=== PATIENT | female | born 1970 | race Caucasian/White ===

== ENCOUNTER 2023-03-09 20:49 | Emergency (ER) | payer BC, SELFPAY ==
[2023-03-09 20:52] VITALS: BP 118/76; PULSE 87; RESP 16; TEMP 36.3; O2SAT 99; BMI 32.9
[2023-03-09 21:38] LABS: Appearance Urine Slightly Cloudy (Clear); Bilirubin Urine Negative (Negative); Blood Urine 2+ (Negative); Color Urine Yellow (Yellow); Glucose Urine 2+ (Negative); Ketones Urine Negative (Negative); Leukocyte Esterase Urine 1+ (Negative); Nitrite Urine Positive (Negative); Protein Urine Negative (Negative); Urobilinogen Urine 0.2 (0.2-1.0)
--- NOTE | 2023-03-09 21:49 | ED.FEMALEGU ---
HPI - Female Genitourinary General Chief complaint: Urogenital Problems, Female Stated complaint: possible bladder infection Time Seen by Provider: 03/09/23 21:03 History of Present Illness HPI Narrative: Patient is a 52-year-old woman comes in today with urinary frequency and dysuria of 2 days duration. She did online visit and was started on xvui-bzy-dhaizkg azo. She has had minimal flank pain no nausea no vomiting no fevers no chills. She otherwise been feeling well with no signs of sepsis syndrome. She is not prone to urinary tract infections. She does not take anticoagulants and is not allergic to any medications. She does noted discoloration of her urine as well as the above-mentioned symptoms. Related Data Home Medications Medication Instructions Recorded Confirmed atorvastatin 10 mg tablet 10 mg PO DAILY 03/09/23 03/09/23 empagliflozin 10 mg tablet 10 mg PO DAILY 03/09/23 03/09/23 (Jardiance) gabapentin 300 mg capsule mg PO 03/09/23 metformin 1,000 mg tablet 1,000 mg PO BID 03/09/23 03/09/23 montelukast 10 mg tablet 10 mg PO DAILY 03/09/23 03/09/23 semaglutide 1 mg/dose (4 mg/3 mL) 1 mg subcut QWEEK 03/09/23 03/09/23 subcutaneous pen injector (Ozempic) Allergies Allergy/AdvReac Type Severity Reaction Status Date / Time No Known Drug Allergies Allergy Verified 03/09/23 20:58 Review of Systems Status of ROS: Reports: 10 or more systems reviewed and unremarkable except as noted in History and below Exam Narrative: Exam Narrative: EXAM GENERAL: Patient appears comfortable and well. EYES: No scleral icterus. LYMPH: No supraclavicular or cervical lymphadenopathy. SKIN: Visible skin seen during exam normal or with benign process only. EXT: No dependent lower extremity pedal edema. HEART: Regular rate and rhythm with no murmurs, rubs, or gallops. LUNGS: Clear to auscultation bilaterally with no crackles or wheezes. ABD: Soft, non tender, non distended. PSYCH: Good eye contact, speech is not pressured. Const: Vital Signs, click to edit/add: Vital Signs - 24 hr 03/09/23 20:52 Temperature 97.4 F L Pulse Rate [Pulse Oximeter] 87 Respiratory Rate 16 Blood Pressure [Ri ght Upper Arm] 118/76 Pulse Oximetry 99 Oxygen Delivery Me thod Room Air Course Course ED Course: Patient seen examined. I do note the abnormal UA including glucose and I do note that she is diabetic. Vital Signs Vital signs: Initial Vital Signs Temperature 97.4 F L 03/09/23 20:52 Temperature Source Temporal Artery Scan 03/09/23 20:52 Pulse Rate 87 03/09/23 20:52 Respiratory Rate 16 03/09/23 20:52 Blood Pressure 118/76 03/09/23 20:52 Blood Pressure Mean 90 03/09/23 20:52 Pulse Oximetry 99 03/09/23 20:52 Oxygen Delivery Method Room Air 03/09/23 20:52 Vital Signs Temperature 97.4 F L 03/09/23 20:52 Pulse Rate 87 03/09/23 20:52 Respiratory Rate 16 03/09/23 20:52 Blood Pressure 118/76 03/09/23 20:52 Pulse Oximetry 99 03/09/23 20:52 Oxygen Delivery Method Room Air 03/09/23 20:52 Temperature 97.4 F L 03/09/23 20:52 Pulse Rate 87 03/09/23 20:52 Respiratory Rate 16 03/09/23 20:52 Blood Pressure 118/76 03/09/23 20:52 Pulse Oximetry 99 03/09/23 20:52 Oxygen Delivery Method Room Air 03/09/23 20:52 MDM - Female Genitourinary MDM Narrative Medical decision making narrative: Patient is a 52-year-old woman who presents with dysuria and a normal physical exam and vital signs. She has obvious findings of UTI on her urine. I did treated with Bactrim Double Strength for the next 5 days and asked that she drink plenty fluids get plenty of rest and follow-up with her primary physician as needed. Differential Diagnosis Differential diagnosis: Likely urinary tract infection, bacterial vaginosis, trichomoniasis, vaginitis and cystitis Lab Data Labs: Lab Results 03/09/23 Range/Units Unknown Urine Color Yellow (Yellow) Urine Appearance Slightly Cloudy A (Clear) Urine pH 7.0 (5.0-8.5) Ur Specific [place] 1.010 (1.000-1.030) Urine Protein Negative (Negative) Urine Glucose (UA) 2+ A (Negative) Urine Ketones Negative (Negative) Urine Blood 2+ A (Negative) Urine Nitrite Positive A (Negative) Urine Bilirubin Negative (Negative) Urine Urobilinogen 0.2 (0.2-1.0) Ur Leukocyte Esterase 1+ A (Negative) Discharge Plan Discharge Clinical Impression: Urinary tract infection Patient Disposition: Home, Self-Care Condition: Stable Instructions: Urinary Tract Infection in Women (ED) Additional Instructions: Bactrim as directed Activity Level: No Restrictions Discharge Diet: Regular Prescriptions: No Action atorvastatin 10 mg tablet 10 mg PO DAILY metformin 1,000 mg tablet 1,000 mg PO BID gabapentin 300 mg capsule PO montelukast 10 mg tablet 10 mg PO DAILY Jardiance 10 mg tablet 10 mg PO DAILY Ozempic 1 mg/dose (4 mg/3 mL) pen injector 1 mg subcut QWEEK Stand Alone Forms: MyHealth Info Instructions
[2023-03-09 21:51] LABS: Bacteria Urine Few
--- OUTSIDE RECORDS SUMMARY | 2023-03-09 22:04 | XMS_ITS | Referral Summary ---
Author Name Unknown Organization [facility] Address [address] [place] [address] Care Team Providers Care Pre Press Manager Name Role Phone Unavailable Primary Care Provider Unavailabl e Source Comments Patient records contain information from all sites at [facility]. For routine questions regarding patient records, call [phone] during business hours, M-F 8:00 AM - 5:00 PM Central Time. Record requests for emergency care only can be directed to [phone] at any time.[facility] Allergies Active Allergy Reactions Criticality Noted Date Comments Adhesive Rash 09/04/2013 Tegaderm Adhesive Tape-Silicones Rash 04/29/2013 Animal Dander Other (see comments) 06/25/2017 Cats and dogs: sinus and respiratory symptoms Hydromorphone Itching 03/14/2018 Grass Pollen Other (see comments) 06/25/2017 Sinus and respiratory symptoms Lisinopril Other (see comments) 04/25/2018 Mold Other (see comments) 06/25/2017 Sinus and respiratory symptoms Mold Extracts Other (see comments) 09/04/2013 Sinus and Respiratory Tree And Shrub Pollen Other (see comments) 06/25/2017 [place] tree - sinus and respiratory symptoms Medications Medication Sig Dispensed Refills Start Date End Date Status ASPIRIN CHILDRENS ORAL Take 81 mg by mouth daily. 0 01/24/2016 Active BIOTIN ORAL Take 1 capsule by mouth daily. 0 01/17/2017 Active multivitamin capsule Take 1 tablet by mouth daily. 0 04/29/2013 Active Lactobac no.41/Bifidobact no.7 (PROBIOTIC-10 ORAL) Take 1 capsule by mouth daily. 0 04/29/2013 Active albuterol sulfate (VENTOLIN HFA INHL) Inhale 1 puff as needed. 0 06/06/2017 Active cholecalciferol (VITAMIN D3) 125 mcg (5,000 Unit) tablet Take 5,000 Units by mouth as directed. twice weekly on Sundays and Wednesdays 0 01/17/2017 Active blood sugar diagnostic strips Test 1 time daily 0 07/30/2016 Active mdknsrb-eyaygqgjl-jt nc tablet Take 500 mg by mouth daily. 2 tablets daily/1000 mg total 0 07/09/2017 Active lancets Use to test blood sugar 1 time per day. 0 01/10/2017 Active metFORMIN (GLUCOPHAGE) 1,000 mg tablet Take 1,000 mg by mouth 2 (two) times a day with meals. 0 07/25/2017 Active atorvastatin (LIPITOR) 10 mg tablet Take 10 mg by mouth daily. 0 10/17/2018 Active semaglutide 0.25 mg or 0.5 mg(2 mg/1.5 mL) pen injector Inject 0.5 mg under the skin every 7 (seven) days. 0 01/23/2019 Active cetirizine (ZyrTEC) 10 mg tablet Take 10 mg by mouth daily. 0 Active empagliflozin (JARDIANCE) 10 mg tablet Take 1 tablet by mouth daily. 0 08/12/2020 Active gabapentin (NEURONTIN) 300 mg capsule 300 mg 2 (two) times a day. 0 02/24/2021 Active miscellaneous medical supply [facility] [place] New CPAP machine for home use at pressure: 5-16 cmw , Heated humidifier x 1 q 5 yr, Humidifier chamber x 1 q 6 mo, Full face mask x1 q 3mos, with cushion x 1 q mo, Heated tubing x 1 q 3 mo, Headgear x 1 q 6 mo, Filters: Disposable x 2 q mo non-disposable filters x1 q 6mo, Length of Need: 99 months, Frequency of use: Daily 0 09/20/2020 Active estradioL (ESTRACE) 0.1 mg/g (0.01%) vaginal cream 0 06/01/2022 Active montelukast (SINGULAIR) 10 mg tablet Take 10 mg by mouth daily. 0 06/01/2022 Active Active Problems Problem Noted Date Diagnosed Date Diabetes Mellitus Type 2 03/20/2018 Asthma Mild Persistent 03/20/2018 Malignant Neoplasm Of Cervix 03/14/2018 Cancer Staging:Clinical: Unsigned Pathologic:FIGO Stage IB1(pT1b1, pN0, cM0) - Signed by Pancho Hendrickson M.D. 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 Cancer Staging:Clinical: Unsigned Embolus Pulmonary Personal History 08/24/2013 Sarcoma 04/29/2013 Immunizations Name Administration Dates Next Due HepB Adult 05/04/2010,09/13/2009,08/12/2009 Influenza (IM) Preservative Free 12/13/2011,11/11 Influenza Split 12/22/2015,11/11/2014,11/11/2013 Influenza, Seasonal, Injectable 11/03/2012 Influenza, Unspecified 10/25/2017,11/16/2016 MMR 06/04/2012 PPSV23 03/17/2014,07/12/2009 Td Preservative Free (TENIVAC, DECAVAC) 07/14/19 06 Tdap 06/18/2011 influenza high dose (65 year s or older) (PF) 12/22/2015,11/11/2014,11/11/2013 influenza vaccine quad (FLUZ ONE/FLUARIX) (6 months and older)(PF) 11/16/2016,11/15/2015 Social History Tobacco Use Types Packs/Day Years Used Date Smoking Tobacco: Former Cigarettes 5 1 - 12/26/1996 Smokeless Tobacco: Never Comments:smoked up to 1/2 pa ck per day maximum Alcohol Use Standard Drinks/Week Comments Yes 1 (1 standard drink = 0.6 oz pur e alcohol) Humiliation, Afraid, Rape, and Kick questionnair e Answer Date Recorded Within the last year, have y ou been afraid of your partner or ex-partner? No 06/09/2022 Within the last year, have y ou been humiliated or emotionally abused in other ways by your partner or ex-partner? No Within the last year, have y ou been kicked, hit, slapped, or otherwise physically hurt by your partner or ex-partner? No 06/09/2022 Within the last year, have y ou been raped or forced to have any kind of sexual activity by your partner or ex-partner? No 06/09/2022 Social Connection and Isolat ion Panel [NHANES] Answer Date Recorded In a typical week, how many times do you talk on the phone with family, friends, or neighbors? More than three times a week 06/09/2022 How often do you get togethe r with friends or relatives? Once a week 06/09/2022 How often do you attend chur or denominational services? 1 to 4 times per year 06/09/2022 Do you belong to any clubs o r organizations such as islam groups, unions, fraternal or athletic groups, or school groups? Yes 06/09/2022 How often do you attend meet ings of the clubs or organizations you belong to? More than 4 times per year 06/09/2022 Are you , , di vorced, , never , or living with a partner? 06/09/2022 AUDIT-C Answer Date Recorded Q1: How often do you have a drink containing alcohol? Monthly or less 06/09/2022 Q2: How many drinks containi ng alcohol do you have on a typical day when you are drinking? Patient does not drink Q3: How often do you have si x or more drinks on one occasion? Never 06/09/2022 Overall Financial Resource Strain (CARDIA) Answe r Date Recorded How hard is it for you to pa y for the very basics like food, housing, medical care, and heating? Not very hard 06/09/2022 [facility] Occupat ional Health - Occupational Stress Questionnaire Answer Date Recorded Do you feel stress - tense, restless, nervous, or anxious, or unable to sleep at night because your mind is troubled all the time - these days? Not at all 06/09/2022 Exercise Vital Sign Answer Date Recorde d On average, how many days pe r week do you engage in moderate to strenuous exercise (like a brisk walk)? 3 days 06/09/2022 On average, how many minutes do you engage in exercise at this level? 30 min 06/09/2022 Hunger Vital Sign Answer Date Recorded Within the past 12 months, y ou worried that your food would run out before you got the money to buy more. Never true 06/10/19 23 Within the past 12 months, t he food you bought just didn't last and you didn't have money to get more. Never true 06/09/2022 PRAPARE - Transportation Answer Date Re corded In the past 12 months, has l ack of transportation kept you from medical appointments or from getting medications? No 05/13 In the past 12 months, has l ack of transportation kept you from meetings, work, or from getting things needed for daily living? No 06/09/2022 Housing Stability Vital Sign Answer Shaun e Recorded In the last 12 months, was t here a time when you were not able to pay the mortgage or rent on time? No 06/09/2022 In the last 12 months, how many places have you lived? 1 06/09/2022 In the last 12 months, was t here a time when you did not have a steady place to sleep or slept in a fpc (including now)? No 06/09/2022 Nutrition Answer Date Recorded Nutrition: EVOO Fat Source Yes 06/09 On average, how many serving s of fruits and vegetables do you eat per day (serving size is equal to 1 cup or approximately the size of a tennis ball)? 4-5 06/09/2022 Dental Answer Date Recorded Dental: Regular Dentist Yes 06/10/19 Employment Answer Date Recorded Employment status Employed and actively working without restrictions 06/09/2022 Education Answer Date Recorded What is the highest level of school you have completed or the highest degree you have received? Associate degree: academic program 06/09/2022 Sex and Gender Information Value Date Recorded Sex Assigned at Female 02/16/2022 8:33 PM CONCRETE FINISHER Gender Identity Female 08/19/2017 10:59 PM CDT Sexual Orientation Straight 08/19/2017 10 :59 PM CDT Last Filed Vital Signs Vital Sign Reading Time Taken Comments Blood Pressure 99/66 03/28/2022 3:21 PM CONCRETE FINISHER Pulse 80 03/28/2022 3:21 PM CONCRETE FINISHER Temperature 36.6 ??C (97.9 ??F) 03/28/2022 3:21 PM CS T Respiratory Rate 16 03/28/2022 3:21 PM CONCRETE FINISHER Oxygen Saturation 98% 03/28/2022 3:21 PM CONCRETE FINISHER Inhaled Oxygen Concentration - - Weight 84.2 kg (185 lb 10 oz) 03/28/2022 3:21 PM CONCRETE FINISHER Height 157.8 cm (5' 2.13) 03/28/2022 3:21 PM CS T Body Mass Index 33.81 03/28/2022 3:21 PM CONCRETE FINISHER Plan of Treatment Upcoming Encounters Date Type Department Care Team (Latest Contact Info) Description 05/03/2023 9:45 AM CDT Clinical Communication Virtual Review in [address] [address] 05/07/2023 6:00 AM CDT Lab Department of Laboratory Medicine and Pathology, [address] [phone] Ana María Delcid P.A.-C., M.S. [address] [place] [phone] 05/07/2023 7:30 AM CDT Appointment Department of Radiology, [facility] in [address] [phone] Ana María Delcid P.A.-C., M.S. [address] [place] [phone] 05/07/2023 12:45 PM CDT Appointment Department of Radiology, [address] [phone] Ana María Delcid P.A.-C., M.S. [address] [place] [phone] 05/07/2023 3:40 PM CDT Office Visit Department of Oncology in [address] [phone] Ana María Delcid P.A.-C., M.S. [address] [place] [address] Medical Devices Implanted Type Area Catering Associate Device Identifier Shelf Expiration Date Model / Serial / Lot Clp Hrzn Ti 6 Clp Yeyo - [id number] Implanted:Qty: 1 on 03/24/2018 by Pancho Hendrickson M.D., M.S. at [facility] Hardware e.g. pins/screws/r ods [employer] [id number] / / Explanted Type Area Catering Associate Device Identifier Shelf Expiration Date Model / Serial / Lot Conversions - Default Historical Implant Device Implanted:02/09 (Quantity not on file) Implanted Port Single Lumen Chest Description:Device Status Te xt - IVAD/Port. Advance Directives For more information, please contact: [phone] Documents on File Type Date Recorded Patient Software Development Leader Expl anation Advance Directives 08/27/2013 12:00 AM Leg acy document. See document viewer. Latest Code Status on File Code Status Date Activated Date Inactivated Comments Full Code 03/24/2018 11:48 PM 03/26/2018 4:39 PM Question Answer Comments Full Code: Discussed Code Status History Code Status Date Activated Date Inactivated Comments Full Code 03/24/2018 10:13 AM 03/24/2018 11:48 PM Question Answer Comments Full Code: Discussed
--- OUTSIDE RECORDS SUMMARY | 2023-03-09 22:04 | XMS_ITS | Encounter Summary ---
Author Name Unknown Organization [facility] Address [address] [place] [address] Care Team Providers Care W[facility] Consultant Name Role Phone Unavailable Primary Care Provider Unavailabl e Encounter Details Date Type Department Care Team (Latest Contact Info) Description 05/15/2022 Clinical Communication Section of Preventive, Transportation and Occupational Medicine in [place], [place] [address] [place] [address] Latia Griffin, M.S. Social History Tobacco Use Types Packs/Day Years Used Date Smoking Tobacco: Former Cigarettes 5 1 - 12/26/1996 Smokeless Tobacco: Never Comments:smoked up to 1/2 pa ck per day maximum Alcohol Use Standard Drinks/Week Comments Yes 0 (1 standard drink = 0.6 oz pur e alcohol) Nutrition Answer Date Recorded Nutrition: EVOO Fat Source Unknown 04/15 Nutrition: Servings of Fruits/Vegetables per Day Not on file 04/15/2020 Dental Answer Date Recorded Dental: Regular Dentist Unknown 04/16/19 21 Sex and Gender Information Value Date Recorded Sex Assigned at Female 02/16/2022 8:33 PM INSURANCE PROFESSIONAL Gender Identity Female 08/19/2017 10:59 PM CDT Sexual Orientation Straight 08/19/2017 10 :59 PM CDT documented as of this encounter Miscellaneous Notes * Telephone Encounter - Latia Griffin, M.S. - 05/15/2022 2:59 PM CDT Lary has consented to participate in the RETAIN: Retaining Employment and [place] [employer] Research program. She has been assigned a Dejrea-oq-Qqyz Forms Designer to help facilitateher staying at/returning to work as soon as it is medically safe. This may include working with thepatient and their employer to accommodate modified work until she is fully released to return to her regular job.? As the assigned Evuosi-he-Kxko Forms Designer, I will continue to communicate with Lary, her employer [employer] and her clinical care team. If members of the care team have any questions, please feel free to reach out to me or the RETAIN team by sending a message via [employer]er[employer] to RST PVM SARAH NOEL. documented in this encounter Plan of Treatment Upcoming Encounters Date Type Department Care Team (Latest Contact Info) Description 05/03/2023 9:45 AM CDT Clinical Communication Virtual Review in [address] [address] 05/07/2023 6:00 AM CDT Lab Department of Laboratory Medicine and Pathology, [address] [phone] Ana María Delcid P.A.-C., M.S. [address] [place] [phone] 05/07/2023 7:30 AM CDT Appointment Department of Radiology, [address] [phone] Ana María Delcid P.A.-C., M.S. [address] [place] [phone] 05/07/2023 12:45 PM CDT Appointment Department of Radiology, [address] [phone] Ana María Delcid P.A.-C., M.S. [address] [place] [phone] 05/07/2023 3:40 PM CDT Office Visit Department of Oncology in [place], [place] [address] [place] [phone] Ana María Delcid P.A.-C., M.S. [address] [place] [phone] documented as of this encounter Visit Diagnoses Not on filedocumented in this encounter
--- OUTSIDE RECORDS SUMMARY | 2023-03-09 22:04 | XMS_ITS | Encounter Summary ---
Author Name Unknown Organization [facility] Address [address] [place] [address] Care Team Providers Care Microwave Technician Name Role Phone Unavailable Primary Care Provider Unavailabl e Encounter Details Date Type Department Care Team (Latest Contact Info) Description 06/12/2022 6:59 AM CDT - 06/12/2022 11:59 PM CDT Hospital Encounter Department of Laboratory Medicine and Pathology, [facility] in [place], [place] [address] [place] [phone] Ana María Delcid, P.Neymar.-C., M.S. [address] [place] [phone] Fibrosarcoma (HCC); Diabetes Mellitus Type 2 (HCC) Discharge Disposition: Home or Self Care Social History Tobacco Use Types Packs/Day Years [...] How often do you attend chur or nondenominational services? 1 to 4 times per year 06/09/2022 Do you belong to any clubs o r organizations such as advent groups, unions, fraternal or athletic groups, or [...] care, and heating? Not very hard 06/09/2022 [facility] [place] of Occupat ional Health - Occupational Stress [...] place to sleep or slept in a care home (including now)? No 06/09/2022 Nutrition Answer Date [...] Sex Assigned at Female 02/16/2022 8:33 PM RADIOTELEGRAPHER Gender Identity Female 08/19/2017 10:59 PM CDT Sexual Orientation Straight 08/19/2017 10 :59 PM CDT documented as of this encounter Medications at Time of Discharge Medication Sig Dispensed Refills Start Date End Date albuterol sulfate (VENTOLIN HFA INHL) Inhale 1 puff as needed. 0 06/06/2017 ASPIRIN CHILDRENS ORAL Take 81 mg by mouth daily. 0 01/24/2016 atorvastatin (LIPITOR) 10 mg tablet Take 10 mg by mouth daily. 0 10/17/2018 BIOTIN ORAL Take 1 capsule by mouth daily. 0 01/17/2017 blood sugar diagnostic strips Test 1 time daily 0 07/30/2016 whrgdki-gpftbiifd-xqwm tablet Take 500 mg by mouth daily. 2 tablets daily/1000 mg total 0 07/09/2017 cetirizine (ZyrTEC) 10 mg tablet Take 10 mg by mouth daily. 0 cholecalciferol (VITAMIN D3) 125 mcg (5,000 Unit) tablet Take 5,000 Units by mouth as directed. twice weekly on Sundays and Wednesdays 0 01/17/2017 empagliflozin (JARDIANCE) 10 mg tablet Take 1 tablet by mouth daily. 0 08/12/2020 estradioL (ESTRACE) 0.1 mg/g (0.01%) vaginal cream 0 06/01/2022 gabapentin (NEURONTIN) 300 mg capsule 300 mg 2 (two) times a day. 0 02/24/2021 Lactobac no.41/Bifidobact no.7 (PROBIOTIC-10 ORAL) Take 1 capsule by mouth daily. 0 04/29/2013 lancets Use to test blood sugar 1 time per day. 0 01/10/2017 metFORMIN (GLUCOPHAGE) 1,000 mg tablet Take 1,000 mg by mouth 2 (two) times a day with meals. 0 07/25/2017 miscellaneous medical supply [facility] New CPAP machine for home use at [...] months, Frequency of use: Daily 0 09/20/2020 montelukast (SINGULAIR) 10 mg tablet Take 10 mg by mouth daily. 0 06/01/2022 multivitamin capsule Take 1 tablet by mouth daily. 0 04/29/2013 semaglutide 0.25 mg or 0.5 mg(2 mg/1.5 mL) pen injector Inject 0.5 mg under the skin every 7 (seven) days. 0 01/23/2019 documented as of this encounter Plan of Treatment Upcoming Encounters Date Type Department Care Team (Latest Contact Info) Description 05/03/2023 9:45 AM CDT Clinical Communication Virtual Review in [address] [address] 05/07/2023 6:00 AM CDT Lab Department of Laboratory Medicine and Pathology, [address] [phone] Ana María Delcid P.A.-C., M.S. [address] [place] [phone] 05/07/2023 7:30 AM CDT Appointment Department of Radiology, [facility] in [address] [phone] Ana María Delcid P.A.-C., M.S. [address] [place] [phone] 05/07/2023 12:45 PM CDT Appointment Department of Radiology, [address] [phone] Ana María Delcid P.A.-C., M.S. [address] [place] [phone] 05/07/2023 3:40 PM CDT Office Visit Department of Oncology in [address] [phone] Ana María Delcid P.A.-C., M.S. [address] [place] [phone] documented as of this encounter Procedures Procedure Name Priority Date/Time Associated Diagnosis Comments HEMOGLOBIN A1C, B Routine 06/12/2022 7:2 8 AM CDT Fibrosarcoma (HCC) Diabetes Mellitus Type 2 (HCC) documented in this encounter Results * (ABNORMAL) Hemoglobin A1c (06/12/2022 7:28 AM CDT) Hemoglobin A1c, B 7.9(H) 4.0 - 5.6 % 06/12/2022 9:09 AM CDT DTL Comment: Hemoglobin A1c values greater than or equal to 6.5 percent are diagnostic for diabetes mellitus. ??Diagnosis should be confirmed by repeat testing. ??In diabetic patients, HbA1c goals should be discussed with healthcare provider. Blood (Blood, Venous) 06/12/2022 7:28 AM CDT 06/12/2022 7:53 AM CDT Ana María Delcid P.A.-C., M.S. LAB BLOOD ADD -ON [facility] [address] [place] [address], [facility] DTL [facility] [address] [place] [address] documented in this encounter Visit Diagnoses Diagnosis Fibrosarcoma (HCC) Diabetes Mellitus Type 2 (HCC) documented in this encounter
--- OUTSIDE RECORDS SUMMARY | 2023-03-09 22:04 | XMS_ITS | Encounter Summary ---
Author Name Unknown Organization [facility] Address [address] [place] [address] Care Team Providers Care Computer Network And Systems Engineer Name Role Phone Unavailable Primary Care Provider Unavailabl e Encounter Details Date Type Department Care Team (Late st Contact Info) Description 05/15/2022 Episode Changes Section of Preventive, Transportation and Occupational Medicine in [place], [place] [address] [place] [phone] Latia Griffin, M.S. Social History Tobacco Use [...] Sex Assigned at Female 02/16/2022 8:33 PM INTERVENTION ANALYST Gender Identity Female 08/19/2017 10:59 PM CDT Sexual Orientation Straight 08/19/2017 10 :59 PM CDT documented as of this encounter Plan of Treatment Upcoming Encounters Date Type Department Care Team (Latest Contact Info) Description 05/03/2023 9:45 AM CDT Clinical Communication Virtual Review in [place], [place] 200 [place] [address] 05/07/2023 6:00 AM CDT Lab Department of Laboratory Medicine and Pathology, [facility] in [address] [phone] Ana María Delcid P.A.-C., M.S. [address] [place] [phone] 05/07/2023 7:30 AM CDT Appointment Department of Radiology, [facility] in [place], [place] [address] [place] [phone] Ana María Delcid P.A.-C., M.S. [address] [place] [phone] 05/07/2023 12:45 PM CDT Appointment Department of Radiology, [facility] in [address] [phone] Ana María Delcid P.A.-C., M.S. [address] [place] [phone] 05/07/2023 3:40 PM CDT Office Visit Department of Oncology in [address] [phone] Ana María Delcid P.A.-C., M.S. [address] [place] [phone] documented as of this encounter Visit Diagnoses Not on filedocumented in this encounter
--- OUTSIDE RECORDS SUMMARY | 2023-03-09 22:04 | XMS_ITS | Encounter Summary ---
Author Name Unknown Organization [facility] Address [address] [place] [address] Care Team Providers Care Laborer Pipeline Name Role Phone Unavailable Primary Care Provider Unavailabl e Reason for Referral * MRI/CAT/PET Scan (Routine) - Closed Specialty Diagnoses / Procedures Referred By Contac t Referred To Contact Radiology Diagnoses Fibrosarcoma (HCC) Procedures CT Chest without IV Contrast Ana María Delcid P.A.-C., M.S. [address] [place] [phone] [facility] Referral ID Status Reason Start Date Expiration Date Visits Re quested Visits Authorized [id number] Closed 03/01/2022 03/01/2023 1 1 ND WATER CONTRACTOR Reason for Visit * MRI/CAT/PET Scan (Routine) - Closed Specialty Diagnoses / Procedures Referred By Contac t Referred To Contact Radiology Diagnoses Fibrosarcoma (HCC) Procedures CT Chest without IV Contrast Ana María Delcid P.A.-C., M.S. [address] [place] [phone] [facility] Referral ID Status Reason Start Date Expiration Date Visits Re quested Visits Authorized [id number] Closed 03/01/2022 03/01/2023 1 1 Encounter Details Date Type Department Care Team (Latest Contact Info) Description 03/28/2022 9:32 AM GROUND WATER CONTRACTOR - 03/28/2022 10:52 AM GROUND WATER CONTRACTOR Hospital Encounter Department of Radiology, [facility], in [place], [place] [address] [place] [address] Ana María Delcid P.A.-C., M.S. [address] [place] [address] Fibrosarcoma (HCC) Discharge Disposition: Home or Self Care [...] Sex Assigned at Female 02/16/2022 8:33 PM GROUND WATER CONTRACTOR Gender Identity Female 08/19/2017 10:59 PM CDT [...] strips Test 1 time daily 0 07/30/2016 savusom-zrsqhaaph-yahj tablet Take 500 mg by mouth daily. 2 tablets daily/1000 mg total 0 07/09/2017 cetirizine (ZyrTEC) 10 mg tablet Take 10 mg by mouth daily. 0 cholecalciferol (VITAMIN D3) 125 mcg (5,000 Unit) tablet Take 5,000 Units by mouth as directed. twice weekly on Sundays and Wednesdays 0 01/17/2017 empagliflozin (JARDIANCE) 10 mg tablet Take 1 tablet by mouth daily. 0 08/12/2020 gabapentin (NEURONTIN) 300 mg capsule 300 mg 2 (two) times a day. 0 02/24/2021 Lactobac no.41/Bifidobact no.7 (PROBIOTIC-10 ORAL) Take 1 capsule by mouth daily. 0 04/29/2013 lancets Use to test blood sugar 1 time per day. 0 01/10/2017 metFORMIN (GLUCOPHAGE) 1,000 mg tablet Take 1,000 mg by mouth 2 (two) times a day with meals. 0 07/25/2017 miscellaneous medical supply [facility] New CPAP machine for home use at [...] months, Frequency of use: Daily 0 09/20/2020 multivitamin capsule Take 1 tablet by mouth daily. 0 04/29/2013 semaglutide 0.25 mg or 0.5 mg(2 mg/1.5 mL) pen injector Inject 0.5 mg under the skin every 7 (seven) days. 0 01/23/2019 documented as of this encounter Plan of Treatment Upcoming Encounters Date Type Department Care Team (Latest Contact Info) Description 05/03/2023 9:45 AM CDT Clinical Communication Virtual Review in [address] [address] 05/07/2023 6:00 AM CDT Lab Department of Laboratory Medicine and Pathology, [address] [phone] Ana María Delcid P.A.-C., M.S. [address] [place] [phone] 05/07/2023 7:30 AM CDT Appointment Department of Radiology, [address] [phone] Ana María Delcid P.A.-C., M.S. [address] [place] [phone] 05/07/2023 12:45 PM CDT Appointment Department of Radiology, [facility], in [place], [place] [address] [place] [phone] Ana María Delcid P.A.-C., M.S. [address] [place] [phone] 05/07/2023 3:40 PM CDT Office Visit Department of Oncology in [place], [place] [address] [place] [phone] Ana María Delcid P.A.-C., M.S. [address] [place] [phone] documented as of this encounter Procedures Procedure Name Priority Date/Time Associated Diagnosis Comments CT CHEST WITHOUT IV CONTRAST RAD - Routine (most inpatients and all outpatients) 03/28/2022 11:12 AM GROUND WATER CONTRACTOR Fibrosarcoma (HCC) documented in this encounter Results * CT Chest without IV Contrast (03/28/2022 11:12 AM GROUND WATER CONTRACTOR) Anatomical Region Laterality Modality Chest, Thoracic RST LOS, Tho racic ARZ LOS, Thoracic FLA LOS N/A Computed Tomography, Compute d Tomography 03/28/2022 11:0 0 AM GROUND WATER CONTRACTOR Impressions 03/28/2022 11:07 AM GROUND WATER CONTRACTOR No evidence of thoracic metastatic disease. Narrative 03/28/2022 11:07 AM GROUND WATER CONTRACTOR EXAM: CT CHEST WITHOUT IV CONTRAST COMPARISON: 01/24/2021 FINDINGS: No new or increasing pulmonary nodules suspicious for new metastatic disease. Stable postoperative changes of a left thoracotomy and wedge resection of the left upper lobe. Associated mild scarring along the surgical site. Stable slight herniation of a portion of the lingula and to the left inferior/lateral chest wall. No lymphadenopathy. No change in diffuse hepatic steatosis splenules. 3D maximum intensity projection (MIP) images were created on a dependent workstation as ordered by the treating provider and reviewed by the radiologist to increase sensitivity for detection of pulmonary nodules. Procedure Note Teja Emmanuel M.D. - 03/28/2022 EXAM: CT CHEST WITHOUT IV CONTRAST COMPARISON: 01/24/2021 FINDINGS: No new or increasing pulmonary nodules suspicious for new metastaticdisease. Stable postoperative changes of a left thoracotomy and wedge resection of the left upper lobe.Associated mild scarring along the surgical site. Stable slight herniation of a portion of thelingula and to the left inferior/lateral chest wall. No lymphadenopathy. No change in diffuse hepatic steatosis splenules. 3D maximum intensity projection (MIP) images were created on a dependentworkstation as ordered by the treating provider and reviewed by the radiologist to increasesensitivity for detection of pulmonary nodules. IMPRESSION: No evidence of thoracic metastatic disease. Ana María Delcid P.A.-C., M.S. IMG CT PROCED URES documented in this encounter Visit Diagnoses Diagnosis Fibrosarcoma (HCC) documented in this encounter
--- OUTSIDE RECORDS SUMMARY | 2023-03-09 22:04 | XMS_ITS | Encounter Summary ---
Author Name Unknown Organization [facility] Address [address] [place] [address] Care Team Providers Care Robot Programmer Name Role Phone Unavailable Primary Care Provider Unavailabl e Reason for Referral * Physical Therapy (Routine) - Closed Specialty Diagnoses / Procedures Referred By Chuy t Referred To Contact Diagnoses Fibrosarcoma (HCC) Pain Hip Left Procedures PT or OT eval and treat (first available) Tank Mccord M.D. 200 [place] [address] [facility] Referral ID Status Reason Start Date Expiration Date Visits Re quested Visits Authorized [id number] Closed 06/12/2022 06/12/2023 1 1 * Outpatient (Routine) - Authorized Specialty Diagnoses / Procedures Referred By Chuy t Referred To Contact Plastic Surgery Diagnoses Fibrosarcoma (HCC) Pain Hip Left Tank Mccord M.D. 200 [place] [phone] [facility] Referral ID Status Reason Start Date Expiration Date V isits Requested Visits Authorized [id number] Authorized 06/12/2022 06/12/2023 1 1 Scheduling Instructions Sharaf first available Referred by Dr. Garcia Reason for Visit * Outpatient (Routine) - Closed Specialty Diagnoses / Procedures Referred By Contac t Referred To Contact Plastic Surgery Diagnoses Fibrosarcoma (HCC) Pain Hip Left Bhavin, Ana María E, P.A.-C., M.S. [address] [place] [address] [facility] Referral ID Status Reason Start Date Expiration Date Visits Re quested Visits Authorized [id number] Closed 04/08/2022 04/08/2023 1 1 Encounter Details Date Type Department Care Team (Latest Contact Info) Description 06/12/2022 8:00 AM CDT Comprehensive Visit Division of Plastic Surgery in [place], [place] [address] [place] [phone] Srinivasan Garcia M.D. [address] [place] [phone] Fibrosarcoma (HCC); Pain Hip Left Social History Tobacco Use Types Packs/Day Years [...] 06/09/2022 How often do you attend chur ch or advent services? 1 to 4 times per year 06/09/2022 Do you belong to any clubs o r organizations such as cheondoism groups, unions, fraternal or athletic groups, or [...] care, and heating? Not very hard 06/09/2022 [facility] of Occupat ional Health - Occupational Stress [...] place to sleep or slept in a half-way (including now)? No 06/09/2022 Nutrition Answer Date [...] Sex Assigned at Female 02/16/2022 8:33 PM FINISHING TECHNICIAN Gender Identity Female 08/19/2017 10:59 PM CDT Sexual Orientation Straight 08/19/2017 10 :59 PM CDT documented as of this encounter Consult Notes * Tank Mccord M.D. - 06/12/2022 8:00 AM CDT SUBJECTIVE REASON FOR CONSULT L buttock discomfort HISTORY OF PRESENT ILLNESS Gloria Kwan is a 51 y.o. 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 Terrazas. This was followed by adjuvant radiation therapy. She has a notable contour deformity in the area. She also feels tightness of the posterior muscles. Her chief complaint is that she has discomfort along the left ischial tuberosity due the lack ofsoft tissue coverage that causes discomfort with long periods of sitting. She has tried a standard seat cushion without much benefit. Medical history is notable for diabetes with an A1c of 7.6 on 02/20/2022. She currently takes Jardiance, semaglutide, and metformin. 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 No exposure to tobacco products. OBJECTIVE PHYSICAL EXAMINATION On exam there is a notable contour deformity and asymmetry of the left thigh. The posterior thigh is more concave in appearance. There is a paucity of soft tissue over the ischial tuberosity. There is some telangiectasia from the radiation therapy but the skin is fairly soft and supple. ASSESSMENT / PLAN We discussed management options for her discomfort. We discussed the possibility of fat transfer tothe area to address the asymmetry and to provide more soft tissue padding. We discussed the difficulty and unpredictability of fat grafting in the lower extremities and in the setting of adjuvant radiation therapy. However it may be a reasonable option. We will refer to [address] Garcia's partners, Dr. Davidson, for evaluation for fat grafting as he does this operation more frequently. In the interimwe will refer her to the seating clinic for seat mapping and consideration of custom orthosis fabrication to relieve the pressure. Questions were invited and answered. She was evaluated with Dr. Garcia. Tank Mccord M.D. documented in this encounter Plan of Treatment Upcoming Encounters Date Type Department Care Team (Latest Contact Info) Description 05/03/2023 9:45 AM CDT Clinical Communication Virtual Review in [address] [address] 05/07/2023 6:00 AM CDT Lab Department of Laboratory Medicine and Pathology, [address] [phone] Ana María Delcid P.A.-C., M.S. [address] [place] [phone] 05/07/2023 7:30 AM CDT Appointment Department of Radiology, [address] [phone] Ana María Delcid P.A.-C., M.S. [address] [place] [phone] 05/07/2023 12:45 PM CDT Appointment Department of Radiology, [facility], in [place], [place] [address] [place] [phone] Ana María Delcid P.A.-C., M.S. [address] [place] [phone] 05/07/2023 3:40 PM CDT Office Visit Department of Oncology in [place], [place] [address] [place] [phone] Ana María Delcid P.A.-C., M.S. [address] [place] [phone] Scheduled Referrals Name Type Priority Associated Diagnoses Orde r Schedule Plastic Surgery - General consult (clinic) Outpatient Referral Routine Fibrosarcoma (HCC) Pain Hip Left Expected: 06/12/2022 (Approximate), Expires: 09/13/2023 documented as of this encounter Visit Diagnoses Diagnosis Fibrosarcoma (HCC) Pain Hip Left documented in this encounter
--- OUTSIDE RECORDS SUMMARY | 2023-03-09 22:04 | XMS_ITS | Encounter Summary ---
Author Name Unknown Organization [facility] Address [address] [place] [address] Care Team Providers Care Theatre Director Name Role Phone Unavailable Primary Care Provider Unavailabl e Reason for Visit * Reason Onset Date Comments Pre-visit Intake 06/11/2022 Encounter Details Date Type Department Care Team (Latest Contact Info) Description 06/11/2022 10:00 AM CDT Clinical Communication Virtual Review in [place], [place] 200 [place] [address] Pre-visit Intake Social History Tobacco Use Types Packs/Day Years [...] often do you attend chur ch or congregational services? 1 to 4 times per year 06/09/2022 Do you belong to any clubs o r organizations such as adventist groups, unions, fraternal or athletic groups, or [...] care, and heating? Not very hard 06/09/2022 [facility] - [facility] Questionnaire Answer [...] place to sleep or slept in a [facility] (including now)? 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 [address] [place] [phone] 05/07/2023 7:30 AM CDT Appointment Department of Radiology, [facility] in [place], [place] [address] [place] [phone] Ana María Delcid P.A.-C., M.S. [address] [place] [phone] 05/07/2023 12:45 PM CDT Appointment Department of Radiology, [facility], in [place], [place] [address] [place] [phone] Ana María Delcid P.A.-C., M.S. [address] [place] [phone] 05/07/2023 3:40 PM CDT Office Visit Department of Oncology in [address] [phone] Ana María Delcid P.A.-C., M.S. [address] [place] [phone] documented as of this encounter Visit Diagnoses Not on filedocumented in this encounter
--- OUTSIDE RECORDS SUMMARY | 2023-03-09 22:04 | XMS_ITS | Encounter Summary ---
Author Name Unknown Organization [facility] Address [address] [place] [address] Care Team Providers Care Honeycomb Blanket Maker Name Role Phone Unavailable Primary Care Provider Unavailabl e Reason for Referral * MRI/CAT/PET Scan (Routine) - Closed Specialty Diagnoses / Procedures Referred By Contac t Referred To Contact Radiology Diagnoses Fibrosarcoma (HCC) Procedures MR Femur Left without and with IV Contrast Ana María Delcid P.A.-C., M.S. [address] [place] [phone] [facility] Referral ID Status Reason Start Date Expiration Date Visits Re quested Visits Authorized [id number] Closed 03/01/2022 03/01/2023 1 1 TIONS EXECUTIVE CLOUD SALES Reason for Visit * MRI/CAT/PET Scan (Routine) - Closed Specialty Diagnoses / Procedures Referred By Contac t Referred To Contact Radiology Diagnoses Fibrosarcoma (HCC) Procedures MR Femur Left without and with IV Contrast Ana María Delcid P.A.-C., M.S. [address] [place] [phone] [facility] Referral ID Status Reason Start Date Expiration Date Visits Re quested Visits Authorized [id number] Closed 03/01/2022 03/01/2023 1 1 Encounter Details Date Type Department Care Team (Latest Contact Info) Description 03/28/2022 10:53 AM SOLUTIONS EXECUTIVE CLOUD SALES - 03/28/2022 11:59 PM SOLUTIONS EXECUTIVE CLOUD SALES Hospital Encounter Department of Radiology, [facility], in [place], [place] [address] [place] [phone] Ana María Delcid P.A.-C., M.S. [address] [place] [phone] Fibrosarcoma (HCC) Discharge Disposition: Home or Self [...] Sex Assigned at Female 02/16/2022 8:33 PM SOLUTIONS EXECUTIVE CLOUD SALES Gender Identity Female 08/19/2017 10:59 PM CDT [...] strips Test 1 time daily 0 07/30/2016 qjqothl-pqdxbjwaz-sgio tablet Take 500 mg by mouth daily. [...] with meals. 0 07/25/2017 miscellaneous medical supply [facility] New CPAP machine for home use at [...] AM CDT Clinical Communication Virtual Review in [address] [address] 05/07/2023 6:00 AM CDT Lab Department of Laboratory Medicine and Pathology, [address] [phone] Ana María Delcid PMalvin.-C., M.S. [address] [place] [phone] 05/07/2023 7:30 AM CDT Appointment Department of Radiology, [address] [phone] Ana María Delcid P.A.-C., M.S. [address] [place] [phone] 05/07/2023 12:45 PM CDT Appointment Department of Radiology, [facility], in [place], [place] [address] [place] [address] Ana María Delcid P.A.-C., M.S. [address] [place] [phone] 05/07/2023 3:40 PM CDT Office Visit Department of Oncology in [place], [place] [address] [place] [phone] Ana María Delcid P.A.-C., M.S. [address] [place] [phone] documented as of this encounter Procedures Procedure Name Priority Date/Time Associated Diagnosis Comments MR FEMUR LEFT WITHOUT AND WITH IV CONTRAST RAD - Routine (most inpatients and all outpatients) 03/28/2022 12:20 PM SOLUTIONS EXECUTIVE CLOUD SALES Fibrosarcoma (HCC) documented in this encounter Results * MR Femur Left without and with IV Contrast (03/28/2022 12:20 PM SOLUTIONS EXECUTIVE CLOUD SALES) Anatomical Region Laterality Modality Lower Extremity, Femur, Musc uloskeletal RST LOS, Musculoskeletal ARZ LOS, Muskuloskeletal FLA LOS Left Magne tic Resonance 03/28/2022 12:2 8 PM SOLUTIONS EXECUTIVE CLOUD SALES Impressions 03/28/2022 12:59 PM SOLUTIONS EXECUTIVE CLOUD SALES No suggestion of recurrent tumor in the left thigh. Narrative 03/28/2022 12:59 PM SOLUTIONS EXECUTIVE CLOUD SALES EXAM: ??MR FEMUR LEFT WITHOUT AND WITH IV CONTRAST COMPARISON: ??MRI dated 01/24/2021, 01/22/2020, 05/19/2014, 11/11/2013, and 04/13/2013. FINDINGS: ??Change of wide margin resection of high-grade myxofibroma from the posterior and adductor compartments in 2014 status post chemotherapy therapy and radiation therapy. Architectural distortion in the postoperative bed again seen with unchanged, with small marginal edema. Some increased scarring along the margin of fat in the postoperative bed. No suggestion of increased mass lesion or abnormal enhancement. Osseous marrow signal normal. No adenopathy. Small increased T2 signal within the proximal sciatic nerve This has not increased. Small edema in the margin of the adjacent musculature has diminished since 01/24/2021. No abnormal enhancement or new mass lesion. Procedure Note Clovis Mcdowell M.D. - 03/28/2022 EXAM: MR FEMUR LEFT WITHOUT AND WITH IV CONTRAST COMPARISON: MRI dated 01/24/2021, 01/22/2020, 05/19/2014, 11/11/2013, and04/13/2013. FINDINGS: Change of wide margin resection of high-grade myxofibroma fromthe posterior and adductor compartments in 2014 status post chemotherapy therapy and radiationtherapy. Architectural distortion in the postoperative bed again seen withunchanged, with small marginal edema. Some increased scarring along the margin of fat in thepostoperative bed. No suggestion of increased mass lesion or abnormal enhancement. Osseous marrow signal normal. No adenopathy. Small increased T2 signalwithin the proximal sciatic nerve This has not increased. Small edema in the margin of the adjacentmusculature has diminished since 01/24/2021. No abnormal enhancement or new mass lesion. IMPRESSION: No suggestion of recurrent tumor in the left thigh. Ana María Delcid P.A.-C., M.S. IMG MANA WHITE documented in this encounter Visit Diagnoses Diagnosis Fibrosarcoma (HCC) documented in this encounter Administered Medications Inactive Administered Medications - up to 3 most recent administrations Medication Order MAR Action Action Date Dose Rate Site gadobutrol injection 0.01-30 mL (GADAVIST) 0.01-30 mL, intravenous, Once in imaging, contrast, Starting on Sat03/28/22 at 1209, For 1 dose, Imaging Protocol Orders, Dose per Radiant Medication Guidelines Intrathecal doses greater than 0.25 mL not recommended. Given 03/28/2022 12:09 PM SOLUTIONS EXECUTIVE CLOUD SALES 9 mL documented in this encounter
--- OUTSIDE RECORDS SUMMARY | 2023-03-09 22:04 | XMS_ITS | Clinical Summary ---
Author Name Unknown Organization [facility] Address [address] [place] [address] Care Team Providers Care Railroad Engineer Name Role Phone Unavailable Primary Care Provider Unavailabl e Source Comments Patient records contain information from all sites at [facility]. For routine questions regarding patient records, call [phone] during business hours, M-F 8:00 AM - 5:00 PM Central Time. Record requests for emergency care only can be directed to [phone] at any time.[facility] Allergies Active Allergy Reactions Criticality Noted Date [...] And Shrub Pollen Other (see comments) 06/25/2017 Davis tree - sinus and respiratory symptoms Medications [...] Test 1 time daily 0 07/30/2016 Active hpklzmn-nxoxdncwv-uo nc tablet Take 500 mg by mouth [...] day. 0 02/24/2021 Active miscellaneous medical supply [facility] [place] New CPAP machine for [...] Overview: Added automatically from request for surgery [id number] Pain Knee Left 08/20/2017 Pain Thigh Left [...] (FLUZ ONE/FLUARIX) (6 months and older)(PF) 11/16/2016,11/15/2015 Family History Medical History Relation Name Comments Alcohol abuse Brother Pérez Anthony Age 16-prese nt Drug abuse Brother Pérez ArevaloDara Age 16-presen t Psychiatric Brother Pérez Anthony Paranoid Schitzophrenic, bipolar Suicide Attempts Brother Pérez Anthony numerous attempts 1979' Alcohol abuse Father Jason ArevaloDara Age 20-55 Arthritis Father Jasoncayden Rameshor 65 Osteoarth ritis Coronary artery disease Father Jason Anthony J an 2018 quadruple bypass, CAD Diabetes Father Jason Gadielor 45 Hyperlipidemia Father Jason Gadielor 40 Hypertension Father Jason Gadielor 40 Melanoma Father Jason Gadielor 76 Obesity Father Jason Arevalo'Oscar Skin cancer Father Jason Arevalo'Oscar 74 Alcohol abuse Father's Brother Sunny Arevalo'Oscar Lifelon g Dementia Father's Brother Sunny Cruz 201 8 Diabetes Father's Brother Sunny Cruz Diabetes Father's Sister 1 Puja Nolasco Obesity Father's Sister 1 Puja Nolasco Arthritis Father's Sister 2 Wendi Gutierrez 60 - rare deteriorating arthritis Diabetes Father's Sister 2 Wendi Gutierrez Obesity Father's Sister 2 Wendi Gutierrez lifelong Alcohol abuse Maternal Grandfather Keaton Molina Life long Dementia Maternal Grandmother Yanira Molina 78 Alcohol abuse Mother Nicole Arevalo'Oscar Age 20-50 Obesity Mother Nicole O'Oscar Psychiatric Mother Nicole Arevalo'Oscar Bipolar Thyroid disease Mother iNcole Arevalo'Oscar 50 - Hypo Lung cancer Mother's Sister Nikia Lee 50 - life long smoker Other cancer Mother's Sister Nikia Lee Cervical Alcohol abuse Paternal Grandfather Jan Mickey'Oscar Life long Obesity Paternal Grandfather Jan Arevalo'Oscar lifel lilibeth Diabetes Paternal Grandmother Marzena Alcantar at 50 from complications of diabetes Gestational diabetes Paternal Grandmother Jg greenwood O'Darin 1937 Obesity Paternal Grandmother Marzena Arevalo'Darin lifelong Other cancer Sister King Shahid Cervical Age 18 Rheum arthritis Sister King Shahid 50 Suicide Attempts Sister King Shahid Attempte d 1982 Thyroid cancer Sister King Shahid 30 Relation Name Status Comments Brother Pérez Cruz Father Jason Arevalo'Oscar Father's Brother Sunny Arevalo'Oscar Father's Sister 1 Puja Nolasco Father's Sister 2 Wendi Gutierrez Maternal Grandfather Keaton Molina Maternal Grandmother Yanira Molina Mother Nicole Arevalo'Oscar Mother's Sister Nikia Lee Paternal Grandfather Jan Arevalo'Oscar Paternal Grandmother Marzena Arevalo'Darin Sister King Shahid Social History Tobacco Use Types Packs/Day Years [...] week 06/09/2022 How often do you attend [facility] or holiness services? 1 to 4 times per year [...] care, and heating? Not very hard 06/09/2022 [facility] of Occupat ional Health - Occupational Stress [...] money to buy more. Never true 06/10/19 Within the past 12 months, t he [...] place to sleep or slept in a [place] health care facility (including now)? No 06/09/2022 Nutrition Answer Date [...] Sex Assigned at Female 02/16/2022 8:33 PM LEAF FAT SCRAPER Gender Identity Female 08/19/2017 10:59 PM CDT Sexual Orientation Straight 08/19/2017 10 :59 PM CDT Last Filed Vital Signs Vital Sign Reading Time Taken Comments Blood Pressure 99/66 03/28/2022 3:21 PM LEAF FAT SCRAPER Pulse 80 03/28/2022 3:21 PM LEAF FAT SCRAPER Temperature 36.6 ??C (97.9 ??F) 03/28/2022 3:21 PM CS T Respiratory Rate 16 03/28/2022 3:21 PM LEAF FAT SCRAPER Oxygen Saturation 98% 03/28/2022 3:21 PM LEAF FAT SCRAPER Inhaled Oxygen Concentration - - Weight 84.2 kg (185 lb 10 oz) 03/28/2022 3:21 PM LEAF FAT SCRAPER Height 157.8 cm (5' 2.13) 03/28/2022 3:21 PM CS T Body Mass Index 33.81 03/28/2022 3:21 PM LEAF FAT SCRAPER Plan of Treatment Upcoming Encounters Date Type Department Care Team (Latest Contact Info) Description 05/03/2023 9:45 AM CDT Clinical Communication Virtual Review in [address] [address] 05/07/2023 6:00 AM CDT Lab Department of Laboratory Medicine and Pathology, [address] [phone] Ana María Delcid P.A.-C., M.S. [address] [place] [phone] 05/07/2023 7:30 AM CDT Appointment Department of Radiology, [address] [phone] Ana María Delcid P.A.-C., M.S. [address] [place] [phone] 05/07/2023 12:45 PM CDT Appointment Department of Radiology, [address] [phone] Ana María Delcid P.A.-C., M.S. [address] [place] [address] [place] [phone] 05/07/2023 3:40 PM CDT Office Visit Department of Oncology in [place], [place] [address] [place] [phone] Ana María Delcid P.A.-C., M.S. [address] [place] [phone] Health Maintenance Due Date Last Done Comments CT Colonography 1970 Cologuard 1970 Colonoscopy 1970 Colorectal Cancer Screening 1970 Diabetic Office Visit with Foot Exam 1970 FIT 1970 HIV Screening 1970 Hepatitis C Screening 1970 Urine Albumin 1970 Hepatitis A Vaccines (1 of 2 - Risk 2-dose series) 1989 COVID-19 Vaccine (2 - Donnie risk series) 05/21/2020 04/23/2020 Influenza Vaccine (#1) 2022 , 11/06/2019, 11/06/2019, Additional history exists Hemoglobin A1C 12/13/2022 06/12/2022, 03/2022, 08/28/2013 Zoster Vaccines (2 of 2) 02/07/2023 12/13/2022 Depression Screening (Annual PHQ-2) 02/11/2023 Creatinine Level (Kidney Function Test) 03/28/2023 03/28/2022, 10/19/2021, 07/03/2021, Additional history exists Office Visit for Blood Pressure Check / Re-check 03/28/2023 03/28/2022 Dilated Eye Exam 05/26/2023 05/25/2022, 11/2021, 12/03/2019 Mammogram 02/20/2024 02/19/2023, 10/2023, 11/28/2021, Additional history exists Lipid (Cholesterol) Screening 05/03/2026 05/03/2021, 08/12/2020, 11/06/2019, Additional history exists DTaP,Tdap,and Td Vaccines (3 - Td or Tdap) 09/23/2031 09/22/2021, 06/18/2011, 07/13/2005 Hepatitis B Vaccines Completed 05/04/2010, 09/13/2009, 08/12/2009 Pneumococcal vaccine (0-64 years) Completed 09/22/2021, 03/17/2014, 07/12/2009 HPV Vaccines Aged Out No longer eligi ble based on patient's age to complete this topic Medical Devices Implanted Type Area [employer] Device Identifier Shelf Expiration Date Model / Serial / Lot Clp Hrzn Ti 6 Clp Yeyo - [id number] Implanted:Qty: 1 on 03/24/2018 by Pancho Hendrickson M.D., M.S. at [facility] Hardware e.g. pins/screws/r ods [employer] [id number] / / Explanted Type [employer] Superintendent [employer] Device Identifier Shelf Expiration Date Model / Serial / Lot Conversions - Default Historical Implant Device Implanted:02/09 (Quantity not on file) Implanted Port Single Lumen Chest Description:Device Status Te xt - IVAD/Port. Advance Directives For more information, please contact: [phone] Documents on File Type Date Recorded Patient Business Specialist Expl anation Advance Directives 08/27/2013 12:00 AM [...]
--- OUTSIDE RECORDS SUMMARY | 2023-03-09 22:04 | XMS_ITS ---
Author Name Unknown Organization [facility] Address [address] [place] [address] Care Team Providers Care Cloth Washer Name Role Phone Unavailable Unavailable Unavailable Surgery Details Not on file Complications Check Surgery Details section. Procedure Estimated Blood Loss Check Surgery Details section. Procedure Findings Check Surgery Details section. Procedure Specimens Taken Check Surgery Details section.
--- OUTSIDE RECORDS SUMMARY | 2023-03-09 22:04 | XMS_ITS | Encounter Summary ---
Author Name Unknown Organization [facility] Address [address] [place] [address] Care Team Providers Care Director Of Revenue Name Role Phone Unavailable Primary Care Provider Unavailabl e Reason for Visit * Physical Therapy (Routine) - Closed Specialty Diagnoses / Procedures Referred By Chuy t Referred To Contact Diagnoses Fibrosarcoma (HCC) Pain Hip Left Procedures PT or OT eval and treat (first available) Tank Mccord M.D. [address] [place] [phone] [facility] Referral ID Status Reason Start Date Expiration Date Visits Re quested Visits Authorized [id number] Closed 06/12/2022 06/12/2023 1 1 Encounter Details Date Type Department Care Team (Latest Contact Info) Description 06/19/2022 8:00 AM CDT Comprehensive Visit Department of Physical Medicine and Rehabilitation in [place], [place] [address] [place] [phone] Tank Mccord M.D. 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 1 to 4 times per year 06/09/2022 Do you belong to any clubs o r organizations such as worship groups, unions, fraternal or athletic groups, or [...] care, and heating? Not very hard 06/09/2022 [facility] of Occupat ional Health - Occupational Stress [...] place to sleep or slept in a fci (including now)? No 06/09/2022 Nutrition Answer Date [...] Sex Assigned at Female 02/16/2022 8:33 PM MICROSOFT WINDOWS ENGINEER Gender Identity Female 08/19/2017 10:59 PM CDT Sexual Orientation Straight 08/19/2017 10 :59 PM CDT documented as of this encounter Consult Notes * Chandrika Villa P.T., D.P.T., [facility] - 06/19/2022 8:00 AM CDT Physical Therapy Wheelchair Progress Note By co-signing this note, the provider certifies the therapy being provided to this patient is reasonable and necessary for the diagnosis or treatment of this patient. SUBJECTIVE Patient's Name: Gloria Kwan Referring Provider: Tank Mccord M.D. 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 This has caused a pelvic obliquity contributing to pain. 1. Abnormal Posture 2. Fibrosarcoma (HCC) 3. Pain Hip Left 4. Pain Knee Left 5. Sarcoma (HCC) 6. 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 Assessment Gloria Kwan is a pleasant 51 y.o. female who presents to [facility] for a physical therapy evaluation. Vendor- no current vendor but educated on local options. Patient arrives ambulatory. She states she can walk 1-2 miles without problem. Her main concern is pain and asymmetry with sitting as she had 6 muscles removed from L hip due to sarcoma. She sits with left hip clearly lower than right. We trialed various cushions in an office chair to mimic work (Purple ultimate and royal, Jay2 gel low profile, Roho Quadtro, and stimulite). She liked the Roho as it allows her to level her pelvis via changes in chambers. She also liked the Purple options. Given this will be an out of pocket expense, educated on working with vendor or ordering online. She plansto go to [facility] after visit to inquire about out of pocket options and potentially trial other cushions that were not available today. Rehab Potential: Ms. Kwan has Good potential to achieve established physical therapy goals withinthe time frame outlined below, provided she actively participates in her physical therapy treatmentplan and home program. Functional Goals and Timeframes: PT Goal #1: patient will trial various cushions for office chair use and travel use for postural support and to level hips -Goal met Plan Patient agrees with the plan of care and goals. Treatment Plan: Start of Plan of Care: 06/19/2022 Number of Visits: up to 1 visits over 90 days One-time visit Plan: Discontinue PT Treatment interventions may include: Other PT Interventions: Seating Clinic Clinical Presentation: Evolving Number of Examination elements: 3 Clinical Decision Making: Moderate complexity clinical decision making Time Spent with Patient Evaluations PT Eval - Mod Complexity: 15 min Therapeutic Interventions Therapeutic Activity (min): 15 min Time Tracking Total Timed Units (min): 15 min Total Treatment Time (min): 30 min The author of this note has no financial relationship with the complex rehabilitation technology vendor/supplier. documented in this encounter Plan of Treatment Upcoming Encounters Date Type Department Care Team (Latest Contact Info) Description 05/03/2023 9:45 AM CDT Clinical Communication Virtual Review in [place], [place] [address] [place] [address] 05/07/2023 6:00 AM CDT Lab Department of Laboratory Medicine and Pathology, [facility], in [address] [phone] Ana María Delcid P.A.-C., M.S. [address] [place] [phone] 05/07/2023 7:30 AM CDT Appointment Department of Radiology, [facility] in [place], [place] [address] [place] [address] Ana María Delcid P.A.-C., M.S. [address] [place] [phone] 05/07/2023 12:45 PM CDT Appointment Department of Radiology, [facility] in [place], [place] [address] [place] [phone] Ana María Delcid P.A.-C., M.S. [address] [place] [phone] 05/07/2023 3:40 PM CDT Office Visit Department of Oncology in [place], [place] [address] [place] [phone] Ana María Delcid P.A.-C., M.S. 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
--- OUTSIDE RECORDS SUMMARY | 2023-03-09 22:04 | XMS_ITS | Encounter Summary ---
Author Name Unknown Organization [facility] Address [address] [place] [address] Care Team Providers Care Printing Pressman Name Role Phone Unavailable Primary Care Provider Unavailabl e Encounter Details Date Type Department Care Team (Latest Contact Info) Description 03/28/2022 9:00 AM THERMOSPRAY OPERATOR - 03/28/2022 9:31 AM THERMOSPRAY OPERATOR Hospital Encounter Department of Laboratory Medicine and Pathology, [facility] in [place], [place] [address] [place] [address] Ana María Delcid, P.A.-C., M.S. [address] [place] [phone] Fibrosarcoma (HCC) Discharge Disposition: Home or Self [...] Sex Assigned at Female 02/16/2022 8:33 PM THERMOSPRAY OPERATOR Gender Identity Female 08/19/2017 10:59 PM CDT [...] strips Test 1 time daily 0 07/30/2016 [id number] tablet Take 500 mg by mouth daily. [...] with meals. 0 07/25/2017 miscellaneous medical supply [facility] [place] New CPAP machine [...] AM CDT Clinical Communication Virtual Review in [place], [place] [address] [place] [address] 05/07/2023 6:00 AM CDT Lab Department of Laboratory Medicine and Pathology, [address] [address] Ana María Delcid P.A.-C., M.S. [address] [place] [phone] 05/07/2023 7:30 AM CDT Appointment Department of Radiology, [facility] in [address] [address] Ana María Delcid P.A.-C., M.S. [address] [place] [phone] 05/07/2023 12:45 PM CDT Appointment Department of Radiology, [address] [address] Ana María Delcid P.A.-C., M.S. [address] [place] [phone] 05/07/2023 3:40 PM CDT Office Visit Department of Oncology in [address] [address] Ana María Delcid P.A.-C., M.S. [address] [place] [phone] documented as of this encounter Procedures Procedure Name Priority Date/Time Associated Diagnosis Comments COMPREHENSIVE METABOLIC PANEL, S/P Routine 03/28/2022 9:19 AM THERMOSPRAY OPERATOR Fibrosarcoma (HCC) CBC WITH DIFFERENTIAL, B Routine 03/28/2022 9:18 AM THERMOSPRAY OPERATOR Fibrosarcoma (HCC) documented in this encounter Results * (ABNORMAL) Comprehensive Metabolic Panel (03/28/2022 9:19 AM THERMOSPRAY OPERATOR) Potassium, S 4.0 3.6 - 5.2 mmol/L 03/28/2022 10:21 AM THERMOSPRAY OPERATOR DTL Sodium, S 142 135 - 145 mmol/L 03/28/2022 10:21 AM THERMOSPRAY OPERATOR DTL Chloride, S 101 98 - 107 mmol/L 03/28/2022 10:21 AM THERMOSPRAY OPERATOR DTL Bicarbonate, S 26 22 - 29 mmol/L 03/28/2022 10:21 AM THERMOSPRAY OPERATOR DTL Anion Gap 15 7 - 15 03/28/2022 10:21 AM THERMOSPRAY OPERATOR DTL BUN (Blood Urea Nitrogen), S 14 6 - 21 mg/dL 03/28/2022 10:21 AM THERMOSPRAY OPERATOR DTL Creatinine 0.91 0.59 - 1.04 mg/dL 03/28/2022 10:21 AM THERMOSPRAY OPERATOR DTL Estimated GFR (eGFR) 76 >=60 mL/min/BS A 03/28/2022 10:21 AM THERMOSPRAY OPERATOR DTL Comment: Estimated GFR calculated using the 2020 CKD_EPI creatinine equation. Calcium, Total, S 9.9 8.6 - 10.0 mg/dL 03/28/2022 10:21 AM THERMOSPRAY OPERATOR DTL Glucose, S 188(H) 70 - 140 mg/dL 03/28/2022 10:21 AM THERMOSPRAY OPERATOR DTL Protein, Total, S 7.1 6.3 - 7.9 g/dL 03/28/2022 10:21 AM THERMOSPRAY OPERATOR DTL Albumin, S 4.6 3.5 - 5.0 g/dL 03/28/2022 10:21 AM THERMOSPRAY OPERATOR DTL Aspartate Aminotransferase (AST), S 31 8 - 43 U/L 03/28/2022 10:21 AM THERMOSPRAY OPERATOR DTL Alkaline Phosphatase, S 83 35 - 104 U/L 03/28/2022 10:21 AM THERMOSPRAY OPERATOR DTL Alanine Aminotransferase (ALT), S 68(H) 7 - 45 U/L 03/28/2022 10:21 AM THERMOSPRAY OPERATOR DTL Bilirubin, Total, S 0.6 <=1.2 mg/dL 03/28/2022 10:21 AM THERMOSPRAY OPERATOR DTL Blood (Blood, Venous) 03/28/2022 9:19 AM THERMOSPRAY OPERATOR 03/28/2022 9:59 AM THERMOSPRAY OPERATOR Ana María Delcid P.A.-C., M.S. LAB BLOOD ADD -ON [facility] [address] [place] [address], [facility] DTL [facility] [address] [place] [address] * CBC with Differential, Blood (03/28/2022 9:18 AM THERMOSPRAY OPERATOR) Hemoglobin 12.7 11.6 - 15.0 g/dL 03/28/2022 10:00 AM THERMOSPRAY OPERATOR DTL Hematocrit 40.8 35.5 - 44.9 % 03/28/2022 10:00 AM THERMOSPRAY OPERATOR DTL Erythrocytes 4.59 3.92 - 5.13 x10(12)/L 03/28/2022 10:00 AM THERMOSPRAY OPERATOR DTL MCV 88.9 78.2 - 97.9 fL 03/28/2022 10:00 AM THERMOSPRAY OPERATOR DTL RBC Distrib Width 14.2 12.2 - 16.1 % 03/28/2022 10:00 AM THERMOSPRAY OPERATOR DTL Platelet Count 234 157 - 371 x10(9)/L 03/28/2022 10:00 AM THERMOSPRAY OPERATOR DTL Leukocytes 8.4 3.4 - 9.6 x10(9)/L 03/28/2022 10:00 AM THERMOSPRAY OPERATOR DTL Neutrophils 4.85 1.56 - 6.45 x10(9)/L 03/28/2022 10:00 AM THERMOSPRAY OPERATOR DTL Lymphocytes 2.76 0.95 - 3.07 x10(9)/L 03/28/2022 10:00 AM THERMOSPRAY OPERATOR DTL Monocytes 0.50 0.26 - 0.81 x10(9)/L 03/28/2022 10:00 AM THERMOSPRAY OPERATOR DTL Eosinophils 0.28 0.03 - 0.48 x10(9)/L 03/28/2022 10:00 AM THERMOSPRAY OPERATOR DTL Basophils 0.05 0.01 - 0.08 x10(9)/L 03/28/2022 10:00 AM THERMOSPRAY OPERATOR DTL Blood (Blood, Venous) 03/28/2022 9:18 AM THERMOSPRAY OPERATOR 03/28/2022 9:44 AM THERMOSPRAY OPERATOR Ana María Delcid P.A.-C., M.S. LAB BLOOD ADD -ON [facility] [address] [facility] [address] [place] [address] documented in this encounter Visit Diagnoses Diagnosis Fibrosarcoma (HCC) documented in this encounter
--- OUTSIDE RECORDS SUMMARY | 2023-03-09 22:05 | XMS_ITS | Encounter Summary ---
Author Name Unknown Organization [facility] Address [address] [place] [address]. [place] [address] Care Team Providers Care Machine Tool Mechanic Name Role Phone Sharda Sykes [facility] Unavailable [phone] Eduard Vargas DO Unavailable [phone] Eduard Vargas DO Primary Care Provider Sharda Sykes [facility] Unavailable Reason for Visit * Reason Onset Date Comments Refill Request 03/08/2023 estradiol (ESTRA CE) 0.1 MG/GM vaginal cream Encounter Details Date Type Department Care Team (Late st Contact Info) Description 03/08/[address] [address] [place] [id number] [place] [address] Refill Request (estradiol (ESTRACE) 0.1 MG/GM vaginal cream) Social History Tobacco Use Types Packs/Day Years Used Date Smoking Tobacco: Former Smokeless Tobacco: Never Comments:quit in 1994 Alcohol Use Standard Drinks/Week Comments Yes 0 (1 standard drink = 0.6 oz pur e alcohol) socially Social Connection and Isolation Panel [NHANES] A nswer Date Recorded In a typical week, how many times do you talk on the phone with family, friends, or neighbors? Twice a week 03/11/2021 How often do you get together with friends or re latives? Once a week 03/11/2021 How often do you attend yazidi or pentecostal serv ices? Never 03/11/2021 Do you belong to any clubs o r organizations such as yazidi groups, unions, fraternal or athletic groups, or school groups? No 03/11/2021 Attends Club or Organization Meetings Not on bekah e 03/11/2021 Are you , , di vorced, , never , or living with a partner? 03/11/2021 AUDIT-C Answer Date Recorded Q1: How often do you have a drink containing alc ohol? Monthly or less 03/11/2021 Q2: How many drinks containi ng alcohol do you have on a typical day when you are drinking? 1 or 2 03/11/2021 Q3: How often do you have si x or more drinks on one occasion? Never 03/11/2021 Overall Financial Resource Strain (CARDIA) Answe r Date Recorded How hard is it for you to pa y for the very basics like food, housing, medical care, and heating? Not very hard 03/11/2021 PHQ-2 Answer Date Recorded PHQ-2 Score 0 02/20/2022 [facility] - Occupational Stress Questionnaire Answer Date Recorded Do you feel stress - tense, restless, nervous, or anxious, or unable to sleep at night because your mind is troubled all the time - these days? Not at all 03/11/2021 Exercise Vital Sign Answer Date Recorde d On average, how many days pe r week do you engage in moderate to strenuous exercise (like a brisk walk)? 3 days 03/11/2021 On average, how many minutes do you engage in exercise at this level? 40 min 03/11/2021 Hunger Vital Sign Answer Date Recorded Within the past 12 months, y ou worried that your food would run out before you got the money to buy more. Never true 03/11/19 22 Within the past 12 months, t he food you bought just didn't last and you didn't have money to get more. Never true 03/11/2021 PRAPARE - Transportation Answer Date Re corded In the past 12 months, has l ack of transportation kept you from medical appointments or from getting medications? No 02/12 In the past 12 months, has l ack of transportation kept you from meetings, work, or from getting things needed for daily living? No 03/11/2021 Housing Stability Vital Sign Answer Shaun e Recorded In the last 12 months, was t here a time when you were not able to pay the mortgage or rent on time? No 03/11/2021 In the last 12 months, how many places have you lived? 1 03/11/2021 In the last 12 months, was t here a time when you did not have a steady place to sleep or slept in a skilled nursing (including now)? No 03/11/2021 Adolescent Education Answer Date Record ed Getting School Help Needed Not on file 11/05 Sex and Gender Information Value Date Recorded Sex Assigned at Not on file Gender Identity Not on file Sexual Orientation Straight 06/28/2021 12 :12 PM CDT documented as of this encounter Miscellaneous Notes * Telephone Encounter - Britt Cortez - 03/08/2023 2:49 PM CST [employer] message sent to patient to schedule follow up Britt Cortez/ Hydro Technician OMER SOLUTIONS SUPERVISOR * Telephone Encounter - Viola Yates MD - 03/08/2023 2:44 PM CUSTOMER SOLUTIONS SUPERVISOR Needs to be seen, 90 days sent [employer] SUPERVISOR documented in this encounter Plan of Treatment Not on file documented as of this encounter Visit Diagnoses Diagnosis Vaginal dryness Other specified symptom associated with female genital organs documented in this encounter Care Teams Machine Tool Mechanic Relationship Specialty Start [place] [address] [place] [address] PCP - General Family Medicine 05/10/21 Sharda Sykes, [facility] [address] [place] [address] Pharmacist Pharmacist 04/03/21 [place] [address] [place] [address] Assigned PCP 02/23/21 Sharda Sykes [facility] [address] [place], [place] [address] Assigned MTM Pharmacist 11/08/21 documented as of this encounter
--- OUTSIDE RECORDS SUMMARY | 2023-03-09 22:05 | XMS_ITS | Clinical Summary ---
Author Name Unknown Organization [facility] Address [address] [place] [address] Care Team Providers Care Polish Compounder Name Role Phone Sharda Sykes [facility] Unavailable [phone] Eduard Vargas DO Unavailable [phone] Eduard Vargas DO Primary Care Provider Sharda Sykes [facility] Unavailable Allergies Active Allergy Reactions Criticality Noted Date Comments No Known Drug Allergy 01/06/2003 Medications Medication Sig Dispensed Refills Start Date End Date Status CETIRIZINE HCL 10 MG OR TABSIndications:R hinitis, allergic seasonal Take 10 mg by mouth daily 0 Active Aspirin 81 MG CAPS Take 81 mg by mouth daily 0 Active Cholecalciferol 1.25 MG (35131 UT) WAFR Take 5,000 Units by mouth Every Mon, Wed, Fri Morning 0 Active Respiratory Therapy Supplies (CARETOUCH 2 CPAP HOSE HADOOP ENGINEER) [facility] New CPAP machine for home use at [...] Frequency of use: Daily 0 09/20/2020 Active calcium citrate (CITRACAL) 950 (200 Ca) MG tablet Take 500 mg by mouth 2 times daily 0 Active gabapentin (NEURONTIN) 300 MG capsuleIndication s:Neuropathic pain of left lower extremity Take 1 capsule (300 mg) by mouth 2 times daily 180 capsule 4 02/20/2022 Active ferrous sulfate (FEROSUL) 325 (65 Fe) MG tabletIndications :Anemia, unspecified type Take 1 tablet (325 mg) by mouth Every Mon, Wed, Fri Morning 45 tablet 3 03/09/2022 Active blood glucose (NO BRAND SPECIFIED) test stripIndications: Controlled type 2 diabetes mellitus with microalbuminuria, without long-term current use of insulin (H) Use to test blood sugar 1 times daily or as directed. 100 strip 3 06/05/2022 Active blood glucose (NO BRAND SPECIFIED) lancets standardIndicatio ns:Controlled type 2 diabetes mellitus with microalbuminuria, without long-term current use of insulin (H) Use to test blood sugar 1 times daily or as directed. 100 lancet. 3 06/05/2022 Active Semaglutide, 1 MG/DOSE, (OZEMPIC) 4 MG/3ML penIndications:Co ntrolled type 2 diabetes mellitus with microalbuminuria, without long-term current use of insulin (H) Inject 1 mg Subcutaneous every 7 days 9 mL 1 06/05/2022 Active albuterol (PROAIR HFA/PROVENTIL HFA/VENTOLIN HFA) 108 (90 Base) MCG/ACT inhalerIndication s:Mild persistent asthma without complication Inhale 2 puffs into the lungs every 6 hours as needed for shortness of breath, wheezing or cough 18 g 1 06/05/2022 Active atorvastatin (LIPITOR) 10 MG tabletIndications :History of statin therapy +++NEED APPOINTMENT+++KELVIN E 1 TABLET BY MOUTH ONCE DAILY AT BEDTIME 90 tablet 0 08/06/2022 Active montelukast (SINGULAIR) 10 MG tabletIndications :Mild persistent asthma without complication Take 1 tablet (10 mg) by mouth At Bedtime 90 tablet 1 08/23/2022 Active empagliflozin (JARDIANCE) 10 MG TABS tabletIndications :Controlled type 2 diabetes mellitus with microalbuminuria, without long-term current use of insulin (H) Take 1 tablet (10 mg) by mouth daily 90 tablet 0 01/14/2023 Active metFORMIN (GLUCOPHAGE) 1000 MG tabletIndications :Controlled type 2 diabetes mellitus with microalbuminuria, without long-term current use of insulin (H) Take 1 tablet (1,000 mg) by mouth 2 times daily (with meals) 180 tablet 0 02/18/2023 Active estradiol (ESTRACE) 0.1 MG/GM vaginal creamIndications: Vaginal dryness Place 2 g vaginally twice a week for 90 days 48 g 0 03/11/2023 4 Active metFORMIN (GLUCOPHAGE) 1000 MG tabletIndications :Controlled type 2 diabetes mellitus with microalbuminuria, without long-term current use of insulin (H) Take 1 tablet (1,000 mg) by mouth 2 times daily (with meals) 180 tablet 0 11/21/2022 4 Discontinu ed(Reorder (No AVS)) estradiol (ESTRACE) 0.1 MG/GM vaginal creamIndications: Vaginal dryness Place 2 g vaginally twice a week 42.5 g 0 12/31/2022 4 Discontinu ed(Reorder (No AVS)) Active Problems Patient Care Coordination No te Formatting of this note migh t be different from the original. [email or web address] Problem Noted Date Diagnosed Date H/O abdominal hysterectomy 03/15/2021 History of tympanoplasty of right ear 03/11/2021 Abdominal wall hernia 02/17/2021 Myopia of both eyes with astigmatism and presbyo sosa 12/03/2019 Controlled type 2 diabetes m ellitus with microalbuminuria, without long-term current use of insulin 04/25/2019 Fatty liver 04/25/2018 Mild persistent asthma 03/20/2018 Malignant neoplasm of cervix 03/14/2018 Overview: Added automatically from request for surgery [id number] Microalbuminuria 01/26/2018 Overview: Will recheck in 6 months. 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 Provider to review Resolved Problems Problem Noted Date Diagnosed Date Resolved Date Left leg pain 03/23/2014 07/29/2014 Muscle weakness (generalized) 03/23/2014 07/29/2014 Encounters Date Type Department Care Team Description 03/08/2023 MyC Medical Advice [facility] [address] [place] [phone] Britt Cortez 03/08/2023 Refill [facility] [address] [place] [phone] Eduard Vargas DO Refill Request (estradiol (ESTRACE) 0.1 MG/GM vaginal cream) 02/18/2023 Refill [facility] [address] [place] [phone] Eduard Vargas DO Refill Request 02/13/2023 Refill [facility] [address] [place] [phone] Eduard Vargas DO Refill Request 01/14/2023 Refill [facility] [address] [place] [phone] Eduard Vargas DO Refill Request 12/28/2022 Refill [facility] [address] [place] [phone] Eduard Vargas DO Refill Request 12/20/2022 MyC Medical Advice [address] [phone] Sharda Sykes [facility] from Last 3 Months Immunizations Name Administration Dates Next Due Hepatitis B, Adult 05/04/2010,09/13/2009, 010 Influenza (High Dose) 3 margie nt vaccine 12/22/2015,11/11/2014,11/11/2013 Influenza (IIV3) PF 11/03/2012 Influenza Vaccine >6 months,quad, PF ,11/06/2019,10/16/2018,2017,10/25/2017,11/16/2016,11/15/2015 Influenza, seasonal, injectable, PF 12/13/2011,1 MMR 06/04/2012 Pneumococcal 20 valent Conju gate (Prevnar 20) 09/22/2021 Pneumococcal 23 valent 03/17/2014,07/12/2009 TD,PF 7+ (Tenivac) 07/13/2005 TDAP (Adacel,Boostrix) 09/22/2021,06/18/2011 Family History Medical History Relation Comments Diabetes Brother Lipids Father Diabetes Mother Diabetes Sister Relation Status Comments Brother Father Mother Sister Social History Tobacco Use Types Packs/Day Years Used Date Smoking Tobacco: Former Smokeless Tobacco: Never Tobacco Cessation:Counseling Given: Not Answered Comments:quit in 1994 Alcohol Use Standard Drinks/Week [...] Answer Date Recorded PHQ-2 Score 0 02/20/2022 [facility] - Occupational [...] place to sleep or slept in a mcc (including now)? No 03/11/2021 Adolescent Education Answer Date Record ed Getting School Help Needed Not on file 11/05 Sex and Gender Information Value Date Recorded Sex Assigned at Not on file Gender Identity Not on file Sexual Orientation Straight 06/28/2021 12 :12 PM CDT Last Filed Vital Signs Vital Sign Reading Time Taken Comments Blood Pressure 111/73 09/29/2022 1:16 PM CDT Pulse 74 09/29/2022 1:16 PM CDT Temperature 36.7 ??C (98.1 ??F) 09/29/2022 1:16 PM CD T Respiratory Rate 18 09/29/2022 1:16 PM CDT Oxygen Saturation 98% 09/29/2022 1:16 PM CDT Inhaled Oxygen Concentration - - Weight 83 kg (183 lb) 09/29/2022 1:16 PM CDT Height 160 cm (5' 3) 02/20/2022 10:05 AM CARNIVAL WORKER Body Mass Index 32.42 02/20/2022 10:05 AM CARNIVAL WORKER Plan of Treatment Health Maintenance Due Date Last Done Comments ADVANCE CARE PLANNING 1970 CT COLONOGRAPHY 1970 FIT 1970 FLEX SIG 1970 YEARLY PREVENTIVE VISIT 1970 COLONOSCOPY 1980 ZOSTER IMMUNIZATION (1 of 2) 1989 LIPID 05/03/2022 05/03/2021, 03/23/2004 MICROALBUMIN 07/03/2022 07/03/2021 A1C 09/12/2022 06/12/2022, 02/11, 10/19/2021, Additional history exists DIABETIC FOOT EXAM 09/22/2022 09/22/2021 COVID-19 Vaccine ( season) 2022 04/23/2020 INFLUENZA VACCINE (#1) 2022 , 11/06/2019, 10/16/2018, Additional history exists BMP 10/19/2022 10/19/2021, 06/12, 05/03/2021, Additional history exists MAMMO SCREENING 11/28/2022 11/28/2021, 11/11, 11/25/2020, Additional history exists PHQ-2 (once per calendar year) 2023 02/20/2022, 09/22/2021, 03/14/2021 ANNUAL REVIEW OF HM ORDERS 02/20/2023 02/20/2022 ASTHMA CONTROL TEST 02/23/2023 08/23/2022, ASTHMA ACTION PLAN 06/06/2023 06/05/2022, 0 09/22/2021, 09/22/2021 EYE EXAM 11/02/2023 11/01/2022, 05/12, 05/25/2022, Additional history exists COLORECTAL CANCER SCREENING 10/19/2024 sDNA (Cologuard) 10/19/2024 10/19/2021 HPV TEST 01/18/2025 01/19/2020, 01/19/2020 PAP 01/18/2025 01/19/2020, 01/19/2020 DTAP/TDAP/TD IMMUNIZATION (3 - Td or Tdap) 09/23/2031 09/22/2021, 06/18/2011, 07/13/2005 HEPATITIS B IMMUNIZATION Completed 011, 09/13/2009, 08/12/2009 Pneumococcal Vaccine: Pediatrics (0 to 5 Years) and At-Risk Patients (6 to 64 Years) Completed 09/22/2021, 03/17/2014, 07/12/2009 LUNG CANCER SCREENING Discontinued 03/28/2022 , 01/24/2021, 03/04/2020, Additional history exists HEPATITIS C SCREENING Discontinued HIV SCREENING Discontinued HPV IMMUNIZATION Aged Out No longer e ligible based on patient's age to complete this topic IPV IMMUNIZATION Aged Out No longer e ligible based on patient's age to complete this topic MENINGITIS IMMUNIZATION Aged Out No l onger eligible based on patient's age to complete this topic RSV MONOCLONAL ANTIBODY Aged Out No l onger eligible based on patient's age to complete this topic Care Teams Polish Compounder Relationship Specialty [place] [address] [place] [address] PCP - General Family Medicine 05/10/21 Sharda Sykes [facility] [address] [place], [place] [address] Pharmacist Pharmacist 04/03/21 [place] [address] [place] [address] Assigned PCP 02/23/21 Sharda Sykes, [facility] [address] [place] [address] Assigned MTM Pharmacist 11/08/21
--- OUTSIDE RECORDS SUMMARY | 2023-03-09 22:05 | XMS_ITS | Referral Summary ---
Author Name Unknown Organization [facility] Address [address] [place] [address] Care Team Providers Care Munitions Worker Name Role Phone Sharda Sykes [facility] Unavailable Eduard Vargas DO Unavailable [phone] Eduard Vargas DO Primary Care Provider [phone] Sharda Sykes [facility] Unavailable Encounters Date Type Department Care Team Description 03/08/[address] [facility] [address] [place] [phone] Britt Cortez 03/08/[address] [facility] [address] [place] [address] Eduard Vargas DO Refill Request (estradiol (ESTRACE) 0.1 MG/GM vaginal cream) 02/18/[address] [facility] [address] [place] [address] Eduard Vargas DO Refill Request 02/13/[address] [facility] [address] [place] [address] Eduard Vargas DO Refill Request 01/14/[address] [facility] [address] [place] [address] Eduard Vargas DO Refill Request 12/28/[address] [facility] [address] [place] [address] Eduard Vargas DO Refill Request 12/20/2022 MyC Medical Advice [facility] [address] [place] [address] Sharda Sykes, [facility] from Last 3 Months Allergies Active Allergy Reactions Criticality Noted Date Comments No Known Drug Allergy 01/06/2003 Medications Medication Sig Dispensed Refills Start Date End Date Status CETIRIZINE HCL 10 MG OR TABSIndications:R hinitis, allergic seasonal Take 10 mg by mouth daily 0 Active Aspirin 81 MG CAPS Take 81 mg by mouth daily 0 Active Cholecalciferol 1.25 MG (32100 UT) WAFR Take 5,000 Units by mouth Every Mon, Wed, Fri Morning 0 Active Respiratory Therapy Supplies (CARETOUCH 2 CPAP HOSE BRAILLE TYPIST) [facility] New CPAP machine for home use at [...] migh t be different from the original. [email or web address] Problem Noted Date Diagnosed Date H/O abdominal [...] Overview: Added automatically from request for surgery [id number] Microalbuminuria 01/26/2018 Overview: Will recheck in 6 [...] 03/23/2014 07/29/2014 Muscle weakness (generalized) 03/23/2014 07/29/2014 Immunizations Name Administration Dates Next Due Hepatitis B, Adult 05/04/2010,09/13/2009, 010 Influenza (High Dose) 3 margie nt vaccine 12/22/2015,11/11/2014,11/11/2013 Influenza (IIV3) PF 11/03/2012 Influenza Vaccine >6 months,quad, PF ,11/06/2019,10/16/2018,2017,10/25/2017,11/16/2016,11/15/2015 Influenza, seasonal, injectable, PF 12/13/2011,1 MMR 06/04/2012 Pneumococcal 20 valent Conju gate (Prevnar 20) 09/22/2021 Pneumococcal 23 valent 03/17/2014,07/12/2009 TD,PF 7+ (Tenivac) 07/13/2005 TDAP (Adacel,Boostrix) 09/22/2021,06/18/2011 Social History Tobacco Use Types Packs/Day Years [...] week 03/11/2021 How often do you attend latter day or voodoo serv ices? Never 03/11/2021 Do you belong to any clubs o r organizations such as latter day groups, unions, fraternal or athletic groups, or [...] Answer Date Recorded PHQ-2 Score 0 02/20/2022 [facility] [place] Occupat ional [facility] - Occupational Stress [...] place to sleep or slept in a detention (including now)? No 03/11/2021 Adolescent Education Answer [...] 160 cm (5' 3) 02/20/2022 10:05 AM LABELING SPECIALIST Body Mass Index 32.42 02/20/2022 10:05 AM LABELING SPECIALIST Plan of Treatment Not on file Care Teams Munitions Worker Relationship Specialty [place] [address] [place] [address] PCP - General Family Medicine 05/10/21 Sharda Sykes, [facility] [address] [place], [place] [address] Pharmacist Pharmacist 04/03/21 [place] [address] [place] [address] Assigned PCP 02/23/21 Sharda Sykes, [facility] [address] [place] [address] Assigned MTM Pharmacist 11/08/21
--- OUTSIDE RECORDS SUMMARY | 2023-03-09 22:05 | XMS_ITS | Encounter Summary ---
Author Name Unknown Organization [facility] Address [address] [place] [address] Care Team Providers Care Car Body Mechanic Name Role Phone Unavailable Primary Care Provider Unavailabl e Encounter Details Date Type Department Care Team (Latest Contact Info) Description 03/26/2022 12:45 PM DAIRY TECHNICIAN Clinical Communication Virtual Review in [address] [id number] Social History Tobacco Use Types Packs/Day Years Used Date Smoking Tobacco: Former Cigarettes 5 1 - 12/26/1996 Smokeless Tobacco: Never Tobacco Cessation:Counseling Given: Not Answered Comments:smoked up to 1/2 pack per day maximum Alcohol Use Standard Drinks/Week Comments Yes 0 (1 standard drink = 0.6 oz pur e alcohol) Nutrition Answer Date Recorded Nutrition: EVOO Fat Source Unknown 04/15 Nutrition: Servings of Fruits/Vegetables per Day Not on file 04/15/2020 Dental Answer Date Recorded Dental: Regular Dentist Unknown 04/16/19 21 Sex and Gender Information Value Date Recorded Sex Assigned at Female 02/16/2022 8:33 PM DAIRY TECHNICIAN Gender Identity Female 08/19/2017 10:59 PM CDT Sexual Orientation Straight 08/19/2017 10 :59 PM CDT documented as of this encounter Plan of Treatment Upcoming Encounters Date Type Department Care Team (Latest Contact Info) Description 05/03/2023 9:45 AM CDT Clinical Communication Virtual Review in [address] [address] 05/07/2023 6:00 AM CDT Lab Department of Laboratory Medicine and Pathology, [facility] in [place], [place] [address] [place] [phone] Ana María Delcid P.A.-C., M.S. [address] [place] [phone] 05/07/2023 7:30 AM CDT Appointment Department of Radiology, [facility] in [place], [place] [address] [place] [phone] Ana María Delcid P.A.-C., M.S. [address] [place] [address] 05/07/2023 12:45 PM CDT Appointment Department of Radiology, [facility] in [place], [place] [address] [place] [phone] Ana María Delcid P.A.-C., M.S. [address] [place] [phone] 05/07/2023 3:40 PM CDT Office Visit Department of Oncology in [address] [address] Ana María Delcid P.A.-C., M.S. [address] [place] [phone] documented as of this encounter Visit Diagnoses Not on filedocumented in this encounter
--- OUTSIDE RECORDS SUMMARY | 2023-03-09 22:05 | XMS_ITS | Encounter Summary ---
Author Name Unknown Organization [facility] Address [address] [place] [address] Care Team Providers Care Automatic Door Mechanic Name Role Phone Unavailable Primary Care Provider Unavailabl e Encounter Details Date Type Department Care Team (Late st Contact Info) Description 06/25/2017 [facility] [address] [place] [address] Johanna Brambila M.D. [address] [place] [phone] Pain Leg (Primary Dx); Fibrosarcoma (HCC) Social History Tobacco Use Types Packs/Day Years Used Date Smoking Tobacco: Former Sex and Gender Information Value Date Recorded Sex Assigned at Female 02/16/2022 8:33 PM ACUTE CARE SURGEON Gender Identity Female 08/19/2017 10:59 PM CDT Sexual Orientation Straight 08/19/2017 10 :59 PM CDT documented as of this encounter Plan of Treatment Upcoming Encounters Date Type Department Care Team (Latest Contact Info) Description 05/03/2023 9:45 AM CDT Clinical Communication Virtual Review in [place], [place] 200 [place] [address] 05/07/2023 6:00 AM CDT Lab Department of Laboratory Medicine and Pathology, [facility], in [place], [place] [address] [place] [phone] Ana María Delcid P.A.-C., M.S. [address] [place] [phone] 05/07/2023 7:30 AM CDT Appointment Department of Radiology, [facility] in [place], [place] [address] [place] [phone] Ana María Delcid P.A.-C., M.S. [address] [place] [phone] 05/07/2023 12:45 PM CDT Appointment Department of Radiology, [facility] in [place], [place] [address] [place] [phone] Ana María Delcid P.A.-C., M.S. [address] [place] [phone] 05/07/2023 3:40 PM CDT Office Visit Department of Oncology in [address] [address] Ana María Delcid P.A.-C., M.S. [address] [place] [address] documented as of this encounter Visit Diagnoses Diagnosis Pain Leg- Primary Fibrosarcoma (HCC) documented in this encounter
--- OUTSIDE RECORDS SUMMARY | 2023-03-09 22:05 | XMS_ITS | Encounter Summary ---
Author Name Unknown Organization [facility] Address [address] [place] [address]. [place] [address] Care Team Providers Care Protective Services Social Worker Name Role Phone Sharda Sykes [facility] Unavailable [phone] Eduard Vargas DO Unavailable [phone] Eduard Vargas DO Primary Care Provider [phone] Sharda Sykes [facility] Unavailable Encounter Details Date Type Department Care Team (Late st Contact Info) Description 12/20/2022 [facility] Medical Advice [address] [address] Sharda Sykes, [facility] [address] [place] [address] Social History Tobacco Use Types Packs/Day Years [...] week 03/11/2021 How often do you attend hoahaoism or church serv ices? Never 03/11/2021 Do you belong to any clubs o r organizations such as hoahaoism groups, unions, fraternal or athletic groups, or [...] PHQ-2 Score 0 02/20/2022 [facility] - Occupational Stress Questionnaire Answer Date Recorded [...] place to sleep or slept in a residential (including now)? No 03/11/2021 Adolescent Education Answer Date Record ed Getting School Help Needed Not on file 11/05 Sex and Gender Information Value Date Recorded Sex Assigned at Not on file Gender Identity Not on file Sexual Orientation Straight 06/28/2021 12 :12 PM CDT documented as of this encounter Plan of Treatment Not on file documented as of this encounter Visit Diagnoses Not on filedocumented in this encounter Care Teams Protective Services Social Worker Relationship Specialty Start [place] [address] [place] [address] PCP - General Family Medicine 05/10/21 Sharda Sykes [facility] [address] [place] [address] Pharmacist Pharmacist 04/03/21 [place] [address] [place] [address] Assigned PCP 02/23/21 Sharda Sykes [facility] [address] [place] [address] Assigned MTM Pharmacist 11/08/21 documented as of this encounter
--- OUTSIDE RECORDS SUMMARY | 2023-03-09 22:05 | XMS_ITS | Encounter Summary ---
Author Name Unknown Organization [place] Address [facility] [place] [address] Care Team Providers Care Silk Trimmer Name Role Phone Sharda Sykes [facility] Unavailable [phone] Eduard Vargas DO Unavailable [phone] Eduard Vargas DO Primary Care Provider Sharda Sykes [facility] Unavailable Reason for Visit * Reason Onset Date Comments Refill Request 02/13/2023 Encounter Details Date Type Department Care Team (Late st Contact Info) Description 02/13/2023 [facility] [address] [place] [address] [place] [address] [place], [place] [id number] Refill Request Social History Tobacco Use Types Packs/Day Years [...] week 03/11/2021 How often do you attend gnosticism or scientologist serv ices? Never 03/11/2021 Do you belong to any clubs o r organizations such as gnosticism groups, unions, fraternal or athletic groups, or [...] Answer Date Recorded PHQ-2 Score 0 02/20/2022 [facility] Occupat ional [facility] - Occupational Stress Questionnaire Answer Date [...] place to sleep or slept in a assisted (including now)? No 03/11/2021 Adolescent Education Answer Date Record ed Getting School Help Needed Not on file 11/05 Sex and Gender Information Value Date Recorded Sex Assigned at Not on file Gender Identity Not on file Sexual Orientation Straight 06/28/2021 12 :12 PM CDT documented as of this encounter Plan of Treatment Not on file documented as of this encounter Visit Diagnoses Diagnosis Mild persistent asthma without complication Unspecified asthma documented in this encounter Care Teams Silk Trimmer Relationship Specialty [place] [address] [place] [address] PCP - General Family Medicine 05/10/21 Sharda Sykes, [facility] [address] [place] [address] Pharmacist Pharmacist 04/03/21 [place] [address] [place] [address] Assigned PCP 02/23/21 Sharda Sykes, [facility] [address] [place] [address] Assigned MTM Pharmacist 11/08/21 documented as of this encounter
--- OUTSIDE RECORDS SUMMARY | 2023-03-09 22:05 | XMS_ITS | Encounter Summary ---
Author Name Unknown Organization [facility] Address [address] [place] [address] Care Team Providers Care Integrated Circuit Design Engineer Name Role Phone Unavailable Primary Care Provider Unavailabl e Reason for Referral * Outpatient (Routine) - Closed Specialty Diagnoses / Procedures Referred By Chuy salazar Referred To Contact Gynecology Diagnoses Carcinoma Unspecified Janeth Oliveira M.D. [address] [place] [address] [facility] Referral ID Status Reason Start Date Expiration Date Visits Re quested Visits Authorized [id number] Closed 03/05/2018 03/05/2019 1 1 CH CREDIT COUNSELOR Encounter Details Date Type Department Care Team (Late st Contact Info) Description 03/05/2018 [facility] [address] [place] [address] Janeth Oliveira M.D. [address] [place] [address] Carcinoma Unspecified (Primary Dx) Social History Tobacco Use Types Packs/Day Years Used Date Smoking Tobacco: Former Cigarettes 5 1 - 12/26/1996 Smokeless Tobacco: Never Comments:smoked up to 1/2 pa ck per day maximum Alcohol Use Standard Drinks/Week Comments Yes 0 (1 standard drink = 0.6 oz pur e alcohol) Sex and Gender Information Value Date Recorded Sex Assigned at Female 02/16/2022 8:33 PM BRANCH CREDIT COUNSELOR Gender Identity Female 08/19/2017 10:59 PM CDT Sexual Orientation Straight 08/19/2017 10 :59 PM CDT documented as of this encounter Plan of Treatment Upcoming Encounters Date Type Department Care Team (Latest Contact Info) Description 05/03/2023 9:45 AM CDT Clinical Communication Virtual Review in [address] [address] 05/07/2023 6:00 AM CDT Lab Department of Laboratory Medicine and Pathology, [place], [place] [address] [place] [phone] Ana María Delcid P.A.-C., M.S. [address] [place] [phone] 05/07/2023 7:30 AM CDT Appointment Department of Radiology, [facility] in [address] [address] Ana María Delcid P.A.-C., M.S. [address] [place] [phone] 05/07/2023 12:45 PM CDT Appointment Department of Radiology[address] [address] Ana María Delcid P.A.-C., M.S. [address] [place] [phone] 05/07/2023 3:40 PM CDT Office Visit Department of Oncology in [address] [address] Ana María Delcid P.A.-C., M.S. [address] [place] [phone] Scheduled Referrals Name Type Priority Associated Diagnoses Orde r Schedule Gynecologic Surgery Referral Outpatient Referral Routine Carcinoma Unspecified Expected: 03/05/2018 (Approximate), Expires: 03/05/2021 documented as of this encounter Visit Diagnoses Diagnosis Carcinoma Unspecified- Primary documented in this encounter
--- OUTSIDE RECORDS SUMMARY | 2023-03-09 22:05 | XMS_ITS | Encounter Summary ---
Author Name Unknown Organization [facility] Address [address] [place] [address]. [place] [address] Care Team Providers Care Loan Processor Name Role Phone Sharda Sykes [facility] Unavailable [phone] Eduard Vargas DO Unavailable [phone] Eduard Vargas DO Primary Care Provider [phone] Sharda Sykes [facility] Unavailable [phone] Encounter Details Date Type Department Care Team (Late st Contact Info) Description 10/31/2022 [facility] Medical Advice [address] [address] Britt Cortez Social History Tobacco Use Types Packs/Day Years [...] week 03/11/2021 How often do you attend alevism or protestant serv ices? Never 03/11/2021 Do you belong to any clubs o r organizations such as alevism groups, unions, fraternal or athletic groups, or [...] Answer Date Recorded PHQ-2 Score 0 02/20/2022 [facility]at ional Health - Occupational [...] place to sleep or slept in a fdc (including now)? No 03/11/2021 Sex and Gender Information Value Date Recorded Sex Assigned at Not on file Gender Identity Not on file Sexual Orientation Straight 06/28/2021 12 :12 PM CDT documented as of this encounter Plan of Treatment Not on file documented as of this encounter Visit Diagnoses Not on filedocumented in this encounter Care Teams Loan Processor Relationship Specialty [place] [address] [place] [address] PCP - General Family Medicine 05/10/21 Sharda Sykes [facility] [address] [place] [address] Pharmacist Pharmacist 04/03/21 [place] [address] [place] [address] Assigned PCP 02/23/21 Sharda Sykes [facility] [address] [place] [address] Assigned MTM Pharmacist 11/08/21 documented as of this encounter
--- OUTSIDE RECORDS SUMMARY | 2023-03-09 22:05 | XMS_ITS | Encounter Summary ---
Author Name Unknown Organization [place] Address [address] [place] [address]. [place] [address] Care Team Providers Care Bathhouse Attendant Name Role Phone Sharda Sykes [facility] Unavailable [phone] Eduard Vargas DO Unavailable [phone] Eduard Vargas DO Primary Care Provider [phone] Sharda Sykes [facility] Unavailable [phone] Encounter Details Date Type Department Care Team (Late st Contact Info) Description 03/08/2023 [facility] Medical Advice [address] [address] Britt Cortez Social History Tobacco [...] How often do you attend gnosticism or mormonism serv ices? Never 03/11/2021 Do you belong [...] Answer Date Recorded PHQ-2 Score 0 02/20/2022 [facility] Occupat ional Health - Occupational [...] place to sleep or slept in a custodial (including now)? No 03/11/2021 Adolescent Education Answer [...] on filedocumented in this encounter Care Teams Bathhouse Attendant Relationship Specialty [place] [address] [place] [address] PCP - General Family Medicine 05/10/21 Sharda Sykes [facility] [address] [place], [place] [address] Pharmacist Pharmacist 04/03/21 [place] [address] [place] [address] Assigned PCP 02/23/21 Sharda Sykes [facility] [address] [place] [address] Assigned MTM Pharmacist 11/08/21 documented as of this encounter
--- OUTSIDE RECORDS SUMMARY | 2023-03-09 22:05 | XMS_ITS | Encounter Summary ---
Author Name Unknown Organization [facility] Address [address] [place] [address] Care Team Providers Care Associate Program Manager Name Role Phone Unavailable Primary Care Provider Unavailabl e Reason for Referral * Outpatient (Routine) - Authorized Specialty Diagnoses / Procedures Referred By Chuy t Referred To Contact Oncology Ana María Delcid P.A.-C., M.S. [address] [place] [phone] [facility] Referral ID Status Reason Start Date Expiration Date V isits Requested Visits Authorized [id number] Authorized 04/08/2022 04/07/2025 1 1 ETING TRAFFIC COORDINATOR * MRI/CAT/PET Scan (Routine) - Authorized Specialty Diagnoses / Procedures Referred 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 [address] [place] [phone] [facility] Referral ID Status Reason Start Date Expiration Date V isits Requested Visits Authorized [id number] Authorized 04/08/2022 04/08/2023 1 1 ETING TRAFFIC COORDINATOR * MRI/CAT/PET Scan (Routine) - Authorized Specialty Diagnoses / Procedures Referred By Contac t Referred To Contact Radiology Diagnoses Fibrosarcoma (HCC) Procedures MR Femur Left without and with IV Contrast Ana María Delcid P.A.-C., M.S. [address] [place] [phone] [facility] Referral ID Status Reason Start Date Expiration Date V isits Requested Visits Authorized [id number] Authorized 04/08/2022 04/08/2023 1 1 ETING TRAFFIC COORDINATOR * Outpatient (Routine) - Closed Specialty Diagnoses / Procedures Referred By Contac t Referred To Contact Plastic Surgery Diagnoses Fibrosarcoma (HCC) Pain Hip Left Ana María Delcid P.A.-C., M.S. [address] [place] [phone] [facility] Referral ID Status Reason Start Date Expiration Date Visits Re quested Visits Authorized [id number] Closed 04/08/2022 04/08/2023 1 1 ETING TRAFFIC COORDINATOR Reason for Visit * Outpatient (Routine) - Closed Specialty Diagnoses / Procedures Referred By Contac t Referred To Contact Oncology Ana María Delcid P.A.-C., M.S. [address] [place] [phone] [facility] Referral ID Status Reason Start Date Expiration Date Visits Re quested Visits Authorized [id number] Closed 01/30/2021 01/30/2022 1 1 Encounter Details Date Type Department Care Team (Late st Contact Info) Description 03/28/2022 3:40 PM MARKETING TRAFFIC COORDINATOR Office Visit Department of Oncology in [place], [place] [address] [place] [phone] Ana María Delcid P.A.-C., M.S. 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); Pain Hip Left; Diabetes Mellitus Type 2 (HCC) Social History Tobacco Use Types Packs/Day [...] Date Recorded Dental: Regular Dentist Unknown 04/16/19 Sex and Gender Information Value Date Recorded Sex Assigned at Female 02/16/2022 8:33 PM MARKETING TRAFFIC COORDINATOR Gender Identity Female 08/19/2017 10:59 PM CDT Sexual Orientation Straight 08/19/2017 10 :59 PM CDT documented as of this encounter Last Filed Vital Signs Vital Sign Reading Time Taken Comments Blood Pressure 99/66 03/28/2022 3:21 PM MARKETING TRAFFIC COORDINATOR Pulse 80 03/28/2022 3:21 PM MARKETING TRAFFIC COORDINATOR Temperature 36.6 ??C (97.9 ??F) 03/28/2022 3:21 PM CS T Respiratory Rate 16 03/28/2022 3:21 PM MARKETING TRAFFIC COORDINATOR Oxygen Saturation 98% 03/28/2022 3:21 PM MARKETING TRAFFIC COORDINATOR Inhaled Oxygen Concentration - - Weight 84.2 kg (185 lb 10 oz) 03/28/2022 3:21 PM MARKETING TRAFFIC COORDINATOR Height 157.8 cm (5' 2.13) 03/28/2022 3:21 PM CS T Body Mass Index 33.81 03/28/2022 3:21 PM MARKETING TRAFFIC COORDINATOR documented in this encounter Progress Notes * Ana María Delcid P.A.-C. - 03/28/2022 3:40 PM CST SUBJECTIVE PRIMARY ONCOLOGIST: Srinivasan Tejeda I. M.B.B.S. COLLABORATING PROVIDER: Dr. Hernández CHIEF COMPLAINT/REASON FOR VISIT Presents for visit in the Sarcoma clinic regarding oncologic follow-up for treated left thigh sarcoma with lung metastasis in 2015. HISTORY OF PRESENT ILLNESS Ms. Kwan is a 51 y.o. 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 She was initially managed with orthotics and then ultimately visited with a chiropractor and was getting adjustments from February through March 2013. 03/2013 Other April 08, 2013, she sees her primary physician, Dr. Brambila in [facility]. At the time, she was complaining of a posterior thigh lump. April 09, 2013, she had an ultrasound, which demonstrates the aforementioned mass. April 13, 2013, an MRI shows a heterogenously enhancing 17-cm maximal span left thigh mass. She proceeds to CT of the chest, abdomen, and pelvis on April 14. This shows no evidence of disseminated disease. 04/15/2013 Biopsy/Pathology she is evaluated by Dr. Truong, who performs a core biopsy of her left thigh mass. 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 It was reviewed at [place]. 04/15/2013 Initial Diagnosis Fibrosarcoma (HCC) 05/07/2013 - 05/29/2013 Chemotherapy completed two cycles of induction chemotherapy with doxorubicin and ifosfamide. 06/23/2013 - 07/28/2013 Radiation Therapy received concurrent chemotherapy (mitomycin, doxorubicin and cisplatin x 2 cycles) and radiation (50 Gy in 25 fractions). This was complicated by 2 syncopal episodes. The first was thought vaso-vagalsecondary to dehydration. Work-up of the second on July 27 revealed submassive acute right pulmonary artery embolism. CT head was negative. Ultrasound of the extremities was negative for DVT. 08/21/2013 Other she was evaluated in the thrombophilia clinic. It was thought her PE was provoked by the cancer andchemotherapy. She was advised to have at least one month of uninterrupted anticoagulation from the time of the event, complete 3 months of anticoagulation and be re-evaluated in the thrombophilia clinic. 08/27/2013 Surgery and Procedures the patient underwent a wide excision of a high-grade myxofibrosarcoma of the left thigh. It was greater than 10 cm. Final pathology of that surgery was read as a myxofibrosarcoma, high grade, forming a 16- x 10- x 7.5-cm mass. All margins were negative; the nearest was 0.5 cm. There was greater than 50% necrosis on pathologic examination. 01/25/2016 Surgery and Procedures Done by Dr. Kaplan from Thoracic Surgery. 1. Left posterolateral thoracotomy. 2. Mediastinal lymphadenectomy. 3. Therapeutic wedge resection left upper lobe lung. 01/25/2016 Biopsy/Pathology SURGICAL PATHOLOGY 01/25/2016 Surgical Pathology ([id number]) DIAGNOSIS: A. Lymph node, station 7, biopsy: Fragments of lymph node, negative for sarcoma. B. Lymph node, station 5, biopsy: Fragments of lymph node, negative for sarcoma. C. 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 Margin is negative for sarcoma. Sarcoma (HCC) 04/29/2013 Initial Diagnosis Sarcoma (HCC) Malignant Neoplasm Of Cervix (HCC) 01/10/2018 Biopsy/Pathology Routine Pap smear showing high-grade squamous intraepithelial lesion positive HPV 02/14/2018 Biopsy/Pathology Colposcopy performed showing invasive squamous cell carcinoma of the cervix. 03/14/2018 Initial Diagnosis Malignant Neoplasm Of Cervix (HCC) 03/24/2018 Surgery and Procedures Total abdominal radical hysterectomy Bilateral Salpingectomy Bilateral oophoropexy Bilateral pelvic sentinel lymph node biopsy INTERVAL HISTORY: This patient was last seen in the Medical Oncology [facility]coma [facility] on January 24, 2021 by me. Sincethat time, she has been doing relatively well. 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 She also notes that sheis missing muscle and tissue from her left thigh/hip and it makes it difficult to sit for long periods of time. Reports her appetite and oral intake as stable. She denies any fevers, chills, night sweats, unintentional weight loss, or any new or enlarging masses anywhere. REVIEW OF SYSTEMS Pertinent items are noted in HPI; all other systems were reviewed and were negative. OBJECTIVE Vitals: 03/28/22 1521 BP: 99/66 BP Location: Right arm Patient Position: Sitting Cuff Size: Large Pulse: 80 Resp: 16 Temp: 36.6 ??C TempSrc: Tympanic SpO2: 98% Weight: 84.2 kg Height: 157.8 cm No data recorded PHYSICAL EXAMINATION General: 51 y.o. female, in no acute distress. Vital signs as noted above. Lungs: Clear to auscultation bilaterally Heart: Regular rate and rhythm, S1, S2. No peripheral edema Neuro: alert and orientated; good historian; no focal deficits ECOG score 0 LABS: Reviewed in patients chart. Latest Reference Range & Units 03/28/22 09:18 03/28/22 09:19 Hemoglobin 11.6 - 15.0 g/dL 12.7 Hematocrit 35.5 - 44.9 % 40.8 Erythrocytes 3.92 - 5.13 x10(12)/L 4.59 MCV 78.2 - 97.9 fL 88.9 RBC Distrib Width 12.2 - 16.1 % 14.2 Platelet Count 157 - 371 x10(9)/L 234 White Blood Cell Count 3.4 - 9.6 x10(9)/L 8.4 Neutrophils 1.56 - 6.45 x10(9)/L 4.85 Lymphocytes 0.95 - 3.07 x10(9)/L 2.76 Monocytes 0.26 - 0.81 x10(9)/L 0.50 Eosinophils 0.03 - 0.48 x10(9)/L 0.28 Basophils 0.01 - 0.08 x10(9)/L 0.05 Sodium, S 135 - 145 mmol/L 142 Potassium, S 3.6 - 5.2 mmol/L 4.0 Chloride, S 98 - 107 mmol/L 101 Bicarbonate, S 22 - 29 mmol/L 26 Anion Gap 7 - 15 15 BUN (Blood Urea Nitrogen), S 6 - 21 mg/dL 14 Creatinine 0.59 - 1.04 mg/dL 0.91 Estimated GFR (eGFR) >=60 mL/min/BSA 76 Calcium, Total, S 8.6 - 10.0 mg/dL 9.9 Glucose, S 70 - 140 mg/dL 188 (H) Bilirubin, Total, S <=1.2 mg/dL 0.6 Alanine Aminotransferase (ALT), S 7 - 45 U/L 68 (H) Aspartate Aminotransferase (AST), S 8 - 43 U/L 31 Alkaline Phosphatase, S 35 - 104 U/L 83 Protein, Total, S 6.3 - 7.9 g/dL 7.1 Albumin, S 3.5 - 5.0 g/dL 4.6 (H): Data is abnormally high IMAGING: CT Chest without IV Contrast Result Date: 03/28/2022 Impression: No evidence of thoracic metastatic disease. MR Femur Left without and with IV Contrast Result Date: 03/28/2022 Impression: No suggestion of recurrent tumor in the left thigh. 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 Kwan and her in clinic today. We were able to review her recent labs and restaging scans. There's no clinical or radiographic evidence of recurrent or metastatic disease. We can set her up for a possible consult with Plastic Surgery to see if there's anything they can do to provide her with some padding to that left hip to make it more comfortable for her to sit. PLAN: 1) Plastic Surgery consult 2) We will plan to see her back in approximately 1 year with repeat labs, imaging and office visit. Multiple questions were answered. Ms. Kwan has our contact information to get in touch with us with any issues, questions or concerns that may arise. Orders Placed This Encounter Procedures MR Femur Left without and with IV Contrast CT Chest without IV Contrast Hemoglobin A1c CBC with Differential, Blood Comprehensive Metabolic Panel Plastic Surgery - Lower extremity consult (clinic) Oncology office visit (clinic) Surveillance; Sarcoma PATIENT EDUCATION Ready to learn, no apparent learning barriers were identified; learning preferences include listening. Explained diagnosis and treatment plan; patient expressed understanding of the content. ADMINISTRATIVE BILLING I personally spent a total 30 minutes with regard to this patient in preparation, seeing the patient and providing counseling and discussion and/or coordination of care as described above. ETING TRAFFIC COORDINATOR documented in this encounter Plan of Treatment Upcoming Encounters Date Type Department Care Team (Latest Contact Info) Description 05/03/2023 9:45 AM CDT Clinical Communication Virtual Review in [place], [place] [address] [place] [address] 05/07/2023 6:00 AM CDT Lab Department of Laboratory Medicine and Pathology, [facility], in [address] [phone] Ana María Delcid P.A.-C., M.S. [address] [place] [phone] 05/07/2023 7:30 AM CDT Appointment Department of Radiology, [facility] in [place], [place] [address] [place] [address] Ana María Delcid P.A.-C., M.S. [address] [place] [phone] 05/07/2023 12:45 PM CDT Appointment Department of Radiology, [facility] in [place], [place] [address] [place] [phone] Ana María Delcid P.A.-C., M.S. [address] [place] [phone] 05/07/2023 3:40 PM CDT Office Visit Department of Oncology in [place], [place] [address] [place] [address] Ana María Delcid P.A.-C., M.S. 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) Expected: 05/07/2023 (Approximate), Expires: 05/24/2023 CBC with Differential, Blood Lab Routine Fibrosarcoma (HCC) Expected: 05/07/2023 (Approximate), Expires: 07/07/2023 Comprehensive Metabolic Panel Lab Routine Fibrosarcoma (HCC) Expected: 05/07/2023 (Approximate), Expires: 07/07/2023 Scheduled Referrals Name Type Priority Associated Diagnoses Orde r Schedule Plastic Surgery - Lower extremity consult (clinic) Outpatient Referral Routine Fibrosarcoma (HCC) Pain Hip Left Expected: 04/08/2022 (Approximate), Expires: 07/07/2023 Oncology office visit (clinic) Surveillance; Sarcoma Outpatient Referral Routine Expected: 04/08/2023 (Approximate), Expires: 07/07/2023 documented as of this encounter Results * (ABNORMAL) Hemoglobin A1c [...] [facility] [address] [place] [address], [facility] [address] [place] [address] documented in this encounter Visit Diagnoses Diagnosis Fibrosarcoma (HCC)- Primary Sarcoma (HCC) 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
--- OUTSIDE RECORDS SUMMARY | 2023-03-09 22:05 | XMS_ITS | Encounter Summary ---
Author Name Unknown Organization [facility] Address [address] [place] [address]. [place] [address] Care Team Providers Care Motor Builder Winder Name Role Phone Sharda Sykes [facility] Unavailable [phone] Eduard Vargas DO Unavailable [phone] Eduard Vargas DO Primary Care Provider [phone] Sharda Sykes [facility] Unavailable [phone] Reason for Visit * Reason Onset Date Comments Refill Request 11/19/2022 metformin Encounter Details Date Type Department Care Team (Late st Contact Info) Description [facility] [id number] [place] [phone] [place] [address] [place], [place] [phone] Refill Request (metformin) Social History Tobacco Use Types Packs/Day Years [...] How often do you attend gnosticism or bahai serv ices? Never 03/11/2021 Do you belong [...] Answer Date Recorded PHQ-2 Score 0 02/20/2022 [facility] Occupat ional [facility] - Occupational Stress Questionnaire Answer Date [...] place to sleep or slept in a snf (including now)? No 03/11/2021 Adolescent Education Answer Date Record ed Getting School Help Needed Not on file 11/05 Sex and Gender Information Value Date Recorded Sex Assigned at Not on file Gender Identity Not on file Sexual Orientation Straight 06/28/2021 12 :12 PM CDT documented as of this encounter Miscellaneous Notes * Telephone Encounter - Armin Gooden RN - 11/21/2022 10:31 AM CDT Yanira refill given, due for appointment. Note sent to pharmacy. Armin Crocker RN 11/21/2022 at 10:31 AM documented in this encounter Plan of Treatment Not on file documented as of this encounter Visit Diagnoses Diagnosis Controlled type 2 diabetes mellitus with microalbuminuria, without long-term current use of insulin (H) documented in this encounter Care Teams Motor Builder Winder Relationship Specialty [place] [address] [place] [address] PCP - General Family Medicine 05/10/21 Sharda Sykes [facility] [address] [place] [address] Pharmacist Pharmacist 04/03/21 [place] [address] [place] [address] Assigned PCP 02/23/21 Sharda Sykes [facility] [address] [facility] [place] [address] Assigned MTM Pharmacist 11/08/21 documented as of this encounter
--- OUTSIDE RECORDS SUMMARY | 2023-03-09 22:05 | XMS_ITS | Encounter Summary ---
Author Name Unknown Organization [place] Address [facility] [place] [address] Care Team Providers Care Chocolate Maker Name Role Phone Sharda Sykes [facility] Unavailable [phone] Eduard Vargas DO Unavailable [phone] Eduard Vargas DO Primary Care Provider [phone] Sharda Sykes [facility] Unavailable Reason for Visit * Reason Onset Date Comments Refill Request 02/18/2023 Encounter Details Date Type Department Care Team (Late st Contact Info) Description [facility] [id number] [place] [phone] [place] [address] [place], [place] [phone] Refill Request Social History Tobacco Use Types [...] week 03/11/2021 How often do you attend quaker or islam serv ices? Never 03/11/2021 Do you belong to any clubs o r organizations such as quaker groups, unions, fraternal or athletic groups, or [...] Answer Date Recorded PHQ-2 Score 0 02/20/2022 [facility] of Occupat ional [facility] - Occupational Stress Questionnaire Answer Date [...] place to sleep or slept in a chcf (including now)? No 03/11/2021 Adolescent Education Answer [...] (H) documented in this encounter Care Teams Chocolate Maker Relationship Specialty Start [place] [address] [place] [address] PCP - General Family Medicine 05/10/21 Sharda Sykes [facility] [address] [place] [address] Pharmacist Pharmacist 04/03/21 [place] [address] [place] [address] Assigned PCP 02/23/21 Sharda Sykes [facility] [address] [place] [address] Assigned MTM Pharmacist 11/08/21 documented as of this encounter
--- OUTSIDE RECORDS SUMMARY | 2023-03-09 22:05 | XMS_ITS | Encounter Summary ---
Author Name Unknown Organization [place] Address [facility] [place] [address] Care Team Providers Care Animal Husbandman Name Role Phone Sharda Sykes [facility] Unavailable [phone] Eduard Vargas DO Unavailable [phone] Eduard Vargas DO Primary Care Provider Sharda Sykes [facility] Unavailable Reason for Visit * Reason Onset Date Comments Refill Request 01/14/2023 Encounter Details Date Type Department Care Team (Late st Contact Info) Description 01/14/2023 Refill [facility] [id number] [place] [phone] [place] [address] [place], [place] [phone] Refill Request Social History Tobacco Use Types [...] week 03/11/2021 How often do you attend buddhism or taoism serv ices? Never 03/11/2021 Do you belong to any clubs o r organizations such as buddhism groups, unions, fraternal or athletic groups, or [...] Answer Date Recorded PHQ-2 Score 0 02/20/2022 [facility] of Occupat ional [facility] - Occupational Stress Questionnaire Answer Date Recorded [...] place to sleep or slept in a senior living (including now)? No 03/11/2021 Adolescent Education Answer [...] (H) documented in this encounter Care Teams Animal Husbandman Relationship Specialty [place] [address] [place] [address] PCP - General Family Medicine 05/10/21 Sharda Sykes [facility] [address] [place] [address] Pharmacist Pharmacist 04/03/21 [place] [address] [place] [address] Assigned PCP 02/23/21 Sharda Sykes [facility] [address] [place] [address] Assigned MTM Pharmacist 11/08/21 documented as of this encounter
--- OUTSIDE RECORDS SUMMARY | 2023-03-09 22:05 | XMS_ITS | Encounter Summary ---
Author Name Unknown Organization [facility] Address [address] [place] [address]. [place] [address] Care Team Providers Care Merchandiser Seasonal Name Role Phone Sharda Sykes [facility] Unavailable Eduard Vargas DO Unavailable [phone] Eduard Vargas DO Primary Care Provider [phone] Sharda Sykes [facility] Unavailable Encounter Details Date Type Department Care Team (Late st Contact Info) Description 11/06/2022 Telephone [facility] [address] [place] [phone] [place] [address] [place] [address] Social History Tobacco Use Types Packs/Day Years [...] week 03/11/2021 How often do you attend anabaptist or sikh serv ices? Never 03/11/2021 Do you belong to any clubs o r organizations such as anabaptist groups, unions, fraternal or athletic groups, or [...] Answer Date Recorded PHQ-2 Score 0 02/20/2022 [facility] - Occupational Stress Questionnaire Answer Date [...] place to sleep or slept in a retirement (including now)? No 03/11/2021 Adolescent Education Answer Date Record ed Getting School Help Needed Not on file 11/05 Sex and Gender Information Value Date Recorded Sex Assigned at Not on file Gender Identity Not on file Sexual Orientation Straight 06/28/2021 12 :12 PM CDT documented as of this encounter Miscellaneous Notes * Telephone Encounter - Tricia Bonds CMA - 11/06/2022 8:21 AM CDT Summary: Patient is due/failing the following: Eye exam Reviewed: [] CARE EVERYWHERE [] LAST OV NOTE [] FYI TAB [] MYCHART ACTIVE? [] LAST PANEL ENCOUNTER [] FUTURE APPTS [] IMMUNIZATIONS [] Media Tab Action needed: Received eye report from eye clinic and is negative for retinopathy, report sent to abstraction Type of outreach: Report sent to abstraction Tricia Bonds/SAR[facility] documented in this encounter Plan of Treatment Not on file documented as of this encounter Visit Diagnoses Not on filedocumented in this encounter Care Teams Merchandiser Seasonal Relationship Specialty Start [place] [address] [place] [address] PCP - General Family Medicine 05/10/21 Sharda Sykes [facility] [address] [place] [address] Pharmacist Pharmacist 04/03/21 [place] [address] [place] [address] Assigned PCP 02/23/21 Sharda Sykes, [facility] [address] [place] [address] Assigned MTM Pharmacist 11/08/21 documented as of this encounter
--- OUTSIDE RECORDS SUMMARY | 2023-03-09 22:05 | XMS_ITS | Encounter Summary ---
Author Name Unknown Organization [place] Address [facility] [place] [address] Care Team Providers Care Power Tool Repairer Name Role Phone Sharda Sykes [facility] Unavailable [phone] Eduard Vargas DO Unavailable [phone] Eduard Vargas DO Primary Care Provider Sharda Sykes [facility] Unavailable [phone] Reason for Visit * Reason Onset Date Comments Refill Request 12/28/2022 Encounter Details Date Type Department Care Team (Late st Contact Info) Description [facility] [id number] [place] [phone] [place] [address] [place], [place] [id number] Refill Request Social History Tobacco Use Types [...] week 03/11/2021 How often do you attend jain or tenriism serv ices? Never 03/11/2021 Do you belong to any clubs o r organizations such as jain groups, unions, fraternal or athletic groups, or [...] Answer Date Recorded PHQ-2 Score 0 02/20/2022 [facility] of Occupat ional [facility] - Occupational Stress Questionnaire Answer [...] place to sleep or slept in a nursing home (including now)? No 03/11/2021 Adolescent Education Answer [...] organs documented in this encounter Care Teams Power Tool Repairer Relationship Specialty Start [place] [address] [place] [address] PCP - General Family Medicine 05/10/21 Sharda Sykes [facility] [address] [place], [place] [address] Pharmacist Pharmacist 04/03/21 [place] [address] [place] [address] Assigned PCP 02/23/21 Sharda Sykes [facility] [address] [place] [address] Assigned MTM Pharmacist 11/08/21 documented as of this encounter
--- OUTSIDE RECORDS SUMMARY | 2023-03-09 22:06 | XMS_ITS | Encounter Summary ---
Author Name Unknown Organization [place] Address [address] [place] [address]. [place] [address] Care Team Providers Care Media Law Faculty Member Name Role Phone Sharda Sykes [facility] Unavailable [phone] Eduard Vargas DO Unavailable [phone] Eduard Vargas DO Primary Care Provider [phone] Sharda Sykes [facility] Unavailable [phone] Reason for Visit * Reason Onset Date Comments MyChart Communication 03/19/2022 Encounter Details Date Type Department Care Team (Latest Contact Info) Description 03/19/2022 [facility] [id number] [place] [phone] [place] [id number] [place] [address] MyChart Communication Social History Tobacco Use Types Packs/Day Years [...] week 03/11/2021 How often do you attend adventism or orthodox serv ices? Never 03/11/2021 Do you belong to any clubs o r organizations such as adventism groups, unions, fraternal or athletic groups, or [...] Answer Date Recorded PHQ-2 Score 0 02/20/2022 [facility] Occupat ional [facility] - Occupational Stress Questionnaire Answer Date Recorded [...] slept in a fpc (including now)? No 03/11/2021 Sex and Gender Information Value Date Recorded Sex Assigned at Not on file Gender Identity Not on file Sexual Orientation Straight 06/28/2021 12 :12 PM CDT COVID-19 Exposure Response Date Recorded In the last 10 days, have yo u been in contact with someone who was confirmed or suspected to have Coronavirus/COVID-19? No / Unsure 02/20/2022 9:56 AM [employer]ACH[employer] documented as of this encounter Miscellaneous Notes * Telephone Encounter - Aditi Conner RN - 03/19/2022 12:02 PM CST Routing refill request to provider for review/approval because: Lab Results Component Value Date A1C 7.6 02/20/2022 A1C 8.2 10/19/2021 A1C 8.1 07/03/2021 A1C 7.5 03/15/2021 Aditi Conner RN L [employer] documented in this encounter Plan of Treatment Not on file documented as of this encounter Visit Diagnoses Diagnosis Controlled type 2 diabetes mellitus with microalbuminuria, without long-term current use of insulin (H) documented in this encounter Care Teams Media Law Faculty Member Relationship Specialty [place] [address] [place] [address] PCP - General Family Medicine 05/10/21 Sharda Sykes [facility] [address] [facility] [place] [address] Pharmacist Pharmacist 04/03/21 [place] [address] [place] [address] Assigned PCP 02/23/21 Sharda Sykes, [facility] [address] [place] [address] Assigned MTM Pharmacist 11/08/21 documented as of this encounter
--- OUTSIDE RECORDS SUMMARY | 2023-03-09 22:06 | XMS_ITS | Encounter Summary ---
Author Name Unknown Organization [place] Address [address] [place] [address]. [place] [address] Care Team Providers Care County Agent Name Role Phone Sharda Sykes [facility] Unavailable Eduard Vargas DO Unavailable [phone] Eduard Vargas DO Primary Care Provider [phone] [facility] Unavailable Reason for Visit * Reason Onset Date Comments Refill Request 03/13/2022 jardiance Encounter Details Date Type Department Care Team (Late st Contact Info) Description 03/13/2022 [facility] [address] [place] [phone] [place] [id number] [place] [phone] Refill Request (jardiance) Social History Tobacco Use Types Packs/Day Years [...] How often do you attend gnosticism or baptist serv ices? Never 03/11/2021 Do you belong [...] Answer Date Recorded PHQ-2 Score 0 02/20/2022 [facility] - Occupational [...] in a mcc (including now)? No 03/11/2021 Sex and Gender Information Value Date Recorded Sex Assigned at Not on file Gender Identity Not on file Sexual Orientation Straight 06/28/2021 12 :12 PM CDT COVID-19 Exposure Response Date Recorded In the last 10 days, have yo u been in contact with someone who was confirmed or suspected to have Coronavirus/COVID-19? No / Unsure 02/20/2022 9:56 AM [employer] documented as of this encounter Miscellaneous Notes * Telephone Encounter - Perri Irvin RN - 03/13/2022 12:57 PM CST RF too soon. Perri Orozco RN [employer] documented in this encounter Plan of Treatment Not on file documented as of this encounter Visit Diagnoses Diagnosis Controlled type 2 diabetes mellitus with microalbuminuria, without long-term current use of insulin (H) documented in this encounter Care Teams County Agent Relationship Specialty [place] [address] [place] [address] PCP - General Family Medicine 05/10/[address] [facility] [address] [place] [address] Pharmacist Pharmacist 04/03/21 [place] [address] [place] [address] Assigned PCP 02/23/21 Sharda Sykes, [facility] [address] [place] [address] Assigned MTM Pharmacist 11/08/21 documented as of this encounter
--- OUTSIDE RECORDS SUMMARY | 2023-03-09 22:06 | XMS_ITS | Encounter Summary ---
Author Name Unknown Organization [place] Address [address] [place] [address]. [place] [address] Care Team Providers Care Kindergarten Assistant Name Role Phone Sharda Sykes [facility] Unavailable Eduard Vargas DO Unavailable [phone] Eduard Vargas DO Primary Care Provider Sharda Sykes [facility] Unavailable Encounter Details Date Type Department Care Team (Late st Contact Info) Description 03/19/2022 My[facility] Medical Advice [facility] [id number] [place] [phone] [place] [address] [place], [place] [phone] Social History Tobacco Use Types Packs/Day Years [...] week 03/11/2021 How often do you attend baptism or latter day serv ices? Never 03/11/2021 Do you belong to any clubs o r organizations such as baptism groups, unions, fraternal or athletic groups, or [...] Answer Date Recorded PHQ-2 Score 0 02/20/2022 [facility] - Occupational Stress Questionnaire Answer Date [...] in a custodial (including now)? No 03/11/2021 Sex and Gender Information Value Date Recorded Sex Assigned at Not on file Gender Identity Not on file Sexual Orientation Straight 06/28/2021 12 :12 PM CDT COVID-19 Exposure Response Date Recorded In the last 10 days, have yo u been in contact with someone who was confirmed or suspected to have Coronavirus/COVID-19? No / Unsure 02/20/2022 9:56 AM STRESS ENGINEER documented as of this encounter Plan of Treatment Not on file documented as of this encounter Visit Diagnoses Not on filedocumented in this encounter Care Teams Kindergarten Assistant Relationship Specialty [place] [address] [place] [address] PCP - General Family Medicine 05/10/21 Sharda Sykes [facility] [place], [place] [address] Pharmacist Pharmacist 04/03/21 [place] [address] [place] [address] Assigned PCP 02/23/21 Sharda Sykes [facility] [address] [place] [address] Assigned [place] Pharmacist 11/08/21 documented as of this encounter
--- OUTSIDE RECORDS SUMMARY | 2023-03-09 22:06 | XMS_ITS | Encounter Summary ---
Author Name Unknown Organization [place] Address [address] [place] [address]. [place] [address] Care Team Providers Care News Technical Director Name Role Phone Sharda Sykes [facility] Unavailable [phone] Eduard Vargas DO Unavailable [phone] Eduard Vargas DO Primary Care Provider [phone] Sharda Sykes [facility] Unavailable Encounter Details Date Type Department Care Team (Late st Contact Info) Description 11/30/2021 [facility] Medical Advice [address] [phone] Sharda Sykes, [facility] [address] [place] [address] Type 2 diabetes mellitus without complication, without long-term current use of insulin (H) (Primary Dx) Social History Tobacco Use Types [...] week 03/11/2021 How often do you attend confucianism or jehovah's witness serv ices? Never 03/11/2021 Do you belong to any clubs o r organizations such as confucianism groups, unions, fraternal or athletic groups, or [...] PHQ-2 Answer Date Recorded PHQ-2 Score 0 09/22/2021 [facility] Occupat ional [facility] - Occupational Stress Questionnaire Answer Date [...] in a residential (including now)? No 03/11/2021 Sex and Gender Information Value Date Recorded Sex Assigned at Not on file Gender Identity Not on file Sexual Orientation Straight 06/28/2021 12 :12 PM CDT documented as of this encounter Plan of Treatment Not on file documented as of this encounter Results * (ABNORMAL) Hemoglobin A1c (02/20/2022 10:07 AM LOAD DISPATCHER) Hemoglobin A1C 7.6(H) 0.0 - 5.6 % 02/20/2022 10:25 AM LOAD DISPATCHER [facility] Comment: Normal <5.7% Prediabetes 5.7-6.4% ?? Diabetes 6.5% or higher Note: Adopted from ADA consensus guidelines. Blood BLOOD SPECIMEN / Unknown Venipuncture / Unknown 02/20/2022 10:07 AM LOAD DISPATCHER 02/20/2022 10:18 AM LOAD DISPATCHER Eduard Vargas DO LAB - BLOOD ORDERABL ES [facility] [address] [facility] (no room number, 1st floor of clinic) [place] [address], [place] [phone] documented in this encounter Visit Diagnoses Diagnosis Type 2 diabetes mellitus without complication, without long-term current use of insulin (H)- Primary documented in this encounter Care Teams News Technical Director Relationship Specialty Start [place] [address] [place] [address] PCP - General Family Medicine 05/10/21 Sharda Sykes, [facility] [address] [place] [address] Pharmacist Pharmacist 04/03/21 [place] [address] [place] [address] Assigned PCP 02/23/21 Sharda Sykes, [facility] [address] [place] [address] Assigned MTM Pharmacist 11/08/21 documented as of this encounter
--- OUTSIDE RECORDS SUMMARY | 2023-03-09 22:06 | XMS_ITS | Encounter Summary ---
Author Name Unknown Organization [place] Address [address] [place] [address]. [place] [address] Care Team Providers Care Director Digital Strategy Name Role Phone Sharda Sykes [facility] Unavailable Eduard Vargas DO Unavailable [phone] Eduard Vargas DO Primary Care Provider Sharda Sykes [facility] Unavailable Reason for Visit * Reason Onset Date Comments Panel Management 08/10/2022 diabetes Encounter Details Date Type Department Care Team (Late st Contact Info) Description 08/10/2022 Telephone [facility] [address] [place] [address] [place] [address] [place] [address] Panel Management (diabetes) Social History Tobacco Use Types Packs/Day Years [...] How often do you attend adventism or episcopal serv ices? Never 03/11/2021 Do you belong [...] [facility] of Occupat ional [facility] - Occupational Stress Questionnaire Answer [...] place to sleep or slept in a longterm (including now)? No 03/11/2021 Sex and Gender Information Value Date Recorded Sex Assigned at Not on file Gender Identity Not on file Sexual Orientation Straight 06/28/2021 12 :12 PM CDT documented as of this encounter Miscellaneous Notes * Telephone Encounter - Tricia Bonds CMA - 08/10/2022 7:37 AM CDT Summary: Patient is due/failing the following: A1C Reviewed: [] CARE EVERYWHERE [] LAST OV NOTE [] FYI TAB [] MYCHART ACTIVE? [] LAST PANEL ENCOUNTER [] FUTURE APPTS [] IMMUNIZATIONS [] Media Tab Action needed: Patient needs office visit for diabetes. Type of outreach: had last hgbA1C through [facility], info sent to abstraction Tricia Bonds/[facility] [place] documented in this encounter Plan of Treatment Not on file documented as of this encounter Visit Diagnoses Not on filedocumented in this encounter Care Teams Director Digital Strategy Relationship Specialty [place] [address] [place] [address] PCP - General Family Medicine 05/10/21 Sharda Sykes [facility] [address] [place] [address] Pharmacist Pharmacist 04/03/21 [place] [address] [place] [address] Assigned PCP 02/23/21 Sharda Sykes, [facility] [address] [place] [address] Assigned MTM Pharmacist 11/08/21 documented as of this encounter
--- OUTSIDE RECORDS SUMMARY | 2023-03-09 22:06 | XMS_ITS | Encounter Summary ---
Author Name Unknown Organization [place] Address [address] [place] [address]. [place] [address] Care Team Providers Care Trauma Director Name Role Phone Sharda Sykes [facility] Unavailable [phone] Eduard Vargas DO Unavailable [phone] Eduard Vargas DO Primary Care Provider [phone] Sharda Sykes [facility] Unavailable Reason for Visit * Reason Onset Date Comments Panel Management 06/06/2022 Eye exam Encounter Details Date Type Department Care Team (Late st Contact Info) Description 06/06/2022 Telephone [facility] [address] [place] [phone] [place] [address] [place] [address] Panel Management (Eye exam) Social History Tobacco Use Types Packs/Day Years [...] week 03/11/2021 How often do you attend pentecostal or jehovah's witness serv ices? Never 03/11/2021 Do you belong to any clubs o r organizations such as pentecostal groups, unions, fraternal or athletic groups, or [...] Recorded PHQ-2 Score 0 02/20/2022 [facility] of Occupat ional [facility] [...] in a care home (including now)? No 03/11/2021 Sex and Gender Information Value Date Recorded Sex Assigned at Not on file Gender Identity Not on file Sexual Orientation Straight 06/28/2021 12 :12 PM CDT documented as of this encounter Miscellaneous Notes * Telephone Encounter - Tricia Bonds CMA - 06/08/2022 11:37 AM CDT [facility] * Telephone Encounter - Tricia Bonds CMA - 06/06/2022 3:14 PM CDT Summary: Patient is due/failing the following: Eye exam Reviewed: [] CARE EVERYWHERE [] LAST OV NOTE [] FYI TAB [] MYCHART ACTIVE? [] LAST PANEL ENCOUNTER [] FUTURE APPTS [] IMMUNIZATIONS [] Media Tab Action needed: Received copy of eye exam, positive for retinopathy Type of outreach: report sent to abstraction Tricia [facility] documented in this encounter Plan of Treatment Not on file documented as of this encounter Visit Diagnoses Not on filedocumented in this encounter Care Teams Trauma Director Relationship Specialty Start [place] [address] [place] [address] PCP - General Family Medicine 05/10/21 Sharda Sykes, [facility] [address] [place] [address] Pharmacist Pharmacist 04/03/21 [place] [address] [place] [address] Assigned PCP 02/23/21 Sharda Sykes, [facility] [address] [place] [address] Assigned MTM Pharmacist 11/08/21 documented as of this encounter
--- OUTSIDE RECORDS SUMMARY | 2023-03-09 22:06 | XMS_ITS | Encounter Summary ---
Author Name Unknown Organization [place] Address [facility] [address] Care Team Providers Care Mast Maker Name Role Phone Sharda Sykes [facility] Unavailable Eduard Vargas DO Unavailable [phone] Eduard Vargas DO Primary Care Provider Sharda Sykes [facility] Unavailable Reason for Visit * Reason Onset Date Comments Refill Request 10/30/2021 Encounter Details Date Type Department Care Team (Late st Contact Info) Description [facility] [address] [place] [phone] [place] [address] [place], [place] [phone] Refill Request Social History Tobacco Use Types [...] week 03/11/2021 How often do you attend taoist or nondenominational serv ices? Never 03/11/2021 Do you belong to any clubs o r organizations such as taoist groups, unions, fraternal or athletic groups, or [...] Answer Date Recorded PHQ-2 Score 0 09/22/2021 [facility] of Occupat ional [facility] [...] place to sleep or slept in a jail (including now)? No 03/11/2021 Sex and Gender Information Value Date Recorded Sex Assigned at Not on file Gender Identity Not on file Sexual Orientation Straight 06/28/2021 12 :12 PM CDT COVID-19 Exposure Response Date Recorded In the last 10 days, have yo u been in contact with someone who was confirmed or suspected to have Coronavirus/COVID-19? No / Unsure 10/19/2021 8:16 AM CDT documented as of this encounter Miscellaneous Notes * Telephone Encounter - Aditi Conner RN - 10/30/2021 3:44 PM CDT Routing refill request to provider for review/approval because: Drug not on the [facility] refill protocol Aditi Conner RN * Telephone Encounter - Aditi Conner RN - 10/30/2021 3:44 PM CDT Prescription approved per [facility] Refill Protocol. Aditi Conner RN documented in this encounter Plan of Treatment Not on file documented as of this encounter Visit Diagnoses Diagnosis Pain of thigh, unspecified laterality Controlled type 2 diabetes mellitus with microalbuminuria, without long-term current use of insulin (H) documented in this encounter Care Teams Mast Maker Relationship Specialty Start [place] [address] [place] [address] PCP - General Family Medicine 05/10/21 Sharda Sykes, [facility] [address] [place] [address] Pharmacist Pharmacist 04/03/21 [place] [address] [place] [address] Assigned PCP 02/23/21 Sharda Sykes, [facility] [address] [place] [address] Assigned MTM Pharmacist 11/08/21 documented as of this encounter
--- OUTSIDE RECORDS SUMMARY | 2023-03-09 22:06 | XMS_ITS | Encounter Summary ---
Author Name Unknown Organization [place] Address [facility] [place] [address] Care Team Providers Care Professor Of Art Name Role Phone Sharda Sykes [facility] Unavailable Eduard Vargas DO Unavailable [phone] Eduard Vargas DO Primary Care Provider Sharda Sykes [facility] Unavailable Reason for Visit * Reason Onset Date Comments Refill Request 08/23/2022 Encounter Details Date Type Department Care Team (Late st Contact Info) Description [facility] [address] [place] [phone] [place] [address] [place], [place] [phone] Refill Request Social History Tobacco Use Types [...] week 03/11/2021 How often do you attend orthodoxy or hoahaoism serv ices? Never 03/11/2021 Do you belong to any clubs o r organizations such as orthodoxy groups, unions, fraternal or athletic groups, or [...] Answer Date Recorded PHQ-2 Score 0 02/20/2022 [facility] of Occupat ional [facility] - Occupational Stress Questionnaire Answer Date [...] in a ch[facility] (including now)? No 03/11/2021 Sex and Gender Information Value Date Recorded Sex Assigned at Not on file Gender Identity Not on file Sexual Orientation Straight 06/28/2021 12 :12 PM CDT documented as of this encounter Miscellaneous Notes * Telephone Encounter - Perri Irvin RN - 08/23/2022 10:43 AM CDT Routing refill request to provider for review/approval because: Labs not current: 09/22/2021 10:46 AM ACT Total Scores ACT TOTAL SCORE (Goal Greater than or Equal to 20) 22 In the past 12 months, how many times did you visit the emergency room for your asthma without being admitted to the hospital? 0 In the past 12 months, how many times were you hospitalized overnight because of your asthma? 0 Sent [employer] to update ACT. Perri Orozco RN documented in this encounter Plan of Treatment Not on file documented as of this encounter Visit Diagnoses Diagnosis Mild persistent asthma without complication Unspecified asthma documented in this encounter Care Teams Professor Of Art Relationship Specialty Start [place] [address] [place] [address] PCP - General Family Medicine 05/10/21 Sharda Sykes [facility] [address] [place] [address] Pharmacist Pharmacist 04/03/21 [place] [address] [place] [address] Assigned PCP 02/23/21 Sharda Sykes, [facility] [address] [place] [address] Assigned MTM Pharmacist 11/08/21 documented as of this encounter
--- OUTSIDE RECORDS SUMMARY | 2023-03-09 22:06 | XMS_ITS | Encounter Summary ---
Author Name Unknown Organization [place] Address [address] [place] [address]. [place] [address] Care Team Providers Care Tire Molder Name Role Phone Sharda Sykes [facility] Unavailable Eduard Vargas DO Unavailable [phone] Eduard Vargas DO Primary Care Provider [phone] Sharda Sykes [facility] Unavailable [phone] Encounter Details Date Type Department Care Team (Latest Contact Info) Description 09/29/2022 Travel Social History Tobacco Use Types Packs/Day Years [...] week 03/11/2021 How often do you attend hindu or confucianist serv ices? Never 03/11/2021 Do you belong to any clubs o r organizations such as hindu groups, unions, fraternal or athletic groups, or [...] Answer Date Recorded PHQ-2 Score 0 02/20/2022 [facility] Occupat ional Health - Occupational [...] suspected to have Coronavirus/COVID-19? No / Unsure 09/29/2022 1:04 PM CDT documented as of this encounter Plan of Treatment Not on file documented as of this encounter Visit Diagnoses Not on filedocumented in this encounter Care Teams Tire Molder Relationship Specialty [place] [address] [place] [address] PCP - General Family Medicine 05/10/21 Sharda Sykes, [facility] [address] [place], [place] [address] Pharmacist Pharmacist 04/03/21 [place] [address] [place] [address] Assigned PCP 02/23/21 Sharda Sykes, [facility] [address] [place] [address] Assigned MTM Pharmacist 11/08/21 documented as of this encounter
--- OUTSIDE RECORDS SUMMARY | 2023-03-09 22:06 | XMS_ITS | Encounter Summary ---
Author Name Unknown Organization [place] Address [address] [place] [address]. [place] [address] Care Team Providers Care Lpn Instructor Name Role Phone Sharda Sykes [facility] Unavailable Eduard Vargas DO Unavailable [phone] Eduard Vargas DO Primary Care Provider [phone] Sharda Sykes [facility] Unavailable [phone] Sharda Sykes [facility] Unavailable Encounter Details Date Type Department Care Team (Late st Contact Info) Description 10/13/2021 [facility] Medical Advice [address] [address] Sharda Sykes, [facility] [address] [place] [address] Social History Tobacco Use Types [...] week 03/11/2021 How often do you attend mu-ism or moravian serv ices? Never 03/11/2021 Do you belong to any clubs o r organizations such as mu-ism groups, unions, fraternal or athletic groups, or [...] Answer Date Recorded PHQ-2 Score 0 09/22/2021 [facility] ional Health - Occupational [...] suspected to have Coronavirus/COVID-19? No / Unsure 09/22/2021 9:44 AM CDT documented as of this encounter Plan of Treatment Not on file documented as of this encounter Visit Diagnoses Not on filedocumented in this encounter Care Teams Lpn Instructor Relationship Specialty [place] [address] [place] [address] PCP - General Family Medicine 05/10/21 Sharda Sykes [facility] [place] [address] Pharmacist Pharmacist 04/03/21 [place] [address] [place] [address] Assigned PCP 02/23/21 Sharda Sykes [facility] [place] [address] Assigned MTM Pharmacist 08/05/21 Sharda Sykes [facility] [address] [place] [address] Assigned MTM Pharmacist 11/08/21 documented as of this encounter
--- OUTSIDE RECORDS SUMMARY | 2023-03-09 22:06 | XMS_ITS | Encounter Summary ---
Author Name Unknown Organization [place] Address [address] [place] [address]. [place] [address] Care Team Providers Care Contract Project Manager Name Role Phone Sharda Sykes [facility] Unavailable Eduard Vargas DO Unavailable [phone] Eduard Vargas DO Primary Care Provider [phone] Sharda Sykes [facility] Unavailable Encounter Details Date Type Department Care Team (Late st Contact Info) Description 11/21/2021 [facility] Medical Advice [address] [address] Sharda Sykes, [facility] [address] [place] [address] Social History Tobacco Use Types [...] How often do you attend adventism or alevism serv ices? Never 03/11/2021 Do you belong [...] Answer Date Recorded PHQ-2 Score 0 09/22/2021 [facility] - Occupational Stress Questionnaire Answer Date [...] in a detention (including now)? No 03/11/2021 Sex and Gender Information Value Date Recorded Sex Assigned at Not on file Gender Identity Not on file Sexual Orientation Straight 06/28/2021 12 :12 PM CDT documented as of this encounter Plan of Treatment Not on file documented as of this encounter Visit Diagnoses Not on filedocumented in this encounter Care Teams Contract Project Manager Relationship Specialty [place] [address] [place] [address] PCP - General Family Medicine 05/10/21 Sharda Sykes [facility] [address] [place] [address] Pharmacist Pharmacist 04/03/21 [place] [address] [place] [address] Assigned PCP 02/23/21 Sharda Sykes [facility] [address] [place] [address] Assigned MTM Pharmacist 11/08/21 documented as of this encounter
--- OUTSIDE RECORDS SUMMARY | 2023-03-09 22:06 | XMS_ITS | Encounter Summary ---
Author Name Unknown Organization [place] Address [address] [place] [address]. [place] [address] Care Team Providers Care Balling Machine Operator Name Role Phone Sharda Sykes [facility] Unavailable [phone] Eduard Vargas DO Unavailable [phone] Eduard Vargas DO Primary Care Provider [phone] Sharda Sykes [facility] Unavailable [phone] Encounter Details Date Type Department Care Team (Late st Contact Info) Description 08/23/[address] [facility] Medical Advice [facility] [address] [place] [phone] Perri Irvin RN Social History Tobacco Use Types Packs/Day Years [...] week 03/11/2021 How often do you attend anabaptism or protestant serv ices? Never 03/11/2021 Do you belong to any clubs o r organizations such as anabaptism groups, unions, fraternal or athletic groups, or [...] Answer Date Recorded PHQ-2 Score 0 02/20/2022 [facility] of Occupat ional Health - Occupational Stress [...] place to sleep or slept in a long-term (including now)? No 03/11/2021 Sex and Gender Information Value Date Recorded Sex Assigned at Not on file Gender Identity Not on file Sexual Orientation Straight 06/28/2021 12 :12 PM CDT documented as of this encounter Plan of Treatment Not on file documented as of this encounter Visit Diagnoses Not on filedocumented in this encounter Care Teams Balling Machine Operator Relationship Specialty [place] [address] [place] [address] PCP - General Family Medicine 05/10/21 Sharda Sykes [facility] [address] [place] [address] Pharmacist Pharmacist 04/03/21 [place] [address] [place] [address] Assigned PCP 02/23/21 Sharda Sykes [facility] [address] [place] [address] Assigned MTM Pharmacist 11/08/21 documented as of this encounter
--- OUTSIDE RECORDS SUMMARY | 2023-03-09 22:06 | XMS_ITS | Encounter Summary ---
Author Name Unknown Organization [place] Address [facility] [place] [address] Care Team Providers Care Student Financial Aid Manager Name Role Phone Sharda Sykes [facility] Unavailable Eduard Vargas DO Unavailable [phone] Eduard Vargas DO Primary Care Provider [phone] Sharda Sykes [facility] Unavailable [phone] Reason for Visit * Reason Onset Date Comments Refill Request 03/08/2022 ferrous sulfate (FEROSUL) 325 (65 Fe) MG tabletestradiol (ESTRACE) 0.1 MG/GM vaginal creammontelukast (SINGULAIR) 10 MG tablet Encounter Details Date Type Department Care Team (Late st Contact Info) Description 03/08/[address] [id number] Eduard Vargas DO [address] [place] [address] Refill Request (ferrous sulfate (FEROSUL) 325 (65 Fe) MG tablet/estradiol (ESTRACE) 0.1 MG/GM vaginal cream/montelukast (SINGULAIR) 10 MG tablet) Social History Tobacco Use Types Packs/Day Years [...] week 03/11/2021 How often do you attend pentecostalism or anabaptist serv ices? Never 03/11/2021 Do you belong to any clubs o r organizations such as pentecostalism groups, unions, fraternal or athletic groups, or [...] Answer Date Recorded PHQ-2 Score 0 02/20/2022 [facility] - Occupational Stress Questionnaire [...] Coronavirus/COVID-19? No / Unsure 02/20/2022 9:56 AM QUILL MACHINE TENDER documented as of this encounter Miscellaneous Notes * Telephone Encounter - Aditi Conner RN - 03/08/2022 8:09 AM CST Prescription approved per [facility] Refill Protocol. Aditi Conner RN L MACHINE TENDER documented in this encounter Plan of Treatment Not on file documented as of this encounter Visit Diagnoses Diagnosis Anemia, unspecified type Vaginal dryness Other specified symptom associated with female genital organs Mild persistent asthma without complication Unspecified asthma documented in this encounter Care Teams Student Financial Aid Manager Relationship Specialty [place] [address] [place] [address] PCP - General Family Medicine 05/10/21 Sharda Sykes, [facility] [address] [place] [address] Pharmacist Pharmacist 04/03/21 [place] [address] [place] [address] Assigned PCP 02/23/21 Sharda Sykes, [facility] [address] [place] [address] Assigned MTM Pharmacist 11/08/21 documented as of this encounter
--- OUTSIDE RECORDS SUMMARY | 2023-03-09 22:06 | XMS_ITS | Encounter Summary ---
Author Name Unknown Organization [place] Address [address] [place] [address]. [place] [address] Care Team Providers Care Boom Worker Name Role Phone Sharda Sykes [facility] Unavailable [phone] Eduard Vargas DO Unavailable [phone] Eduard Vargas DO Primary Care Provider Sharda Sykes [facility] Unavailable [phone] Encounter Details Date Type Department Care Team (Late st Contact Info) Description 05/28/2022 [facility] Medical Advice [address] [address] Sharda Sykes, [facility] [address] [place] [address] Social History Tobacco Use Types [...] week 03/11/2021 How often do you attend episcopalian or zoroastrianism serv ices? Never 03/11/2021 Do you belong to any clubs o r organizations such as episcopalian groups, unions, fraternal or athletic groups, or [...] Answer Date Recorded PHQ-2 Score 0 02/20/2022 [facility] - Occupational Stress Questionnaire Answer Date [...] on filedocumented in this encounter Care Teams Boom Worker Relationship Specialty [place] [address] [place] [address] PCP - General Family Medicine 05/10/21 Sharda Sykes [facility] [address] [place] [address] Pharmacist Pharmacist 04/03/21 [place] [address] [place] [address] Assigned PCP 02/23/21 Sharda Sykes [facility] [address] [place] [address] Assigned MTM Pharmacist 11/08/21 documented as of this encounter
--- OUTSIDE RECORDS SUMMARY | 2023-03-09 22:06 | XMS_ITS | Encounter Summary ---
Author Name Unknown Organization [place] Address [address] [place] [address]. [place] [address] Care Team Providers Care Gastroenterology Physician Name Role Phone Sharda Sykes [facility] Unavailable [phone] Eduard Vargas DO Unavailable [phone] Eduard Vargas DO Primary Care Provider Sharda Sykes [facility] Unavailable Encounter Details Date Type Department Care Team (Late st Contact Info) Description 08/23/2022 MyC Medical Advice [facility] [address] [place] [address] [place] [address] [place], [place] [id number] Social History Tobacco Use Types Packs/Day Years [...] week 03/11/2021 How often do you attend restoration or christian serv ices? Never 03/11/2021 Do you belong to any clubs o r organizations such as restoration groups, unions, fraternal or athletic groups, or [...] Answer Date Recorded PHQ-2 Score 0 02/20/2022 [facility] - Occupational Stress Questionnaire Answer Date [...] on filedocumented in this encounter Care Teams Gastroenterology Physician Relationship Specialty [place] [address] [place] [address] PCP - General Family Medicine 05/10/21 Sharda Sykse [facility] [address] [place] [address] Pharmacist Pharmacist 04/03/21 [place] [address] [place] [address] Assigned PCP 02/23/21 Sharda Sykes [facility] [address] [place] [address] Assigned [place] Pharmacist 11/08/21 documented as of this encounter
--- OUTSIDE RECORDS SUMMARY | 2023-03-09 22:06 | XMS_ITS | Encounter Summary ---
Author Name Unknown Organization [place] Address [address] [place] [address] Care Team Providers Care Mirror Silverer Name Role Phone Sharda Sykes [facility] Unavailable Eduard Vargas DO Unavailable [phone] Eduard Vargas DO Primary Care Provider [phone] Sharda Sykes [facility] Unavailable [phone] Reason for Visit * Reason Comments Medication Therapy Management Encounter Details Date Type Department Care Team (Late st Contact Info) Description 06/05/2022 8:30 AM CDT Virtual Visit [address] [address] Sharda Sykes, [facility] [address] [place] [address] Controlled type 2 diabetes mellitus with microalbuminuria, without long-term current use of insulin (H) (Primary Dx); CARDIOVASCULAR SCREENING; LDL GOAL LESS THAN 160; Takes dietary supplements; Mild persistent asthma without complication; Seasonal allergic rhinitis, unspecified trigger; Diabetic mononeuropathy associated with type 2 diabetes mellitus (H); Vaginal dryness Social History Tobacco Use Types Packs/Day Years [...] week 03/11/2021 How often do you attend anglican or confucianism serv ices? Never 03/11/2021 Do you belong to any clubs o r organizations such as anglican groups, unions, fraternal or athletic groups, or [...] Answer Date Recorded PHQ-2 Score 0 02/20/2022 [facility] of Occupat ional Health - Occupational Stress [...] place to sleep or slept in a halfway (including now)? No 03/11/2021 Sex and Gender Information Value Date Recorded Sex Assigned at Not on file Gender Identity Not on file Sexual Orientation Straight 06/28/2021 12 :12 PM CDT documented as of this encounter Patient Instructions * Patient Instructions* Sharda Sykes RPH - 06/05/2022 8:30 AM CDT Recommendations from today's MTM visit: 1. Increase Ozempic to 1 mg weekly. It was great speaking with you today. I value your experience and would be very thankful for your time in providing feedback in our clinic survey. In the next few days, you may receive an email or text message from [employer] with a link to a survey related to your ???clinical pharmacist. To schedule another MTM appointment, please call the clinic directly or you may call the MTM scheduling line at [phone] or toll-free at . My Clinical Pharmacist's contact information: Please feel free to contact me with any questions or concerns you have. Sharda Sykes, PharmD, BCACP Medication Therapy Management Provider, [facility] documented in this encounter Progress Notes * Sharda Sykes RPH - 06/05/2022 8:30 AM CDT Medication Therapy Management (MTM) Encounter ASSESSMENT: Medication Adherence/Access: No issues identified Type 2 Diabetes: Patient is not meeting A1c goal of < 7%. Self monitoring of blood glucose is not at goal of fasting 80-130 mg/dL. Recommend increase Ozempic dose. Hyperlipidemia: Due for lipid panel recheck. If muscle weakness continues, may consider 2 week trial off atorvastatin and switch to alternate statin such as pravastatin or very low dose rosuvastatin if side effects improve off atorvastatin. Supplements: stable Asthma/Allergies: stable Neuropathy: stable Vaginal dryness: stable PLAN: 1. Increase Ozempic to 1 mg weekly. Follow-up: Return in about 1 month (around 07/05/2022) for Lab Work. SUBJECTIVE/OBJECTIVE: Gloria Kwan is a 51 year old female called for a follow-up visit. Today's visit is a follow-up MTM visit from 06/28/21. Reason for visit: medication and blood glucose review. Tobacco: She reports that she has quit smoking. She has never used smokeless tobacco. Alcohol: Less than 1 beverage / month Medication Adherence/Access: no issues reported Type 2 Diabetes: Currently taking Jardiance 10 mg daily, metformin 1000 mg twice daily, and Ozempic0.5 mg weekly. Patient is not experiencing side effects. Used to feel more sick on Ozempic but no longer, eating more now. Blood sugar monitorin time(s) daily. Ranges (patient reported): Fasting- 130-140's Symptoms of low blood sugar? none Symptoms of high blood sugar? tingling and numbness Eye exam: due Foot exam: up to date Diet/Exercise: Eating more and has gained some weight. Aspirin: Taking 81mg daily for primary prevention but states this has helped prevent her chest painshe used to have, also hx DVT Statin: Yes: atorvastatin ACEi/ARB: No. Urine Albumin: Lab Results Component Value Date UMALCR 57.69 (H) 07/03/2021 Lab Results Component Value Date A1C 7.6 02/20/2022 A1C 8.2 10/19/2021 A1C 8.1 07/03/2021 A1C 7.5 03/15/2021 Wt Readings from Last 3 Encounters: 02/20/22 185 lb (83.9 kg) 09/22/21 192 lb 14.4 oz (87.5 kg) 03/15/21 194 lb (88 kg) Hyperlipidemia: Current therapy includes atorvastatin 10mg daily (decreased dose). Patient reports the following side effects: muscle weakness but not sure if from medication. Recent Labs Lab Test 05/03/21 0721 CHOL 108 HDL 56 LDL 32 TRIG 100 Liver Function Studies - Recent Labs Lab Test 10/19/21 0951 PROTTOTAL 7.7 ALBUMIN 3.8 BILITOTAL 0.8 ALKPHOS 89 AST 36 ALT 77* Supplements: Patient taking vitamin D 5000 units three times weekly, calcium/mag twice daily, and ferrous sulfate 325 mg three times weekly. No concerns. She prefers to remain on iron supplement as she feels better on it. Asthma/Allergies: Current medications: albuterol MDI as needed (has not needed in a long time, has old inhaler at home) Montelukast (Singulair) once daily (this has helped a lot for her) and cetirizine 10 mg daily. Triggers include: dust mites, pollens, animal dander, mold and trees. Patient reports the following symptoms: none. 09/22/2021 10:46 AM ACT Total Scores ACT TOTAL SCORE (Goal Greater than or Equal to 20) 22 In the past 12 months, how many times did you visit the emergency room for your asthma without being admitted to the hospital? 0 In the past 12 months, how many times were you hospitalized overnight because of your asthma? 0 Neuropathy: Patient taking gabapentin 300 mg twice daily for left foot pain. This higher dose has helped. No side effects. She has random foot pain from plantar fasciitis. Vaginal dryness: Patient using estradiol 2 g vaginally twice weekly. No concerns. Wonders about using 1 vs 2 g dosage. Today's Vitals: none I spent 29 minutes with this patient today. All changes were made via collaborative practice agreement with Eduard Vargas DO. A copy of the visit note was provided to the patient's provider(s). A summary of these recommendations was sent via [employer]. Sharda Sykes, PharmD, BCACP Medication Therapy Management Provider, [facility] Pager: [phone] Telemedicine Visit Details Type of service: Telephone visit Start Time: 8:40 AM End Time: 9:09 AM Medication Therapy Recommendations Controlled type 2 diabetes mellitus with microalbuminuria, without long-term current use of insulin(H) Current Medication: semaglutide (OZEMPIC, 0.25 OR 0.5 MG/DOSE,) 2 MG/1.5ML SOPN pen (Discontinued) Rationale: Dose too low - Dosage too low - Effectiveness Recommendation: Increase Dose - Ozempic (1 MG/DOSE) 4 MG/3ML Sopn Status: Accepted per CPA documented in this encounter Plan of Treatment Scheduled Orders Name Type Priority Associated Diagnoses Orde r Schedule Comprehensive metabolic panel Lab Routine Controlled type 2 diabetes mellitus with microalbuminuria, without long-term current use of insulin (H) Expected: 06/05/2022 (Approximate), Expires: 06/06/2023 Hemoglobin A1c Lab Routine Controlled type 2 diabetes mellitus with microalbuminuria, without long-term current use of insulin (H) Expected: 06/05/2022 (Approximate), Expires: 06/06/2023 Lipid panel reflex to direct LDL Fasting Lab Routine Controlled type 2 diabetes mellitus with microalbuminuria, without long-term current use of insulin (H) Expected: 06/05/2022 (Approximate), Expires: 06/06/2023 Albumin Random Urine Quantitative with Creat Ratio Lab Routine Controlled type 2 diabetes mellitus with microalbuminuria, without long-term current use of insulin (H) Expected: 06/05/2022 (Approximate), Expires: 06/06/2023 documented as of this encounter Visit Diagnoses Diagnosis Controlled type 2 diabetes mellitus with microalbuminuria, without long-term current use of insulin (H)- Primary CARDIOVASCULAR SCREENING; LDL GOAL LESS THAN 160 Takes dietary supplements Mild persistent asthma without complication Unspecified asthma Seasonal allergic rhinitis, unspecified trigger Diabetic mononeuropathy associated with type 2 diabetes mellitus (H) Vaginal dryness Other specified symptom associated with female genital organs documented in this encounter Care Teams Mirror Silverer Relationship Specialty [place] [address] [place] [address] PCP - General Family Medicine 05/10/21 Sharda Sykes [facility] [address] [place] [address] Pharmacist Pharmacist 04/03/21 [place] [address] [place] [address] Assigned PCP 02/23/21 Sharda Sykes, [facility] [address] [facility] [place] [address] Assigned MTM Pharmacist 11/08/21 documented as of this encounter
--- OUTSIDE RECORDS SUMMARY | 2023-03-09 22:06 | XMS_ITS | Encounter Summary ---
Author Name Unknown Organization [place] Address [address] [facility] [place] [address] Care Team Providers Care Front End Drupal Developer Name Role Phone Sharda Sykes [facility] Unavailable Eduard Vargas DO Unavailable [phone] Eduard Vargas DO Primary Care Provider [phone] Sharda Sykes [facility] Unavailable [phone] Reason for Visit * Reason Comments Laceration The patient is here today to have a laceration to the left palm looked at. She states that she was cutting some veggies and cut herself with the knife. Encounter Details Date Type Department Care Team (Late st Contact Info) Description 09/29/2022 1:05 PM CDT Office Visit [facility] [address] [place] [address] Rachel Castro PA-C [address] [place] [address] Laceration of left hand without foreign body, initial encounter (Primary Dx) Social History Tobacco Use Types [...] week 03/11/2021 How often do you attend caodaism or mandaen serv ices? Never 03/11/2021 Do you belong to any clubs o r organizations such as caodaism groups, unions, fraternal or athletic groups, or [...] Answer Date Recorded PHQ-2 Score 0 02/20/2022 [facility] - Occupational [...] place to sleep or slept in a intermediate (including now)? No 03/11/2021 Sex and Gender [...] (183 lb) 09/29/2022 1:16 PM CDT Height - - Body Mass Index 32.42 02/20/2022 10:05 AM DOCTOR OF DENTAL MEDICINE documented in this encounter Patient Instructions * Patient Instructions* Rachel Castro PA-C - 09/29/2022 1:05 PM CDT Laceration: Keep wound clean and dry for the next 24-48 hours Ok to shower and get wound wet after 48 hours, but do not soak for 2 weeks Wound follow-up: Return for suture removal in 7 days May return to work/school as long as wound is kept clean and dry Active range of motion exercises encouraged for finger lacerations Please return immediately if you experience redness around the laceration, drainage, worsening pain, or fever. * Attachments The following attachments cannot be sent through Care Everywhere. * Hand Laceration: Stitches (Stateless) documented in this encounter Progress Notes * Rachel Castro PA-C - 09/29/2022 1:05 PM CDT Assessment & Plan Laceration of left hand without foreign body, initial encounter Repaired as below with 3 interrupted sutures Keep wound clean and dry for the next 24-48 hours Ok to shower and get wound wet after 48 hours, but do not soak for 2 weeks Wound follow-up: Return for suture removal in 7 days May return to work/school as long as wound is kept clean and dry Active range of motion exercises encouraged for finger lacerations Patient will return immediately if they experience redness around the laceration, drainage, worsening pain, or fever. - REPAIR SUPERFICIAL, WOUND BODY < =2.5CM Return in about 1 week (around 10/06/2022) for suture removal. Rachel Castro PA-C [facility] Shama Barth is a 51 year old female who presents to clinic today for the following health issues: Chief Complaint Patient presents with Laceration The patient is here today to have a laceration to the left palm looked at. She states that she was cutting some veggies and cut herself with the knife. HPI Laceration Mechanism of injury: Inadvertently sustained a laceration to the left hand with a sharp knife History provided by: Patient Time of injury was 1 hours(s) ago. This is a non-work related injury. Associated symptoms: Denies numbness, weakness, or loss of function Last tetanus booster within 10 years: Yes LACERATION EXAM: Size of laceration: 2 centimeters Characteristics of the laceration: clean and linear Depth of laceration: deep Tendon function intact: Yes Sensation to light touch intact: Yes Pulses/capillary refill intact: Yes Foreign body: No Picture included in patient's chart: no PROCEDURE NOTE: Anesthesia: Wound was locally injected with 1 cc's of Lidocaine 2% with epinephrine Prepped and draped in the usual sterile fashion Wound irrigated with sterile water Wound was explored for any foreign bodies and evaluated for tendon, nerve, vessel or joint involvement. Closure was simple Laceration was closed with 3 X 4.0 Nylon interrupted sutures Good skin approximation obtained Good hemostasis obtained Bandage was applied Patient tolerated the procedure well Review of Systems Constitutional, HEENT, cardiovascular, pulmonary, GI, , musculoskeletal, neuro, skin, endocrine and psych systems are negative, except as otherwise noted. Objective BP 111/73 (BP Location: Right arm, Patient Position: Sitting, Cuff Size: Adult Large) Pulse 74 Temp 98.1 ??F (36.7 ??C) (Oral) Resp 18 Wt 83 kg (183 lb) LMP 07/06/2008 SpO2 98% BMI 32.42 kg/m?? Physical Exam GENERAL: healthy, alert and no distress MS: There is about a 2 cm laceration noted in the palm of the left hand between the thumb and the index. Range of motion of the fingers is normal. Bleeding is controlled. documented in this encounter Plan of Treatment Not on file documented as of this encounter Procedures Procedure Name Priority Date/Time Associated Diagnosis Comments [place] REPAIR SUPERFICIAL, WOUND BODY < =2.5CM Routine 09/29/2022 2:27 PM CDT Laceration of left hand without foreign body, initial encounter documented in this encounter Visit Diagnoses Diagnosis Laceration of left hand without foreign body, initial encounter- Primary documented in this encounter Care Teams Front End Drupal Developer Relationship Specialty [place] [address] [place] [address] PCP - General Family Medicine 05/10/21 Sharda Sykes [facility] [address] [facility] [place] [address] Pharmacist Pharmacist 04/03/21 [place] [address] [place] [address] Assigned PCP 02/23/21 Sharda Sykes, [facility] [address] [facility] [place] [address] Assigned MTM Pharmacist 11/08/21 documented as of this encounter
--- OUTSIDE RECORDS SUMMARY | 2023-03-09 22:06 | XMS_ITS | Encounter Summary ---
Author Name Unknown Organization [place] Address [facility] [place] [address] Care Team Providers Care State Highway Police Officer Name Role Phone Sharda Sykes [facility] Unavailable [phone] Eduard Vargas DO Unavailable [phone] Eduard Vargas DO Primary Care Provider Sharda Sykes [facility] Unavailable Reason for Visit * Reason Onset Date Comments Refill Request 08/06/2022 Encounter Details Date Type Department Care Team (Late st Contact Info) Description 08/06/2022 Refill [facility] [address] [place] [address] [place] [address] [place], [place] [id number] Refill Request Social History Tobacco Use Types [...] week 03/11/2021 How often do you attend jewish or pentecostalism serv ices? Never 03/11/2021 Do you belong to any clubs o r organizations such as jewish groups, unions, fraternal or athletic groups, or [...] Answer Date Recorded PHQ-2 Score 0 02/20/2022 [facility] - Occupational Stress Questionnaire Answer Date [...] in a snf (including now)? No 03/11/2021 Sex and Gender Information Value Date Recorded Sex Assigned at Not on file Gender Identity Not on file Sexual Orientation Straight 06/28/2021 12 :12 PM CDT documented as of this encounter Plan of Treatment Not on file documented as of this encounter Visit Diagnoses Diagnosis History of statin therapy Controlled type 2 diabetes mellitus with microalbuminuria, without long-term current use of insulin (H) documented in this encounter Care Teams State Highway Police Officer Relationship Specialty Start [place] [address] [place] [address] PCP - General Family Medicine 05/10/21 Sharda Sykes, [facility] [address] [place] [address] Pharmacist Pharmacist 04/03/21 [place] [address] [place] [address] Assigned PCP 02/23/21 Sharda Sykes, [facility] [address] [place] [address] Assigned MTM Pharmacist 11/08/21 documented as of this encounter
--- OUTSIDE RECORDS SUMMARY | 2023-03-09 22:07 | XMS_ITS | Encounter Summary ---
Author Name Unknown Organization [facility] Address [address] [place] [address] Care Team Providers Care Service Learning Coordinator Name Role Phone Unavailable Primary Care Provider Unavailabl e Reason for Referral * Procedure/Equipment (Routine) - Incomplete Specialty Diagnoses / Procedures Referred By Contac t Referred To Contact Procedures MM Mammogram Screening Bilat W [address] [address] [place] [address] Referral ID Status Reason Start Date Expiration Date V isits Requested Visits Authorized [id number] Incomplete 02/19/2023 05/20/2024 1 1 OMS AND IMMIGRATION OFFICER Reason for Visit * Procedure/Equipment (Routine) - Incomplete Specialty Diagnoses / Procedures Referred By Contac t Referred To Contact Procedures MM Mammogram Screening Bilat [place] [address] [address] [place] [address] Referral ID Status Reason Start Date Expiration Date V isits Requested Visits Authorized [id number] Incomplete 02/19/2023 05/20/2024 1 1 Encounter Details Date Type Department Care Team Description 02/19/2023 1:50 PM CUSTOMS AND IMMIGRATION OFFICER Ancillary Procedure [facility] [address] [place] [address] Social History Tobacco Use Types Packs/Day Years Used Date Smoking Tobacco: Former Cigarettes Smokeless Tobacco: Never Alcohol Use Standard Drinks/Week Comments Not Currently 0 (1 standard drink = 0.6 oz pur e alcohol) PHQ-2 Answer Date Recorded PHQ-2 Score 0 12/13/2022 Sex and Gender Information Value Date Recorded Sex Assigned at Not on file Gender Identity Not on file Sexual Orientation Straight 12/13/2022 9: 23 AM CDT documented as of this encounter Plan of Treatment Upcoming Encounters Date Type Department Care Team Description 07/12/2023 9:00 AM CDT Appointment [facility] [address] [place] [phone] 07/16/2023 1:00 PM CDT Appointment [place] [address] [facility] [address] [place] [address] [place] [address] [place] [address] documented as of this encounter Procedures Procedure Name Priority Date/Time Associated Diagnosis Comments MM MAMMOGRAM SCREENING BILAT W 3D KODY W CAD Routine 02/19/2023 2:05 PM CUSTOMS AND IMMIGRATION OFFICER documented in this encounter Results * MM Mammogram Screening Bilat W 3D Kody W CAD (02/19/2023 2:05 PM CUSTOMS AND IMMIGRATION OFFICER) Anatomical Region Laterality Modality Breast Bilateral Mammography Impressions 02/21/2023 2:07 PM CUSTOMS AND IMMIGRATION OFFICER : ACR BI-RADS Category 1: Negative RECOMMENDATION: Follow Up Imaging in 12 months - Bilateral The results and recommendations of this examination will be communicated to the patient. Narrative 02/21/2023 2:07 PM CUSTOMS AND IMMIGRATION OFFICER MM MAMMOGRAM SCREENING BILAT W 3D KODY W CAD performed on 02/19/23 Compared to: 11/28/2021 Foreign Image(S) Mammogram, 11/25/2020 Foreign Image(S) Mammogram, and 10/02/2019 Foreign Image(S) Mammogram ?? FINDINGS: Bilateral screening mammogram was performed with the assistance of Computer-Aided Detection and breast tomosynthesis. The breasts are almost entirely fatty. There is no radiographic evidence of malignancy. ?? Peyman Iverson MD RAD [facility] documented in this encounter Visit Diagnoses Not on filedocumented in this encounter
--- OUTSIDE RECORDS SUMMARY | 2023-03-09 22:07 | XMS_ITS | Encounter Summary ---
Author Name Unknown Organization [facility] Address [address] [place] [address]. [place] [address] Care Team Providers Care Movie Extra Name Role Phone Sharda Sykes [facility] Unavailable [phone] Eduard Vargas DO Unavailable [phone] Eduard Vargas DO Primary Care Provider [phone] Sharda Sykes [facility] Unavailable [phone] Sharda Sykes [facility] Unavailable [phone] Encounter Details Date Type Department Care Team (Late st Contact Info) Description 06/08/2021 MyC Medical Advice [facility] [id number] [place] [phone] Tricia Bonds, LAUNDRY TECH Social History Tobacco Use Types Packs/Day Years [...] week 03/11/2021 How often do you attend congregational or faith serv ices? Never 03/11/2021 Do you belong to any clubs o r organizations such as congregational groups, unions, fraternal or athletic groups, or [...] PHQ-2 Answer Date Recorded PHQ-2 Score 0 03/14/2021 [facility] - [...] to sleep or slept in a senior care (including now)? No 03/11/2021 Sex and Gender Information Value Date Recorded Sex Assigned at Not on file Gender Identity Not on file Sexual Orientation Straight 06/28/2021 12 :12 PM CDT documented as of this encounter Plan of Treatment Not on file documented as of this encounter Visit Diagnoses Not on filedocumented in this encounter Care Teams Movie Extra Relationship Specialty [place] [address] [place] [address] PCP - General Family Medicine 05/10/21 Sharda Sykes, [facility] [address] [place], [place] [address] Pharmacist Pharmacist 04/03/21 [place] [address] [place] [address] Assigned PCP 02/23/21 Sharda Sykes, [facility] [address] [place] [address] Assigned MTM Pharmacist 08/05/21 Sharda Sykes, [facility] [address] [place] [address] Assigned MTM Pharmacist 11/08/21 documented as of this encounter
--- OUTSIDE RECORDS SUMMARY | 2023-03-09 22:07 | XMS_ITS | Encounter Summary ---
Author Name Unknown Organization [facility] Address [address] [place] [address] Care Team Providers Care Game Designer/Creative Director Name Role Phone Unavailable Primary Care Provider Unavailabl e Reason for Referral * Consult/Transfer Care (Routine) - New Request Specialty Diagnoses / Procedures Referred By Chuy salazar Referred To Contact Diagnoses Abdominal wall hernia Viola Vickers MD [address] [place] [address] Referral ID Status Reason Start Date Expiration Date V isits Requested Visits Authorized [id number] New Request 03/01/2023 05/30/2024 1 1 Scheduling Instructions Your clinician has recommended an appointment with [facility] Surgery Department. You can quickly make your appointment online at [email or web address]. You can also call [phone] for help scheduling your appointment. We suggest you call your health insurance company about your coverage and benefits for this appointment. Question Answer Appointment Urgency? Non-Urgent Reason for visit? abdominal wall gonzalez Rossi PLANT TREATER Reason for Visit * Reason Comments ROUTINE HEALTH MAINTENANCE Encounter Details Date Type Department Care Team Description 03/01/2023 11:00 AM CLAY PLANT TREATER Office Visit [facility] [address] [place] [address] Viola Vickers MD [address] [place] [address] Screening for malignant neoplasm of cervix (Primary Dx); Special screening examination for human papillomavirus (HPV); Abdominal wall hernia Social History Tobacco Use Types Packs/Day Years Used Date Smoking Tobacco: Former Cigarettes Smokeless Tobacco: Never Alcohol Use Standard Drinks/Week Comments Not Currently 0 (1 standard drink = 0.6 oz pur e alcohol) PHQ-2 Answer Date Recorded PHQ-2 Score 0 12/13/2022 Sex and Gender Information Value Date Recorded Sex Assigned at Not on file Gender Identity Not on file Sexual Orientation Straight 12/13/2022 9 :23 AM CDT documented as of this encounter Last Filed Vital Signs Vital Sign Reading Time Taken Comments Blood Pressure 118/73 03/01/2023 10:58 AM CLAY PLANT TREATER Pulse 73 03/01/2023 10:58 AM CLAY PLANT TREATER Temperature - - Respiratory Rate - - Oxygen Saturation - - Inhaled Oxygen Concentration - - Weight 82.7 kg (182 lb 6.4 oz) 03/01/2023 10:58 AM CLAY PLANT TREATER Height - - Body Mass Index 31.92 12/13/2022 7:34 AM CDT documented in this encounter Patient Instructions * Patient Instructions* Viola Vickers MD - 03/01/2023 11:00 AM CLAY PLANT TREATER I will be in touch with pap results, they take about a month to result Name of ron that can be helpful for decreased libido is called Sravani Consult placed for Dr. Pavithra Rossi Return annually, sooner if concerns PLANT TREATER documented in this encounter Progress Notes * Viola Vickers MD - 03/01/2023 11:00 AM CST Images from the original note were not included. [facility] ACCOUNTING POLICY CONSULTANT CC: pap smear S: Lary is here today for surveillance pelvic exam and Pap smear. She has a history of FIGO stage IB1 cervical cancer status post radical hysterectomy in 2019 at [facility]. She has had no abnormal Pap smears since that time. Annual surveillance is recommended. She denies any vaginal bleeding. She notesvaginal dryness and sometimes irritation related to menopause for which she uses vaginal estrogen with improvement. Not regularly sexually active due to low libido. Separately she notes history of an abdominal wall hernia. This is bothersome to her. States she waspreviously told that unless she had an obstruction she would not be a candidate for repair. ACCOUNTING POLICY CONSULTANT History: No LMP recorded (lmp unknown). Patient has had a hysterectomy. No data to display Hx FIGO stage IB1 cervical cancer s/p radical hysterectomy 03/2018 Dr. 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 Gen: well appearing, NAD CV: regular rate, well perfused Resp: unlabored breathing on RA Pelvic exam: normal architecture of external female genitalia with postmenopausal changes, vagina normal without nodularity/masses. Physiologic- appearing discharge. Cervix surgically absent. Vaginal cuff appears intact without lesions. On bimanual exam vaginal cuff intact without nodularity or masses. No palpable adnexal masses however limited by body habitus. A/P: Gloria Kwan is a 52 y.o. with history of stage IB1 cervical cancer status post radical hysterectomy in 2019 at [facility] here for annual surveillance. Reviewed post-operative note from TIRE DESIGN ENGINEER [place], annual pap smears recommended. 1. History of stage IB1 cervical cancer: Exam normal today. No concerns. Pap collected. 2. Low libido: Reviewed strategies including books, ron ([employer]). Discussed that there is some evidence for testosterone use as well as off-label use of bupropion. She has not interested in these interventions this time. 3. Genitourinary syndrome of menopause: continue vaginal estrogen 4. Abdominal wall hernia: Symptomatic. Reviewed CT scan from June on 02/2021. Patient is interested in repair if she would be a candidate. Discussed option for referral for Dr. Pavithra Rossi for surgical consultation. She would like to pursue this. Order placed. Return to clinic annually, sooner if concerns. Viola Vickers MD PLANT TREATER documented in this encounter Plan of Treatment Upcoming Encounters Date Type Department Care Team Description 07/12/2023 9:00 AM CDT Appointment [facility] [address] [place] [phone] 07/16/2023 1:00 PM CDT Appointment [place] [address] [facility] [id number] [place] [phone] [place] [address] [place] [address] Pending Results Name Type Priority Associated Diagnoses Date /Time PAP Test Lab Routine Screening for malignant neoplasm of cervix 03/01/2023 11:11 AM CLAY PLANT TREATER HPV with 16 18 Genotyping Microbiology Routine Special screening examination for human papillomavirus (HPV) 03/01/2023 11:11 AM CLAY PLANT TREATER Scheduled Referrals Name Type Priority Associated Diagnoses Orde r Schedule Surgery Consult-Adults Referral Routine Abdominal wall hernia Ordered: 03/01/2023 documented as of this encounter Visit Diagnoses Diagnosis Screening for malignant neoplasm of cervix- Primary Screening for malignant neoplasm of the cervix Special screening examination for human papillomavirus (HPV) Abdominal wall hernia Ventral hernia, unspecified, without mention of obstruction or gangrene documented in this encounter
--- OUTSIDE RECORDS SUMMARY | 2023-03-09 22:07 | XMS_ITS | Encounter Summary ---
Author Name Unknown Organization [facility] Address [address] [place] [address] Care Team Providers Care Senior Project Manager Engineering Name Role Phone Unavailable Primary Care Provider [facility] Encounter Details Date Type Department Care Team Description 12/13/2022 8:30 AM CDT Lab Visit [place] [id number] [place] [phone] Lipid screening; Diabetes mellitus screening; Need for hepatitis C screening test; Encounter for long-term (current) use of medications; Diabetes mellitus type 2 (HRC); History of anemia; Fatty liver (HRC) Social History Tobacco Use Types Packs/Day Years [...] Team Description 07/12/2023 9:00 AM CDT Appointment [facility] [address] [place] [phone] 07/16/2023 1:00 PM CDT Appointment [place] [address] Family Medicine [id number] [place] [phone] [place] [address] [place] [address] documented as of this encounter Procedures Procedure Name Priority Date/Time Associated Diagnosis Comments ALBUMIN/CREAT RATIO Routine 12/13/2022 8 :49 AM CDT Diabetes mellitus type 2 (HRC) LIPID PANEL & DIRECT LDL (IF NEEDED) Routine 12/13/2022 8:46 AM CDT Lipid screening LIVER PANEL(HEPATIC FUNCTION PANEL) Routine 12/13/2022 8:46 AM CDT Fatty liver (HRC) BASIC METABOLIC PANEL Routine 12/13/2022 8:46 AM CDT Diabetes mellitus type 2 (HRC) COMPLETE BLOOD COUNT-NO DIFF Routine 12/13/2022 8:46 AM CDT History of anemia HEPATITIS C ANTIBODY, WITH REFLEX Routine 12/13/2022 8:46 AM CDT Need for hepatitis C screening test FERRITIN Routine 12/13/2022 8:46 AM CDT History of anemia HGB A1C Routine 12/13/2022 8:46 AM CDT Diabetes mellitus screening VITAMIN B12 ONLY Routine 12/13/2022 8:46 AM CDT Encounter for long-term (current) use of medications documented in this encounter Results * (ABNORMAL) Albumin/Creatinine Ratio,Random Urine (12/13/2022 8:49 AM CDT) Albumin/Creati nine Ratio, Urine, Random 31(H) <30 mg/g 12/13/2022 11:15 AM CDT [facility] Albumin, Urine, Random 5.5 mg/L 12/13/2022 11:15 AM CDT [facility] Creatinine, Urine, Random 18 >20 mg/dL mg/dL 12/13/2022 11:15 AM CDT [facility] Urine Non-blood Collection / Unknown 12/13/2022 8:49 AM CDT 12/13/2022 8:49 AM CDT Peyman Iverson MD LAB_1 Performing Organization Address [facility] Co de Phone Number [facility] [address] [place] [address], [facility] [phone] * (ABNORMAL) Liver Panel(Hepatic Function Panel) (12/13/2022 8:46 AM CDT) Pathologist [facility] Alkaline Phosphatase 71 40 - 150 U/L 12/13/2022 12:33 PM T [facility] Bilirubin, Total 0.8 0.2 - 1.2 mg/dL 12/13/2022 12:33 PM [facility] Bilirubin, Direct 0.3 0.0 - 0.5 mg/dL 12/13/2022 12:33 PM T [facility] AST (SGOT) 41(H) 10 - 40 U/L 12/13/2022 12:33 PM [facility] ALT (SGPT) 87(H) <=55 U/L 12/13/2022 12:33 PM [facility] Protein, Total 7.8 6.4 - 8.3 g/dL 12/13/2022 12:33 PM [facility] Albumin 4.0 3.5 - 5.0 g/dL 12/13/2022 12:33 PM T [facility] Blood Venipuncture / Unknown 12/13/2022 8:46 AM CDT 12/13/2022 8:46 AM CDT Peyman Iverson MD LAB_1 Performing Organization Address [facility]/ZIP Co de Phone Number [facility] [address] [place] [address], [facility] [phone] * Ferritin (12/13/2022 8:46 AM CDT) Pathologist [facility] Ferritin 36 9 - 204 ng/mL 12/13/2022 4:05 PM CDT [facility] Blood Venipuncture / Unknown 12/13/2022 8:46 AM CDT 12/13/2022 8:46 AM CDT Peyman Iverson MD LAB_1 [facility] [address] [place], [place] [address] * (ABNORMAL) Complete Blood Count-No Diff (12/13/2022 8:46 AM CDT) WBC 8.5 3.5 - 10.5 x10(9)/L 12/13/2022 8:50 AM CDT [facility] RBC 4.98 3.90 - 5.03 x10(12)/L 12/13/2022 8:50 AM CDT [facility] Hemoglobin 13.5 12.0 - 15.5 g/dL 12/13/2022 8:50 AM CDT [facility] HCT 42.9 34.9 - 44.5 % 12/13/2022 8:50 AM CDT [facility] MCV 86.1 80.0 - 100.0 fL 12/13/2022 8:50 AM CDT [facility] MCH 27.1(L) 27.6 - 33.3 pg 12/13/2022 8:50 AM T [facility] MCHC 31.5 31.5 - 35.2 g/dL 12/13/2022 8:50 AM CDT [facility] RDW 15.4 11.9 - 15.5 % 12/13/2022 8:50 AM T [facility] Platelets 218 150 - 450 x10(9)/L 12/13/2022 8:50 AM T [facility] Blood Venipuncture / Unknown 12/13/2022 8:46 AM CDT 12/13/2022 8:46 AM CDT Peyman Iverson MD LAB_1 Performing Organization Address City/[facility]/ZIP Co de Phone Number [facility] [address] [place] [address], [facility] [phone] * (ABNORMAL) Basic Metabolic Panel (12/13/2022 8:46 AM CDT) Pathologist [facility] Sodium 140 136 - 145 mmol/L 12/13/2022 12:33 PM [facility] Potassium 4.0 3.5 - 5.1 mmol/L 12/13/2022 12:33 PM [facility] Chloride 105 98 - 109 mmol/L 12/13/2022 12:33 PM [facility] CO2 23 20 - 29 mmol/L 12/13/2022 12:33 PM [facility] Anion Gap 12 7 - 16 mmol/L 12/13/2022 12:33 PM [facility] Calcium 9.6 8.4 - 10.4 mg/dL 12/13/2022 12:33 PM [facility] BUN 14 7 - 26 mg/dL 12/13/2022 12:33 PM [facility] Creatinine 0.90 0.55 - 1.02 mg/dL 12/13/2022 12:33 PM [facility] Glucose 126(H) 70 - 100 mg/dL 12/13/2022 12:33 PM [facility] Comment:The given reference range is for the fasting state. Non-fasting reference range for glucose is 70 - 180 mg/dL. GFR, Estimated >60 >60 mL/min/1.7 3m2 12/13/2022 12:33 PM [facility] Hours Fasting 14.0 8 - 12 Hours 12/13/2022 12:33 PM [facility] Blood Venipuncture / Unknown 12/13/2022 8:46 AM CDT 12/13/2022 8:46 AM CDT Peyman Iverson MD LAB_1 [facility] [address] [place] [address], [facility] [phone] [facility] [address] [place] [address], [facility] [phone] * (ABNORMAL) Vitamin B12 Only (12/13/2022 8:46 AM CDT) Vitamin B12 126(L) 213 - 816 pg/mL 12/13/2022 4:12 PM CDT [facility] Blood Venipuncture / Unknown 12/13/2022 8:46 AM CDT 12/13/2022 8:46 AM CDT Narrative [facility] - 12/13/2022 4:12 PM CDT Borderline low serum Vitamin B12 values may not be diagnositic of B12 deficiency (140 to 209 pg/mL). Consider serum methylmalonic acid and homocysteine levels for confirmation. Serum B12 far below normal indicates deficency (<140 pg/mL). Peyman Iverson MD LAB_1 Performing Organization Address [facility] de Phone Number [facility] [address] [place] [address] * Hepatitis C Antibody, with Reflex (12/13/2022 8:46 AM CDT) [facility] Hepatitis C Antibody Negative (Non Reactive) Negative (Non Reactive) 12/13/2022 4:06 PM CDT [facility] Comment:Antibodies to HCV no t detected. Does not exclude the possiblity of exposure to HCV. Blood Venipuncture / Unknown 12/13/2022 8:46 AM CDT 12/13/2022 8:46 AM CDT Peyman Iverson MD LAB_1 Performing Organization Address [facility] de Phone Number [facility] [address] [place] [address] * (ABNORMAL) Hgb A1C (12/13/2022 8:46 AM CDT) Pathologist [facility] Hemoglobin A1C 7.4(H) <=5.6 % 12/13/2022 3:06 PM CDT [facility] Estimated Average Glucose (Calc) 166 < 117 mg/dL 12/13/2022 3:06 PM CDT [facility] Comment:Estimated average gl ucose (eAG) converts A1c into glucose units (mg/dL) and estimates average glucose over the past approximately 3 months. The eAG reference interval (<117 mg/dL) corresponds to an A1c of <5.7%. Blood Venipuncture / Unknown 12/13/2022 8:46 AM CDT 12/13/2022 8:46 AM CDT Narrative [facility] - 12/13/2022 3:06 PM CDT For patients not previously diagnosed with diabetes: 5.7-6.4%: Increased risk for diabetes 6.5% and greater: Diagnostic for diabetes For patients diagnosed with diabetes: <8.0%: Goal of therapy for ages 18-75 Clinicians may recommend a higher or lower goal for specific individuals. Peyman Iverson MD LAB_1 [facility] [address] [address], [facility] [phone] * Lipid Panel and Direct LDL(If Needed) (12/13/2022 8:46 AM CDT) [facility] Cholesterol 184 0 - 199 mg/dL 12/13/2022 12:33 PM CDT [facility] Triglyceride 134 <=149 mg/dL 12/13/2022 12:33 PM T [facility] HDL Cholesterol 67 >=40 mg/dL 12:33 PM T [facility] LDL, Calculated 90 <130 mg/dL 12:33 PM T [facility] Non HDL Chol, Calculated 117 <=159 mg/dL 12/13/2022 12:33 PM T [facility] Cholesterol/HDL Ratio 2.7 <=5.0 12/13/2022 12:33 PM T [facility] Hours Fasting 14.0 8 - 12 Hours 12/13/2022 12:33 PM T [facility] Blood Venipuncture / Unknown 12/13/2022 8:46 AM CDT 12/13/2022 8:46 AM CDT Peyman Iverson MD LAB_1 [facility] [address] [place] [address], [place] [phone] [facility] [address] [place] [address], [place] [phone] documented in this encounter Visit Diagnoses Diagnosis Lipid screening Screening for lipoid disorders Diabetes mellitus screening Screening for diabetes mellitus Need for hepatitis C screening test Special screening examination for other specified viral diseases Encounter for long-term (current) use of medications Encounter for long-term (current) use of other medications Diabetes mellitus type 2 (HRC) History of anemia Personal history of diseases of blood and blood-forming organs Fatty liver (HRC) Other chronic nonalcoholic liver disease documented in this encounter
--- OUTSIDE RECORDS SUMMARY | 2023-03-09 22:07 | XMS_ITS | Encounter Summary ---
Author Name Unknown Organization [facility] Address [address] [place] [address] Care Team Providers Care Bladder Cleaner Name Role Phone Unavailable Primary Care Provider Unavailabl e Reason for Visit * Reason Comments Prior Authorization For Medication Ozemp ic Encounter Details Date Type Department Care Team Description 03/06/2023 Telephone [place] [address] Family Medicine [address] [place] [phone] [place] [address] [place], [place] [phone] Prior Authorization For Medication (Ozempic) Social History Tobacco Use Types Packs/Day Years [...] AM CDT documented as of this encounter Nursing Notes * Bhavna Osuna - 03/06/2023 10:31 AM CST Epa initiated [employer] documented in this encounter Plan of Treatment Upcoming Encounters Date Type Department Care Team Description 07/12/2023 9:00 AM CDT Appointment [facility] [id number] [place] [phone] 07/16/2023 1:00 PM CDT Appointment [facility] [address] [facility] Medicine [address] [place] [address] [place] [address] [place] [address] documented as of this encounter Visit Diagnoses Not on filedocumented in this encounter
--- OUTSIDE RECORDS SUMMARY | 2023-03-09 22:07 | XMS_ITS | Encounter Summary ---
Author Name Unknown Organization [facility] Address [address] [place] [address] Care Team Providers Care Caddy/Caddie Supervisor Name Role Phone Unavailable Primary Care Provider Unavailabl e Reason for Visit * Reason Comments Follow-up Urine test results Encounter Details Date Type Department Care Team Description 01/08/2023 3:40 PM SEASONAL CLERK Office Visit [place] [address] Family Medicine [id number] [place] [phone] [place] [address] [place], [place] [phone] Microalbuminuria (Primary Dx); Diabetes mellitus type 2 (HRC); Elevated LFTs; Other dietary vitamin B12 deficiency anemia Social History Tobacco Use Types Packs/Day Years [...] Sign Reading Time Taken Comments Blood Pressure 105/72 01/08/2023 3:45 PM SEASONAL CLERK Pulse 80 01/08/2023 3:45 PM SEASONAL CLERK Temperature - - Respiratory Rate - - Oxygen Saturation - - Inhaled Oxygen Concentration - - Weight - - Height - - Body Mass Index - - documented in this encounter Progress Notes * Peyman Iverson MD - 01/08/2023 3:40 PM CST Subjective Chief Complaint Patient presents with Follow-up Urine test results Gloria Kwan is a 52 y.o. female who presents for follow up. At our last visit multiple labs were drawn and returned showing microalbuminuria, elevated LFTs, borderline low ferritin, and low B12. When discussing recommendations for starting on ACEI or ARB she reports being on lisinopril in the past and had orthostasis and was discontinued on this. She is not interested in trying this again. She has known fatty liver disease as well and is not overly concerned about the mildly elevated LFTs. Objective BP 105/72 (BP Location: Left Arm, BP Cuff Size: Regular) Pulse 80 Physical Exam Vitals reviewed. HENT: Head: Normocephalic and atraumatic. Eyes: Conjunctiva/sclera: Conjunctivae normal. Skin: General: Skin is warm and dry. Neurological: Mental Status: She is alert. Mental status is at baseline. Psychiatric: Mood and Affect: Mood and affect normal. Assessment/Plan Gloria was seen today for follow-up. Diagnoses and all orders for this visit: Microalbuminuria - Albumin/Creatinine Ratio,Random Urine; Future Diabetes mellitus type 2 (HRC) - Lipid Panel & Direct LDL (if Needed); Future - Hgb A1C; Future Elevated LFTs - Liver Panel(Hepatic Function Panel); Future Other dietary vitamin B12 deficiency anemia - Vitamin B12 Only; Future Type 2 diabetes mellitus with microalbuminuria - She is not interested in starting on JORGITO-I or ARB again due to past orthostasis, which is understandable. She is already on Jardiance which offers renal protection. - We did discuss the option of increasing Jardiance further but she declined. - Repeat A1c and UMAR in 3-6 months Elevated LFTs - She has known fatty liver disease and LFTs are mildly elevated. I offered to obtain a right upperquadrant ultrasound, but she declined which is reasonable. Vitamin B12 deficiency - Recommended starting supplement. Follow up in 3-6 months. 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 Peyman Iverson MD 01/08/2023 Voice recognition software ([employer]) was used to generate this note. As a result, wrong word or '[id number]' substitutions may have occurred due to the inherent limitations of voice recognition software. There may be errors in the script that have gone undetected. Please consider this when interpreting information found in this chart. ONAL CLERK documented in this encounter Plan of Treatment Upcoming Encounters Date Type Department Care Team Description 07/12/2023 9:00 AM CDT Appointment [place] [id number] [place] [phone] 07/16/2023 1:00 PM CDT Appointment [place] [address] [place] [phone] [place] [address] [place] [address] Scheduled Orders Name Type Priority Associated Diagnoses Orde r Schedule Lipid Panel & Direct LDL (if Needed) Lab Routine Diabetes mellitus type 2 (HRC) Expected: 07/09/2023, Expires: 01/09/2024 Hgb A1C Lab Routine Diabetes mellitus type 2 (HRC) Expected: 07/09/2023, Expires: 01/09/2024 Liver Panel(Hepatic Function Panel) Lab Routine Elevated LFTs Expected: 07/09/2023, Expires: 01/09/2024 Vitamin B12 Only Lab Routine Other dietary vitamin B12 deficiency anemia Expected: 07/09/2023, Expires: 01/09/2024 Albumin/Creatinine Ratio,Random Urine Lab Routine Microalbuminuria Expected: 07/09/2023, Expires: 01/09/2024 documented as of this encounter Visit Diagnoses Diagnosis Microalbuminuria- Primary Proteinuria Diabetes mellitus type 2 (HRC) Elevated LFTs Other abnormal blood chemistry Other dietary vitamin B12 deficiency anemia documented in this encounter
--- OUTSIDE RECORDS SUMMARY | 2023-03-09 22:07 | XMS_ITS | Encounter Summary ---
Author Name Unknown Organization [facility] Address [address] [place] [address] Care Team Providers Care Tier Lift Truck Operator Name Role Phone Humphrey Mccray MD Primary Care Provider Unavailable Sharda Sykes [facility] Unavailable [phone] Eduard Vargas DO Unavailable [phone] Eduard Vargas DO Primary Care Provider Sharda Sykes [facility] Unavailable Sharda Sykes [facility] Unavailable Encounter Details Date Type Department Care Team (Late st Contact Info) Description 04/03/2021 [facility] Advice [address] [phone] Sharda Sykes, [facility] [address] [place] [address] Social History Tobacco Use Types [...] week 03/11/2021 How often do you attend judaism or episcopalian serv ices? Never 03/11/2021 Do you belong to any clubs o r organizations such as judaism groups, unions, fraternal or athletic groups, or [...] Answer Date Recorded PHQ-2 Score 0 03/14/2021 [facility] - Occupational Stress Questionnaire Answer [...] Exposure Response Date Recorded In the last month, have you been in contact with someone who was confirmed or suspected to have Coronavirus / COVID-19? No / Unsure 03/15/2021 9:11 AM RN CHILD documented as of this encounter Plan of Treatment Not on file documented as of this encounter Visit Diagnoses Not on filedocumented in this encounter Care Teams Tier Lift Truck Operator Relationship Specialty Start Date End Date Humphrey Mccray MD PCP - General 02/24/99 05/09/21 [place] [address] [place] [address] PCP - General Family Medicine 05/10/21 Sharda Sykes [facility] [address] [place] [address] Pharmacist Pharmacist 04/03/21 [place] [address] [place] [address] Assigned PCP 02/23/21 Sharda Sykes [facility] [address] [place] [address] Assigned MTM Pharmacist 08/05/21 Sharda Sykes, [facility] [address] [place] [address] Assigned MTM Pharmacist 11/08/21 documented as of this encounter
--- OUTSIDE RECORDS SUMMARY | 2023-03-09 22:07 | XMS_ITS | Encounter Summary ---
Author Name Unknown Organization [facility] Address [address] [place] [address] Care Team Providers Care Shoe Sprayer Name Role Phone Unavailable Primary Care Provider Unavailabl e Reason for Visit * Reason Comments QUESTIONS, GENERAL Entered automaticall y based on patient selection in [facility]. Encounter Details Date Type Department Care Team Description 02/26/2023 5:00 PM NUTRITION DIRECTOR E-Visit [place] [address] [address] [place] [phone] [place] [address] [place] [address] Dx: Neuropathic pain of left lower extremity Social History Tobacco Use Types Packs/Day Years [...] Team Description 07/12/2023 9:00 AM CDT Appointment [facility] [address] [place] [phone] 07/16/2023 1:00 PM CDT Appointment [place] [address] [address] [place] [phone] [place] [address] [place] [address] documented as of this encounter Visit Diagnoses Diagnosis Neuropathic pain of left lower extremity documented in this encounter
--- OUTSIDE RECORDS SUMMARY | 2023-03-09 22:07 | XMS_ITS | Clinical Summary ---
Author Name Unknown Organization [facility] Address [address], [place] [address] Care Team Providers Care Industrial Education Teacher Name Role Phone Unavailable Primary Care Provider Unavailabl e Source Comments You are receiving this document as you are listed as the primary care provider,follow-up provider, or the patient has been referred to you for consultation.This is in compliance with the Medicare and[facility] EHR Incentive Program,which states Providers who transition their patient to another setting of careor provider of care or refers their patient to another provider of care shouldprovide summary care record for each transition of care or referral. Clue App Allergies Active Allergy Reactions Criticality Noted Date Comments Adhesive Rash 09/04/2013 Tegaderm Grass Pollen(K-O-R-T-Swt Cesar) Cough,Headache 01/08/2023 Hydromorphone Itching 03/14/2018 Lisinopril Dizziness 04/25/2018 Molds & Smuts Other, see comments 09/04/2013 Sinus and Respiratory Sinus and respiratory symptoms Medications Medication Sig Dispensed Refills Start Date End Date Status aspirin tablet TABS Take 1 Tablet (81 mg) by mouth daily. 0 07/23/19 13 Active ALBUterol sulfate HFA 108 (90 Base) MCG/ACT inhaler Inhale. 0 06/07/19 23 Active cetirizine (ZYRTEC) 10 MG tablet Take 1 Tablet (10 mg) by mouth daily. 0 Active Calcium Citrate (AKA CALCITRATE) 950 (200 Ca) MG tablet Take 500 mg by mouth. 0 Active Cholecalciferol 1.25 MG (28935 UT) WAFR Take 5,000 Units by mouth. 0 Active ipratropium-albu terol (DUONEB) 0.5-2.5 (3) mg/3ml nebulizer solutionIndicati ons:Mild persistent asthma without complication (HRC) Inhale 3 mL every 6 hours as needed for Wheezing. 120 mL 1 12/14/19 23 Active blood glucose test stripIndications :Diabetes mellitus type 2 (HRC) Use to test daily. 100 Strip 11 12/14/19 23 Active estradiol (ESTRACE) 0.1 MG/GM vaginal creamIndications :Menopausal vaginal dryness Apply 1 gm vaginally 2 times a week. 42.5 g 2 12/14/19 23 Active semaglutide (OZEMPIC) 4 MG/3ML injection Inject 1 mg subcutaneously once every week. 9 mL 3 12/19/19 23 Active Lancets (ONETOUCH DELICA PLUS [id number]) MISC Apply 1 Lancet topically daily. 0 11/09/19 23 Active atorvastatin (LIPITOR) 10 MG tablet Take 1 Tablet (10 mg) by mouth daily. 90 Tablet 3 02/26/19 24 Active gabapentin (NEURONTIN) 300 MG capsuleIndicatio ns:Neuropathic pain of left lower extremity Take 1 Capsule (300 mg) by mouth two times a day. 180 Capsule 3 02/26/19 24 Active JARDIANCE 10 MG tablet Take 1 Tablet (10 mg) by mouth daily. 90 Tablet 3 02/26/19 24 Active metFORMIN (GLUCOPHAGE) 1000 MG tablet Take 1 Tablet (1,000 mg) by mouth two times a day. 180 Tablet 3 02/26/19 24 Active montelukast (SINGULAIR) 10 MG tablet Take 1 Tablet (10 mg) by mouth daily. 90 Tablet 3 02/26/19 24 Active atorvastatin (LIPITOR) 10 MG tablet Take 1 Tablet (10 mg) by mouth daily. 0 07/14/19 23 024 Discontinued(*M ed change OR same med OR reorder, new dose/directions ) JARDIANCE 10 MG tablet Take 1 Tablet (10 mg) by mouth daily. 0 10/23/19 23 024 Discontinued(*M ed change OR same med OR reorder, new dose/directions ) montelukast (SINGULAIR) 10 MG tablet Take 1 Tablet (10 mg) by mouth daily. 0 08/31/19 23 024 Discontinued(*M ed change OR same med OR reorder, new dose/directions ) metFORMIN (GLUCOPHAGE) 1000 MG tablet Take 1 Tablet (1,000 mg) by mouth two times a day. 0 08/25/19 23 024 Discontinued(*M ed change OR same med OR reorder, new dose/directions ) semaglutide (OZEMPIC) 2 MG/3ML injectionIndicat ions:Diabetes mellitus type 2 (HRC) Inject 0.5 mg subcutaneously once a week. 3 mL 2 12/14/19 23 024 Discontinued gabapentin (NEURONTIN) 300 MG capsuleIndicatio ns:Neuropathic pain of left lower extremity Take 1 Capsule (300 mg) by mouth two times a day. 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 If still present, will add JORGITO-I Will recheck in 6 months. If still present, will add JORGITO-I Cervical cancer, FIGO stage IB1 01/24/2018 Overview: Radical hysterectomy 03/24/18, left ovaries. 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 Encounters Date Type Department Care Team Description 03/06/2023 Telephone [place] [address] [place] [phone] Peyman Iverson MD Prior Authorization For Medication (Ozempic) 03/01/2023 11:00 AM SPECIAL NEEDS BABYSITTER Office Visit [facility] [address] [place] [address] Viola Vickers MD Screening for malignant neoplasm of cervix (Primary Dx); Special screening examination for human papillomavirus (HPV); Abdominal wall hernia 02/26/2023 5:00 PM SPECIAL NEEDS BABYSITTER E-Visit [address] [address] Peyman Iverson MD Dx: Neuropathic pain of left lower extremity 02/19/2023 1:50 PM SPECIAL NEEDS BABYSITTER Ancillary Procedure [facility] [address] [place] [address] 01/29/2023 9:45 AM SPECIAL NEEDS BABYSITTER Office Visit Elva M[facility] [address] [facility] [address] [place] [phone] Ignacio Quintanilla DPFrance Diabetic peripheral neuropathy (HRC) (Primary Dx); Onychomycosis 01/08/2023 3:40 PM SPECIAL NEEDS BABYSITTER Office Visit [address] [address] Peyman Iverson MD Microalbuminuria (Primary Dx); Diabetes mellitus type 2 (HRC); Elevated LFTs; Other dietary vitamin B12 deficiency anemia 12/17/2022 7:20 PM SPECIAL NEEDS BABYSITTER E-Visit [address] [address] Peyman Iverson MD Dx: Diabetes mellitus type 2 (HRC) 12/13/2022 8:30 AM CDT Lab Visit [facility] [address] [place] [phone] Lipid screening; Diabetes mellitus screening; Need for hepatitis C screening test; Encounter for long-term (current) use of medications; Diabetes mellitus type 2 (HRC); History of anemia; Fatty liver (HRC) 12/13/2022 7:30 AM CDT Office Visit [place] [address] [facility] [address] [place] [phone] Peyman Iverson MD Diabetes mellitus type 2 (HRC) (Primary Dx); Diabetes mellitus screening; Lipid screening; Need for hepatitis C screening test; Encounter for screening mammogram for malignant neoplasm of breast; Encounter for long-term (current) use of medications; History of anemia; Cervical cancer, FIGO stage IB1 (HRC); Mild persistent asthma without complication (HRC); Menopausal vaginal dryness; Fatty liver (HRC); Neuropathic pain of left lower extremity from Last 3 Months Immunizations Name Administration Dates Next Due Flu Vac (3+ yrs) 11/03/2012 Flu Vac Preserv Free (3+yrs) 12/13/2011,11/26/19 10 HepB Adult (Engerix-B, 20+ y rs, 3 dose series) 05/04/2010,09/13/2009,08/12/2009 Influenza ([place] Only) (Flul aval Quad 0.5, 3+ yrs) 11/06/2019,11/16/2016 Influenza IIV3 (Trivalent) F stephanie Highdose, 65+ Yrs (80197) 12/22/2015,11/11/2014,11/11/2013 Influenza IIV4 (Quadrivalent ) 0.5mL (82199) 11/30/2020,11/06/2019,10/16/2018,2017,10/25/2017,11/16/2016,11/15/2015 Influenza, Unspecified Formulation 10/25/2017, Donnie COVID-19 Vaccine 04/23/2020 MMR 06/04/2012 PCV20 ([id number]) 09/22/2021 PPSV23 (Pneumovax) 03/17/2014,07/12/2009 Td, Preservative Free 07/13/2005 Tdap 09/22/2021,06/18/2011 Zoster RZV (Shingrix) 12/13/2022 Family History Medical History Relation Name Comments Diabetes, Type II Father Diabetes, Type II Paternal Uncle Relation Name Status Comments Father Paternal Uncle Social History Tobacco Use Types Packs/Day Years Used Date Smoking Tobacco: Former Cigarettes Smokeless Tobacco: Never Tobacco Cessation:Counseling Given: Not Answered Alcohol Use Standard Drinks/Week Comments Not Currently 0 (1 standard drink = 0.6 oz pur e alcohol) PHQ-2 Answer Date Recorded PHQ-2 Score 0 12/13/2022 Sex and Gender Information Value Date Recorded Sex Assigned at Not on file Gender Identity Not on file Sexual Orientation Straight 12/13/2022 9: 23 AM CDT Last Filed Vital Signs Vital Sign Reading Time Taken Comments Blood Pressure 118/73 03/01/2023 10:58 AM SPECIAL NEEDS BABYSITTER Pulse 73 03/01/2023 10:58 AM SPECIAL NEEDS BABYSITTER Temperature 36.9 ??C (98.4 ??F) 10/30/2022 1:14 PM CD T Respiratory Rate 18 12/13/2022 7:34 AM CDT Oxygen Saturation 99% 10/30/2022 1:14 PM CDT Inhaled Oxygen Concentration - - Weight 82.7 kg (182 lb 6.4 oz) 03/01/2023 10:58 AM SPECIAL NEEDS BABYSITTER Height 161 cm (5' 3.39) 12/13/2022 7:34 AM CDT Body Mass Index 31.92 12/13/2022 7:34 AM CDT Plan of Treatment Upcoming Encounters Date Type Department Care Team Description 07/12/2023 9:00 AM CDT Appointment [facility] [address] [place] [phone] 07/16/2023 1:00 PM CDT Appointment [place] [address] [facility] [address] [place] [phone] [place] [address] [place] [address] Health Maintenance Due Date Last Done Comments Diabetes: Eye Exam 1970 Diabetes: Foot Exam 1970 HIV Screening (Preventive Services) 1986 Adult Preventive Visit 1988 COVID-19 Vaccine ( season) 2022 04/23/2020 Influenza (#1) 2022 11/30/2020, 10/13, 11/06/2019, Additional history exists Zoster/Shingles (2 of 2) 02/07/2023 12/13/2022 Diabetes: HGBA1C 03/15/2023 12/13/2022 Diabetes: Creatinine 12/14/2023 12/13/2022 Diabetes: Urine Microalbumin 12/14/2023 12/13/2022 Mammogram 02/20/2024 02/19/2023, 11/11, 11/25/2020 Cologuard (Stool DNA) 10/19/2024 10/19/2021 (Complet ed) Diabetes: Lipid Panel 12/14/2027 12/13/2022 DTaP/Tdap/Td (3 - Tdap) 09/23/2031 09/23/19 22, 06/18/2011, 07/13/2005 HepB Completed 05/04/2010, 04/2009, 08/12/2009 Pneumococcal Completed 09/22/2021, 05/2014, 07/12/2009 Cholesterol Discontinued 12/13/2022 Hep C Screening (Preventive Services) Completed 12/13/2022 HepA Aged Out No longer eligi ble based on patient's age to complete this topic Hib Aged Out No longer eligi ble based on patient's age to complete this topic IPV (Polio) Aged Out No longer eligi ble based on patient's age to complete this topic MCV4 Aged Out No longer eligi ble based on patient's age to complete this topic Procedures Procedure Name Priority Date/Time Associated Diagnosis Comments MM MAMMOGRAM SCREENING BILAT W 3D MADDI W CAD Routine 02/19/2023 2:05 PM SPECIAL NEEDS BABYSITTER ALBUMIN/CREAT RATIO Routine 12/13/2022 8 :49 AM CDT Diabetes mellitus type 2 (HRC) HEPATITIS C ANTIBODY, WITH REFLEX Routine 12/13/2022 8:46 AM CDT Need for hepatitis C screening test LIVER PANEL(HEPATIC FUNCTION PANEL) Routine 12/13/2022 8:46 AM CDT Fatty liver (HRC) FERRITIN Routine 12/13/2022 8:46 AM CDT History of anemia COMPLETE BLOOD COUNT-NO DIFF Routine 12/13/2022 8:46 AM CDT History of anemia BASIC METABOLIC PANEL Routine 12/13/2022 8:46 AM CDT Diabetes mellitus type 2 (HRC) VITAMIN B12 ONLY Routine 12/13/2022 8:46 AM CDT Encounter for long-term (current) use of medications HGB A1C Routine 12/13/2022 8:46 AM CDT Diabetes mellitus screening LIPID PANEL & DIRECT LDL (IF NEEDED) Routine 12/13/2022 8:46 AM CDT Lipid screening from Last 3 Months Results * MM Mammogram Screening Bilat W 3D Maddi W CAD (02/19/2023 2:05 PM SPECIAL NEEDS BABYSITTER) Anatomical Region Laterality Modality Breast Bilateral Mammography Impressions 02/21/2023 2:07 PM SPECIAL NEEDS BABYSITTER : ACR BI-RADS Category 1: Negative RECOMMENDATION: Follow Up Imaging in 12 months - Bilateral The results and recommendations of this examination will be communicated to the patient. Narrative 02/21/2023 2:07 PM SPECIAL NEEDS BABYSITTER MM MAMMOGRAM SCREENING BILAT W 3D MADDI W CAD performed on 02/19/23 Compared to: 11/28/2021 Foreign Image(S) Mammogram, 11/25/2020 Foreign Image(S) Mammogram, and 10/02/2019 Foreign Image(S) Mammogram ?? FINDINGS: Bilateral screening mammogram was performed with the assistance of Computer-Aided Detection and breast tomosynthesis. The breasts are almost entirely fatty. There is no radiographic evidence of malignancy. ?? Peyman Iverson MD [facility] * (ABNORMAL) Albumin/Creatinine Ratio,Random Urine (12/13/2022 8:49 AM CDT) Pathologist [facility] Albumin/Creati nine Ratio, Urine, Random 31(H) <30 mg/g 12/13/2022 11:15 AM CDT [facility] Albumin, Urine, Random 5.5 mg/L 12/13/2022 11:15 AM T [facility] Creatinine, Urine, Random 18 >20 mg/dL mg/dL 12/13/2022 11:15 AM T [facility] Urine Non-blood Collection / Unknown 12/13/2022 8:49 AM CDT 12/13/2022 8:49 AM CDT Peyman Iverson MD LAB_1 [facility] [address] [place] [address], [facility] [phone] * Lipid Panel and Direct LDL(If Needed) (12/13/2022 8:46 AM CDT) [facility] Cholesterol 184 0 - 199 mg/dL 12/13/2022 12:33 PM [facility] Triglyceride 134 <=149 mg/dL 12/13/2022 12:33 PM [facility] HDL Cholesterol 67 >=40 mg/dL 12:33 PM [facility] LDL, Calculated 90 <130 mg/dL 12:33 PM [facility] Non HDL Chol, Calculated 117 <=159 mg/dL 12/13/2022 12:33 PM [facility] Cholesterol/HDL Ratio 2.7 <=5.0 12/13/2022 12:33 PM [facility] Hours Fasting 14.0 8 - 12 Hours 12/13/2022 12:33 PM [facility] Blood Venipuncture / Unknown 12/13/2022 8:46 AM CDT 12/13/2022 8:46 AM CDT Peyman Iverson MD LAB_1 Performing Organization Address [facility]/State/ZIP Co de Phone Number [facility] [address] [place] [address], [facility] [phone] [facility] [address] [place] [address], [place] [phone] * (ABNORMAL) Liver Panel(Hepatic Function Panel) (12/13/2022 8:46 AM CDT) [facility] Alkaline Phosphatase 71 40 - 150 U/L 12/13/2022 12:33 PM CDT [facility] Bilirubin, Total 0.8 0.2 - 1.2 mg/dL 12/13/2022 12:33 PM T [facility] Bilirubin, Direct 0.3 0.0 - 0.5 mg/dL 12/13/2022 12:33 PM T [facility] AST (SGOT) 41(H) 10 - 40 U/L 12/13/2022 12:33 PM T [facility] ALT (SGPT) 87(H) <=55 U/L 12/13/2022 12:33 PM [facility] Protein, Total 7.8 6.4 - 8.3 g/dL 12/13/2022 12:33 PM [facility] Albumin 4.0 3.5 - 5.0 g/dL 12/13/2022 12:33 PM [facility] Blood Venipuncture / Unknown 12/13/2022 8:46 AM CDT 12/13/2022 8:46 AM CDT Peyman Iverson MD LAB_1 [facility] [address] [place] [address], [facility] [phone] * (ABNORMAL) Basic Metabolic Panel (12/13/2022 8:46 AM CDT) Pathologist [facility] Sodium 140 136 - 145 mmol/L 12/13/2022 12:33 PM CDT [facility] Potassium 4.0 3.5 - 5.1 mmol/L 12/13/2022 12:33 PM [facility] Chloride 105 98 - 109 mmol/L 12/13/2022 12:33 PM [facility] CO2 23 20 - 29 mmol/L 12/13/2022 12:33 PM [facility] Anion Gap 12 7 - 16 mmol/L 12/13/2022 12:33 PM [facility] Calcium 9.6 8.4 - 10.4 mg/dL 12/13/2022 12:33 PM [facility] BUN 14 7 - 26 mg/dL 12/13/2022 12:33 PM [facility] Creatinine 0.90 0.55 - 1.02 mg/dL 12/13/2022 12:33 PM [facility] Glucose 126(H) 70 - 100 mg/dL 12/13/2022 12:33 PM [facility] Comment:The given reference range is for the fasting state. Non-fasting reference range for glucose is 70 - 180 mg/dL. GFR, Estimated >60 >60 mL/min/1.7 3m2 12/13/2022 12:33 PM [facility] Hours Fasting 14.0 8 - 12 Hours 12/13/2022 12:33 PM [facility] Blood Venipuncture / Unknown 12/13/2022 8:46 AM CDT 12/13/2022 8:46 AM CDT Peyman Iverson MD LAB_1 [facility] [address] [place] [address], [facility] [phone] [facility] [address] [place] [address], [facility] [phone] * (ABNORMAL) Complete Blood Count-No Diff (12/13/2022 8:46 AM CDT) [facility] WBC 8.5 3.5 - 10.5 x10(9)/L 12/13/2022 8:50 AM CDT [facility] RBC 4.98 3.90 - 5.03 x10(12)/L 12/13/2022 8:50 AM CDT [facility] Hemoglobin 13.5 12.0 - 15.5 g/dL 12/13/2022 8:50 AM CDT [facility] HCT 42.9 34.9 - 44.5 % 12/13/2022 8:50 AM CDT [facility] MCV 86.1 80.0 - 100.0 fL 12/13/2022 8:50 AM CDT [facility] MCH 27.1(L) 27.6 - 33.3 pg 12/13/2022 8:50 AM CDT [facility] MCHC 31.5 31.5 - 35.2 g/dL 12/13/2022 8:50 AM CDT [facility] RDW 15.4 11.9 - 15.5 % 12/13/2022 8:50 AM CDT [facility] Platelets 218 150 - 450 x10(9)/L 12/13/2022 8:50 AM CDT [facility] Blood Venipuncture / Unknown 12/13/2022 8:46 AM CDT 12/13/2022 8:46 AM CDT Peyman Iverson MD LAB_1 Performing Organization Address City/[facility]/ZIP Co de Phone Number [facility] [address] [place] [address] [phone] * Hepatitis C Antibody, with Reflex (12/13/2022 8:46 AM CDT) [facility] Hepatitis C Antibody Negative (Non Reactive) Negative (Non Reactive) 12/13/2022 4:06 PM CDT [facility] Comment:Antibodies to HCV no t detected. Does not exclude the possiblity of exposure to HCV. Blood Venipuncture / Unknown 12/13/2022 8:46 AM CDT 12/13/2022 8:46 AM CDT Peyman Iverson MD LAB_1 [facility] [address] [place] [address], [facility] * Ferritin (12/13/2022 8:46 AM CDT) Ferritin 36 9 - 204 ng/mL 12/13/2022 4:05 PM CDT [facility] Blood Venipuncture / Unknown 12/13/2022 8:46 AM CDT 12/13/2022 8:46 AM CDT Peyman Iverson MD LAB_1 [facility] [address] * (ABNORMAL) Hgb A1C (12/13/2022 8:46 AM CDT) Hemoglobin A1C 7.4(H) <=5.6 % 12/13/2022 3:06 PM CDT [facility] Estimated Average Glucose (Calc) 166 < 117 mg/dL 12/13/2022 3:06 PM CDT [facility] Comment:Estimated average gl ucose (eAG) converts A1c into glucose units (mg/dL) and estimates average glucose over the past approximately 3 months. The eAG reference interval (<117 mg/dL) corresponds to an A1c of <5.7%. Blood Venipuncture / Unknown 12/13/2022 8:46 AM CDT 12/13/2022 8:46 AM CDT Narrative [facility] - 12/13/2022 3:06 PM CDT For patients not previously diagnosed with diabetes: 5.7-6.4%: Increased risk for diabetes 6.5% and greater: Diagnostic for diabetes For patients diagnosed with diabetes: <8.0%: Goal of therapy for ages 18-75 Clinicians may recommend a higher or lower goal for specific individuals. Peyman Iverson MD LAB_1 [facility] [address] [address] [phone] * (ABNORMAL) Vitamin B12 Only (12/13/2022 8:46 AM CDT) Vitamin B12 126(L) 213 - 816 pg/mL 12/13/2022 4:12 PM CDT [facility] Blood Venipuncture / Unknown 12/13/2022 8:46 AM CDT 12/13/2022 8:46 AM CDT Narrative [facility] - 12/13/2022 4:12 PM CDT Borderline low serum Vitamin B12 values may not be diagnositic of B12 deficiency (140 to 209 pg/mL). Consider serum methylmalonic acid and homocysteine levels for confirmation. Serum B12 far below normal indicates deficency (<140 pg/mL). Peyman Iverson MD LAB_1 [facility] [address] [place] [address], [facility] from Last 3 Months
--- OUTSIDE RECORDS SUMMARY | 2023-03-09 22:07 | XMS_ITS | Encounter Summary ---
Author Name Unknown Organization [facility] Address [address] [place] [address]. [place] [address] Care Team Providers Care School Coordinator Name Role Phone Sharda Sykes [facility] Unavailable Eduard Vargas DO Unavailable [phone] Eduard Vargas DO Primary Care Provider [phone] Sharda Sykes [facility] Unavailable [phone] Sharda Sykes [facility] Unavailable Encounter Details Date Type Department Care Team (Late st Contact Info) Description 05/10/2021 [facility] [place] [address] [address] Sharda Sykes, [facility] [address] [place] [address] Social History Tobacco Use Types [...] week 03/11/2021 How often do you attend muslim or gnosticist serv ices? Never 03/11/2021 Do you belong to any clubs o r organizations such as muslim groups, unions, fraternal or athletic groups, or [...] Answer Date Recorded PHQ-2 Score 0 03/14/2021 [facility] - Occupational [...] place to sleep or slept in a group home (including now)? No 03/11/2021 Sex and Gender Information Value Date Recorded Sex Assigned at Not on file Gender Identity Not on file Sexual Orientation Straight 06/28/2021 12 :12 PM CDT COVID-19 Exposure Response Date Recorded In the last month, have you been in contact with someone who was confirmed or suspected to have Coronavirus / COVID-19? No / Unsure 05/04/2021 8:41 AM CDT documented as of this encounter Plan of Treatment Not on file documented as of this encounter Visit Diagnoses Not on filedocumented in this encounter Care Teams School Coordinator Relationship Specialty [place] [address] [place] [address] PCP - General Family Medicine 05/10/21 Sharda Sykes [facility] [place] [address] Pharmacist Pharmacist 04/03/21 [place] [address] [place] [address] Assigned PCP 02/23/21 Sharda Sykes [facility] [place] [address] Assigned MTM Pharmacist 08/05/21 Sharda Sykes [facility] [address] [place] [address] Assigned MTM Pharmacist 11/08/21 documented as of this encounter
--- OUTSIDE RECORDS SUMMARY | 2023-03-09 22:07 | XMS_ITS | Encounter Summary ---
Author Name Unknown Organization [facility] Address [address] [place] [address] Care Team Providers Care Operations Research Director Name Role Phone Unavailable Primary Care Provider Unavailabl e Reason for Referral * Medication Prior Authorization - Pending Review Specialty Diagnoses / Procedures Referred By Chuy salazar [place] [address] [place] [address] Referral ID Status Reason Start Date Expiration Date V isits Requested Visits Authorized [id number] Pending Review 1 1 Y TRAINER Reason for Visit * Reason Comments RESULTS, TEST Entered automaticall y based on patient selection in [email or web address]. Encounter Details Date Type Department Care Team Description 12/17/2022 7:20 PM PUPPY TRAINER E-Visit [facility] [id number] [address] [place] [phone] [place] [address] [place] [address] Dx: Diabetes mellitus type 2 (HRC) Social History Tobacco Use Types Packs/Day [...] Team Description 07/12/2023 9:00 AM CDT Appointment [facility] [address] [place] [address] 07/16/2023 1:00 PM CDT Appointment [facility] [address] Family [address] [place] [phone] [place] [address] [place] [address] documented as of this encounter Visit Diagnoses Diagnosis Diabetes mellitus type 2 (HRC) documented in this encounter
--- OUTSIDE RECORDS SUMMARY | 2023-03-09 22:07 | XMS_ITS | Encounter Summary ---
Author Name Unknown Organization [place] Address [address] [place] [address]. [place] [address] Care Team Providers Care Digital Content Marketing Manager Name Role Phone Humphrey Mccray MD Primary Care Provider Unavailable Sharda Sykes [facility] Unavailable Eduard Vargas DO Unavailable [phone] Eduard Vargas DO Primary Care Provider Sharda Sykes [facility] Unavailable [phone] Sharda Sykes [facility] Unavailable Encounter Details Date Type Department Care Team (Late st Contact Info) Description 03/17/2021 MyC Medical Advice [facility] [id number] [place] [phone] [place] [id number] [place] [address] Social History Tobacco Use Types Packs/Day [...] week 03/11/2021 How often do you attend rastafari or protestant serv ices? Never 03/11/2021 Do you belong to any clubs o r organizations such as rastafari groups, unions, fraternal or athletic groups, or [...] Answer Date Recorded PHQ-2 Score 0 03/14/2021 [facility] - Occupational Stress Questionnaire Answer Date [...] COVID-19? No / Unsure 03/15/2021 9:11 AM GUEST SERVICES MANAGER documented as of this encounter Plan of Treatment Not on file documented as of this encounter Visit Diagnoses Not on filedocumented in this encounter Care Teams Digital Content Marketing Manager Relationship Specialty Start Date End Date Humphrey Mccray MD PCP - General 02/24/99 05/09/21 [place] [address] [place] [address] PCP - General Family Medicine 05/10/21 Sharda Sykes [facility] [place] [address] Pharmacist Pharmacist 04/03/21 [place] [address] [place] [address] Assigned PCP 02/23/21 Sharda Sykes [facility] [address] [place] [address] Assigned MTM Pharmacist 08/05/21 Sharda Sykes, [facility] [address] [place] [address] Assigned [place] Pharmacist 11/08/21 documented as of this encounter
--- OUTSIDE RECORDS SUMMARY | 2023-03-09 22:07 | XMS_ITS | Encounter Summary ---
Author Name Unknown Organization [place] Address [address] [place] [address]. [place] [address] Care Team Providers Care V Belt Finisher Name Role Phone Humphrey Mccray MD Primary Care Provider Unavailable Sharda Sykes [facility] Unavailable [phone] Eduard Vargas DO Unavailable [phone] Eduard Vargas DO Primary Care Provider Sharda Sykes [facility] Unavailable [phone] Sharda Sykes [facility] Unavailable Encounter Details Date Type Department Care Team (Late st Contact Info) Description 03/24/2021 MyC Medical Advice [facility] [id number] [place] [phone] [place] [id number] [place] [address] Social History Tobacco Use Types Packs/Day [...] week 03/11/2021 How often do you attend restorationism or yarsanism serv ices? Never 03/11/2021 Do you belong to any clubs o r organizations such as restorationism groups, unions, fraternal or athletic groups, or [...] Answer Date Recorded PHQ-2 Score 0 03/14/2021 [facility] Occupat ional [facility] - [...] a nursing home (including now)? No 03/11/2021 Sex and Gender Information Value Date Recorded Sex Assigned at Not on file Gender Identity Not on file Sexual Orientation Straight 06/28/2021 12 :12 PM CDT COVID-19 Exposure Response Date Recorded In the last month, have you been in contact with someone who was confirmed or suspected to have Coronavirus / COVID-19? No / Unsure 03/15/2021 9:11 AM VISUAL PRESENTATION MANAGER documented as of this encounter Plan of Treatment Not on file documented as of this encounter Visit Diagnoses Not on filedocumented in this encounter Care Teams V Belt Finisher Relationship Specialty Start Date End Date Humphrey Mccray MD PCP - General 02/24/99 05/09/21 [place] [address] [place] [address] PCP - General Family Medicine 05/10/21 Sharda Sykes [facility] [place] [address] Pharmacist Pharmacist 04/03/21 [place] [address] [place] [address] Assigned PCP 02/23/21 Sharda Sykes [facility] [address] [place] [address] Assigned MTM Pharmacist 08/05/21 Sharda Sykes, [facility] [address] [place] [address] Assigned [place] Pharmacist 11/08/21 documented as of this encounter
--- OUTSIDE RECORDS SUMMARY | 2023-03-09 22:07 | XMS_ITS | Encounter Summary ---
Author Name Unknown Organization [place] Address [address] [place] [address]. [place] [address] Care Team Providers Care Registrar Museum Name Role Phone Sharda Sykes [facility] Unavailable [phone] Eduard Vargas DO Unavailable [phone] Eduard Vargas DO Primary Care Provider [phone] Sharda Sykes [facility] Unavailable [phone] Sharda Sykes [facility] Unavailable [phone] Encounter Details Date Type Department Care Team (Late st Contact Info) Description 08/21/2021 MyC Medical Advice [facility] [id number] [place] [phone] Tricia Bonds, CHEMICAL MILLING PROCESSOR Social History Tobacco Use Types Packs/Day Years [...] week 03/11/2021 How often do you attend orthodox or evangelical serv ices? Never 03/11/2021 Do you belong to any clubs o r organizations such as orthodox groups, unions, fraternal or athletic groups, or [...] Answer Date Recorded PHQ-2 Score 0 03/14/2021 [facility] - Occupational [...] on filedocumented in this encounter Care Teams Registrar Museum Relationship Specialty [place] [address] [place] [address] PCP - General Family Medicine 05/10/21 Sharda Sykes, [facility] [address] [employer] [place], [place] [address] Pharmacist Pharmacist 04/03/21 [place] [address] [place] [address] Assigned PCP 02/23/21 Sharda Sykes, [facility] [address] [place] [address] Assigned MTM Pharmacist 08/05/21 Sharda Sykes, [facility] [address] [place] [address] Assigned MTM Pharmacist 11/08/21 documented as of this encounter
--- OUTSIDE RECORDS SUMMARY | 2023-03-09 22:07 | XMS_ITS | Encounter Summary ---
Author Name Unknown Organization [facility] Address [address] [place] [address] Care Team Providers Care Market Reporter Name Role Phone Unavailable Primary Care Provider Unavailabl e Reason for Visit * Reason Comments NAIL PROBLEM Left great toe nail fungus Encounter Details Date Type Department Care Team Description 01/29/2023 9:45 AM HAULING CONTRACTOR Office Visit [facility] [address] [facility] [address] [place] [address] Ignacio Quintanilla, GUALBERTO [address] [place], [place] [address] Diabetic peripheral neuropathy (HRC) (Primary Dx); Onychomycosis Social History Tobacco Use Types Packs/Day Years [...] AM CDT documented as of this encounter Progress Notes * Ignacio Quintanilla DPM - 01/29/2023 9:45 AM CST [facility] Date of Service: 01/29/2023 CSN: [id number] CC: Left great toenail fungus PATIENT HISTORY: Gloria Kwan is a 52 y.o. old female being seen today for evaluation of left great toenail fungus. She has noticed that she thinks she is missing the cuticle at the left great toenail. She denies any injury. Has been ongoing for about 6 weeks. She denies any trauma. 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 She is diabetic last A1c 7.4 REVIEW OF SYSTEMS: Positive per HPI above. Ten point review of systems is otherwise negative. PAST MEDICAL HISTORY: Past Medical History: Diagnosis Date Diabetes mellitus type II (HRC) PAST SOCIAL HISTORY: Social History Socioeconomic History Marital status: Spouse name: Not on file Number of children: Not on file Years of education: Not on file Highest education level: Not on file Occupational History Not on file Tobacco Use Smoking status: Former Types: Cigarettes Smokeless tobacco: Never Vaping Use Vaping Use: Never used Substance and Sexual Activity Alcohol use: Not Currently Drug use: Not on file Sexual activity: Not on file Other Topics Concern Not on file Social History Narrative Not on file Social Determinants of Health Financial Resource Strain: Not on file Food Insecurity: Not on file Transportation Needs: Not on file FAMILY HISTORY: Family History Problem Relation Age of Onset Diabetes, Type II Father Diabetes, Type II Paternal Uncle ALLERGIES: Allergies Allergen Reactions Adhesive Rash Tegaderm Grass Pollen(K-O-R-T-Swt Cesar) Cough and Headache Hydromorphone Itching Lisinopril Dizziness Molds & Smuts Other, see comments Sinus and Respiratory Sinus and respiratory symptoms EXAM: General appearance: Patient is alert and fully cooperative with history & exam. No sign of distress is noted during the visit. Musculoskeletal: Patient is ambulatory without assistive device or brace. No gross ankle deformity noted. No foot or ankle joint effusion is noted. Vascular: DP and PT pulses are intact and regular. No significant edema or varicosities noted. CFT and skin temperature is normal. Neurologic: Lower extremity sensation is diminished to light touch bilateral foot Dermatologic: Skin is intact without significant lesions, rash or abrasion. Mild discoloration lefthallux nail with evidence of a new nail advancing under the old nail. No paronychia or evidence of soft tissue infection is noted. Lymph: No evidence of lymphadenopathy or lymphedema is noted. Respiratory: Breathing is regular and unlabored while sitting. HEENT: Hearing is intact to spoken word. No evidence of visual impairment that would impact self care or ambulation. Psychiatric: Affect is pleasant and appropriate. No unusual anxiety or depression noted. Patient appears motivated to improve health and follow direction. Imaging: X-ray No IMPRESSION: Onychomycosis Type 2 diabetes with peripheral neuropathy PLAN: Patient seen and evaluated Discussed their condition and available treatment options Discussed the causes of thickened, dystrophic, discolored toenails and the treatment options available Do not advise any oral treatment for the toenail fungus and she has a history of elevated LFTs No diabetic shoes and inserts are needed unless she is having problem with recurrent callusing or open wounds. RTC p.r.n. Patient agrees to plan Ignacio Quintanilla DPM, FACFAS ING CONTRACTOR documented in this encounter Plan of Treatment Upcoming Encounters Date Type Department Care Team Description 07/12/2023 9:00 AM CDT Appointment [facility] [address] [place] [address] 07/16/2023 1:00 PM CDT Appointment [place] [address] [facility] [address] [place] [phone] [place] [address] [place] [address] documented as of this encounter Visit Diagnoses Diagnosis Diabetic peripheral neuropathy (HRC)- Primary Type II or unspecified type diabetes mellitus with neurological manifestations, not stated as uncontrolled Onychomycosis Dermatophytosis of nail documented in this encounter
--- OUTSIDE RECORDS SUMMARY | 2023-03-09 22:08 | XMS_ITS | Data Portability ---
Author Name Unknown Address [address] [place] [address] Phone [phone] [facility] [id number] Address [address] [place] [phone] Assessment No assessment recorded. Plan of Treatment Reminders Order Date Submit Date Provider Last Modified By Organization Details Last Modified Time Details Appointments None recorded. Lab pap, LB 2019 [facility], [address] [place], [address], 0 16:22:35 unlisted lab - HPV high risk DNA with 16/18 genotyping 2019 020 [facility], [address] [place], [address], 0 16:22:34 Referral None recorded. Procedures None recorded. Surgeries None recorded. Imaging None recorded. Medication Orders None recorded. Patient TargetsNo targets recorded. Patient Instructions Encounter Date Encounter Id Patient Instructions Last Modified By Organization Details Last Modified Time 01/19/2020 [id number] mammogram/colons c opy rev and labs with primary amies Not available 01/20/2020 11:56:45 Reason for Referral None Reported. Results Created Date Observation Date Name Description Value Unit Range Abnormal Flag LastModifiedBy Organization Detail LastModifiedTime 01/19/20 20 01/19/2020 HPV DNA, high- risk HPV high risk type 16 negati ve for HPV type 16. negati ve for HPV type 16. Not Available [facility] [address] [place], [address], 01/29/2020 16:22:34 01/19/20 20 01/19/2020 HPV DNA, high- risk HPV high risk type 18 negati ve for HPV type 18. negati ve for HPV type 18. Not Available [facility] [address] [place], [address], 01/29/2020 16:22:34 01/19/20 20 01/19/2020 HPV DNA, high- risk HPV other high risk types negati ve for other high risk HPV types. negati ve for other high risk HPV types. Not Available [facility] [address], [address] [place], [address], 01/29/2020 16:22:34 01/19/20 20 01/19/2020 pap, [facility] case report see note Not Available [facility] [address] [place], [address], 01/29/2020 16:22:35 Result Notes None recorded. Medical Equipment None Reported. Allergies No known drug allergies Medications Name Sig Start Date Stop Date Status Note LastModified by Organization Details LastModified Time albuterol sulfate 0.63 mg/3 mL solution for nebulization Inhale by inhalation route. active Not Available Not Available No t Available atorvastatin 20 mg tablet active Not Available Not Available Not Available albuterol sulfate 2.5 mg/3 mL (0.083 %) solution for nebulization active Not Available Not Available Not Available atorvastatin 10 mg tablet Take 1 tablet every day by oral route. active Not Available Not Available No t Available prednisone 20 mg tablet active Not Available Not Available Not Available cephalexin 500 mg capsule active Not Available Not Available Not Available metformin 1,000 mg tablet active Not Available Not Available Not Available mometasone 50 mcg/actuatio n nasal spray active Not Available Not Available Not Available gabapentin 300 mg capsule active Not Available Not Available Not Available montelukast 10 mg tablet Take 1 tablet every day by oral route. active Not Available Not Available No t Available gabapentin 100 mg capsule active Not Available Not Available Not Available dexamethason e sodium phosphate 4 mg/mL injection solution active Not Available Not Available Not Available amoxicillin 875 mg-potassium clavulanate 125 mg tablet active Not Available Not Available Not Available bupropion HCl XL 150 mg 24 hr tablet, extended release active Not Available Not Available Not Available duloxetine 20 mg capsule,awilda yed release active Not Available Not Available Not Available metformin ER 1,000 mg tablet,exten ded release 24 hr Take by oral route. active Not Available Not Available Not Available aspirin active Not Available Not Avail able Not Available iron active Not Available Not Availa ble Not Available mometasone active Not Available Not Av ailable Not Available Vitamin D active Not Available Not Lesli ilable Not Available Wellbutrin XL active Not Available Not Available Not Available Cymbalta active Not Available Not Avai lable Not Available Dulera 200 mcg-5 mcg/actuatio n HFA aerosol inhaler active Not Available Not Available Not Available albuterol sulfate 90 mcg/actuatio n breath activated powder inhaler Inhale 2 puffs every 4 hours by inhalation route. active Not Available Not Available No t Available Qvar RediHaler 40 mcg/actuatio n HFA breath activated aerosol Inhale 2 puffs twice a day by inhalation route. active Not Available Not Available No t Available Ozempic 0.25 mg or 0.5 mg (2 mg/1.5 mL) subcutaneous pen injector active Not Available Not Available Not Available OneTouch Ultra Blue Test Strip active Not Available Not Available N ot Available Vitals Date Recorded Body weight Body mass index (BMI) Body height Systolic blood pressure Diastolic blood pressure Provider Name and Address Organization Details Last Updated DateTime 01/19/2020 31626.24 g 34.5 kg/m2 157.48 cm 122 mm[Hg] 72 mm[Hg] Dinorah Turnblom (TERMED) null, [place] [facility] [employer] 0 11:42:59 Social History None recorded. Functional Status None recorded. Mental Status None recorded. Family History Nothing Reported. Medical History No medical history recorded. Gynecological HistoryNo gynecological history recorded. Obstetrics History GPAL:G 0 P 0 0 0 0 Past Encounters Encounter ID Performer Location Encounter Start Date Encounter Closed Date Diagnosis/Indication [id number] DELFINO CASTRO MD [id number] [address] [place] [address] 01/19/2020 11:19:02 01/20/2020 11:57:11 Screening for malignant neoplasm of cervix Health Concerns Section Related Observation LastModified by Organization Detai ls LastModified Time None Recorded Concern Status LastModified by Organization Details LastModified Time None Recorded Advance Directives Directive None Recorded Payers Encounter Date Sequence Insurance Name Policy Number Policy Boothe Covered Member ID Boothe Member ID Guarantor Name 01/19/2020 1 [place] [id number] Gloria Kwan [id number] Gloria Kwan Notes Date Note Type Note Provider Name and Address Organization Details Recorded Time 01/19/2020 text/html HPI Notes: [place] [address] [facility],[address], [place], [address], [place] - [employer] 01/20/2020 11:57:08 OBGyn Episode No OBEpisode recorded.
--- OUTSIDE RECORDS SUMMARY | 2023-03-09 22:08 | XMS_ITS | Clinical Summary ---
Author Name Unknown Organization [facility] Address [place], [place] [address] Care Team Providers Care Burring Machine Operator Name Role Phone Rosey Rizo SHEET ROCK TAPER HELPER Unavailable [phone] Jenelle Sharma DO Primary Care Provider [phone] Allergies Active Allergy Reactions Criticality Noted Date Comments Animal Dander Other - Describe In Comment Field 06/25/2017 Adhesive Rash 09/04/2013 Allergenic Extracts *Unknown 09/04/2013 Sinus and respiratory Hydromorphone Itching 03/14/2018 Lisinopril Dizziness 04/25/2018 Mold Extracts *Unknown 09/04/2013 Sinus and Respiratory Unlisted Allergen (Include Detail In Comments) *Unknown 09/04/2013 [place] tree, Grass, and Dogs- Sinus and Respiratory Medications Medication Sig Dispensed Refills Start Date End Date Status multivitamin (MVI) tablet Take 1 tablet by mouth once daily. 0 09/03/2013 Active LACTOBACILLUS ACIDOPHILUS (PROBIOTIC ORAL) Take 1 Cap by mouth once daily. 0 09/03/2013 Active blood-glucose meter (ONETOUCH ULTRA2) Use as directed 1 Kit 0 01/10/2017 Active Biotin 5 mg capsule Take 1 capsule by mouth once daily. 0 07/09/2017 Active Cholecalciferol, Vitamin D3, (VITAMIN D-3) 5,000 unit tab Take 1 tablet by mouth once daily. 90 tablet 3 07/09/2017 Active Calcium-Magnesium- Zinc tab Take 500 mg by mouth once daily. 0 07/09/2017 Active aspirin chewable 81 mg chewable tablet Take 1 tablet by mouth once daily with a meal. 0 01/24/2018 Active lancets (ONETOUCH ULTRASOFT LANCETS)Indication s:Type 2 diabetes mellitus without complications (HC) Use to test blood sugar 1 time daily 100 Each 1 03/12/2018 Active albuterol HFA (VENTOLIN HFA) 90 mcg/actuation inhalerIndications :Mild persistent reactive airway disease without complication Inhale 2 Puffs by mouth every 4 hours if needed. 8.5 g 3 01/23/2019 Active Diabetic ShoeIndications:Co ntrolled type 2 diabetes mellitus without complication, without long-term current use of insulin (HC),Peripheral sensory neuropathy As directed. Diabetic shoes 2 Each 0 01/23/2019 Active mometasone (NASONEX) (50 mcg each actuation) nasal sprayIndications:D ysfunction of right eustachian tube,Nasal congestion Inhale 2 Sprays into both nostrils once daily. 17 g 6 07/30/2019 Active NebulizerIndicatio ns:Exacerbation of asthma, unspecified asthma severity, unspecified whether persistent Nebulizer, disposable neb kit x 4, reuseable neb kit x 1, mask x 1, filters x 1. Frequency of use: daily; Medication: albuterol Length of need: 12 months 1 Device 0 11/17/2019 Active ferrous sulfate, 65 mg elemental, tablet Take 1 tablet by mouth once daily with a meal. 0 11/20/2019 Active cetirizine (ZYRTEC) 10 mg tablet Take 1 tablet by mouth once daily. 0 01/26/2020 Active mometasone-formote rol (Dulera) 200-5 mcg/actuation inhalerIndications :Mild persistent asthma, unspecified whether complicated Inhale 2 Puffs by mouth 2 times daily. 13 g 11 01/26/2020 Active albuterol (PROVENTIL) 0.083 % neb solution Inhale 2.5 mg via a nebulizer every 4 hours if needed. 0 Active atorvastatin (Lipitor) 20 mg tabletIndications: Fatty liver Take 1 Tablet (20 mg) by mouth at bedtime. 90 tablet. 3 05/06/2020 Active blood sugar diagnostic (Inveshareuch Ultra Blue Test Strip) stripIndications:U ncontrolled type 2 diabetes mellitus with hyperglycemia (HC) Use as directed to test blood sugar 2 x daily 200 Each 3 05/06/2020 Active glipiZIDE (GLUCOTROL) 5 mg tabletIndications: Uncontrolled type 2 diabetes mellitus with hyperglycemia (HC) Take 1 Tablet (5 mg) by mouth once daily before a meal. 90 Tablet 3 05/06/2020 Active empagliflozin (JARDIANCE) 10 mg tabletIndications: Type 2 diabetes mellitus without complication, without long-term current use of insulin (HC) TAKE 1 TABLET BY MOUTH DAILY 90 Tablet 3 08/12/2020 Active CPAPIndications:OS A (obstructive sleep apnea) New CPAP machine for home use at [...] Need: 99 months, Frequency of use: Daily 1 Device 11 09/20/2020 Active semaglutide (Ozempic) penIndications:Con trolled type 2 diabetes mellitus without complication, without long-term current use of insulin (HC) Inject 0.5 mg subcutaneously once weekly. 4.5 mL 3 10/22/2020 Active montelukast (SINGULAIR) 10 mg tabletIndications: Allergic rhinitis, unspecified seasonality, unspecified trigger,Mild persistent reactive airway disease with acute exacerbation Take 1 tablet by mouth at bedtime. 90 tablet. 0 12/02/2020 Active polyethylene glycol-electrolyte (GOLYTELY) 236-22.74-6.74 -5.86 gram suspension Drink 1st portion of prep at 6 PM the evening before. 2nd portion must be started 3 hours before and finished 2 hours prior to report time 4000 mL 0 01/30/2021 Active metFORMIN (GLUCOPHAGE) 1,000 mg tabletIndications: Controlled type 2 diabetes mellitus without complication, without long-term current use of insulin (HC) Take 1 Tablet (1,000 mg) by mouth 2 times daily with meals. 180 tablet. 0 02/24/2021 Active gabapentin (NEURONTIN) 300 mg capsuleIndications :Menopausal vasomotor syndrome Take 1 Capsule (300 mg) by mouth at bedtime. 90 capsule. 0 02/24/2021 Active empagliflozin (Jardiance) 25 mg tabletIndications: Type 2 diabetes mellitus without complication, without long-term current use of insulin (HC) Take 25 mg by mouth once daily. 90 Tablet 3 02/27/2021 Active Active Problems Patient Care Coordination No te Formatting of this note migh t be different from the original. Being Active and independent is what matters most to DESMOND. 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 What are DESMOND's challenges, stressors, or barriers?Pain, Left leg has poor proprioception and can't walk well, falls risk. Problem Noted Date Diagnosed Date Suspected COVID-19 virus infection 03/04/2020 Myopia of both eyes with astigmatism and presbyo sosa 12/03/2019 Controlled type 2 diabetes m ellitus with microalbuminuria, without long-term current use of insulin 04/25/2019 S/P left open carpal tunnel release; DOS: 02/26/[address] Teja Shields 03/19/2019 Fatty liver 04/25/2018 Mild persistent asthma 03/20/2018 Microalbuminuria 01/26/2018 Overview: Will recheck in 6 months. If still present, will add JORGITO-I Elevated LFTs 01/26/2018 PE (pulmonary thromboembolism) 01/24/2018 Overview: Chemotherapy 07/2013 Cervical cancer, FIGO stage IB1 01/24/2018 Overview: Radical hysterectomy 03/24/18, left ovaries. 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 Aftercare following surgery of the musculoskelet al system 09/06/2013 Lymphedema of leg 09/06/2013 Resolved Problems Problem Noted Date Diagnosed Date Resolved Date Uncontrolled type 2 diabetes mellitus with microalbuminuria 09/09/2013 04/25/2019 Immunizations Name Administration Dates Next Due COVID-19 vaccine (Donnie-J& J) PF, MDV 04/23/2020 Hepatitis B (Adult) 05/04/2010,09/13/2009,2009 Influenza, High-dose Inactivated 12/22/2015,1002/2014,11/11/2013 Influenza, IIV4 10/16/2018, 8,10/25/2017,2016 Influenza, IIV4 (=>6mos) MDV 11/06/2019,11/17/19 17 MMR 06/04/2012 Pneumococcal Poly,23-Valent (Pneumovax) 03/17/2014,07/12/2009 Td, Preservative Free (age > = 7 Years) 07/13/2005 Tdap 06/18/2011 Family History Medical History Relation Name Comments Coronary artery disease Father bypa ss Heart failure Father Heart failure Mother Cancer-breast No Family History Relation Name Status Comments Father Mother Social History Tobacco Use Types Packs/Day Years Used Date Smoking Tobacco: Former Cigarettes 0.3 4 0 02/11/1990 - 02/11/1994 Smokeless Tobacco: Never Tobacco Cessation:Counseling Given: Yes Alcohol Use Standard Drinks/Week Comments Yes 0 (1 standard drink = 0.6 oz pur e alcohol) 1-2 per month PHQ-2 Answer Date Recorded PHQ-2 TOTAL SCORE 0 11/06/2019 Social Connections Answer Date Recorded Frequency of Communication with Friends and Fami ly Not on file 02/10/2021 Financial Resource Strain Answer Date R ecorded Difficulty of Paying Living Expenses Not on file 02/10/2021 Difficulty of Paying Living Expenses Not on file 02/10/2021 Sex and Gender Information Value Date Recorded Sex Assigned at Female 09/29/2019 10:18 AM CDT Gender Identity Female 09/29/2019 10:18 AM CDT Sexual Orientation Straight 09/29/2019 10 :18 AM CDT Obstetrics History Last Filed Vital Signs Vital Sign Reading Time Taken Comments Blood Pressure 110/70 08/12/2020 8:46 AM CDT Pulse 84 05/06/2020 8:51 AM CDT Temperature 36.6 ??C (97.9 ??F) 03/05/2020 3:45 PM CS T Respiratory Rate 16 04/05/2020 11:07 AM HISTORIC SITES REGISTRAR Oxygen Saturation 98% 03/29/2020 11:45 AM HISTORIC SITES REGISTRAR RRA Inhaled Oxygen Concentration - - Weight 89.4 kg (197 lb) 08/12/2020 8:46 AM CDT Height 158.8 cm (5' 2.5) 08/12/2020 8:46 AM CDT Body Mass Index 35.46 08/12/2020 8:46 AM CDT Plan of Treatment Health Maintenance Due Date Last Done Comments HIV for age 15-65 1985 Hepatitis C screening for age 18-79 1988 Colonoscopy through age 75 11/19/2015 Depression screening for age 12+ 11/05/2020 11/06/2019, 08/29/2018, 08/08/2018, Additional history exists Zoster (shingles) series for age 50+ (1 of 2) 2020 Pap test for age 21-65 01/10/2021 01/10/2018, 2017 Tetanus booster 06/17/2021 06/18/2011, 07/13/2005 BMI (ht and wt on same day) for age 18+ 08/12/2021 08/12/2020, 04/05/2020, 03/29/2020, Additional history exists COVID-19 vaccine series (2022- season) 2022 04/23/2020 Influenza for age 50-64 10/12/2022 11/06/19 20, 10/16/2018, 01/13/2018, Additional history exists Mammogram for age 45-75 11/28/2022 11/29/19, 11/25/2020, 10/02/2019, Additional history exists Lipids for age 45-75 08/12/2025 08/12/2020, 11/06/2019, 01/23/2019, Additional history exists Tdap Completed 06/18/2011 Pneumococcal series for age 6-64 Aged Out 03/17/2014, 07/12/2009 No longer eligibl e based on patient's age to complete this topic Advance Directives Latest Code Status on File Code Status Date Activated Date Inactivated Comments Full Code 03/04/2020 9:11 PM 03/05/2020 7:33 PM Question Answer Comments Code Status Discussion: Discussed Care Teams Burring Machine Operator Relationship Specialty [place] [id number] [place] [address] PCP - General Family Practice 08/29/18 Rosey Rizo SHEET ROCK TAPER HELPER Nurse Practitioner Cardiovascular Disease 09/03/13
--- OUTSIDE RECORDS SUMMARY | 2023-03-09 22:08 | XMS_ITS | Encounter Summary ---
Author Name Unknown Organization [facility] Address [address], [place] [address] Care Team Providers Care Physical Therapy Supervisor Name Role Phone Unavailable Primary Care Provider Unavailabl e Reason for Referral * Consult/Transfer Care (Routine) - New Request Specialty Diagnoses / Procedures Referred By Chuy salazar Referred To Contact Diagnoses Cervical cancer, FIGO stage IB1 (HRC) [place] [address] [place] [address] Referral ID Status Reason Start Date Expiration Date V isits Requested Visits Authorized [id number] New Request 12/13/2022 03/13/2024 1 1 Scheduling Instructions Your clinician has recommended an appointment with [facility]. You can quickly make your appointment online at [facility]/[email or web address]. You can also call [phone] for help scheduling your appointment. We suggest you call your health insurance company about your coverage and benefits for this appointment. Question Answer Appointment Urgency? Non-Urgent Consult for Gynecology Reason for visit? Establishment of care, history of cervical cancer * Procedure/Equipment (Routine) - Incomplete Specialty Diagnoses / Procedures Referred By Chuy salazar Referred To Contact Diagnoses Encounter for screening mammogram for malignant neoplasm of breast Procedures [place] [address] [place] [address] Referral ID Status Reason Start Date Expiration Date V isits Requested Visits Authorized [id number] Incomplete 12/13/2022 03/13/2024 1 1 Reason for Visit * Reason Comments Diabetes Diabetes check, no c oncerns MEDICATION CHECK Encounter Details Date Type Department Care Team Description 12/13/2022 7:30 AM CDT Office Visit [place] [address] [facility] [address] [place] [address] [place] [address] [place] [address] Diabetes mellitus type 2 (HRC) (Primary Dx); Diabetes mellitus screening; Lipid screening; Need for hepatitis C screening test; Encounter for screening mammogram for malignant neoplasm of breast; Encounter for long-term (current) use of medications; History of anemia; Cervical cancer, FIGO stage IB1 (HRC); Mild persistent asthma without complication (HRC); Menopausal vaginal dryness; Fatty liver (HRC); Neuropathic pain of left lower extremity Social [...] Sign Reading Time Taken Comments Blood Pressure 107/65 12/13/2022 7:34 AM CDT Pulse 73 12/13/2022 7:34 AM CDT Temperature - - Respiratory Rate 18 12/13/2022 7:34 AM CDT Oxygen Saturation - - Inhaled Oxygen Concentration - - Weight 82.6 kg (182 lb 3.2 oz) 12/13/2022 7:34 A M CDT Height 161 cm (5' 3.39) 12/13/2022 7:34 AM CDT Body Mass Index 31.88 12/13/2022 7:34 AM CDT documented in this encounter Progress Notes * Peyman Iverson MD - 12/13/2022 7:30 AM CDT Subjective Chief Complaint Patient presents with Diabetes Diabetes check, no concerns MEDICATION CHECK Gloria Kwan is a 52 y.o. female who presents for evaluation of diabetes. The patient was diagnosed with diabetes back in 2008. Her last A1c was 7.9% back in June 2022. She takes Jardiance 10 mg daily, metformin 1000 mg twice daily, and also takes Ozempic 1 mg weekly. She wonders about decreasingher dose of Ozempic as it limits her appetite quite a bit which she does not like. She does not regu larly check her blood sugars, but when she does they are under 130 fasting. She tends to get bronchitis once a year and needs a refill of her nebulizer solution. She otherwisehas good control of her asthma with Singulair daily and rare albuterol use as needed. She stopped taking atorvastatin months ago as her cholesterol levels have been very low (LDL 32 last year). 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 She finds that gabapentin 300 mg twice daily helps take the edge off. Objective BP 107/65 (BP Location: Left Arm, BP Cuff Size: Regular) Pulse 73 Resp 18 Ht 5' 3.39 (1.61 m) Wt 182 lb 3.2 oz (82.6 kg) BMI 31.88 kg/m?? Physical Exam Vitals reviewed. HENT: Head: Normocephalic and atraumatic. Eyes: Conjunctiva/sclera: Conjunctivae normal. Cardiovascular: Rate and Rhythm: Normal rate and regular rhythm. Heart sounds: Normal heart sounds. Pulmonary: Effort: Pulmonary effort is normal. Breath sounds: Normal breath sounds. No wheezing or rales. Skin: General: Skin is warm and dry. Neurological: Mental Status: She is alert. Psychiatric: Mood and Affect: Mood and affect normal. Assessment/Plan Gloria was seen today for diabetes and medication check. Diagnoses and all orders for this visit: Diabetes mellitus type 2 (HRC) - Hgb A1C; Future - semaglutide (OZEMPIC) 2 MG/3ML injection; Inject 0.5 mg subcutaneously once a week. - blood glucose test strip; Use to test daily. - Lipid Panel & Direct LDL (if Needed); Future - Albumin/Creatinine Ratio,Random Urine; Future - Hgb A1C; Future - Basic Metabolic Panel; Future Diabetes mellitus screening Lipid screening - Lipid Panel and Direct LDL(If Needed); Future Need for hepatitis C screening test - Hepatitis C Antibody, with Reflex; Future Encounter for screening mammogram for malignant neoplasm of breast - MM Mammogram Screening Bilat W CAD; Future Encounter for long-term (current) use of medications - Vitamin B12 Only; Future History of anemia - Complete Blood Count-No Diff; Future - Ferritin; Future Cervical cancer, FIGO stage IB1 (HRC) - Ob-Human Services Instructor Consult Mild persistent asthma without complication (HRC) - ipratropium-albuterol (DUONEB) 0.5-2.5 (3) mg/3ml nebulizer solution; Inhale 3 mL every 6 hours as needed for Wheezing. Menopausal vaginal dryness - estradiol (ESTRACE) 0.1 MG/GM vaginal cream; Apply 1 gm vaginally 2 times a week. Fatty liver (C) - Liver Panel(Hepatic Function Panel); Future Neuropathic pain of left lower extremity - gabapentin (NEURONTIN) 300 MG capsule; Take 1 Capsule (300 mg) by mouth two times a day. Other orders - Zoster RZV (Shingrix) Type 2 diabetes mellitus - Will decrease Ozempic 0.5 mg weekly injections at her request. Based on A1c results, we may need to increase her Jardiance 25 mg daily. - Labs as above. Mild persistent asthma without complication - Refill of DuoNebs provided. She takes Singulair and has good control of her asthma otherwise. History of cervical cancer - Status post hysterectomy, but she thinks she was told to still get regular Paps. Will refer to Gynecology for further management. 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 Fatty liver - Will update LFTs History of anemia - Update CBC and iron levels. She only needed a couple of medications refilled today and can call or message when she needs refills on the others. Peyman Iverson MD 12/13/2022 Voice recognition software (Snabboteket) was used to generate this note. As a result, wrong word or '[id number]' substitutions may have occurred due to the inherent limitations of voice recognition software. There may be errors in the script that have gone undetected. Please consider this when interpreting information found in this chart. documented in this encounter Plan of Treatment Upcoming Encounters Date Type Department Care Team Description 07/12/2023 9:00 AM CDT Appointment [place] [facility] [address] [place] [address] 07/16/2023 1:00 PM CDT Appointment [place] [address] [facility] [address] [place] [phone] [place] [address] [place], [place] [id number] Scheduled Orders Name Type Priority Associated Diagnoses Orde r Schedule MM Mammogram Screening Bilat W CAD Imaging New Routine Encounter for screening mammogram for malignant neoplasm of breast Expected: 12/13/2022 (Approximate), Expires: 12/13/2023 Scheduled Referrals Name Type Priority Associated Diagnoses Orde r Schedule Ob-Human Services Instructor Consult Referral Routine Cervical cancer, FIGO stage IB1 (HRC) Ordered: 12/13/2022 documented as of this encounter Results * (ABNORMAL) Albumin/Creatinine Ratio,Random Urine (12/13/2022 8:49 AM CDT) Albumin/Creati nine Ratio, Urine, Random 31(H) <30 mg/g 12/13/2022 11:15 AM CDT [facility] Albumin, Urine, Random 5.5 mg/L 12/13/2022 11:15 AM CDT [facility] Creatinine, Urine, Random 18 >20 mg/dL mg/dL 12/13/2022 11:15 AM CDT [facility] Urine Non-blood Collection / Unknown 12/13/2022 8:49 AM CDT 12/13/2022 8:49 AM CDT Peyman Iverson MD LAB_1 [facility] [address] [place] [address], [place] [phone] * (ABNORMAL) Liver Panel(Hepatic Function Panel) (12/13/2022 8:46 AM CDT) Pathologist [facility] Alkaline Phosphatase 71 40 - 150 U/L 12/13/2022 12:33 PM T [facility] Bilirubin, Total 0.8 0.2 - 1.2 mg/dL 12/13/2022 12:33 PM T [facility] Bilirubin, Direct 0.3 0.0 - 0.5 mg/dL 12/13/2022 12:33 PM T [facility] AST (SGOT) 41(H) 10 - 40 U/L 12/13/2022 12:33 PM T [facility] ALT (SGPT) 87(H) <=55 U/L 12/13/2022 12:33 PM T [facility] Protein, Total 7.8 6.4 - 8.3 g/dL 12/13/2022 12:33 PM [facility] Albumin 4.0 3.5 - 5.0 g/dL 12/13/2022 12:33 PM T [facility] Blood Venipuncture / Unknown 12/13/2022 8:46 AM CDT 12/13/2022 8:46 AM CDT Peyman Iverson MD LAB_1 [facility] [address] [place] [address], [facility] [phone] * Ferritin (12/13/2022 8:46 AM CDT) [facility] Ferritin 36 9 - 204 ng/mL 12/13/2022 4:05 PM CDT [facility] Blood Venipuncture / Unknown 12/13/2022 8:46 AM CDT 12/13/2022 8:46 AM CDT Peyman Iverson MD LAB_1 [facility] [address] * (ABNORMAL) Complete Blood Count-No Diff (12/13/2022 8:46 AM CDT) [facility] WBC 8.5 3.5 - 10.5 x10(9)/L 12/13/2022 8:50 AM CDT [facility] RBC 4.98 3.90 - 5.03 x10(12)/L 12/13/2022 8:50 AM CDT [facility] Hemoglobin 13.5 12.0 - 15.5 g/dL 12/13/2022 8:50 AM CDT [facility] HCT 42.9 34.9 - 44.5 % 12/13/2022 8:50 AM CDT [facility] MCV 86.1 80.0 - 100.0 fL 12/13/2022 8:50 AM CDT [facility] MCH 27.1(L) 27.6 - 33.3 pg 12/13/2022 8:50 AM CDT [facility] MCHC 31.5 31.5 - 35.2 g/dL 12/13/2022 8:50 AM CDT [facility] RDW 15.4 11.9 - 15.5 % 12/13/2022 8:50 AM CDT [facility] Platelets 218 150 - 450 x10(9)/L 12/13/2022 8:50 AM T [facility] Blood Venipuncture / Unknown 12/13/2022 8:46 AM CDT 12/13/2022 8:46 AM CDT Peyman Iverson MD LAB_1 Performing Organization Address City/State/[facility] Co de Phone Number [facility] [address] [place] [address], [facility] [phone] * (ABNORMAL) Basic Metabolic Panel (12/13/2022 8:46 AM CDT) [facility] Sodium 140 136 - 145 mmol/L 12/13/2022 12:33 PM CDT [facility] Potassium 4.0 3.5 - 5.1 mmol/L 12/13/2022 12:33 PM CDT [facility] Chloride 105 98 - 109 mmol/L 12/13/2022 12:33 PM CDT [facility] CO2 23 20 - 29 mmol/L 12/13/2022 12:33 PM T [facility] Anion Gap 12 7 - 16 mmol/L 12/13/2022 12:33 PM T [facility] Calcium 9.6 8.4 - 10.4 mg/dL 12/13/2022 12:33 PM [facility] BUN 14 7 - 26 mg/dL 12/13/2022 12:33 PM T [facility] Creatinine 0.90 0.55 - 1.02 mg/dL 12/13/2022 12:33 PM [facility] Glucose 126(H) 70 - 100 mg/dL 12/13/2022 12:33 PM T [facility] Comment:The given reference range is for the fasting state. Non-fasting reference range for glucose is 70 - 180 mg/dL. GFR, Estimated >60 >60 mL/min/1.7 3m2 12/13/2022 12:33 PM [facility] Hours Fasting 14.0 8 - 12 Hours 12/13/2022 12:33 PM T [facility] Blood Venipuncture / Unknown 12/13/2022 8:46 AM CDT 12/13/2022 8:46 AM CDT Peyman Iverson MD LAB_1 [facility] [address] [place] [address], [facility] [phone] [facility] [address] [place] [address], [facility] [phone] * (ABNORMAL) Vitamin B12 Only (12/13/2022 8:46 AM CDT) [facility] Vitamin B12 126(L) 213 - 816 pg/mL 12/13/2022 4:12 PM CDT [facility] Blood Venipuncture / Unknown 12/13/2022 8:46 AM CDT 12/13/2022 8:46 AM CDT Narrative [facility] - 12/13/2022 4:12 PM CDT Borderline low serum Vitamin B12 values may not be diagnositic of B12 deficiency (140 to 209 pg/mL). Consider serum methylmalonic acid and homocysteine levels for confirmation. Serum B12 far below normal indicates deficency (<140 pg/mL). Peyman Iverson MD LAB_1 Performing Organization Address [facility] de Phone Number [facility] [address] [place] [address] * Hepatitis C Antibody, with Reflex (12/13/2022 8:46 AM CDT) [facility] Hepatitis C Antibody Negative (Non Reactive) Negative (Non Reactive) 12/13/2022 4:06 PM CDT [facility] Comment:Antibodies to HCV no t detected. Does not exclude the possiblity of exposure to HCV. Blood Venipuncture / Unknown 12/13/2022 8:46 AM CDT 12/13/2022 8:46 AM CDT Peyman Iverson MD LAB_1 Performing Organization Address [facility] de Phone Number [facility] [address] [place] [address] * (ABNORMAL) Hgb A1C (12/13/2022 8:46 AM CDT) [facility] Hemoglobin A1C 7.4(H) <=5.6 % 12/13/2022 3:06 PM CDT [facility] Estimated Average Glucose (Calc) 166 < 117 mg/dL 12/13/2022 3:06 PM CDT [facility] Comment:Estimated average gl ucose (eAG) converts A1c into glucose units (mg/dL) and estimates average glucose over the past approximately 3 months. The eAG reference interval (<117 mg/dL) corresponds to an A1c of <5.7%. Blood Venipuncture / Unknown 12/13/2022 8:46 AM CDT 12/13/2022 8:46 AM CDT Narrative [facility] - 12/13/2022 3:06 PM CDT For patients not previously diagnosed with diabetes: 5.7-6.4%: Increased risk for diabetes 6.5% and greater: Diagnostic for diabetes For patients diagnosed with diabetes: <8.0%: Goal of therapy for ages 18-75 Clinicians may recommend a higher or lower goal for specific individuals. Peyman Iverson MD LAB_1 [facility] [address] [address], [facility] [phone] * Lipid Panel and Direct LDL(If Needed) (12/13/2022 8:46 AM CDT) [facility] Cholesterol 184 0 - 199 mg/dL 12/13/2022 12:33 PM CDT [facility] Triglyceride 134 <=149 mg/dL 12/13/2022 12:33 PM T [facility] HDL Cholesterol 67 >=40 mg/dL 12:33 PM T [facility] LDL, Calculated 90 <130 mg/dL 12:33 PM [facility] Non HDL Chol, Calculated 117 <=159 mg/dL 12/13/2022 12:33 PM [facility] Cholesterol/HDL Ratio 2.7 <=5.0 12/13/2022 12:33 PM T [facility] Hours Fasting 14.0 8 - 12 Hours 12/13/2022 12:33 PM T [facility] Blood Venipuncture / Unknown 12/13/2022 8:46 AM CDT 12/13/2022 8:46 AM CDT Peyman Iverson MD LAB_1 [facility] [address] [place] [address], [facility] [phone] [facility] [address] [place] [address], [facility] [phone] documented in this encounter Visit Diagnoses Diagnosis Diabetes mellitus type 2 (HRC)- Primary Diabetes mellitus screening Screening for diabetes mellitus Lipid screening Screening for lipoid disorders Need for hepatitis C screening test Special screening examination for other specified viral diseases Encounter for screening mammogram for malignant neoplasm of breast Other screening mammogram Encounter for long-term (current) use of medications Encounter for long-term (current) use of other medications History of anemia Personal history of diseases of blood and blood-forming organs Cervical cancer, FIGO stage IB1 (HRC) Mild persistent asthma without complication (HRC) Unspecified asthma Menopausal vaginal dryness Symptomatic menopausal or female climacteric states Fatty liver (HRC) Other chronic nonalcoholic liver disease Neuropathic pain of left lower extremity documented in this encounter
--- OUTSIDE RECORDS SUMMARY | 2023-03-09 22:08 | XMS_ITS | Encounter Summary ---
Author Name Unknown Organization [facility] Address [address] [place] [address] Care Team Providers Care Poison Information Specialist Name Role Phone Unavailable Primary Care Provider Unavailabl e Reason for Visit * Reason Comments Cough Encounter Details Date Type Department Care Team Description 10/30/2022 1:20 PM CDT Office Visit [place] [address] [facility] [address] [place] [phone] Davis Alamo PA-C [address] [place] [address] Lower respiratory infection; Cough, unspecified type; Fever, unspecified fever cause Social History Tobacco Use Types Packs/Day Years Used Date Smoking Tobacco: Never Smokeless Tobacco: Never Tobacco Cessation:Counseling Given: Not Answered Sex and Gender Information Value Date Recorded Sex Assigned at Not on file Gender Identity Not on file Sexual Orientation Straight 12/13/2022 9: 23 AM CDT documented as of this encounter Last Filed Vital Signs Vital Sign Reading Time Taken Comments Blood Pressure 121/61 10/30/2022 1:14 PM CDT Pulse 93 10/30/2022 1:14 PM CDT Temperature 36.9 ??C (98.4 ??F) 10/30/2022 1:14 PM CD T Respiratory Rate 18 10/30/2022 1:14 PM CDT Oxygen Saturation 99% 10/30/2022 1:14 PM CDT Inhaled Oxygen Concentration - - Weight - - Height - - Body Mass Index - - documented in this encounter Progress Notes * Davis Alamo PA-C - 10/30/2022 1:20 PM CDT Gloria Kwan is a 51 y.o.female presents to the Urgent Care for Cough Productive cough, specks of blood, fever ( 99.0), headache and ST, x 10 days. OTC- none Rapid COVID on Saturday- negative. Patient presents to the urgent care complaining of a cough for the past 10 days. She is now developed a fever and slight sore throat. She denies a history of pneumonia. She does have a history of asthma and has an albuterol inhaler. Remainder review of systems is negative. Past Medical History: There is no problem list on file for this patient. Adverse Drug Reactions: Patient has no known allergies. Medications: ALBUterol sulfate HFA, aspirin, atorvastatin, cetirizine, empagliflozin, estradiol, fexofenadine, fluticasone propionate, gabapentin, metFORMIN, montelukast, and semaglutide Family History: No family history on file. Social History: Social History Tobacco Use Smoking status: Never Smokeless tobacco: Never Vaping Use Vaping Use: Never used Substance Use Topics Alcohol use: Not on file Drug use: Not on file Review of Systems: All systems were reviewed and found to be negative except as noted above. OBJECTIVE: General: NAD Skin: Mucous membranes are moist, no sign of dehydration. Head: Normocephalic. Eyes: PERRLA, full EOM. External exams normal. Ears: Normal pinnae, canals. TM's:[normal] Nose: Patent, without deformity. Throat: Moist mucous membranes without lesions, erythema, or exudate. Respiratory: Normal respiratory effort. Lungs are clear with good breath sounds. Heart: RR without murmurs, rubs, or gallops. Abdomen: The abdomen was flat, soft and nontender without guarding rebound or masses. Vital Signs: BP 121/61 (BP Location: Right Arm, BP Cuff Size: Regular - Long) Pulse 93 Temp 36.9 ??C (98.4 ??F) (Oral) Resp 18 SpO2 99% Labs: No results found for any visits on 10/30/22. ASSESSMENT: 1. Lower respiratory infection 2. Cough, unspecified type 3. Fever, unspecified fever cause Medical Decision Makin-year-old female presenting with a 10 day history of cough. She states her cough is worsening and she is now developed a fever. Physical exam is unremarkable. Because the patient's symptoms are worsening she was placed on doxycycline. She was also given prednisone to be taken for the next 5 days. She should return to urgent care with any ongoing or worsening of her symptoms. PLAN: Orders Placed This Encounter doxycycline hyclate (VIBRA-TABS) 100 MG tablet predniSONE (DELTASONE) 20 MG tablet There are no Patient Instructions on file for this visit. Orders Placed This Encounter Medications ALBUterol sulfate HFA 108 (90 Base) MCG/ACT inhaler Sig: Inhale. atorvastatin (LIPITOR) 10 MG tablet Sig: Take 1 Tablet (10 mg) by mouth daily. JARDIANCE 10 MG tablet Sig: Take 1 Tablet (10 mg) by mouth daily. estradiol (ESTRACE) 0.1 MG/GM vaginal cream Sig: Insert vaginally. gabapentin (NEURONTIN) 300 MG capsule Sig: Take by mouth. montelukast (SINGULAIR) 10 MG tablet Sig: Take 1 Tablet (10 mg) by mouth daily. OZEMPIC, 1 MG/DOSE, 4 MG/3ML injection Sig: Inject subcutaneously. metFORMIN (GLUCOPHAGE) 1000 MG tablet Sig: Take 1 Tablet (1,000 mg) by mouth two times a day. cetirizine (ZYRTEC) 10 MG tablet Sig: Take 1 Tablet (10 mg) by mouth daily. RTC p.r.n. Total visit time was 30 minutes. documented in this encounter Nursing Notes * Shaina Egan RN - 10/30/2022 1:20 PM CDT Gloria Kwan is a 51 y.o.female presents to the Urgent Care for Cough Productive cough, specks of blood, fever ( 99.0), headache and ST, x 10 days. OTC- none Rapid COVID on Saturday- negative. documented in this encounter Plan of Treatment Upcoming Encounters Date Type Department Care Team Description 07/12/2023 9:00 AM CDT Appointment [facility] [address] [place] [address] 07/16/2023 1:00 PM CDT Appointment [place] [address] Family Medicine [address] [place] [address] [place] [address] [place] [address] documented as of this encounter Visit Diagnoses Diagnosis Lower respiratory infection Other diseases of respiratory system, not elsewhere classified Cough, unspecified type Fever, unspecified fever cause documented in this encounter
== END 2023-03-09 22:04 | disposition home or self-care (01) ==
LOC: ED 22:01
PROVIDERS: Emergency Provider Internal Medicine
DX: N39.0 Urinary tract infection, site not specified (principal)
CPT/HCPCS: 81001; 87086; 87186; 99283

== ENCOUNTER 2024-03-13 19:47 | Emergency (ER) | payer BC, SELFPAY ==
[2024-03-13 19:49] VITALS: BP 114/73; PULSE 69; RESP 18; TEMP 36.3; O2SAT 95; BMI 34.4
--- OUTSIDE RECORDS SUMMARY | 2024-03-13 19:49 | XMS_ITS | Encounter Summary ---
Author Organization [place] Address [facility] [address] Care Team Providers Care Shield Cleaner Name Role Phone Sharda Sykes [facility] Unavailable Eduard Vargas DO Unavailable [phone] Eduard Vargas DO Primary Care Provider [phone] Sharda Sykes [facility] Unavailable [phone] Encounter Details Date Type Department Care Team (Late st Contact Info) Description 11/21/2021 [facility] [place] [address] [address] Sharda Sykes, [facility] [address] [place] [address] Social History Tobacco Use Types [...] week 03/11/2021 How often do you attend restorationist or gnosticist serv ices? Never 03/11/2021 Do you belong to any clubs o r organizations such as restorationist groups, unions, fraternal or athletic groups, or [...] Answer Date Recorded PHQ-2 Score 0 09/22/2021 [facility] Occupational Stress Questionnaire Answer Date Recorded [...] a group home (including now)? 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 Gender Identity Not on file Sexual Orientation Straight 06/28/2021 12 :12 PM CDT documented as of this encounter Plan of Treatment Not on file documented as of this encounter Visit Diagnoses Not on filedocumented in this encounter Care Teams Shield Cleaner Relationship Specialty Start [place] [address] [place] [address] PCP - General Family Medicine 05/10/21 Sharda Sykes [facility] [address] [place] [address] Pharmacist Pharmacist 04/03/21 [place] [address] [place] [address] Assigned PCP 02/23/21 Sharda Sykes [facility] [address] [place] [address] Assigned MTM Pharmacist 11/08/2101/02 documented as of this encounter
--- OUTSIDE RECORDS SUMMARY | 2024-03-13 19:49 | XMS_ITS ---
Author Organization [facility] Address [address] [place] [address] Care Team Providers Care Loan Associate Name Role Phone Unavailable Primary Care Provider Unavailabl e Active Problems Problem Noted Date Diagnosed Date Diabetes Mellitus Type 2 03/20/2018 Asthma Mild Persistent 03/20/2018 Malignant Neoplasm Of Cervix 03/14/2018 Cancer Staging:Clinical: Unsigned Pathologic:FIGO Stage IB1(pT1b1, pN0, cM0) - Signed by Pancho Hendrickson M.D. 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 Past Treatment and Therapy Plans No past plan information found. Lifetime Dose Tracking * Chemical Lifetime Dose Automatic Entry Manual Entr y Radiation 28.5 mGy 28.5 mGy 0 mGy Fluoro Time 3.8 minutes 3.8 minutes 0 minutes
--- OUTSIDE RECORDS SUMMARY | 2024-03-13 19:49 | XMS_ITS | Data Portability ---
Author Organization [facility] [employer], [id number] Address [address] [place] [id number] Assessment No assessment recorded. Plan of Treatment Reminders Order Date Submit Date Provider Last Modified By Organization Details Last Modified Time Details Appointments None recorded. Lab pap, LB 2019 [facility], [address] [place], [address], 0 16:22:35 unlisted lab - HPV high risk DNA with 16/18 genotyping 2019 [facility], [address] [place], [address], 0 16:22:34 Referral None recorded. Procedures None recorded. Surgeries None recorded. Imaging None recorded. Medication Orders None recorded. Patient TargetsNo targets recorded. Patient Instructions Encounter Date Encounter Id Patient Instructions Last Modified By Organization Details Last Modified Time 01/19/2020 [id number] mammogram/colons c opy rev and labs with primary amies Not available 01/20/2020 11:56:45 Reason for Referral None Reported. Results Created Date Observation Date Name Description Value Unit Range Abnormal Flag Note LastModifiedBy Organization Detail LastModifiedTime 01/19/2001/19/2020 HPV DNA, high- risk HPV high risk type 16 Negati ve for HPV type 16. negati ve for HPV type 16. Not Available [facility] [address] [place], [address], 01/29/2020 16:22:34 01/19/20 20 01/19/2020 HPV DNA, high- risk HPV high risk type 18 Negati ve for HPV type 18. negati ve for HPV type 18. Not Available [facility] [address] [place], [address], 01/29/2020 16:22:34 01/19/20 20 01/19/2020 HPV DNA, high- risk HPV other high risk types Negati ve for other high risk HPV types. negati ve for other high risk HPV types. HPV other high risk types inclu de 31, 33, 35, 39, 45, 51, 52, 56, 58, 59, 66, and 68. Not Available [facility] [address], [place], [address], 01/29/2020 16:22:34 01/19/20 20 01/19/2020 pap, LB case report See note CASE REPOR T ----- ----- ----- ----- ----- ----- ----- ----- Pap Smear Case: [id number] Autho lilia salazar Provi sonu: Crystal Castro MD Colle cted: 01/18 03:32 PM Order ing Locat ion: [facility] ia Healt [facility] Recei rolly: 01/20 10:30 AM Hospi abbie Gener al Labor atory First Scree n: Yazmin Cuello Rescr een: Leidy Valerio Speci men: Cervi vern Thin Prep with HPV Test Image r Scree carmen, Cervi x ===== ===== ===== ==== = INTER PRETA TION: = ===== ===== ===== ==== Negat elma for intra epith elial lesio n or malig nant cells . Elect mariajose anderson by Leidy Valerio on 01/28 at 3:22 PM SPECI MEN ADEQU ACY ----- ----- ----- ----- ----- ----- ----- ----- Satis facto ry for evalu ation . Endoc lukasz al/tr ansfo rmati on zone compo nent absen t. CLINI VERN INFOR MATIO N ----- ----- ----- ----- ----- ----- ----- ----- Regul ar LMP ----- ----- ----- ----- ----- ----- ----- ----- UNKNO WN PAP DISCL AIMER ----- ----- ----- ----- ----- ----- ----- ----- This speci men was scree sunil by the ThinP rep Imagi ng Syste m prior to manua l revie w by a cytot echno logis t and/o r patho logis t. The Pap test is a scree carmen test and has an irred ucibl e false -nega tive rate. Routi ne perio dic testi ng and follo w-up of unexp lucila d clini vern signs and sympt oms are impor tant to minim ize the conse quenc e of false -nega tive Pap tests . Desi anderson et al. 2012 Updat ed Conse nsus Guide lines for the Manag ement of Abnor mal Cervi vern Cance r Scree carmen Tests and Cance r Precu rsors . J Low Genit Tract Dis 2013; 17 (5): S2-S2 7 Not Available [facility] [address], [place], [address], 01/29/2020 16:22:35 Result Notes None recorded. Medical [...] ot Available Vitals Date Recorded Body weight Provider Name an d Address Organization Details Last Updated DateTime 01/19/2020 [address]502.24 g Dinorah Benitez (TERMED) [place] [facility] [employer] 01/19/2020 11:42:45 Date Recorded Body mass index (BMI) Body height Provider Name and Address Organization Details Last Updated DateTime 01/19/2020 34.5 kg/m2 157.48 cm Dinorah Benitez (TERMED) [place] [employer]PER[employer] 01/19/2020 11:42:49 Date Recorded Systolic blood pressure Diastolic blood pressure Provider Name and Address Organization Details Last Updated DateTime 01/19/2020 122 mm[Hg] 72 mm[Hg] Dinorah Benitez (TERMED) [place] [employer] OPERATOR 01/19/2020 11:42:59 Social History None recorded. Functional Status None recorded. Mental Status None recorded. Family History Nothing Reported. Medical History No medical history recorded. Gynecological HistoryNo gynecological history recorded. Obstetrics History GPAL:G 0 P 0 0 0 0 Past Encounters Encounter ID Performer Location Encounter Start Date Encounter Closed Date Diagnosis/Indication Diagnosis SNOMED-CT Code Diagnosis ICD10 Code Diagnosis Note [id number] DELFINO CASTRO MD [id number] [address] [phone] 01/19/2020 11:19:02 01/20/2020 11:57:11 Screening for malignant neoplasm of cervix 479605381 Z12.4 hx of cx ca and sp hys [facility] and only fu there and overdue but not for annual---w ill get records and cll md [facility] for rec fu and pap/hpv done today Health Concerns Section Related Observation LastModified by Organization Detai ls LastModified Time None Recorded Concern Status LastModified by Organization Details LastModified Time None Recorded Advance Directives Directive None Recorded Payers Encounter Date Sequence Insurance Name Policy Number Policy Boothe Covered Member ID Boothe Member ID Guarantor Name 01/19/2020 1 [place] [id number] Gloria A Estrem [id number] Gloriaaurelia Kwan Notes Date Note Type Note Provider Name and Address Organization Details Recorded Time 01/19/2020 text/html [place] [address] [facility],[address], [place], [address], [place] [employer] 01/20/2020 11:57:08 OBGyn Episode No OBEpisode recorded.
--- OUTSIDE RECORDS SUMMARY | 2024-03-13 19:49 | XMS_ITS ---
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 online digital evaluation and management service Type 2 Diabetes [facility] Blood Glucose Averages Duration # of Readings Average Value 2024-02-12 - 2024-02-23 4 162 mg/d L 2024-01-12 - 2024-02-11 5 136 mg/d L 2023-12-13 - 2024-01-11 4 130 mg/d L 2023-11-12 - 2023-12-12 4 134 mg/d L 2023-10-13 - 2023-11-11 3 128 mg/d L 2023-09-12 - 2023-10-12 7 120 mg/d L 2023-08-12 - 2023-09-11 0 No Data 2023-07-13 - 2023-08-11 4 132 mg/d L 2023-06-122023-07-12 7 129 mg/d L 2023-05-132023-06-11 2 132 mg/d L 2023-04-272023-05-12 0 No Data Out of Range Blood Glucose Values Tested At Value Category Blood Pressure Averages Duration Average Systolic Pressure Average Diastolic Pressure # of Readings 2024-02-12 - 2024-02-23 No Data No Data 0 2024-01-12 - 2024-02-11 No Data No Data 0 2023-12-13 - 2024-01-11 No Data No Data 0 2023-11-12 - 2023-12-12 No Data No Data 0 2023-10-132023-11-11 No Data No Data 0 2023-09-122023-10-12 No Data No Data 0 2023-08-122023-09-11 No Data No Data 0 2023-07-13 - 2023-08-11 No Data No Data 0 2023-06-122023-06-31 No Data No Data 0 2023-05-13 - 2023-06-11 No Data No Data 0 2023-04-272023-05-12 No Data No Data 0
--- OUTSIDE RECORDS SUMMARY | 2024-03-13 19:49 | XMS_ITS | Clinical Summary ---
Author Organization [facility] Address [address] [place] [address] Care Team Providers Care District Leader Name Role Phone Unavailable Primary Care Provider Unavailabl e Source Comments Patient records contain information from all sites at [facility]. For routine questions regarding patient records, call [phone] during business hours, M-F 8:00 AM - 5:00 PM Central Time. Record requests for emergency care only can be directed to [phone] at any time.[facility] Allergies Active Allergy Reactions Criticality Noted Date [...] And Shrub Pollen Other (see comments) 06/25/2017 Verden tree - sinus and respiratory symptoms Medications ASPIRIN CHILDRENS ORAL Take 81 mg by mouth daily. 01/24/20 16 Active BIOTIN ORAL Take 1 capsule by mouth daily. 01/18/20 17 Active multivitamin capsule Take 1 tablet by mouth daily. 04/30/19 14 Active Lactobac no.41/Bifidoba ct no.7 (PROBIOTIC-10 ORAL) Take 1 capsule by mouth daily. 04/30/19 14 Active albuterol sulfate (VENTOLIN HFA INHL) Inhale 1 puff as needed. 06/07/19 18 Active blood sugar diagnostic strips Test 1 time daily 07/31/19 17 Active calcium-magnes ium-zinc tablet Take 500 mg by mouth daily. 2 tablets daily/1000 mg total 07/10/19 18 Active lancets Use to test blood sugar 1 time per day. 01/11/20 17 Active metFORMIN (GLUCOPHAGE) 1,000 mg tablet Take 1,000 mg by mouth 2 (two) times a day with meals. 07/26/19 18 Active atorvastatin (LIPITOR) 10 mg tablet Take 10 mg by mouth daily. 10/18/19 19 Active semaglutide (Ozempic) 1 mg/dose (4 mg/3 mL) injection Inject 1 mg under the skin every 7 (seven) days. 01/24/20 19 Active cetirizine (ZyrTEC) 10 mg tablet Take 10 mg by mouth daily. Active empagliflozin (JARDIANCE) 10 mg tablet Take 1 tablet by mouth daily. 08/13/19 21 Active gabapentin (NEURONTIN) 300 mg capsule 300 mg 2 (two) times a day. 02/24/19 22 Active miscellaneous medical supply [facility] New CPAP machine for home [...] Need: 99 months, Frequency of use: Daily 09/21/19 21 Active estradioL (ESTRACE) 0.1 mg/g (0.01%) vaginal cream Insert 2 g into the vagina 2 (two) times a week. 06/02/19 23 Active montelukast (SINGULAIR) 10 mg tablet Take 10 mg by mouth daily. 06/02/19 23 Active ferrous sulfate 325 mg (65 mg iron) tablet Take 1 tablet by mouth daily. 11/20/19 20 Active co-enzyme Q-10 (CO Q-10) 100 mg capsule Take 300 mg by mouth daily. Active [id number] ahydrofolate-B 6 1,000mcg-680mc g DFE-1.5 mg tablet,chewabl e Chew 1 tablet daily. 04/12/19 24 Active cholecalcifero l, vitamin D3, (cholecalcifer ol) 25 mcg (1,000 Unit) tablet Take 25 mcg by mouth daily. Active pantoprazole (Protonix) 40 mg EC tablet Take 1 tablet by mouth daily before morning meal. 180 tablet 03/03/19 25 Active pantoprazole (Protonix) 40 mg EC tablet Take 1 tablet (40 mg total) by mouth daily before morning meal. 180 tablet 11/28/19 24 025 Discontinued Active Problems Problem Noted Date Diagnosed Date Diabetes Mellitus Type 2 03/20/2018 Asthma Mild Persistent 03/20/2018 Malignant Neoplasm Of Cervix 03/14/2018 Cancer Staging:Clinical: Unsigned Pathologic:FIGO Stage IB1(pT1b1, pN0, cM0) - Signed by Pancho Hendrickson M.D. 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 Med Refill from Last 3 Months Immunizations Immunization Administration Dates Next Due HepB Adult 05/04/2010,09/13/2009,08/12/2009 Influenza Split 12/22/2015,11/11/2014,11/11/2013 Influenza, Seasonal, Injectable 11/03/2012 Influenza, Unspecified 10/25/2017,11/16/2016 MMR 06/04/2012 PPSV23 03/17/2014,07/12/2009 Td Preservative Free (TENIVAC, DECAVAC) 07/14/19 06 Tdap 06/18/2011 influenza trivalent high dose (HD)(PF) 6,11/11/2014,11/11/2013 influenza trivalent vaccine (6 months and older)(PF) 12/13/2011,11/25/2009 influenza vaccine quad (FLUZ ONE/FLUARIX) (6 months and older)(PF) 11/16/2016,11/15/2015 Family History Medical History Relation Name Comments Alcohol abuse Brother Pérez Rameshor Age 16-his d eath in 2020 Drug abuse Brother Pérez Rameshor Age 16-presen t Psychiatric Brother Pérez Cruz Paranoid Schitzophrenic, bipolar Suicide Attempts Brother Pérez Cruz numerous attempts 1979' ADD Father Jason Cruz Alcohol abuse Father Jason Cruz Age 20-55 Arthritis Father Jason AlcazarOscar 65 Osteoarth ritis Coronary artery disease Father Jason Cruz J an 2018 quadruple bypass, CAD Diabetes Father Jason MickeyVanOscar 45 Hyperlipidemia Father Jason Rameshor 40 Hypertension Father Jason MickeyVanOscar 40 Kidney disease Father Jason Rameshor Melanoma Father Jason Rameshor 76 Obesity Father Jason Cruz Skin cancer Father Jason AlcazarOscar 74 Alcohol abuse Father's Brother Sunny AlcazarOscar Lifelon g Dementia Father's Brother Sunny Cruz [address] Diabetes Father's Brother Sunny MickeyVanOscar Diabetes Father's Sister 1 Puja Nolasco Obesity Father's Sister 1 Puja Nolasco Arthritis Father's Sister 2 Wendi Gutierrez 60 - rare deteriorating arthritis Diabetes Father's Sister 2 Wendi Gutierrez Kidney disease Father's Sister 2 Wendi Gutierrez Obesity Father's Sister 2 Wendi Gutierrez lifelong Alcohol abuse Maternal Grandfather Keaton Molina Life long Dementia Maternal Grandmother Yanira Molina 78 Alcohol abuse Mother Nicole Anthony Age 20-50 Obesity Mother Nicole Anthony Psychiatric Mother Nicole MickeyVanOscar Bipolar Thyroid disease Mother Nicole Anthony 50 - Hypo Lung cancer Mother's Sister Nikia Jesus 50 - life long smoker Other cancer Mother's Sister Nikiasiri Lee Cervical Alcohol abuse Paternal Grandfather Jan Cruz Life long Obesity Paternal Grandfather Jan O'Oscar lifel lilibeth Diabetes Paternal Grandmother Marzena Alcantar at 50 from complications of diabetes Gestational diabetes Paternal Grandmother Jg greenwood Ortiz 1937 Obesity Paternal Grandmother Marzena Griffinn lifelong ADD Sister King Shahid Asthma Sister King Shahid Obesity Sister King Shahid Other cancer Sister King Shahid Cervical Age 18 Rheum arthritis Sister King Shahid 50 Suicide Attempts Sister King Shahid Attempte d 1981 Thyroid cancer Sister King Shahid 30 Relation Name Status Comments Brother Pérez O'Oscar Father Jason O'Oscar Father's Brother Sunny O'Oscar Father's Sister 1 Puja Nolasco Father's Sister 2 Wendi Matt Maternal Grandfather Keaton Molina Maternal Grandmother Yanira Molina Mother Nicole O'Oscar Mother's Sister Nikia Lee Paternal Grandfather Jan Arevalo'Oscar Paternal Grandmother Marzena Alcantar Sister King Shahid Social History Tobacco Use Types Packs/Day Years Used Date Smoking Tobacco: Former Cigarettes 0.3 5 1 - 12/26/1996 Smokeless Tobacco: Never Comments:smoked up to 1/2 pa ck per day maximum Alcohol Use Standard Drinks/Week Comments Not Currently 1 (1 standard drink = 0.6 oz pur e alcohol) [facility] Utilities Answer Date Recorded In the past 12 months has [facility] [employer], gas, oil, or water [employer] threatened to shut off services in your home? No 07/09/2023 Humiliation, Afraid, Rape, and Kick questionnair e [...] often do you attend chur ch or mormon services? 1 to 4 times per year 06/09/2022 Do you belong to any clubs o r organizations such as yarsani groups, unions, fraternal or athletic groups, or [...] care, and heating? Not very hard 06/09/2022 [facility] - Occupational [...] exercise (like a brisk walk)? 3 days 07/09/2023 On average, how many minutes do you engage in exercise at this level? 40 min 07/09/2023 Hunger Vital Sign Answer Date Recorded Within the past 12 months, y ou worried that your food would run out before you got the money to buy more. Never true 07/09/19 24 Within the past 12 months, t he food you bought just didn't last and you didn't have money to get more. Never true 07/09/2023 PRAPARE - Transportation Answer Date Re corded In the past 12 months, has l ack of transportation kept you from medical appointments or from getting medications? No 06/12 In the past 12 months, has l ack of transportation kept you from meetings, work, or from getting things needed for daily living? No 07/09/2023 Nutrition Answer Date Recorded On average, how many serving s of fruits and vegetables do you eat per day (serving size is equal to 1 cup or approximately the size of a tennis ball)? 3-5 07/09/2023 Dental Answer Date Recorded Dental: Regular Dentist Yes 06/10/19 Employment Answer Date Recorded Employment status Employed and actively working without restrictions 07/09/2023 Housing Stability Answer Date Recorded What is your living situation today? I have a [facility] place to live 07/09/2023 Education Answer Date Recorded What is the highest level of school you have completed or the highest degree you have received? Associate degree: academic program 06/09/2022 Comments No Sex and Gender Information Value Date Recorded Sex Assigned at Female 02/16/2022 8:33 PM EXECUTIVE PRODUCER PROMOS Legal Sex Female 6:59 PM EXECUTIVE PRODUCER PROMOS Gender Identity Female 08/19/2017 10:59 PM CDT Sexual Orientation Straight 08/19/2017 10 :59 PM CDT Last Filed Vital Signs Vital Sign Reading Time Taken Comments Blood Pressure 106/54 11/22/2023 9:11 AM CDT Pulse 75 11/22/2023 9:11 AM CDT Temperature 36.6 C (97.9 F) 11/22/2023 8:40 AM CDT Respiratory Rate 15 11/22/2023 9:11 AM CDT Oxygen Saturation 97% 11/22/2023 9:11 AM CDT Inhaled Oxygen Concentration - - Weight 84.6 kg (186 lb 8.2 oz) 2023 2:13 P M CDT Height 160 cm (5' 2.99) 2023 2:13 PM CDT Body Mass Index 33.05 2023 2:13 PM CDT Plan of Treatment Upcoming Encounters Date Type Department Care Team (Latest Contact Info) Description 05/05/2024 11:15 AM CDT Clinical Communication Virtual Review in [place], [place] [address] [place] [address] 05/08/2024 9:00 AM CDT Appointment Department of Radiology, [facility], in [place], [place] [address] [place] [address] Ana María Delcid P.A.-C., M.S. [address] [place] [phone] 05/08/2024 12:15 PM CDT Appointment Department of Radiology, [facility], in [place], [place] [address] [place] [address] Ana María Delcid P.A.-C., M.S. [address] [place] [phone] 05/08/2024 2:40 PM CDT Office Visit Department of Oncology in [place], [place] [address] [place] [phone] Ana María Delcid P.A.-C., M.S. [address] [place] [phone] Health Maintenance Due Date Last Done Comments CT Colonography 1970 Colonoscopy 1970 Diabetic Office Visit with Foot Exam 1970 FIT 1970 Hepatitis C Screening 1970 Urine Albumin 1970 COVID-19 Vaccine (2 - Donnie risk series) 05/21/2020 04/23/2020 Hemoglobin A1C 12/13/2022 06/12/2022, 05/0 03/2022, 02/20/2022, Additional history exists Zoster Vaccines (2 of 2) 02/07/2023 12/13/2022 Influenza Vaccine (#1) 2023 , 11/06/2019, 10/16/2018, Additional history exists Depression Screening (Annual PHQ-2) 02/12/2024 Creatinine Level (Kidney Function Test) 05/06/2024 05/07/2023, 03/28/2022, 10/19/2021, Additional history exists Cologuard 10/19/2024 10/19/2021 Colorectal Cancer Screening 10/19/2024 Dilated Eye Exam 11/04/2024 11/05/2023, , 04/20/2021, Additional history exists Office Visit for Blood Pressure Check / Re-check 11/17/2024 2023 Mammogram 02/20/2025 02/21/2024, 02/11, 02/19/2023, Additional history exists Lipid (Cholesterol) Screening 05/03/2026 05/03/2021, 08/12/2020, 11/06/2019, Additional history exists DTaP,Tdap,and Td Vaccines (3 - Td or Tdap) 09/23/2031 09/22/2021, 06/18/2011, 07/13/2005 Hepatitis B Vaccines Completed 05/04/2010, 09/13/2009, 08/12/2009 Pneumococcal vaccine (50+ years) Completed 09/22/2021, 03/17/2014, 07/12/2009 HPV Vaccines Aged Out No longer eligi ble based on patient's age to complete this topic IPV Vaccines Aged Out No longer eligi ble based on patient's age to complete this topic Medical Devices Implanted Type Area Leadite Man Device Identifier Shelf Expiration Date Model / Serial / Lot Clp Hrzn Ti 6 Clp -Lg Grn - [id number] Implanted:Qty : 1 on 03/24/2018 by Pancho Hendrickson M.D., M.S. at [facility] Hardware e.g. pins/screws/ rods Weck (Div of [employer]) [id number] 02/13/2022 [id number] / / [id number] Clp Hrzn Ti 6 Clp Yeyo - [id number] Implanted:Qty : 1 on 03/24/2018 by Pancho Hendrickson M.D., M.S. at [facility] Hardware e.g. pins/screws/ rods [employer]us [id number] 10/29/2022 [id number] / / [id number] Clp Hrzn Ti 6 Clp Md-Lg Grn - [id number] Implanted:Qty : 1 on 03/24/2018 by Pancho Hendrickson M.D., M.S. at [facility] Hardware e.g. pins/screws/ rods Weck (Div of [employer]) [id number] 03/21/2022 [id number] / / [id number] Clp Hrzn Ti 6 Clp Alondra Grn - [id number] Implanted:Qty : 1 on 03/24/2018 by Pancho Hendrickson M.D., M.S. at [facility] Hardware e.g. pins/screws/ rods Weck (Div of [employer]) [id number] 03/21/2022 3200 / / [id number] Clp Hrzn Ti 6 Clp Yeyo - [id number] Implanted:Qty : 1 on 03/24/2018 by Pancho Hendrickson M.D., M.S. at [facility] Hardware e.g. pins/screws/ rods [employer]av[employer] [id number] / / Explanted Type Area Leadite Man Device Identifier Shelf Expiration Date Model / Serial / Lot Conversions - Default Historical Implant Device Implanted:02/09 (Quantity not on file) Implanted Port Single Lumen Chest Description:Device Status Te xt - IVAD/Port. Procedures Procedure Name Priority Date/Time Associated Diagnosis Comments COMPREHENSIVE METABOLIC PANEL, S/P Routine 05/07/2023 6:19 AM CDT Fibrosarcoma (HCC) HEMOGLOBIN A1C, B Routine 06/12/2022 7:2 8 AM CDT Fibrosarcoma (HCC) Diabetes Mellitus Type 2 (HCC) from Last 3 Months or Most Recently Relevant to Health Maintenance Results * (ABNORMAL) Comprehensive Metabolic Panel (05/07/2023 6:19 AM CDT) Potassium, S 3.9 3.6 - 5.2 mmol/L 05/07/2023 7:00 AM CDT DTL Sodium, S 139 135 - 145 mmol/L 05/07/2023 7:00 AM CDT DTL Chloride, S 100 98 - 107 mmol/L 05/07/2023 7:00 AM CDT DTL Bicarbonate, S 24 22 - 29 mmol/L 05/07/2023 7:00 AM CDT DTL Anion Gap 15 7 - 15 05/07/2023 7:00 AM CDT DTL BUN (Blood Urea Nitrogen), S 14 6 - 21 mg/dL 05/07/2023 7:00 AM CDT DTL Creatinine 0.97 0.59 - 1.04 mg/dL 05/07/2023 7:00 AM CDT DTL Estimated GFR (eGFR) 70 >=60 mL/min/BS A 05/07/2023 7:00 AM CDT DTL Comment: Estimated GFR calculated using the 2020 CKD_EPI creatinine equation. Calcium, Total, S 9.5 8.6 - 10.0 mg/dL 05/07/2023 7:00 AM CDT DTL Glucose, S 258(H) 70 - 140 mg/dL 05/07/2023 7:00 AM CDT DTL Protein, Total, S 7.0 6.3 - 7.9 g/dL 05/07/2023 7:00 AM CDT DTL Albumin, S 4.4 3.5 - 5.0 g/dL 05/07/2023 7:00 AM CDT DTL Aspartate Aminotransferase (AST), S 29 8 - 43 U/L 05/07/2023 7:00 AM CDT DTL Alkaline Phosphatase, S 80 35 - 104 U/L 05/07/2023 7:00 AM CDT DTL Alanine Aminotransferase (ALT), S 63(H) 7 - 45 U/L 05/07/2023 7:00 AM CDT DTL Bilirubin, Total, S 0.7 0.0 - 1.2 mg/dL 05/07/2023 7:00 AM CDT DTL Blood (Blood, Venous) 05/07/2023 6:19 AM CDT 05/07/2023 6:44 AM CDT Ana María Delcid P.A.-C., M.S. LAB BLOOD ADD-ON Savannah gurrola Result [facility] [address] [place] [address], [facility] [address] [place] [address] * (ABNORMAL) Hemoglobin A1c (06/12/2022 7:28 AM CDT) Hemoglobin A1c, B 7.9(H) 4.0 - 5.6 % 06/12/2022 9:09 AM CDT DTL Comment: Hemoglobin A1c values greater than or equal to 6.5 percent are diagnostic for diabetes mellitus. Diagnosis should be confirmed by repeat testing. In diabetic patients, HbA1c goals should be discussed with healthcare provider. Blood (Blood, Venous) 06/12/2022 7:28 AM CDT 06/12/2022 7:53 AM CDT Ana María Delcid P.A.-C., M.S. 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 See document viewer. * Full Code (Latest Code Status on File) Date Activated Date Inactivated Comments 03/24/2018 11:48 PM 03/26/2018 4:39 PM Question Answer Comments Full Code: Discussed * Full Code Date Activated Date Inactivated Comments 03/24/2018 10:13 AM 03/24/2018 11:48 PM Question Answer Comments Full Code: Discussed
--- OUTSIDE RECORDS SUMMARY | 2024-03-13 19:49 | XMS_ITS | Encounter Summary ---
Author Organization [facility] Address [address] [place] [address]. [place] [address] Care Team Providers Care Woodwind Instrument Repairer Name Role Phone Sharda Sykes [facility] Unavailable Eduard Vargas DO Unavailable [phone] Eduard Vargas DO Primary Care Provider Sharda Sykes [facility] Unavailable [phone] Encounter Details Date Type Department Care Team (Late st Contact Info) Description 05/14/2023 MyC Medical Advice [facility] [address] [place] [phone] [place] [id number] [place] [address] [id number] Social History Tobacco Use Types Packs/Day Years [...] often do you attend latter day or christianity serv ices? Never 03/11/2021 Do you belong [...] Answer Date Recorded PHQ-2 Score 0 02/20/2022 [facility] - Occupational Stress Questionnaire Answer Date [...] slept in a half-way (including now)? No 03/11/2021 Adolescent Education Answer Date Record ed Getting School Help Needed Not on file 11/05 Comments No Sex and Gender Information Value Date Recorded Sex Assigned at Not on file Legal Sex Female 2:58 AM YARN CLEANER Gender Identity Not on file Sexual Orientation Straight 06/28/2021 12 :12 PM CDT documented as of this encounter Plan of Treatment Not on file documented as of this encounter Visit Diagnoses Not on filedocumented in this encounter Care Teams Woodwind Instrument Repairer Relationship Specialty [place] [address] [place] [address] PCP - General Family Medicine 05/10/21 Sharda Sykes, [facility] [place], [place] [address] Pharmacist Pharmacist 04/03/21 [place] [address] [place] [address] Assigned PCP 02/23/21 Sharda Sykes [facility] [address] [place] [address] Assigned MTM Pharmacist 11/08/2101/02 documented as of this encounter
--- OUTSIDE RECORDS SUMMARY | 2024-03-13 19:49 | XMS_ITS | Encounter Summary ---
Author Organization [facility] Address [address] [place] [address]. [place] [address] Care Team Providers Care Pattern Worker Name Role Phone Sharda Sykes [facility] Unavailable [phone] Eduard Vargas DO Unavailable [phone] Eduard Vargas DO Primary Care Provider [phone] Sharda Sykes [facility] Unavailable Encounter Details Date Type Department Care Team (Late st Contact Info) Description 03/19/2022 MyC Medical Advice [facility] [address] [place] [phone] [place] [id number] [place] [address] [phone] Social History Tobacco Use Types Packs/Day Years [...] week 03/11/2021 How often do you attend bahai or gnosticism serv ices? Never 03/11/2021 Do you belong to any clubs o r organizations such as bahai groups, unions, fraternal or athletic groups, or [...] Answer Date Recorded PHQ-2 Score 0 02/20/2022 [facility] - Occupational Stress Questionnaire [...] [place] [facility] (including now)? No 03/11/2021 Comments No Sex and Gender Information Value Date Recorded Sex Assigned at Not on file Legal Sex Female 2:58 AM PHYSICIAN PRACTICE COORDINATOR Gender Identity Not on file Sexual Orientation Straight 06/28/2021 12 :12 PM CDT COVID-19 Exposure Response Date Recorded In the last 10 days, have yo u been in contact with someone who was confirmed or suspected to have Coronavirus/COVID-19? No / Unsure 02/20/2022 9:56 AM PHYSICIAN PRACTICE COORDINATOR documented as of this encounter Plan of Treatment Not on file documented as of this encounter Visit Diagnoses Not on filedocumented in this encounter Care Teams Pattern Worker Relationship Specialty Start [place] [address] [place] [address] PCP - General Family Medicine 05/10/21 Sharda Sykes [facility] [address] [place] [address] Pharmacist Pharmacist 04/03/21 [place] [address] [place] [address] Assigned PCP 02/23/21 Sharda Sykes [facility] [address] [place] [address] Assigned MTM Pharmacist 11/08/2101/02 documented as of this encounter
--- OUTSIDE RECORDS SUMMARY | 2024-03-13 19:49 | XMS_ITS | Encounter Summary ---
Author Organization [facility] Address [address] [place] [address] Care Team Providers Care Scanning Coordinator Name Role Phone Unavailable Primary Care Provider Unavailabl e Reason for Visit * Reason Comments Med Refill Encounter Details Date Type Department Care Team (Late st Contact Info) Description 03/03/2024 Refill Division of Gastroenterology in [place], [place] [address] [place] [phone] rTacie Batres M.B.B.S. [address] [place] [phone] Med Refill Social History Tobacco Use Types Packs/Day Years Used Date Smoking Tobacco: Former Cigarettes 0.3 5 1 - 12/26/1996 Smokeless Tobacco: Never Comments:smoked up to 1/2 pa ck per day maximum Alcohol Use Standard Drinks/Week Comments Not Currently 1 (1 standard drink = 0.6 oz pur e alcohol) [facility] Utilities Answer Date Recorded In the past 12 months has e electric, gas, oil, or water company threatened to shut off services in your [...] How often do you attend chur or yarsani services? 1 to 4 times per year 06/09/2022 Do you belong to any clubs o r organizations such as tenriism groups, unions, fraternal or athletic groups, or [...] care, and heating? Not very hard 06/09/2022 [facility] Occupat ional Health - Occupational Stress [...] your living situation today? I have a [facility] place to live 07/09/2023 Education Answer Date Recorded What is the highest level of school you have completed or the highest degree you have received? Associate degree: academic program 06/09/2022 Comments No Sex and Gender Information Value Date Recorded Sex Assigned at Female 02/16/2022 8:33 PM HAT CONDITIONER Legal Sex Female 6:59 PM HAT CONDITIONER Gender Identity Female 08/19/2017 10:59 PM CDT Sexual Orientation Straight 08/19/2017 10 :59 PM CDT documented as of this encounter Plan of Treatment Upcoming Encounters Date Type Department Care Team (Latest Contact Info) Description 05/05/2024 11:15 AM CDT Clinical Communication Virtual Review in [place], [place] [address] [place] [address] 05/08/2024 9:00 AM CDT Appointment Department of Radiology, [facility], in [place], [place] [address] [place] [address] Ana María Delcid P.A.-C., M.S. [address] [place] [phone] 05/08/2024 12:15 PM CDT Appointment Department of Radiology, [facility], in [place], [place] [address] [place] [address] Ana María Delcid P.A.-C., M.S. [address] [place] [phone] 05/08/2024 2:40 PM CDT Office Visit Department of Oncology in [address] [phone] Ana María Delcid P.A.-C., M.S. [address] [place] [phone] documented as of this encounter Visit Diagnoses Not on filedocumented in this encounter
--- OUTSIDE RECORDS SUMMARY | 2024-03-13 19:49 | XMS_ITS | Encounter Summary ---
Author Organization [facility] Address [address] [place] [address]. [place] [address] Care Team Providers Care Pneumatic Press Hand Name Role Phone Sharda Sykes [facility] Unavailable [phone] Eduard Vargas DO Unavailable [phone] Eduard Vargas DO Primary Care Provider [phone] Sharda Sykes [facility] Unavailable [phone] Encounter Details Date Type Department Care Team (Late st Contact Info) Description 08/23/2022 [facility] Medical Advice [address] [address] Perri Irvin RN Social History Tobacco [...] week 03/11/2021 How often do you attend presybeterian or mormon serv ices? Never 03/11/2021 Do you belong to any clubs o r organizations such as presybeterian groups, unions, fraternal or athletic groups, or [...] Answer Date Recorded PHQ-2 Score 0 02/20/2022 [facility] - [...] a nursing home (including now)? No 03/11/2021 Comments No Sex and Gender Information Value Date Recorded Sex Assigned at Not on file Legal Sex Female 2:58 AM CERTIFIED MEDICAL BILLER Gender Identity Not on file Sexual Orientation Straight 06/28/2021 12 :12 PM CDT documented as of this encounter Plan of Treatment Not on file documented as of this encounter Visit Diagnoses Not on filedocumented in this encounter Care Teams Pneumatic Press Hand Relationship Specialty [place] [address] [place] [address] PCP - General Family Medicine 05/10/21 Sharda Sykes [facility] [address] [place] [address] Pharmacist Pharmacist 04/03/21 [place] [address] [place] [address] Assigned PCP 02/23/21 Sharda Sykes [facility] [address] [place] [address] Assigned MTM Pharmacist 11/08/2101/02 documented as of this encounter
--- OUTSIDE RECORDS SUMMARY | 2024-03-13 19:49 | XMS_ITS | Encounter Summary ---
Author Organization [facility] Address [facility] [place] [address] Care Team Providers Care Agricultural Research Technician Name Role Phone Sharda Sykes [facility] Unavailable [phone] Eduard Vargas DO Unavailable [phone] Eduard Vargas DO Primary Care Provider Sharda Sykes [facility] Unavailable [phone] Encounter Details Date Type Department Care Team (Late st Contact Info) Description 05/28/2022 [facility] Medical Advice [address] [address] Sharda Sykes, [facility] [address] [place] [address] Social History Tobacco Use Types [...] How often do you attend hindu or restoration serv ices? Never 03/11/2021 Do you belong [...] PHQ-2 Score 0 02/20/2022 [facility] - Occupational Stress Questionnaire Answer Date Recorded [...] in a jail (including now)? No 03/11/2021 Comments No Sex and Gender Information Value Date Recorded Sex Assigned at Not on file Legal Sex Female 2:58 AM FARMWORKER FIELD CROP Gender Identity Not on file Sexual Orientation Straight 06/28/2021 12 :12 PM CDT documented as of this encounter Plan of Treatment Not on file documented as of this encounter Visit Diagnoses Not on filedocumented in this encounter Care Teams Agricultural Research Technician Relationship Specialty [place] [address] [place] [address] PCP - General Family Medicine 05/10/21 Sharda Sykes [facility] [address] [place] [address] Pharmacist Pharmacist 04/03/21 [place] [address] [place] [address] Assigned PCP 02/23/21 Sharda Sykes [facility] [address] [place] [address] Assigned MTM Pharmacist 11/08/2101/02 documented as of this encounter
--- OUTSIDE RECORDS SUMMARY | 2024-03-13 19:50 | XMS_ITS | Encounter Summary ---
Author Organization [place] Address [address] [place] [address]. [place] [address] Care Team Providers Care Mother Superior Name Role Phone Humphrey Mccray MD Primary Care Provider Unavailable Sharda Sykes [facility] Unavailable Eduard Vargas DO Unavailable [phone] Eduard Vargas DO Primary Care Provider [phone] Sharda Sykes [facility] Unavailable Sharda Sykes [facility] Unavailable [phone] Encounter Details Date Type Department Care Team (Late st Contact Info) Description 03/24/2021 My[facility] Medical Advice [facility] [address] [place] [address] [place] [id number] [place] [address] Social History Tobacco Use Types Packs/Day [...] week 03/11/2021 How often do you attend nondenominational or episcopal serv ices? Never 03/11/2021 Do you belong to any clubs o r organizations such as nondenominational groups, unions, fraternal or athletic groups, or [...] Answer Date Recorded PHQ-2 Score 0 03/14/2021 [facility] Occupat ional [facility] - Occupational Stress Questionnaire Answer Date Recorded [...] on file Legal Sex Female 2:58 AM TENTER FEEDER Gender Identity Not on file Sexual Orientation Straight 06/28/2021 12 :12 PM CDT COVID-19 Exposure Response Date Recorded In the last month, have you been in contact with someone who was confirmed or suspected to have Coronavirus / COVID-19? No / Unsure 03/15/2021 9:11 AM TENTER FEEDER documented as of this encounter Plan of Treatment Not on file documented as of this encounter Visit Diagnoses Not on filedocumented in this encounter Care Teams Mother Superior Relationship Specialty Start Date End Date Humphrey Mccray MD PCP - General 02/24/99 05/09/21 [place] [address] [place] [address] PCP - General Family Medicine 05/10/21 Sharda Sykes [facility] [address] [place] [address] Pharmacist Pharmacist 04/03/21 [place] [address] [place] [address] Assigned PCP 02/23/21 Sharda Sykes [facility] [address] [place] [address] Assigned MTM Pharmacist 08/05/21 Sharda Sykes, [facility] [address] [place] [address] Assigned MTM Pharmacist 11/08/2101/02 documented as of this encounter
--- OUTSIDE RECORDS SUMMARY | 2024-03-13 19:50 | XMS_ITS | Encounter Summary ---
Author Organization [facility] Address [address] [place] [address]. [place] [address] Care Team Providers Care Peanut Separator Name Role Phone Sharda Sykes [facility] Unavailable [phone] Eduard Vargas DO Unavailable [phone] Eduard Vargas DO Primary Care Provider Reason for Visit * Reason Comments Medication Refill Encounter Details Date Type Department Care Team (Late st Contact Info) Description 03/02/2024 Refill [facility] [id number] [place] [phone] [place] [address] [place] [address] Medication Refill Social History Tobacco Use Types Packs/Day [...] How often do you attend confucianism or confucianist serv ices? Never 03/11/2021 Do [...] [facility] of Occupat ional Health - Occupational Stress [...] on file Legal Sex Female 2:58 AM CREWMAN ARMOURED PERSONNEL CARRIER M113 Gender Identity Not on file Sexual Orientation Straight 06/28/2021 12 :12 PM CDT documented as of this encounter Plan of Treatment Not on file documented as of this encounter Visit Diagnoses Not on filedocumented in this encounter Care Teams Peanut Separator Relationship Specialty [place] [address] [place] [address] PCP - General Family Medicine 05/10/21 Sharda Sykes, [facility] [address] [place] [address] Pharmacist Pharmacist 04/03/21 [place] [address] [place] [address] Assigned PCP 02/23/21 documented as of this encounter
--- OUTSIDE RECORDS SUMMARY | 2024-03-13 19:50 | XMS_ITS | Encounter Summary ---
Author Organization [facility] Address [address] [place] [address]. [place] [address] Care Team Providers Care Technical Planner Name Role Phone Sharda Sykes [facility] Unavailable [phone] Eduard Vargas DO Unavailable [phone] Eduard Vargas DO Primary Care Provider [phone] Sharda Sykes [facility] Unavailable [phone] Encounter Details Date Type Department Care Team (Late st Contact Info) Description 04/09/2023 [facility] Advice [facility] [address] [place] [phone] Nga Biggs MA Social History Tobacco Use Types Packs/Day Years [...] week 03/11/2021 How often do you attend mormonism or latter day serv ices? Never 03/11/2021 Do you belong to any clubs o r organizations such as mormonism groups, unions, fraternal or athletic groups, or [...] Answer Date Recorded PHQ-2 Score 0 02/20/2022 [facility] of Occupat ional Health - [...] on file Legal Sex Female 2:58 AM SHEET MILL SUPERVISOR Gender Identity Not on file Sexual Orientation Straight 06/28/2021 12 :12 PM CDT documented as of this encounter Plan of Treatment Not on file documented as of this encounter Visit Diagnoses Not on filedocumented in this encounter Care Teams Technical Planner Relationship Specialty [place] [address] [place] [address] PCP - General Family Medicine 05/10/21 Sharda Sykes [facility] [address] [place] [address] Pharmacist Pharmacist 04/03/21 [place] [address] [place] [address] Assigned PCP 02/23/21 Sharda Sykes [facility] [address] [place] [address] Assigned MTM Pharmacist 11/08/2101/02 documented as of this encounter
--- OUTSIDE RECORDS SUMMARY | 2024-03-13 19:50 | XMS_ITS | Encounter Summary ---
Author Organization [facility] Address [address] [place] [address]. [place] [address] Care Team Providers Care Maintenance Aide Name Role Phone Sharda Sykes [facility] Unavailable Eduard Vargas DO Unavailable [phone] Eduard Vargas DO Primary Care Provider Sharda Sykes [facility] Unavailable [phone] Encounter Details Date Type Department Care Team (Late st Contact Info) Description 08/23/2022 My[facility] Medical Advice [facility] [address] [place] [address] [place] [address] [place] [phone] Social History Tobacco Use Types Packs/Day Years [...] How often do you attend mormonism or protestant serv ices? Never 03/11/2021 Do [...] Answer Date Recorded PHQ-2 Score 0 02/20/2022 [facility] - Occupational Stress Questionnaire Answer Date Recorded [...] in a snf (including now)? No 03/11/2021 Comments No Sex and Gender Information Value Date Recorded Sex Assigned at Not on file Legal Sex Female 2:58 AM FAMILY SUPPORT WORKER Gender Identity Not on file Sexual Orientation Straight 06/28/2021 12 :12 PM CDT documented as of this encounter Plan of Treatment Not on file documented as of this encounter Visit Diagnoses Not on filedocumented in this encounter Care Teams Maintenance Aide Relationship Specialty [place] [address] [place] [address] PCP - General Family Medicine 05/10/21 Sharda Sykes [facility] [address] [place] [address] Pharmacist Pharmacist 04/03/21 [place] [address] [place] [address] Assigned PCP 02/23/21 Sharda Sykes [facility] [address] [place] [address] Assigned MTM Pharmacist 11/08/2101/02 documented as of this encounter
--- OUTSIDE RECORDS SUMMARY | 2024-03-13 19:50 | XMS_ITS | Encounter Summary ---
Author Organization [facility] Address [address] [place] [address] Care Team Providers Care Diamond Grader Name Role Phone Peyman Iverson MD Primary Care Provider Reason for Referral * Procedure/Equipment (Routine) - Incomplete Specialty Diagnoses / Procedures Referred By Chuy t Referred To Contact Procedures MM Mammogram Screening Bilat W 3D [place] [address] [place] [address] Referral ID Status Reason Start Date Expiration Date V isits Requested Visits Authorized [id number] Incomplete 02/21/2024 05/22/2025 1 1 BACK UPHOLSTERER Reason for Visit * Procedure/Equipment (Routine) - Incomplete Specialty Diagnoses / Procedures Referred By Chuy salazar Referred To Contact Procedures MM Mammogram Screening Bilat W 3[place] [address] [place] [address] Referral ID Status Reason Start Date Expiration Date V isits Requested Visits Authorized [id number] Incomplete 02/21/2024 05/22/2025 1 1 Encounter Details Date Type Department Care Team (Latest Contact Info) Description 02/21/2024 10:00 AM SOFA BACK UPHOLSTERER Ancillary Procedure Mammography at [address] [address] Social History Tobacco Use Types Packs/Day Years Used Date Smoking Tobacco: Former Cigarettes Smokeless Tobacco: Never Alcohol Use Standard Drinks/Week Comments Not Currently 0 (1 standard drink = 0.6 oz pur e alcohol) PHQ-2 Answer Date Recorded PHQ-2 Score 0 01/28/2024 Sex and Gender Information Value Date Recorded Sex Assigned at Not on file Gender Identity Not on file Sexual Orientation Straight 12/13/2022 9: 23 AM CDT documented as of this encounter Plan of Treatment Upcoming Encounters Date Type Department Care Team (Late st Contact Info) Description 04/28/2024 10:00 AM CDT Appointment [facility] [address] [place] [phone] documented as of this encounter Procedures Procedure Name Priority Date/Time Associated Diagnosis Comments MM MAMMOGRAM SCREENING BILAT W 3D MADDI W CAD Routine 02/21/2024 10:22 AM SOFA BACK UPHOLSTERER documented in this encounter Results * MM Mammogram Screening Bilat W 3D Maddi W CAD (02/21/2024 10:22 AM SOFA BACK UPHOLSTERER) Anatomical Region Laterality Modality Breast Bilateral Mammography Impressions 02/24/2024 10:11 AM SOFA BACK UPHOLSTERER : ACR BI-RADS Category 1: Negative RECOMMENDATION: Follow Up Imaging in 12 months - Bilateral The results and recommendations of this examination will be communicated to the patient. Narrative 02/24/2024 10:11 AM SOFA BACK UPHOLSTERER MM MAMMOGRAM SCREENING BILAT W 3D MADDI W CAD performed on 02/21/24 FDA Accredited Facility: [place] [address] Compared to: 02/19/2023 MM Mammogram Screening Bilat W 3D Maddi W CAD, 11/28/2021 Foreign Image(S) Mammogram, 11/25/2020 Foreign Image(S) Mammogram, and 10/02/2019 Foreign Image(S) Mammogram FINDINGS: Bilateral screening mammogram was performed with the assistance of Computer-Aided Detection and breast tomosynthesis. The breasts are almost entirely fatty. There is no radiographic evidence of malignancy. Peyman Iverson MD [facility] documented in this encounter Visit Diagnoses Not on filedocumented in this encounter Care Teams Diamond Grader Relationship Specialty [place] [address] [place] [address] PCP - General Family Practice 08/05/23 documented as of this encounter
--- OUTSIDE RECORDS SUMMARY | 2024-03-13 19:50 | XMS_ITS | Encounter Summary ---
Author Organization [facility] Address [address] [place] [address] Care Team Providers Care Wetlands Conservation Laborer Name Role Phone Peyman Iverson MD Primary Care Provider [phone] Reason for Visit * Reason Comments Refill metFORMIN (GLUCOPHAG E) 1000 MG tablet [Pharmacy Med Name: Metformin Hydrochloride 1000mg Tablet] Encounter Details Date Type Department Care Team (Late st Contact Info) Description 02/06/2024 Refill [facility] [address] [facility] [address] [place] [address] [place] [address] [place], [place] [phone] Refill (metFORMIN (GLUCOPHAGE) 1000 MG tablet [Pharmacy Med Name: Metformin Hydrochloride 1000mg Tablet]) Social History Tobacco Use Types Packs/Day Years [...] as of this encounter Nursing Notes * Brinda Higginbotham RN - 02/10/2024 12:54 PM CST Renewed medication per medication refill standing order. Requested Prescriptions Pending Prescriptions Disp Refills metFORMIN (GLUCOPHAGE) 1000 MG tablet [Pharmacy Med Name: Metformin Hydrochloride 1000mg Tablet] 180 Tablet 3 Sig: Take 1 tablet by mouth twice daily. WAY TRACK PLANT OPERATOR * Heath Saba Xrwcomm - 02/06/2024 2:58 PM CST metFORMIN (GLUCOPHAGE) 1000 MG tablet [Pharmacy Med Name: Metformin Hydrochloride 1000mg Tablet] Medication started: 08/24/2022 Last ordered by PEYMAN IVERSON S: 02/26/2023 (345 days ago) QTY: 180, Refills: 3, Sig: take 1 tablet (1,000 mg) by mouth two times a day. (changed but equivalent) -> Refill x 12 months, qty: 180, refills: 3 (until due for a(n) Cr check and HBA1C check) Last qualifying visit: 01/28/2024 (with PEYMAN IVERSON) Next scheduled visit: None Cr: 0.95 mg/dL on 01/17/2024 HBA1C: 7.7 % on 01/17/2024 [facility] Embedded Refills, Reference: [id number], 02/06/2024 2:58:13 PM Amadou ALEGRIA: JOSE A Refill Centralized Services - Primary Care [[id number]] ([id number]) WAY TRACK PLANT OPERATOR * Roxiehillary Vipulzacon Xrwcomm - 02/06/2024 2:58 PM CST The following lab order(s) may be associated with the following Patient Result Comment (Entered by Peyman Iverson MD at 01/19/2024 2:05 PM): BASIC METABOLIC PANEL Here are your lab results, which we will discuss in more detail at your upcoming appointment.See you then,Dr. Iverson WAY TRACK PLANT OPERATOR * Ankush Sabadavinajennifer Xrwcomm - 02/06/2024 2:58 PM CST The following lab order(s) may be associated with the following Patient Result Comment (Entered by Peyman Iverson MD at 01/19/2024 2:05 PM): HGB A1C Here are your lab results, which we will discuss in more detail at your upcoming appointment.See you then,Dr. Iverson WAY TRACK PLANT OPERATOR documented in this encounter Plan of Treatment Upcoming Encounters Date Type Department Care Team (Late st Contact Info) Description 04/28/2024 10:00 AM CDT Appointment [facility] [address] [place] [address] documented as of this encounter Visit Diagnoses Not on filedocumented in this encounter Care Teams Wetlands Conservation Laborer Relationship Specialty [place] [address] [place] [address] PCP - General Family Practice 08/05/23 documented as of this encounter
--- OUTSIDE RECORDS SUMMARY | 2024-03-13 19:50 | XMS_ITS | Encounter Summary ---
[facility] Address [address] [place] [address] Care Team Providers Care Lead Esthetician Name Role Phone Peyman Iverson MD Primary Care Provider Reason for Visit * Reason Comments Refill estradiol (ESTRACE) 0.1 MG/GM vaginal cream [Pharmacy Med Name: Estradiol 0.01% Vaginal Cream] Encounter Details Date Type Department Care Team (Late st Contact Info) Description 02/21/2024 Refill [facility] [address] Family Medicine [address] [place] [phone] [place] [address] [place] [address] Refill (estradiol (ESTRACE) 0.1 MG/GM vaginal cream [Pharmacy Med Name: Estradiol 0.01% Vaginal Cream]) Social History Tobacco Use Types Packs/Day Years [...] as of this encounter Nursing Notes * Che Villanueva RN - 02/25/2024 10:02 AM CST Renewed medication per medication refill standing order. Requested Prescriptions Pending Prescriptions Disp Refills estradiol (ESTRACE) 0.1 MG/GM vaginal cream [Pharmacy Med Name: Estradiol 0.01% Vaginal Cream] 42.5g 3 Sig: Apply 1 gram vaginally twice weekly. M * Heath Saba Xrwcomm - 02/21/2024 2:45 PM CST estradiol (ESTRACE) 0.1 MG/GM vaginal cream [Pharmacy Med Name: Estradiol 0.01% Vaginal Cream] Medication started: 10/22/2022 Last ordered by WILIAM MARIN E: 03/13/2023 (345 days ago) QTY: 42.5, Refills: 2, Sig: apply 1 gm vaginally 2 times a week. (changed but equivalent) -> A qualifying visit was not found within the last 2 years. Last qualifying visit: None (A recent visit (in Family Practice with PEYMAN IVERSON) was found) Next scheduled visit: None [facility] Embedded Refills, Reference: [id number], 02/21/2024 2:45:14 PM Amadou ALEGRIA: JOSE A Refill Centralized Services - Primary Care [[id number]] ([id number]) SUPPORT TECHNICIAN documented in this encounter Plan of Treatment Upcoming Encounters Date Type Department Care Team (Late st Contact Info) Description 04/28/2024 10:00 AM CDT Appointment [facility] [address] [place] [address] documented as of this encounter Visit Diagnoses Diagnosis Menopausal vaginal dryness Symptomatic menopausal or female climacteric states documented in this encounter Care Teams Lead Esthetician Relationship Specialty [place] [address] [place] [address] PCP - General Family Practice 08/05/23 documented as of this encounter
--- OUTSIDE RECORDS SUMMARY | 2024-03-13 19:50 | XMS_ITS | Encounter Summary ---
[facility] Organization [facility] Address [address] [place] [id number] Care Team Providers Care Baby Attendant Name Role Phone Peyman Iverson MD Primary Care Provider Reason for Visit * Reason Comments Spine Lumbar Encounter Details Date Type Department Care Team (Late st Contact Info) Description 01/28/2024 10:15 AM [facility]ER SEALER Therapy [facility] Physical Therapy [address] [phone] [place] [id number] [place], [place] [phone] Sacro-iliac pain (HRC) (Primary Dx) Social History Tobacco Use Types [...] as of this encounter Progress Notes * Nicole Albrecht, PT - 01/28/2024 10:15 AM CST [facility] Physical Therapy Daily Note Visit Number: 4 BCBS: Other Initial Certification Period: 12/24/2023 to 03/23/24 Referring Provider: Minesh Zapata Visit Diagnosis: 1. 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 Onset/Referral Date: Onset: chronic back/hip pain, worse L SIJ pain last few weeks Referral: 12/16/2024 Aggravating factors:Sitting > 1 hour, Walking > 100 yds, and Lifting Relieving factors: Restriction of activity, stretches, gabapentin, ice Work/Leisure/Sport: work: [employer]: likes gardening but too painful lately SUBJECTIVE: Patient Report: Patient reports she is feeling better than last visit. Working a lot lately as [employer]. Has gone to the gym with daughter a few times. OBJECTIVE: Today's Findings: Hinge in lumbar spine where most mobility comes from, little differentiation between pelvis and low back TREATMENT TODAY: Therapeutic Exercise: 38 minutes Exercises intended to develop strength, ROM, edurance and flexibility Update on current status NuStep L4 5 mins Hip flexor stretch on step 2x30s Squat at barre stretch/hold for back stretch 3x30s Squat at barre for strengthening x10 5 sec holds Elevated plank with april 2x10 B Side stepping with green tband 2x10 B Cable column pull downs 17# 2 x10 Leg Press 40# 2x10 Updated HEP and gave digital copy, Discussed adding in recumbent bike or NuStep and Leg Press to gym when she goes with daughter Access Code: [email or web address] URL: [email or web address] Date: 01/28/2024 Prepared by: Nicole Albrecht Exercises - Staggered Bridge - 1 x daily - 2 sets - 10 reps - Supine Posterior Pelvic Tilt - 1 x daily - 10 reps - 5 second hold - Hip Extension with Resistance Loop - 1 x daily - 2 sets - 10 reps - Hip Flexor Stretch on Step - 1 x daily - 2-3 reps - 30s hold - Seated Piriformis Stretch - 1 x daily - 2-3 reps - 30s hold - Mini Squat with Counter Support - 1 x daily - 2 sets - 10 reps Timed Code Treatment Minutes: 38 Total Treatment Minutes: 38 ASSESSMENT: Patient reports overall improvement in SIJ pain today. Able to perform new strength therex without pain. Feeling comfortable with HEP. Patient continues to be a good candidate for skilled therapy in order to progress towards prior levels of function. PLAN: Ready for discharge next visit if she continues to have decreased pain. Review HEP, progress core and hip strength therex as able EXPECTED FUNCTIONAL OUTCOMES/GOALS: HEP/Independent Management: Demonstrate independence with HEP and self- management following each treatment session Demonstrate correct posture and body mechanics without verbal cueing in 2-3 session. ADL's: Transition sit to stand with normal positioning and weight bearing in 6 weeks. Ambulation: Ambulate for 30 mins without increased symptoms in 12 weeks. Ascend/descend stairs with reciprocal gait and minimal symptoms in 8-12 weeks. Therapist: Nicole Albrecht, PT 10:23 AM 01/28/2024 ER SEALER documented in this encounter Plan of Treatment Upcoming Encounters Date Type Department Care Team (Late st Contact Info) Description 04/28/2024 10:00 AM CDT Appointment [facility] [id number] [place] [phone] documented as of this encounter Visit Diagnoses Diagnosis Sacro-iliac pain (HRC)- Primary Disorders of sacrum documented in this encounter Care Teams Baby Attendant Relationship Specialty [place] [id number] [place] [address] PCP - General Family Practice 08/05/23 documented as of this encounter
--- OUTSIDE RECORDS SUMMARY | 2024-03-13 19:50 | XMS_ITS | Clinical Summary ---
Author Organization [facility] Address [address], [place] [address] Care Team Providers Care Preschool Teacher Aide Name Role Phone Peyman Iverson MD Primary Care Provider [phone] Source Comments You are receiving this document as you are listed as the primary care provider,follow-up provider, or the patient has been referred to you for consultation.This is in compliance with the Medicare andMedicaid EHR Incentive Program,which states Providers who transition their patient to another setting of careor provider of care or refers their patient to another provider of care shouldprovide summary care record for each transition of care or referral. Cellrox Allergies Active Allergy Reactions Criticality Noted Date Comments Adhesive Rash 09/04/2013 Tegaderm Grass Pollen(K-O-R-T-Swt Cesar) Cough,Headache 01/08/2023 Hydromorphone Itching 03/14/2018 Lisinopril Dizziness 04/25/2018 Molds & Smuts Other, see comments 09/04/2013 Sinus and Respiratory Sinus and respiratory symptoms Medications Medication Sig Dispensed Refills Start Date End Date Status aspirin tablet TABS Take 1 Tablet (81 mg) by mouth daily. 3 Active ALBUterol sulfate HFA 108 (90 Base) MCG/ACT inhaler Inhale. 3 Active cetirizine (ZYRTEC) 10 MG tablet Take 1 Tablet (10 mg) by mouth daily. Active Calcium Citrate (AKA CALCITRATE) 950 (200 Ca) MG tablet Take 500 mg by mouth. Active ipratropium-albu terol (DUONEB) 0.5-2.5 (3) mg/3ml nebulizer solutionIndicati ons:Mild persistent asthma without complication (HRC) Inhale 3 mL every 6 hours as needed for Wheezing. 120 mL 1 3 Active blood glucose test stripIndications :Diabetes mellitus type 2 (HRC) Use to test daily. 100 Strip 11 3 Active Lancets (ONETOUCH DELICA PLUS [id number]) MISC Apply 1 Lancet topically daily. 3 Active vitamin B-12 (AKA: CYANOCOBALAMIN) 1000 MCG tablet Take 1 Tablet (1,000 mcg) by mouth. Active Coenzyme Q10 100 MG Take 3 Capsules (300 mg) by mouth. Active Cholecalciferol (VITAMIN D) 25 MCG (1000 UT) TABS 3 Active gabapentin (NEURONTIN) 300 MG capsuleIndicatio ns:Neuropathic pain of left lower extremity Take 1 capsule by mouth twice daily. 180 Capsule 3 4 Active montelukast (SINGULAIR) 10 MG tablet Take 1 tablet by mouth daily. 90 Tablet 2 4 Active pantoprazole (PROTONIX) 40 MG packetIndication s:Eosinophilic esophagitis 4 Active glipiZIDE XL (GLUCOTROL XL) 5 MG 24 hour release tabletIndication s:Type 2 diabetes mellitus with diabetic microalbuminuria , without long-term current use of insulin (HRC) Take 1 Tablet (5 mg) by mouth daily. 90 Tablet 3 4 01/28/20 25 Active semaglutide (OZEMPIC) 2 MG/3ML injectionIndicat ions:Type 2 diabetes mellitus with diabetic microalbuminuria , without long-term current use of insulin (HRC) Inject 0.5 mg subcutaneously once a week. 3 mL 5 4 Active empagliflozin (JARDIANCE) 25 MG tabletIndication s:Type 2 diabetes mellitus with diabetic microalbuminuria , without long-term current use of insulin (HRC) Take 1 Tablet (25 mg) by mouth daily. 90 Tablet 3 4 01/28/20 25 Active atorvastatin (LIPITOR) 10 MG tablet Take 1 tablet by mouth daily. 90 Tablet 3 4 Active metFORMIN (GLUCOPHAGE) 1000 MG tablet Take 1 tablet by mouth twice daily. 180 Tablet 3 4 Active estradiol (ESTRACE) 0.1 MG/GM vaginal creamIndications :Menopausal vaginal dryness Apply 1 gram vaginally twice weekly. 42.5 g 3 5 Active ALBUterol sulfate HFA 108 (90 Base) MCG/ACT inhaler Inhale 1-2 Puffs every 4 hours as needed for Wheezing. 1 Each 5 Active albuterol 2.5 mg/3 mL, 0.083%, (PROVENTIL) nebulizer solution Inhale 1 Each (2.5 mg) every 4 hours as needed for Wheezing or Shortness of Breath (coughing). Inhale one vial every 20 minutes up to three times. Then every 1-4 hours as needed. 90 mL 5 Active predniSONE (DELTASONE) 20 MG tablet Take 2 Tablets (40 mg) by mouth daily for 5 days. 10 Tablet 5 03/15/19 25 Active estradiol (ESTRACE) 0.1 MG/GM vaginal creamIndications :Menopausal vaginal dryness Apply 1 gm vaginally 2 times a week. 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 If still present, will add JORGITO-I Will recheck in 6 months. If still present, will add JORGITO-I Cervical cancer, FIGO stage IB1 01/24/2018 Overview (04/05/2023): Radical hysterectomy 03/24/18, left ovaries. Added automatically from request for surgery [id number] Added automatically from request for surgery [id number] 03/24/2018: Radical total abdominal hysterectomy for cervical cancer. Path shows no evidence of residual cervical cancer or metastisis. Pap in 2019 but I can't see that result. 2023 NILM, neg HPV 52 y.o. vaginal pap Plan: Annual pap testing per [facility]. 02/2024. 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 Encounters Date Type Department Care Team Description 03/10/2024 12:40 PM MISSILE MECHANIC Office Visit [place] [facility] [address] [facility] [address] [place] [phone] Elvira Tidwell MD Acute bronchitis, unspecified organism 02/21/2024 10:00 AM MISSILE MECHANIC Ancillary Procedure Mammography at [address] [address] 02/21/2024 Refill [place] [address] [facility] [address] [place] [phone] Peyman Iverson MD Refill (estradiol (ESTRACE) 0.1 MG/GM vaginal cream [Pharmacy Med Name: Estradiol 0.01% Vaginal Cream]) 02/06/2024 11:30 AM MISSILE MECHANIC Therapy [facility] [address] [address] [place] PT Sacro-iliac pain (HRC) (Primary Dx) 02/06/[address] [address] Peyman Iverson MD Refill (metFORMIN (GLUCOPHAGE) 1000 MG tablet [Pharmacy Med Name: Metformin Hydrochloride 1000mg Tablet]) 02/06/[address] [address] Peyman Iverson MD Refill (atorvastatin (LIPITOR) 10 MG tablet [Pharmacy Med Name: Atorvastatin Calcium 10mg Tablet]) 01/28/2024 1:30 PM MISSILE MECHANIC Office Visit [address] [address] Peyman Iverson MD Type 2 diabetes mellitus with diabetic microalbuminuria, without long-term current use of insulin (HRC) (Primary Dx); Eosinophilic esophagitis 01/28/2024 10:15 AM MISSILE MECHANIC Therapy [facility] [address] [address] Nicole Albrecht, PT Sacro-iliac pain (HRC) (Primary Dx) 01/17/2024 1:00 PM MISSILE MECHANIC Therapy [facility] [address] [address] [place], PT Sacro-iliac pain (HRC) (Primary Dx) 01/17/2024 10:00 AM MISSILE MECHANIC Lab Visit [address] [address] Type 2 diabetes mellitus with diabetic microalbuminuria, without long-term current use of insulin (HRC) 01/17/[address] [address] Shaunna Castillo PA-C Refill (OZEMPIC, 1 MG/DOSE, 4 MG/3ML injection [Pharmacy Med Name: OZEMPIC 3mL 1.34mg/mL Pen Injector]) 01/16/[address] [address] Peyman Iverson MD TEST,PATIENT REQUESTING (Expected date change ) 12/31/2023 8:30 AM MISSILE MECHANIC Therapy [facility] [address] [address] [place], PT Sacro-iliac pain (HRC) (Primary Dx) 12/26/2023 Orders Only HIM DEPARTMENT Provider, MD Derrick 12/24/2023 2:45 PM MISSILE MECHANIC Therapy [facility] [address] [address] Nicole Albrecht PT Sacro-iliac pain (HRC) (Primary Dx) 12/24/2023 E-Visit [facility] Physical [address] [address] Mychart, Generic Provider 12/22/[address] [address] Peyman Iverson MD Refill (montelukast (SINGULAIR) 10 MG tablet [Pharmacy Med Name: Montelukast Sodium 10mg Tablet]) 12/22/[address] [address] Peyman Iverson MD Refill (JARDIANCE 10 MG tablet [Pharmacy Med Name: Jardiance 10mg Tablet]) 12/21/[address] [address] Peyman Iverson MD Refill (gabapentin (NEURONTIN) 300 MG capsule [Pharmacy Med Name: Gabapentin 300mg Capsule]) 12/17/2023 12:40 PM MISSILE MECHANIC Ancillary Procedure [facility] [address] Radiology [address] [place] [address] Minesh Zapata MD Pain of left hip 12/17/2023 12:10 PM MISSILE MECHANIC Office Visit [facility] [address] [address] [address] [place] [phone] Minesh Zapata MD Pain of left hip (Primary Dx); Sacroiliitis (HRC) from Last 3 Months Immunizations Name Administration Dates Next Due Flu Vac (3+ yrs) 11/03/2012 Flu Vac Preserv Free (3+yrs) 12/13/2011,11/26/19 10 HepB Adult (Engerix-B, 20+ y rs, 3 dose series) 05/04/2010,09/13/2009,08/12/2009 Influenza ([place] Only) (Flul aval Quad 0.5, 3+ yrs) 11/06/2019,11/16/2016 Influenza IIV3 (Trivalent) F stephanie Highdose, 65+ Yrs (64082) 12/22/2015,11/11/2014,11/11/2013 Influenza IIV4 (Quadrivalent ) 0.5mL (92454) 11/30/2020,11/06/2019,10/16/2018,2017,10/25/2017,11/16/2016,11/15/2015 Influenza, Unspecified Formulation 10/25/2017, Donnie COVID-19 Vaccine 04/23/2020 MMR 06/04/2012 PCV20 (Zofaeve43) 09/22/2021 PPSV23 (Pneumovax) 03/17/2014,07/12/2009 Td, Preservative Free [...] Sign Reading Time Taken Comments Blood Pressure 108/72 03/10/2024 12:28 PM MISSILE MECHANIC Pulse 85 03/10/2024 12:28 PM MISSILE MECHANIC Temperature 36.7 C (98 F) 03/10/2024 12:28 PM MISSILE MECHANIC Respiratory Rate 16 03/10/2024 12:28 PM MISSILE MECHANIC Oxygen Saturation 98% 03/10/2024 12:28 PM MISSILE MECHANIC Inhaled Oxygen Concentration - - Weight 82.6 kg (182 lb) 01/28/2024 1:13 PM MISSILE MECHANIC Height 157.5 cm (5' 2) 12/17/2023 12:18 PM MISSILE MECHANIC Body Mass Index 33.29 12/17/2023 12:18 PM MISSILE MECHANIC Plan of Treatment Upcoming Encounters Date Type Department Care Team (Late st Contact Info) Description 04/28/2024 10:00 AM CDT Appointment [facility] [address] [place] [address] Health Maintenance Due Date Last Done Comments Diabetes: Foot Exam 1970 HIV Screening (Preventive Services) 1986 Adult Preventive Visit 1988 Zoster/Shingles (2 of 2) 02/07/2023 12/13/2022 COVID-19 Vaccine ( season) 2023 04/23/2020 Cervical Cancer Screening 03/01/2024 03/01/2023 Diabetes: HGBA1C 04/16/2024 01/17/2024, , 12/13/2022, Additional history exists Cologuard (Stool DNA) 10/19/2024 10/19/2021 , 10/19/2021 (Completed) Diabetes: Eye Exam 12/25/2024 12/26/2023, 0 11/05/2023, 11/05/2023, Additional history exists Diabetes: Creatinine 01/16/2025 01/17/2024, 12/14/19 23 Diabetes: Urine Microalbumin 01/16/2025 01/17/2024, 07/11/2023, 12/13/2022 Mammogram 02/20/2025 02/21/2024, 01/0 10/2023, 11/28/2021, Additional history exists Diabetes: Lipid Panel 07/10/2028 07/11/2023, 11/02/2 023 DTaP/Tdap/Td (3 - Tdap) 09/23/2031 09/23/19 22, 06/18/2011, 07/13/2005 HepB Completed 05/04/2010, 04/2009, 08/12/2009 Pneumococcal Completed 09/22/2021, 05/2014, 07/12/2009 Hep C Screening (Preventive Services) Completed 12/13/2022 Cholesterol Discontinued 07/11/2023, 12/13/2022 Influenza Completed 12/06/2023, 11/12, 11/06/2019, Additional history exists HepA Aged Out No longer eligi ble [...] BILAT W 3D KODY W CAD Routine 02/21/2024 10:22 AM MISSILE MECHANIC ALBUMIN/CREAT RATIO Routine 01/17/2024 1 0:41 AM MISSILE MECHANIC Type 2 diabetes mellitus with diabetic microalbuminuria, without long-term current use of insulin (HRC) BASIC METABOLIC PANEL Routine 01/17/2024 10:09 AM MISSILE MECHANIC Type 2 diabetes mellitus with diabetic microalbuminuria, without long-term current use of insulin (HRC) HGB A1C Routine 01/17/2024 10:09 AM MISSILE MECHANIC Type 2 diabetes mellitus with diabetic microalbuminuria, without long-term current use of insulin (HRC) ALBERTO (DIABETIC EYE EXAM) 12/26/2023 XR SACRUM/COCCYX Routine 12/17/2023 12:4 5 PM MISSILE MECHANIC Pain of left hip LIPID PANEL & DIRECT LDL (IF NEEDED) Routine 07/11/2023 9:15 AM CDT Diabetes mellitus, type 2 (HRC) PAP TEST Routine 03/01/2023 11:11 AM MISSILE MECHANIC Screening for malignant neoplasm of cervix HEPATITIS C ANTIBODY, WITH REFLEX Routine 12/13/2022 8:46 AM CDT Need for hepatitis C screening test from Last 3 Months or Most Recently Relevant to Health Maintenance Results * MM Mammogram Screening Bilat W 3D Kody W CAD (02/21/2024 10:22 AM MISSILE MECHANIC) Anatomical Region Laterality Modality Breast Bilateral Mammography Impressions 02/24/2024 10:11 AM MISSILE MECHANIC : ACR BI-RADS Category 1: Negative RECOMMENDATION: Follow Up Imaging in 12 months - Bilateral The results and recommendations of this examination will be communicated to the patient. Narrative 02/24/2024 10:11 AM MISSILE MECHANIC MM MAMMOGRAM SCREENING BILAT W 3D KODY W CAD performed on 02/21/24 FDA Accredited Facility: [place] [address] Compared to: 02/19/2023 MM Mammogram Screening Bilat W 3D Kody W CAD, 11/28/2021 Foreign Image(S) Mammogram, 11/25/2020 Foreign Image(S) Mammogram, and 10/02/2019 Foreign Image(S) Mammogram FINDINGS: Bilateral screening mammogram was performed with the assistance of Computer-Aided Detection and breast tomosynthesis. The breasts are almost entirely fatty. There is no radiographic evidence of malignancy. Peyman Iverson MD [facility] * (ABNORMAL) Albumin/Creatinine Ratio,Random Urine (01/17/2024 10:41 AM MISSILE MECHANIC) Albumin/Creati nine Ratio, Urine, Random 53(H) <30 mg/g 01/17/2024 4:31 PM [facility] Albumin, Urine, Random 46.8 mg/L 01/17/2024 4:31 PM [facility] Creatinine, Urine, Random 88 >20 mg/dL mg/dL 01/17/2024 4:31 PM [facility] Urine Non-blood Collection / Unknown 01/17/2024 10:41 AM MISSILE MECHANIC 01/17/2024 10:41 AM MISSILE MECHANIC Peyman Iverson MD LAB_1 Performing Organization Address City/[facility]/ZIP Co de Phone Number [facility] [address] [place] [address] * (ABNORMAL) Basic Metabolic Panel (01/17/2024 10:09 AM MISSILE MECHANIC) Sodium 141 136 - 145 mmol/L 01/17/2024 3:56 PM [facility] Potassium 4.0 3.5 - 5.1 mmol/L 01/17/2024 3:56 PM [facility] Chloride 104 98 - 109 mmol/L 01/17/2024 3:56 PM [facility] CO2 25 20 - 29 mmol/L 01/17/2024 3:56 PM [facility] Anion Gap 12 6 - 16 mmol/L 01/17/2024 3:56 PM [facility] Calcium 10.0 8.4 - 10.4 mg/dL 01/17/2024 3:56 PM [facility] BUN 20 7 - 26 mg/dL 01/17/2024 3:56 PM [facility] Creatinine 0.95 0.55 - 1.02 mg/dL 01/17/2024 3:56 PM [facility] Glucose 146(H) 70 - 100 mg/dL 01/17/2024 3:56 PM [facility] Comment:The given reference range is for the fasting state. Non-fasting reference range for glucose is 70 - 180 mg/dL. GFR, Estimated >60 >60 mL/min/1.7 3m2 01/17/2024 3:56 PM [facility] Hours Fasting 12.0 8 - 12 Hours 01/17/2024 3:56 PM [facility] Blood Venipuncture / Unknown 01/17/2024 10:09 AM MISSILE MECHANIC 01/17/2024 10:09 AM MISSILE MECHANIC Peyman Iverson MD LAB_1 [facility] [address] [place] [address] [address] [place] [address] * (ABNORMAL) Hgb A1C (01/17/2024 10:09 AM MISSILE MECHANIC) Hemoglobin A1C 7.7(H) <=5.6 % 01/17/2024 6:15 PM MISSILE MECHANIC [facility] Estimated Average Glucose (Calc) 174 < 117 mg/dL 01/17/2024 6:15 PM [facility] Comment:Estimated average gl ucose (eAG) converts A1c into glucose units (mg/dL) and estimates average glucose over the past approximately 3 months. The eAG reference interval (<117 mg/dL) corresponds to an A1c of <5.7%. Blood Venipuncture / Unknown 01/17/2024 10:09 AM MISSILE MECHANIC 01/17/2024 10:09 AM MISSILE MECHANIC Narrative [facility] - 01/17/2024 6:15 PM MISSILE MECHANIC For patients not previously diagnosed with diabetes: 5.7-6.4%: Increased risk for diabetes 6.5% and greater: Diagnostic for diabetes For patients diagnosed with diabetes: <8.0%: Goal of therapy for ages 18-75 Clinicians may recommend a higher or lower goal for specific individuals. Peyman Iverson MD LAB_1 [facility] [address] * ALBERTO (DIABETIC EYE EXAM) (12/26/2023) Interface Provider DUMMY/OTHER/AR * XR Sacrum/Coccyx (12/17/2023 12:45 PM MISSILE MECHANIC) Anatomical Region Laterality Modality Spine, Pelvis Digital Radiogra phy 12/17/2023 12:3 8 PM MISSILE MECHANIC Narrative 12/17/2023 2:29 PM MISSILE MECHANIC COMPARISON: None. FINDINGS: Bony structures appear intact with no fracture seen. SI joints grossly unremarkable. Surgical clips in the pelvis. Procedure Note Ross Juan MD - 12/17/2023 COMPARISON: None. FINDINGS: Bony structures appear intact with no fracture seen. SI jointsgrossly unremarkable. Surgical clips in the pelvis. Minesh Zapata MD RAD [facility] * Lipid Panel & Direct LDL (if Needed) (07/11/2023 9:15 AM CDT) Cholesterol 122 0 - 199 mg/dL 07/11/2023 5:02 PM CDT [facility] Triglyceride 98 <=149 mg/dL 07/11/2023 5:02 PM CDT [facility] HDL Cholesterol 61 >=40 mg/dL 5:02 PM CDT [facility] LDL, Calculated 41 <130 mg/dL 5:02 PM T [facility] Non HDL Chol, Calculated 61 <=159 mg/dL 07/11/2023 5:02 PM T [facility] Cholesterol/HDL Ratio 2.0 <=5.0 07/11/2023 5:02 PM T [facility] Hours Fasting 15.0 8 - 12 Hours 07/11/2023 5:02 PM CDT [facility] Blood Venipuncture / Unknown 07/11/2023 9:15 AM CDT 07/11/2023 9:15 AM CDT Peyman Iverson MD LAB_1 [facility] [address] [place] [address] [address] [place] [address] * PAP Test (03/01/2023 11:11 AM MISSILE MECHANIC) Case Report Pap Case: [id number] Authorizing Provider: Viola Vickers MD Collected: 03/01/2023 1111 Ordering Location: [facility] Received: 03/01/2023 1210 and Gynecology First Screen: Octavia Cabrera CT (ASCP) Specimen: Pap Test, Routine, Cervix/Endocervix 04/04/2023 12:15 PM MISSILE MECHANIC [facility] Pap Specimen Adequacy Satisfactory for evaluation, endocervical/smith sformation zone component absent. 04/04/2023 12:15 PM [facility] Pap Interpretation (NILM) Negative for intraepithelial lesion or malignancy. 04/04/2023 12:15 PM [facility] Pap Disclaimer The Pap test is a screening test to aid in the detection of cervical and vaginal cancers and their precursor lesions. It is not a diagnostic procedure and should not be used as the sole means of detecting malignancy. Both false-positive and false-negative results may occur. 04/04/2023 12:15 PM [facility] Gross Description The specimen is received in SurePath fixative and properly labeled. 1 Pap-stained SurePath slide is prepared. 04/04/2023 12:15 PM [facility] Embedded Images 12:15 PM [facility] Other Specimen Type ENTIRE ENDOCERVIX / Unknown 03/01/2023 11:11 AM MISSILE MECHANIC 03/01/2023 12:10 PM MISSILE MECHANIC Comment:LMP: No LMP recorded (lmp unknown). Patient has had a hysterectomy. Viola Vickers [place] [address], [facility] * Hepatitis C Antibody, with Reflex (12/13/2022 8:46 AM CDT) Hepatitis C Antibody Negative (Non Reactive) Negative (Non Reactive) 12/13/2022 4:06 PM CDT [facility] Comment:Antibodies to HCV no t detected. Does not exclude the possiblity of exposure to HCV. Blood Venipuncture / Unknown 12/13/2022 8:46 AM CDT 12/13/2022 8:46 AM CDT Peyman Iverson MD LAB_1 [facility] [address] [place] [address] from Last 3 Months or Most Recently Relevant to Health Maintenance Care Teams Preschool Teacher Aide Relationship Specialty [place] [address] [place] [address] PCP - General Family Practice 08/05/23
--- OUTSIDE RECORDS SUMMARY | 2024-03-13 19:50 | XMS_ITS | Encounter Summary ---
Author Organization [facility] Address [address] [place] [address]. [place] [address] Care Team Providers Care Brick Catcher Name Role Phone Sharda Sykes [facility] Unavailable [phone] Eduard Vargas DO Unavailable [phone] Eduard Vargas DO Primary Care Provider [phone] Sharda Sykes [facility] Unavailable [phone] Encounter Details Date Type Department Care Team (Late st Contact Info) Description 10/31/2022 [facility] [address] [address] Britt Cortez Social History Tobacco [...] often do you attend latter day or rastafari serv ices? Never 03/11/2021 Do you belong [...] in a residential (including now)? No 03/11/2021 Comments No Sex and Gender Information Value Date Recorded Sex Assigned at Not on file Legal Sex Female 2:58 AM CLINICAL DIETICIAN Gender Identity Not on file Sexual Orientation Straight 06/28/2021 12 :12 PM CDT documented as of this encounter Plan of Treatment Not on file documented as of this encounter Visit Diagnoses Not on filedocumented in this encounter Care Teams Brick Catcher Relationship Specialty [place] [address] [place] [address] PCP - General Family Medicine 05/10/21 Sharda Sykes, [facility] [address] [place], [place] [address] Pharmacist Pharmacist 04/03/21 [place] [address] [place] [address] Assigned PCP 02/23/21 Sharda Sykes [facility] [address] [place] [address] Assigned MTM Pharmacist 11/08/2101/02 documented as of this encounter
--- OUTSIDE RECORDS SUMMARY | 2024-03-13 19:50 | XMS_ITS | Clinical Summary ---
Author Organization [facility] Address [address] [place] [address]. [place] [address] Care Team Providers Care Player Development Executive Name Role Phone Sharda Sykes [facility] Unavailable [phone] Eduard Vargas DO Unavailable [phone] Eduard Vargas DO Primary Care Provider [phone] Allergies Active Allergy Reactions Criticality Noted Date Comments No Known Drug Allergy 01/06/2003 Medications CETIRIZINE HCL 10 MG OR TABSIndications: Rhinitis, allergic seasonal Take 10 mg by mouth daily Active Aspirin 81 MG CAPS Take 81 mg by mouth daily Active Cholecalciferol 1.25 MG (91231 UT) WAFR Take 5,000 Units by mouth Every Mon, Wed, Fri Morning Active Respiratory Therapy Supplies (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) [facility] New CPAP machine for home use at [...] 99 months, Frequency of use: Daily 1 Active calcium citrate (CITRACAL) 950 (200 Ca) MG tablet Take 500 mg by mouth 2 times daily Active gabapentin (NEURONTIN) 300 MG capsuleIndicatio ns:Neuropathic pain of left lower extremity Take 1 capsule (300 mg) by mouth 2 times daily 180 capsule 4 3 Active ferrous sulfate (FEROSUL) 325 (65 Fe) MG tabletIndication s:Anemia, unspecified type Take 1 tablet (325 mg) by mouth Every Mon, Wed, Fri Morning 45 tablet 3 3 Active blood glucose (NO BRAND SPECIFIED) test stripIndications :Controlled type 2 diabetes mellitus with microalbuminuria , without long-term current use of insulin (H) Use to test blood sugar 1 times daily or as directed. 100 strip 3 3 Active blood glucose (NO BRAND SPECIFIED) lancets standardIndicati ons:Controlled type 2 diabetes mellitus with microalbuminuria , without long-term current use of insulin (H) Use to test blood sugar 1 times daily or as directed. 100 lancet. 3 3 Active Semaglutide, 1 MG/DOSE, (OZEMPIC) 4 MG/3ML penIndications:C ontrolled type 2 diabetes mellitus with microalbuminuria , without long-term current use of insulin (H) Inject 1 mg Subcutaneous every 7 days 9 mL 1 3 Active albuterol (PROAIR HFA/PROVENTIL HFA/VENTOLIN HFA) 108 (90 Base) MCG/ACT inhalerIndicatio ns:Mild persistent asthma without complication Inhale 2 puffs into the lungs every 6 hours as needed for shortness of breath, wheezing or cough 18 g 1 3 Active atorvastatin (LIPITOR) 10 MG tabletIndication s:History of statin therapy +++NEED APPOINTMENT+++TA KE 1 TABLET BY MOUTH ONCE DAILY AT BEDTIME 90 tablet 3 Active montelukast (SINGULAIR) 10 MG tabletIndication s:Mild persistent asthma without complication Take 1 tablet (10 mg) by mouth At Bedtime 90 tablet 1 3 Active empagliflozin (JARDIANCE) 10 MG TABS tabletIndication s:Controlled type 2 diabetes mellitus with microalbuminuria , without long-term current use of insulin (H) Take 1 tablet (10 mg) by mouth daily 90 tablet 3 Active metFORMIN (GLUCOPHAGE) 1000 MG tabletIndication s:Controlled type 2 diabetes mellitus with microalbuminuria , without long-term current use of insulin (H) Take 1 tablet (1,000 mg) by mouth 2 times daily (with meals) 60 tablet 4 Active Active Problems Patient Care Coordination No te Formatting of this note migh t be different from the original. [email or web address] Problem Noted Date Diagnosed Date H/O abdominal hysterectomy 03/15/2021 History of tympanoplasty of right ear 03/11/2021 Abdominal wall hernia 02/17/2021 Myopia of both eyes with astigmatism and presbyo sosa 12/03/2019 Controlled type 2 diabetes m ellitus with microalbuminuria, without long-term current use of insulin 04/25/2019 Fatty liver 04/25/2018 Mild persistent asthma 03/20/2018 Malignant neoplasm of cervix 03/14/2018 Overview (03/15/2021): Added automatically from request for surgery [id number] Microalbuminuria 01/26/2018 Overview (03/15/2021): Will recheck in 6 months. 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 Provider to review Resolved Problems Problem Noted Date Diagnosed Date Resolved Date Left leg pain 03/23/2014 07/29/2014 Muscle weakness (generalized) 03/23/2014 07/29/2014 Encounters Date Type Department Care Team Description 03/02/2024 Refill [facility] [id number] [place] [id number] Viola Yates MD Medication Refill from Last 3 Months Immunizations Name Administration Dates Next Due Hepatitis B, Adult 05/04/2010,09/13/2009, 010 Influenza (High Dose) Trival ent,PF (Fluzone) 12/22/2015,11/11/2014,11/11/2013 Influenza (IIV3) PF 11/03/2012 Influenza (prior to 2023) 12/13/2011,11/25/2009 Influenza Vaccine >6 months,quad, PF ,11/06/2019,10/16/2018,2017,10/25/2017,11/16/2016,11/15/2015 MMR 06/04/2012 Pneumococcal 20 valent Conju gate [...] week 03/11/2021 How often do you attend synagogue or orthodoxy serv ices? Never 03/11/2021 Do you belong to any clubs o r organizations such as synagogue groups, unions, fraternal or athletic groups, or [...] PHQ-2 Score 0 02/20/2022 [facility] - Occupational Stress Questionnaire Answer [...] on file Legal Sex Female 2:58 AM HOST AND HOSTESS Gender Identity Not on file Sexual Orientation Straight 06/28/2021 12 :12 PM CDT Last Filed Vital Signs Vital Sign Reading Time Taken Comments Blood Pressure 111/73 09/29/2022 1:16 PM CDT Pulse 74 09/29/2022 1:16 PM CDT Temperature 36.7 C (98.1 F) 09/29/2022 1:16 PM CDT Respiratory Rate 18 09/29/2022 1:16 PM CDT Oxygen Saturation 98% 09/29/2022 1:16 PM CDT Inhaled Oxygen Concentration - - Weight 83 kg (183 lb) 09/29/2022 1:16 PM CDT Height 160 cm (5' 3) 02/20/2022 10:05 AM HOST AND HOSTESS Body Mass Index 32.42 02/20/2022 10:05 AM HOST AND HOSTESS Plan of Treatment Health Maintenance Due Date Last Done Comments ADVANCE CARE PLANNING 1970 CT COLONOGRAPHY 1970 FIT 1970 FLEX SIG 1970 YEARLY PREVENTIVE VISIT 1973 COLONOSCOPY 1980 ZOSTER IMMUNIZATION (1 of 2) 1989 COVID-19 Vaccine (2 - Donnie risk series) 05/21/2020 04/23/2020 LIPID 05/03/2022 05/03/2021, 03/23/2004 MICROALBUMIN 07/03/2022 07/03/2021 A1C 09/12/2022 06/12/2022, 02/11, 10/19/2021, Additional history exists DIABETIC FOOT EXAM 09/22/2022 09/22/2021 BMP 10/19/2022 10/19/2021, 0504/2021, 05/03/2021, Additional history exists ANNUAL REVIEW OF HM ORDERS 02/20/2023 02/20/2022 ASTHMA CONTROL TEST 02/23/2023 08/23/2022, ASTHMA ACTION PLAN 06/06/2023 06/05/2022, 0 09/22/2021, 09/22/2021 INFLUENZA VACCINE (#1) 2023 , 11/06/2019, 10/16/2018, Additional history exists MAMMO SCREENING 11/29/2023 11/28/2021, 11/11, 11/25/2020, Additional history exists PHQ-2 (once per calendar year) 2024 02/20/2022, 09/22/2021, 03/14/2021 COLORECTAL CANCER SCREENING 10/19/2024 sDNA (Cologuard) 10/19/2024 10/19/2021 EYE EXAM 12/25/2024 12/26/2023, 10/13, 05/25/2022, Additional history exists HPV TEST 01/18/2025 01/19/2020 PAP 01/18/2025 01/19/2020, 01/19/2020 DTAP/TDAP/TD IMMUNIZATION (3 - Td or Tdap) 09/23/2031 09/22/2021, 06/18/2011, 07/13/2005 RSV VACCINE (1 - 1-dose 75+ series) 2045 HEPATITIS B IMMUNIZATION Completed 011, 09/13/2009, 08/12/2009 Pneumococcal Vaccine: 50+ Years Completed 09/22/2021, 03/17/2014, 07/12/2009 LUNG CANCER SCREENING [...] Procedure Name Priority Date/Time Associated Diagnosis Comments EYE EXAM - HIM SCAN 11/01/2022 1 2:00 AM CDT HEMOGLOBIN A1C (EXTERNAL RESULT) Routine 06/12/2022 7:28 AM CDT COLOGUARD([employer] SCIENCES) Routine 10/19/2021 12:33 PM CDT Screen for colon cancer COMPREHENSIVE METABOLIC PANEL Routine 10/19/2021 9:51 AM CDT On statin therapy ALBUMIN RANDOM URINE QUANTITATIVE Routine 07/03/2021 2:35 PM CDT Controlled type 2 diabetes mellitus with microalbuminuria, without long-term current use of insulin (H) LIPID REFLEX TO DIRECT LDL PANEL Routine 05/03/2021 7:21 AM CDT CARDIOVASCULAR SCREENING; LDL GOAL LESS THAN 160 MAMMOGRAM - HIM SCAN Routine 11/25/2020 ABSTRACT PAP (HIM EXTERNAL RESULT) Routine 01/19/2020 12:00 PM HOST AND HOSTESS ABSTRACT HPV (HIM EXTERNAL RESULT) Routine 01/19/2020 12:00 PM HOST AND HOSTESS from Last 3 Months or Most Recently Relevant to Health Maintenance Results * EYE EXAM - [facility] SCAN (11/01/2022 12:00 AM CDT) RETINOPATHY NEGATIVE 11/01/2022 Narrative Yuli Castorena - 11/01/2022 12:00 AM CDT EYE EXAM [facility] us Provider Outside OTHER Edited Result - Final * (ABNORMAL) Hemoglobin A1c (External Result) (06/12/2022 7:28 AM CDT) Pathologist [facility] Hemoglobin A1C (External) 7.9(A) 4.0 - 5.6 % AGENCY [facility] Blood 06/12/2022 7:28 AM CDT Narrative [facility] - 06/12/2022 7:28 AM CDT CARE EVERYWHERE AGENCY us Provider Outside LAB - HIM EXTERNAL RESULT Final Result [facility] [address] [place] [address] * COLOGUARD([facility]) (10/19/2021 12:33 PM CDT) Pathologist [facility] COLOGUARD-ABSTRACT Negative Negative 2021 9:35 AM CDT [employer] (CLIA #:[id number]) Comment: NEGATIVE TEST RESULT. A negative Cologuard result indicates a low likelihood that a colorectal cancer (CRC) or advanced adenoma (adenomatous polyps with more advanced pre-malignant features) is present. The chance that a person with a negative Cologuard test has a colorectal cancer is less than 1 in 1500 (negative predictive value >99.9%) or has an advanced adenoma is less than 5.3% (negative predictive value 94.7%). These data are based on a prospective cross-sectional study of 10,000 individuals at average risk for colorectal cancer who were screened with both Cologuard and colonoscopy. (Cristhian Rangel al, N Engl J Med 2014;370(14):3747-5594) The normal value (reference range) for this assay is negative. COLOGUARD RE-SCREENING RECOMMENDATION: Periodic colorectal cancer screening is an important part of preventive healthcare for asymptomatic individuals at average risk for colorectal cancer. Following a negative Cologuard result, the [place] Cancer Society and U.S. Multi-Society Task Force screening guidelines recommend a Cologuard re-screening interval of 3 years. References: [place] [employer] Guideline for Colorectal Cancer Screening: https://www.cancer.org/cancer/joisu-lazxfp-rxadae/suczoocgg-earoizhhc-odpreje/ac s-rec ommendations.html.; Joaquín DK, Savanah JI, Kathleen CariasK, Colorectal Cancer Screening: Recommendations for Physicians and Patients from the U.S. Multi-Society Task Force on Colorectal Cancer Screening , Am J Gastroenterology 2017; 112:3558-0433. TEST DESCRIPTION: Composite algorithmic analysis of stool DNA-biomarkers with hemoglobin immunoassay. Quantitative values of individual biomarkers are not reportable and are not associated with individual biomarker result reference ranges. Cologuard is intended for colorectal cancer screening of adults of either sex, 45 years or older, who are at average-risk for colorectal cancer (CRC). Cologuard has been approved for use by the U.S. FDA. The performance of Cologuard was established in a cross sectional study of average-risk adults aged 50-84. Cologuard performance in patients ages 45 to 49 years was estimated by sub-group analysis of near-age groups. Colonoscopies performed for a positive result may find as the most clinically significant lesion: colorectal cancer [4.0%], advanced adenoma (including sessile serrated polyps greater than or equal to 1cm diameter) [20%] or non- advanced adenoma [31%]; or no colorectal neoplasia [45%]. These estimates are derived from a prospective cross-sectional screening study of 10,000 individuals at average risk for colorectal cancer who were screened with both Cologuard and colonoscopy. (Cristhian Rangel al, N Engl J Med 2014;370(14):4399-0582.) Cologuard may produce a false negative or false positive result (no colorectal cancer or precancerous polyp present at colonoscopy follow up). A negative Cologuard test result does not guarantee the absence of CRC or advanced adenoma (pre-cancer). The current Cologuard screening interval is every 3 years. ([place] [employer] Society and U.S. Multi-Society Task Force). Cologuard performance data in a 10,000 patient pivotal study using colonoscopy as the reference method can be accessed at the following location: www.Plink/results. Additional description of the Cologuard test process, warnings and precautions can be found at www.NPC IIIograksulrd.com. Stool specimen (specimen) 10/19/2021 12:33 PM CDT 10/20/2021 6:11 PM CDT Eduard Vargas LABORATORY Final Result [facility] [address] [place] [address], [facility] [phone] [employer] (CLIA #:[id number]) [address] [place] [address] * (ABNORMAL) Comprehensive metabolic panel (10/19/2021 9:51 AM CDT) Sodium 140 133 - 144 mmol/L 10/20/2021 1:17 PM CDT [facility] Potassium 4.4 3.4 - 5.3 mmol/L 10/20/2021 1:17 PM CDT [facility] Chloride 108 94 - 109 mmol/L 10/20/2021 1:17 PM CDT [facility] Carbon Dioxide (CO2) 25 20 - 32 mmol/L 10/20/2021 1:17 PM CDT [facility] Anion Gap 7 3 - 14 mmol/L 10/20/2021 1:17 PM CDT [facility] Urea Nitrogen 13 7 - 30 mg/dL 10/20/2021 1:17 PM CDT [facility] Creatinine 0.78 0.52 - 1.04 mg/dL 10/20/2021 1:17 PM CDT [facility] Calcium 9.4 8.5 - 10.1 mg/dL 10/20/2021 1:17 PM CDT [facility] Glucose 150(H) 70 - 99 mg/dL 10/20/2021 1:17 PM CDT [facility] Alkaline Phosphatase 89 40 - 150 U/L 10/20/2021 1:17 PM CDT [facility] AST 36 0 - 45 U/L 10/20/2021 1:17 PM CDT [facility] ALT 77(H) 0 - 50 U/L 10/20/2021 1:17 PM CDT [facility] Protein Total 7.7 6.8 - 8.8 g/dL 10/20/2021 1:17 PM CDT [facility] Albumin 3.8 3.4 - 5.0 g/dL 10/20/2021 1:17 PM CDT [facility] Bilirubin Total 0.8 0.2 - 1.3 mg/dL 10/20/2021 1:17 PM CDT [facility] GFR Estimate >90 >60 mL/min/1.7 3m2 10/20/2021 1:17 PM CDT [facility] Comment:Effective January 122020 eGFRcr in adults is calculated using the 2020 CKD-EPI creatinine equation which includes age and gender (Pasquale et al., NEJM, DOI: 10.1056/GXKUtx0981241) Blood BLOOD SPECIMEN / Unknown Venipuncture / Unknown 10/19/2021 9:51 AM CDT 10/19/2021 10:01 AM CDT Eduard Vargas DO LAB - BLOOD ORDERABLES Final Re sult [facility] [address], [place] [address], [facility] [phone] * (ABNORMAL) Albumin Random Urine Quantitative with Creat Ratio (07/03/2021 2:35 PM CDT) Creatinine Urine mg/dL 52 mg/dL 07/03/2021 5:11 PM CDT [facility] Albumin Urine mg/L 30 mg/L 07/03/2021 5:11 PM CDT [facility] Albumin Urine mg/g Cr 57.69(H) 0.00 - 25.00 mg/g Cr 07/03/2021 5:11 PM CDT [facility] Urine URINE SPECIMEN / Unknown Non-blood Collection / Unknown 07/03/2021 2:35 PM CDT 07/03/2021 2:44 PM CDT Eduard Vargas DO LAB - URINE ORDERABLES Final Re sult [facility] [address] Lab (no room number, 1st floor of clinic) [place] [address], [facility] [phone] * Lipid panel reflex to direct LDL Fasting (05/03/2021 7:21 AM CDT) Cholesterol 108 <200 mg/dL 05/03/2021 2:20 PM CDT [facility] Triglycerides 100 <150 mg/dL 05/03/2021 2:20 PM CDT [facility] Direct Measure HDL 56 >=50 mg/dL 2021 2:20 PM CDT [facility] LDL Cholesterol Calculated 32 <=100 mg/dL 05/03/2021 2:20 PM CDT [facility] Non HDL Cholesterol 52 <130 mg/dL 05/03/2021 2:20 PM CDT [facility] Patient Fasting > 8hrs? Yes 05/03/2021 2:20 PM CDT [facility] Blood BLOOD SPECIMEN / Unknown Venipuncture / Unknown 05/03/2021 7:21 AM CDT 05/03/2021 7:21 AM CDT Narrative [facility] - 05/03/2021 2:20 PM CDT Cholesterol Desirable: <200 mg/dL Triglycerides Normal: Less than 150 mg/dL Borderline High: 150-199 mg/dL High: 200-499 mg/dL Very High: Greater than or equal to 500 mg/dL Direct Measure HDL Female: Greater than or equal to 50 mg/dL Male: Greater than or equal to 40 mg/dL LDL Cholesterol Desirable: <100mg/dL Above Desirable: 100-129 mg/dL Borderline High: 130-159 mg/dL High: 160-189 mg/dL Very High: >= 190 mg/dL Non HDL Cholesterol Desirable: 130 mg/dL Above Desirable: 130-159 mg/dL Borderline High: 160-189 mg/dL High: 190-219 mg/dL Very High: Greater than or equal to 220 mg/dL Eduard Vargas DO LAB - BLOOD ORDERABLES Final Re sult [facility] [address] Lab (no room number, 1st floor of clinic) [place] [address], [facility] [phone] * Mammogram - HIM Scan (11/25/2020) Anatomical Region Laterality Modality Other Narrative 11/25/2020 CARE EVERYWHERE [facility] Provider Outside IMG MAMMOGRAPHY ORDERABLES [place] l Result * Abstract HPV (HIM External Result) (01/19/2020 12:00 PM HOST AND HOSTESS) HPV Abstract See Scanned Document [facility] 01/19/2020 12:0 0 PM HOST AND HOSTESS Narrative [facility] - 01/19/2020 12:00 PM HOST AND HOSTESS Care Everywhere, [place] - [employer] us Provider Outside LAB - HIM EXTERNAL RESULT Final Result [facility] [address] [place] [address], [facility] [phone] * Abstract PAP (HIM External Result) (01/19/2020 12:00 PM HOST AND HOSTESS) PAP-ABSTRACT See Scanned Document [facility] Comment:result unknown 01/19/2020 12:0 0 PM HOST AND HOSTESS Narrative [facility] - 01/19/2020 12:00 PM HOST AND HOSTESS Care Everywhere, [place] - [employer]EL FINISH[employer] us Provider Outside LAB - HIM EXTERNAL RESULT Final Result [facility] [address] [facility] [place] [id number], [facility] [phone] from Last 3 Months or Most Recently Relevant to Health Maintenance Care Teams Player Development Executive Relationship Specialty [place] [address] [place] [address] PCP - General Family Medicine 05/10/21 Sharda Sykes, [facility] [address] [place] [address] Pharmacist Pharmacist 04/03/21 [place] [address] [place] [address] Assigned PCP 02/23/21
--- OUTSIDE RECORDS SUMMARY | 2024-03-13 19:50 | XMS_ITS | Encounter Summary ---
Author Organization [facility] Address [address] [place] [address]. [place] [address] Care Team Providers Care Loan Broker Name Role Phone Sharda Sykes [facility] Unavailable [phone] Eduard Vargas DO Unavailable [phone] Eduard Vargas DO Primary Care Provider [phone] Sharda Sykes [facility] Unavailable [phone] Encounter Details Date Type Department Care Team (Late st Contact Info) Description 05/14/2023 [facility] Medical Advice [address] [phone] Britt Cortez Social History Tobacco [...] week 03/11/2021 How often do you attend mormon or samaritan serv ices? Never 03/11/2021 Do you belong to any clubs o r organizations such as mormon groups, unions, fraternal or athletic groups, or [...] 02/20/2022 [facility] - Occupational [...] in a longterm (including now)? 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 DISEASE Gender Identity Not on file Sexual Orientation Straight 06/28/2021 12 :12 PM CDT documented as of this encounter Plan of Treatment Not on file documented as of this encounter Visit Diagnoses Not on filedocumented in this encounter Care Teams Loan Broker Relationship Specialty [place] [address] [place] [address] PCP - General Family Medicine 05/10/21 Sharda Sykes [facility] [place] [address] Pharmacist Pharmacist 04/03/21 [place] [address] [place] [address] Assigned PCP 02/23/21 Sharda Sykes [facility] [address] [place] [address] Assigned MTM Pharmacist 11/08/2101/02 documented as of this encounter
--- OUTSIDE RECORDS SUMMARY | 2024-03-13 19:50 | XMS_ITS | Encounter Summary ---
Author Organization [facility] Address [address] [place] [address]. [place] [address] Care Team Providers Care Physician/Allergy/Immunology Name Role Phone Humphrey Mccray MD Primary Care Provider Unavailable Sharda Sykes [facility] Unavailable Eduard Vargas DO Unavailable [phone] Eduard Vargas DO Primary Care Provider Sharda Sykes [facility] Unavailable [phone] Sharda Sykes [facility] Unavailable Encounter Details Date Type Department Care Team (Late st Contact Info) Description 03/17/2021 [facility] Medical Advice [facility] [address] [place] [phone] [place] DO [id number] [place] [address] Social History Tobacco Use Types Packs/Day [...] How often do you attend caodaism or jehovah's witness serv ices? Never 03/11/2021 [...] Answer Date Recorded PHQ-2 Score 0 03/14/2021 [facility] - Occupational Stress Questionnaire Answer Date Recorded [...] slept in a fci (including now)? 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 No / Unsure 03/15/2021 9:11 AM ARMAMENT MECHANIC documented as of this encounter Plan of Treatment Not on file documented as of this encounter Visit Diagnoses Not on filedocumented in this encounter Care Teams Physician/Allergy/Immunology Relationship Specialty Start Date End Date Humphrey Mccray MD PCP - General 02/24/99 05/09/21 [place] [address] [place] [address] PCP - General Family Medicine 05/10/21 Sharda Sykes [facility] [address] [place] [address] Pharmacist Pharmacist 04/03/21 [place] [address] [place] [address] Assigned PCP 02/23/21 Sharda Sykes [facility] [address] [place] [address] Assigned MTM Pharmacist 08/05/21 Sharda Sykes, [facility] [address] [place] [address] Assigned MTM Pharmacist 11/08/2101/02 documented as of this encounter
--- OUTSIDE RECORDS SUMMARY | 2024-03-13 19:50 | XMS_ITS | Encounter Summary ---
Author Organization [place] Address [facility] [place] [address] Care Team Providers Care Hydraulic Miner Blasting Name Role Phone Sharda Sykes [facility] Unavailable Eduard Vargas DO Unavailable [phone] Eduard Vargas DO Primary Care Provider [phone] Sharda Sykes [facility] Unavailable Encounter Details Date Type Department Care Team (Late st Contact Info) Description 12/20/2022 [facility] Medical Advice [address] [address] Sharda Sykes, [facility] [address] [place] [address] Social History Tobacco Use Types [...] week 03/11/2021 How often do you attend zoroastrian or mormon serv ices? Never 03/11/2021 Do you belong to any clubs o r organizations such as zoroastrian groups, unions, fraternal or athletic groups, or [...] PHQ-2 Score 0 02/20/2022 [facility] - Occupational Stress Questionnaire Answer [...] on file Legal Sex Female 2:58 AM SET DECORATOR Gender Identity Not on file Sexual Orientation Straight 06/28/2021 12 :12 PM CDT documented as of this encounter Plan of Treatment Not on file documented as of this encounter Visit Diagnoses Not on filedocumented in this encounter Care Teams Hydraulic Miner Blasting Relationship Specialty [place] [address] [place] [address] PCP - General Family Medicine 05/10/21 Sharda Sykes, [facility] [address] [place] [address] Pharmacist Pharmacist 04/03/21 [place] [address] [place] [address] Assigned PCP 02/23/21 Sharda Sykes [facility] [address] [place] [address] Assigned MTM Pharmacist 11/08/2101/02 documented as of this encounter
--- OUTSIDE RECORDS SUMMARY | 2024-03-13 19:50 | XMS_ITS | Encounter Summary ---
Author Organization [place] Address [address] [place] [address]. [place] [address] Care Team Providers Care Bilingual Interpreter Name Role Phone Sharda Sykes [facility] Unavailable [phone] Eduard Vargas DO Unavailable [phone] Eduard Vargas DO Primary Care Provider [phone] Sharda Sykes [facility] Unavailable [phone] Encounter Details Date Type Department Care Team (Late st Contact Info) Description 03/08/2023 [facility] Medical Advice [address] [address] Britt Cortez Social History Tobacco [...] How often do you attend baptism or islam serv ices? Never 03/11/2021 Do [...] 0 02/20/2022 [facility] - Occupational Stress [...] in a fpc (including now)? No 03/11/2021 Adolescent Education Answer Date Record ed Getting School Help Needed Not on file 11/05 Comments No Sex and Gender Information Value Date Recorded Sex Assigned at Not on file Legal Sex Female 2:58 AM FLOOR SPECIALIST Gender Identity Not on file Sexual Orientation Straight 06/28/2021 12 :12 PM CDT documented as of this encounter Plan of Treatment Not on file documented as of this encounter Visit Diagnoses Not on filedocumented in this encounter Care Teams Bilingual Interpreter Relationship Specialty [place] [address] [place] [address] PCP - General Family Medicine 05/10/21 Sharda Sykes [facility] [place] [address] Pharmacist Pharmacist 04/03/21 [place] [address] [place] [address] Assigned PCP 02/23/21 Sharda Sykes [facility] [address] [place] [address] Assigned MTM Pharmacist 11/08/2101/02 documented as of this encounter
--- OUTSIDE RECORDS SUMMARY | 2024-03-13 19:50 | XMS_ITS | Encounter Summary ---
[facility] Address [address] [place] [address] Care Team Providers Care Solvent Recoverer Name Role Phone Peyman Iverson MD Primary Care Provider [phone] Reason for Visit * Reason Comments Spine Lumbar Encounter Details Date Type Department Care Team (Late st Contact Info) Description 02/06/2024 11:30 AM CHARTERED FINANCIAL ANALYST Therapy [facility] Physical Therapy [address] [address] [place] [address] [place] [address] Sacro-iliac pain (HRC) (Primary Dx) Social History [...] as of this encounter Progress Notes * [place], PT - 02/06/2024 11:30 AM CST [facility] Physical Therapy Daily Note Visit Number: 5 BCBS: Other Initial Certification Period: 12/24/2023 to [...] of activity, stretches, gabapentin, ice Work/Leisure/Sport: work: [employer]: likes gardening but too painful lately SUBJECTIVE: Patient Report: Patient reports that she has been feeling good, still feels tight. Really likes thedeep squats, pull downs. Notes still having a lot of popping and clicking that is a little painful for her. OBJECTIVE: Today's Findings: No new findings TREATMENT TODAY: Therapeutic Exercise: 40 minutes Exercises intended to develop strength, ROM, edurance and flexibility Update on current status NuStep L4 5 mins Cable column pull downs 17# 2 x10 Squat at barre stretch/hold for back stretch 3x30s Squat at barre for strengthening x10 5 sec holds Side lunge at barre for stretching and strengthening 2x10 B Elevated plank with april 2x10 B Added crossover Access Code: [email or web address] URL: [email or web address] Date: 01/28/2024 Prepared by: Nicole Albrecht Exercises [...] - 10 reps Timed Code Treatment Minutes: 40 Total Treatment Minutes: 40 ASSESSMENT: Patient reports overall improvement, long work hours can still be difficult but improving. Patient expected to continue to do well independently. PLAN: Discharge EXPECTED FUNCTIONAL OUTCOMES/GOALS: HEP/Independent Management: Demonstrate independence with HEP and self- management following each treatment session MET Demonstrate correct posture and body mechanics without verbal cueing in 2-3 session. PROGRESSING ADL's: Transition sit to stand with normal positioning and weight bearing in 6 weeks. MET-if not sitting for too long Ambulation: Ambulate for 30 mins without increased symptoms in 12 weeks. Progressing-able to walk/stand 1 hour at work Ascend/descend stairs with reciprocal gait and minimal symptoms in 8-12 weeks. MET Therapist: [place] PT 12:13 PM 02/06/2024 [facility] Physical Therapy Discharge Summary PT - Discharge Total Visits: 5 Reason for discharge: Therapy goals met, or therapist expects patient to meet goals through home program. Outcome measures at discharge: PT - Spine, Lumbar/SI Modified Oswestry Low Back Pain Questionnaire (0-100%, 0% being best): 24 Attainment of goals: See above Patient Compliance with Physical Therapy: Patient was compliant with attendance and therapy recommendations. Discharge recommendations: Patient will continue to work independently with home program/self management strategies. Therapist instructed patient to call with questions or concerns. TERED FINANCIAL ANALYST documented in this encounter Plan of Treatment Upcoming Encounters Date Type Department Care Team (Late st Contact Info) Description 04/28/2024 10:00 AM CDT Appointment [facility] [address] [place] [address] documented as of this encounter Visit Diagnoses Diagnosis Sacro-iliac pain (HRC)- Primary Disorders of sacrum documented in this encounter Care Teams Solvent Recoverer Relationship Specialty [place] [address] [place] [address] PCP - General Family Practice 08/05/23 documented as of this encounter
--- OUTSIDE RECORDS SUMMARY | 2024-03-13 19:50 | XMS_ITS | Encounter Summary ---
Author Organization [facility] Address [address] [address] Care Team Providers Care Stage Builder Name Role Phone Peyman Iverson MD Primary Care Provider [phone] Reason for Visit * Reason Comments Refill atorvastatin (LIPITO R) 10 MG tablet [Pharmacy Med Name: Atorvastatin Calcium 10mg Tablet] Encounter Details Date Type Department Care Team (Late st Contact Info) Description 02/06/2024 Refill [place] [address] [facility] [address] [place] [address] [place] [address] [place], [place] [id number] Refill (atorvastatin (LIPITOR) 10 MG tablet [Pharmacy Med Name: Atorvastatin Calcium 10mg Tablet]) Social History Tobacco Use Types Packs/Day [...] as of this encounter Nursing Notes * Amie Everett RN - 02/10/2024 10:48 AM CST Renewed medication per medication refill protocol. Requested Prescriptions Pending Prescriptions Disp Refills atorvastatin (LIPITOR) 10 MG tablet [Pharmacy Med Name: Atorvastatin Calcium 10mg Tablet] 90 Tablet3 Sig: Take 1 tablet by mouth daily. TAL MEDIA REPRESENTATIVE * Heath Saba [facility] - 02/06/2024 1:08 PM CST atorvastatin (LIPITOR) 10 MG tablet [Pharmacy Med Name: Atorvastatin Calcium 10mg Tablet] Medication started: 07/13/2022 Last ordered by PEYMAN IVERSON S: 02/26/2023 (345 days ago) QTY: 90, Refills: 3, Sig: take 1 tablet(10 mg) by mouth daily. (changed but equivalent) -> Refill x 12 months, qty: 90, refills: 3 (until due for an office visit) Last qualifying visit: 01/28/2024 (with PEYMAN IVERSON) Next scheduled visit: [facility]ded Refills, Reference: [id number], 02/06/2024 1:08:14 PM [facility] [[id number]] ([id number]) TAL MEDIA REPRESENTATIVE documented in this encounter Plan of Treatment Upcoming Encounters Date Type Department Care Team (Late st Contact Info) Description 04/28/2024 10:00 AM CDT Appointment [facility] [address] [place] [address] documented as of this encounter Visit Diagnoses Not on filedocumented in this encounter Care Teams Stage Builder Relationship Specialty [place] [address] [place] [address] PCP - General Family Practice 08/05/23 documented as of this encounter
--- OUTSIDE RECORDS SUMMARY | 2024-03-13 19:50 | XMS_ITS | Encounter Summary ---
Author Organization [facility] Address [address] [place] [address] Care Team Providers Care Fountain Vending Mechanic Name Role Phone Peyman Iverson MD Primary Care Provider Reason for Visit * Reason Comments MEDICATION CHECK Diabetes Encounter Details Date Type Department Care Team (Late st Contact Info) Description 01/28/2024 1:30 PM MARINE STEWARD Office Visit [place] [address] [facility] [address] [place] [address] [phone] [place] [address] [place], [place] [id number] Type 2 diabetes mellitus with diabetic microalbuminuria, without long-term current use of insulin (HRC) (Primary Dx); Eosinophilic esophagitis Social History Tobacco Use Types Packs/Day Years [...] Sign Reading Time Taken Comments Blood Pressure 103/72 01/28/2024 1:13 PM MARINE STEWARD Pulse 77 01/28/2024 1:13 PM MARINE STEWARD Temperature - - Respiratory Rate 16 01/28/2024 1:13 PM MARINE STEWARD Oxygen Saturation - - Inhaled Oxygen Concentration - - Weight 82.6 kg (182 lb) 01/28/2024 1:13 PM MARINE STEWARD Height - - Body Mass Index 33.29 12/17/2023 12:18 PM MARINE STEWARD documented in this encounter Patient Instructions * Patient Instructions* Peyman Iverson MD - 01/28/2024 1:30 PM MARINE STEWARD Repeat labs in 3 months. NE STEWARD documented in this encounter Progress Notes * Peyman Iverson MD - 01/28/2024 1:30 PM CST Subjective Chief Complaint Patient presents with MEDICATION CHECK Diabetes Gloria Kwan is a 53 y.o. female who presents for a medication check. The patient states she is doing OK. She was diagnosed with EoE after an EGD on 11/22/2023 after which time she was started on pantoprazole. She feels like this has caused an increase in her appetite as she has been hungrier and eating more. She would like to actually decrease her Ozempic as she was told she had a significantamount of food in her stomach during her EGD and next time they want her to hold Ozempic for a month beforehand next time. She has been monitoring her blood glucose with varying results. Objective BP 103/72 (BP Location: Left Arm, BP Cuff Size: Regular) Pulse 77 Resp 16 Wt 182 lb (82.6 kg) LMP (LMP Unknown) BMI 33.29 kg/m?? Physical Exam Vitals reviewed. Eyes: Conjunctiva/sclera: Conjunctivae normal. Pulmonary: Effort: Pulmonary effort is normal. Neurological: Mental Status: She is alert. Mental status is at baseline. Psychiatric: Mood and Affect: Mood and affect normal. Assessment/Plan Gloria was seen today for medication check and diabetes. Diagnoses and all orders for this visit: Type 2 diabetes mellitus with diabetic microalbuminuria, without long-term current use of insulin (HRC) - glipiZIDE XL (GLUCOTROL XL) 5 MG 24 hour release tablet; Take 1 Tablet (5 mg) by mouth daily. - E-Visit (Clinician Initiated); Future - semaglutide (OZEMPIC) 2 MG/3ML injection; Inject 0.5 mg subcutaneously once a week. - Hgb A1C; Future - empagliflozin (JARDIANCE) 25 MG tablet; Take 1 Tablet (25 mg) by mouth daily. - Basic Metabolic Panel; Future Eosinophilic esophagitis Type 2 diabetes mellitus - A1c stable at 7.7% - She would like to decrease her dose of Ozempic further as she still has some abdominal distentionand bloating at times, so we will decrease to 0.5 mg weekly. - To offset this, will increase Jardiance to 25 mg daily and start glipizide XL 5 mg daily. She wascautioned on side effects including hypoglycemia. - Follow up via e-visit in a month at which time we can adjust glipizide dose further if needed. - Otherwise repeat A1c in 3 months. If at goal, she can follow up every 6 months. Peyman Iverson MD 01/28/2024 Voice recognition software ([employer]) was used to generate this note. As a result, wrong word or 'nogns-n-brpa' substitutions may have occurred due to the inherent limitations of voice recognition software. There may be errors in the script that have gone undetected. Please consider this when interpreting information found in this chart. NE STEWARD documented in this encounter Plan of Treatment Upcoming Encounters Date Type Department Care Team (Late st Contact Info) Description 04/28/2024 10:00 AM CDT Appointment [facility] [address] [place] [address] Scheduled Orders Name Type Priority Associated Diagnoses Orde r Schedule Hgb A1C Lab Routine Type 2 diabetes mellitus with diabetic microalbuminuria, without long-term current use of insulin (HRC) Expected: 04/27/2024, Expires: 01/27/2025 Basic Metabolic Panel Lab Routine Type 2 diabetes mellitus with diabetic microalbuminuria, without long-term current use of insulin (HRC) Expected: 04/27/2024, Expires: 01/27/2025 documented as of this encounter Visit Diagnoses Diagnosis Type 2 diabetes mellitus with diabetic microalbuminuria, without long-term current use of insulin (HRC)- Primary Eosinophilic esophagitis documented in this encounter Care Teams Fountain Vending Mechanic Relationship Specialty [place] [address] [place] [address] PCP - General Family Practice 08/05/23 documented as of this encounter
--- OUTSIDE RECORDS SUMMARY | 2024-03-13 19:50 | XMS_ITS | Referral Summary ---
Author Organization [place] Address [address] [place] [address]. [place] [address] Care Team Providers Care Public Relations Officer Name Role Phone Sharda Sykes [facility] Unavailable [phone] Eduard Vargas DO Unavailable [phone] Eduard Vargas DO Primary Care Provider Encounters Date Type Department Care Team Description 03/02/2024 Refill [facility] [address] [place] [phone] Viola Yates MD Medication Refill from Last 3 Months Allergies Active Allergy Reactions Criticality Noted Date Comments No Known Drug Allergy 01/06/2003 Medications CETIRIZINE HCL 10 MG OR TABSIndications: Rhinitis, allergic seasonal Take 10 mg by mouth daily Active Aspirin 81 MG CAPS Take 81 mg by mouth daily Active Cholecalciferol 1.25 MG (94475 [place]) WAFR Take 5,000 Units by mouth Every Mon, Wed, Fri Morning Active Respiratory Therapy Supplies (CARETOUCH 2 CPAP HOSE PROCESS SERVER) [facility] New CPAP machine for home use at [...] migh t be different from the original. http://ptrx.org/admin/prescriptions/za812ab0 Problem Noted Date Diagnosed Date H/O abdominal [...] (03/15/2021): Added automatically from request for surgery [id number] Microalbuminuria 01/26/2018 Overview (03/15/2021): Will recheck in [...] week 03/11/2021 How often do you attend denominational or hoahaoism serv ices? Never 03/11/2021 Do you belong to any clubs o r organizations such as denominational groups, unions, fraternal or athletic groups, or [...] slept in a mcfp (including now)? No 03/11/2021 Adolescent Education Answer Date Record ed Getting School Help Needed Not on file 11/05 Comments No Sex and Gender Information Value Date Recorded Sex Assigned at Not on file Legal Sex Female 2:58 AM FELT HOOKER Gender Identity Not on file Sexual Orientation [...] 160 cm (5' 3) 02/20/2022 10:05 AM FELT HOOKER Body Mass Index 32.42 02/20/2022 10:05 AM FELT HOOKER Plan of Treatment Not on file Procedures Procedure Name Priority Date/Time Associated Diagnosis Comments EYE EXAM - HIM SCAN 11/01/2022 1 2:00 AM CDT HEMOGLOBIN A1C (EXTERNAL RESULT) Routine 06/12/2022 7:28 AM CDT COLOGUARD([facility] [employer]) Routine 10/19/2021 12:33 PM CDT Screen [...] (HIM EXTERNAL RESULT) Routine 01/19/2020 12:00 PM FELT HOOKER ABSTRACT HPV (HIM EXTERNAL RESULT) Routine 01/19/2020 12:00 PM FELT HOOKER from Last 3 Months or Most Recently Relevant to Health Maintenance Results * EYE EXAM - HIM SCAN (11/01/2022 12:00 AM CDT) RETINOPATHY NEGATIVE 11/01/2022 Yuli Dennis - 11/01/2022 12:00 AM CDT EYE EXAM [facility] us Provider Outside OTHER Edited Result - Final * (ABNORMAL) Hemoglobin A1c (External Result) (06/12/2022 7:28 AM CDT) Hemoglobin A1C (External) 7.9(A) 4.0 - 5.6 % [facility] Blood 06/12/2022 7:28 AM CDT Narrative [facility] - 06/12/2022 7:28 AM CDT [facility] [place] us Provider Outside LAB - HIM EXTERNAL RESULT Final Result [facility] [address] [place] [address] * COLOGUARD([employer]) (10/19/2021 12:33 PM CDT) COLOGUARD-ABSTRACT Negative Negative 2021 9:35 AM CDT [facility] (CLIA #:[id number]) Comment: NEGATIVE TEST RESULT. A negative Cologuard [...] (Cristhian Rangel al, N Engl J Med 2014;370(14):4534-6550) The normal value (reference range) for this assay is negative. COLOGUARD RE-SCREENING RECOMMENDATION: Periodic colorectal cancer screening is an important part of preventive healthcare for asymptomatic individuals at average risk for colorectal cancer. Following a negative Cologuard result, the [place] Cancer Society and U.S. Multi-Society Task Force screening guidelines recommend a Cologuard re-screening interval of 3 years. References: [place] [employer] Guideline for Colorectal Cancer Screening: https://www.cancer.org/cancer/oqnxz-ldjlod-rshwwq/ibkmzggps-hbyyrcoev-hevbrwt/ac s-rec ommendations.html.; Joaquín DK, Savanah JI, Kathleen CariasK, Colorectal Cancer Screening: Recommendations for Physicians and Patients from the U.S. Multi-Society Task Force on Colorectal Cancer Screening , Am J Gastroenterology 2017; 112:1238-0094. TEST DESCRIPTION: Composite algorithmic analysis of stool [...] screened with both Cologuard and colonoscopy. (Cristhian Rizzo et al, N Engl J Med 2014;370(14):3624-0093.) Cologuard may produce a false negative or false positive result (no colorectal cancer or precancerous polyp present at colonoscopy follow up). A negative Cologuard test result does not guarantee the absence of CRC or advanced adenoma (pre-cancer). The current Cologuard screening interval is every 3 years. ([place] Cancer Society and U.S. Multi-Society Task Force). Cologuard performance data in a 10,000 patient pivotal study using colonoscopy as the reference method can be accessed at the following location: www.[employer]/results. Additional description of the Cologuard test process, warnings and precautions can be found at www.cologuard.com. Stool specimen (specimen) 10/19/2021 12:33 PM CDT 10/20/2021 6:11 PM CDT Eduard Vargas LABORATORY Final Result [facility] [address] [place] [address], [facility] [phone] [facility] (CLIA #:[id number]) [address] [place] [address] * (ABNORMAL) Comprehensive metabolic panel (10/19/2021 9:51 [...] and gender (Pasquale et al., NEJM, DOI: 10.1056/HWIErj7579081) Blood BLOOD SPECIMEN / Unknown Venipuncture / Unknown 10/19/2021 9:51 AM CDT 10/19/2021 10:01 AM CDT us Eduard Vargas DO LAB - BLOOD ORDERABLES Final Re sult [facility] [address], [place] [address], [facility] [phone] * (ABNORMAL) Albumin Random Urine Quantitative with [...] URINE ORDERABLES Final Re sult [facility] [address] Lab (no room number, 1st floor of clinic) [place] [address], [place] [phone] * Lipid panel reflex to direct LDL [...] LAB - BLOOD ORDERABLES Final Re sult [facility] [address] Lab (no room number, 1st floor of clinic) [place] [address], [facility] [phone] * Mammogram - HIM Scan (11/25/2020) Anatomical Region Laterality Modality Other Narrative 11/25/2020 [facility] us Provider Outside IMG MAMMOGRAPHY ORDERABLES [place] l Result * Abstract HPV (HIM External Result) (01/19/2020 12:00 PM FELT HOOKER) HPV Abstract See Scanned Document [facility] 01/19/2020 12:0 0 PM FELT HOOKER Narrative [facility] - 01/19/2020 12:00 PM FELT HOOKER Care Everywhere, [place] - [facility]ISCAL ANALY[facility] us Provider Outside LAB - HIM EXTERNAL RESULT Final Result Performing Organization Address City/[facility]/ZIP Co de Phone Number [facility] [address] [place] [address], [facility] [phone] * Abstract PAP (HIM External Result) (01/19/2020 12:00 PM FELT HOOKER) PAP-ABSTRACT See Scanned Document [facility] Comment:result unknown 01/19/2020 12:0 0 PM FELT HOOKER Narrative [facility] - 01/19/2020 12:00 PM FELT HOOKER Care Everywhere, [place] - [facility]LY[facility] us Provider Outside LAB - HIM EXTERNAL RESULT Final Result Performing Organization Address [facility]/ZIP Co de Phone Number [facility] [address] [place] [address], [facility] [phone] from Last 3 Months or Most Recently Relevant to Health Maintenance Care Teams Public Relations Officer Relationship Specialty Start [place] [address] [place] [address] PCP - General Family Medicine 05/10/21 Sharda Sykes, [facility] [address] [place] [address] Pharmacist Pharmacist 04/03/21 [place] [address] [place] [address] Assigned PCP 02/23/21
--- OUTSIDE RECORDS SUMMARY | 2024-03-13 19:50 | XMS_ITS | Encounter Summary ---
Author Organization [place] Address [facility] [address] Care Team Providers Care Dairy Management Specialist Name Role Phone Sharda Sykes [facility] Unavailable Eduard Vargas DO Unavailable [phone] Eduard Vargas DO Primary Care Provider [phone] Sharda Sykes [facility] Unavailable [phone] Encounter Details Date Type Department Care Team (Late st Contact Info) Description 11/30/2021 [facility] [place] [address] [address] Sharda Sykes, [facility] [address] [place] [address] Type 2 diabetes mellitus without [...] How often do you attend pentecostal or samaritan serv ices? Never 03/11/2021 Do [...] Answer Date Recorded PHQ-2 Score 0 09/22/2021 [facility] - Occupational Stress Questionnaire Answer Date Recorded [...] in a mcfp (including now)? No 03/11/2021 Comments No Sex and Gender Information Value Date Recorded Sex Assigned at Not on file Legal Sex Female 2:58 AM FIELD OPERATIONS FARM MANAGER Gender Identity Not on file Sexual Orientation Straight 06/28/2021 12 :12 PM CDT documented as of this encounter Plan of Treatment Not on file documented as of this encounter Results * (ABNORMAL) Hemoglobin A1c (02/20/2022 10:07 AM FIELD OPERATIONS FARM MANAGER) Hemoglobin A1C 7.6(H) 0.0 - 5.6 % 02/20/2022 10:25 AM FIELD OPERATIONS FARM MANAGER [facility] Comment: Normal <5.7% Prediabetes 5.7-6.4% Diabetes 6.5% or higher Note: Adopted from ADA consensus guidelines. Blood BLOOD SPECIMEN / Unknown Venipuncture / Unknown 02/20/2022 10:07 AM FIELD OPERATIONS FARM MANAGER 02/20/2022 10:18 AM FIELD OPERATIONS FARM MANAGER us Eduard Vargas DO LAB - BLOOD ORDERABLES Final Re sult LABORATORY [facility] [address] [facility] (no room number, 1st floor of clinic) [place] [address], [facility] [phone] documented in this encounter Visit Diagnoses Diagnosis Type 2 diabetes mellitus without complication, without long-term current use of insulin (H)- Primary documented in this encounter Care Teams Dairy Management Specialist Relationship Specialty [place] [address] [place] [address] PCP - General Family Medicine 05/10/21 Sharda Sykes, [facility] [address] [place] [address] Pharmacist Pharmacist 04/03/21 [place] [address] [place] [address] Assigned PCP 02/23/21 Sharda Sykes, [facility] [address] [place] [address] Assigned MTM Pharmacist 11/08/2101/02 documented as of this encounter
--- OUTSIDE RECORDS SUMMARY | 2024-03-13 19:51 | XMS_ITS | Encounter Summary ---
Author Organization [facility] Address [address] [place] [address] Care Team Providers Care Cigar Making Machine Supervisor Name Role Phone Unavailable Primary Care Provider Unavailabl e Encounter Details Date Type Department Care Team (Late st Contact Info) Description 06/25/2017 [facility] [address] [place] [address] Johanna Brambila M.D. [address] [place] [phone] Pain Leg (Primary Dx); Fibrosarcoma (HCC) Social History Tobacco Use Types Packs/Day Years Used Date Smoking Tobacco: Former Comments Unknown Sex and Gender Information Value Date Recorded Sex Assigned at Female 02/16/2022 8:33 PM TUBING MILL SETTER Legal Sex Female 6:59 PM TUBING MILL SETTER Gender Identity Female 08/19/2017 10:59 PM CDT Sexual Orientation Straight 08/19/2017 10 :59 PM CDT documented as of this encounter Plan of Treatment Upcoming Encounters Date Type Department Care Team (Latest Contact Info) Description 05/05/2024 11:15 AM CDT Clinical Communication Virtual Review in [place], [place] [address] [place] [address] 05/08/2024 9:00 AM CDT Appointment Department of Radiology, [facility], in [place], [place] [address] [place] [phone] Ana María Delcid P.A.-C., M.S. [address] [place] [phone] 05/08/2024 12:15 PM CDT Appointment Department of Radiology, [facility], in [place], [place] [address] [place] [address] Ana María Delcid P.A.-C., M.S. [address] [place] [phone] 05/08/2024 2:40 PM CDT Office Visit Department of Oncology in [place], [place] [address] [place] [phone] Ana María Delcid P.A.-C., M.S. [address] [place] [phone] documented as of this encounter Visit Diagnoses Diagnosis Pain Leg- Primary Fibrosarcoma (HCC) documented in this encounter
--- OUTSIDE RECORDS SUMMARY | 2024-03-13 19:51 | XMS_ITS | Encounter Summary ---
Author Organization [facility] Address [address] [place] [address] Care Team Providers Care Culinary Arts Teacher Name Role Phone Unavailable Primary Care Provider Unavailabl e Reason for Referral * Outpatient (Routine) - Closed Specialty Diagnoses / Procedures Referred By Chuy salazar Referred To Contact Gynecology Diagnoses Carcinoma Unspecified Janeth Oliveira M.D. Phone: tel: fax: [facility] Referral ID Status Reason Start Date Expiration Date Visits Re quested Visits Authorized [id number] Closed 03/05/2018 03/05/2019 1 1 FITTINGS MOLDER Encounter Details Date Type Department Care Team (Late st Contact Info) Description 03/05/2018 [facility] [address] [place] [address] Janeth Oliveira M.D. [address] [place] [address] Carcinoma Unspecified (Primary Dx) Social History Tobacco Use Types Packs/Day Years Used Date Smoking Tobacco: Former Cigarettes 1 - 12/26/1996 Smokeless Tobacco: Never Comments:smoked up to 1/2 pa ck per day maximum Alcohol Use Standard Drinks/Week Comments Yes 0 (1 standard drink = 0.6 oz pur e alcohol) Comments Unknown Sex and Gender Information Value Date Recorded Sex Assigned at Female 02/16/2022 8:33 PM PIPE FITTINGS MOLDER Legal Sex Female 6:59 PM PIPE FITTINGS MOLDER Gender Identity Female 08/19/2017 10:59 PM CDT Sexual Orientation Straight 08/19/2017 10 :59 PM CDT documented as of this encounter Plan of Treatment Upcoming Encounters Date Type Department Care Team (Latest Contact Info) Description 05/05/2024 11:15 AM CDT Clinical Communication Virtual Review in [place], [place] [address] [place] [address] 05/08/2024 9:00 AM CDT Appointment Department of Radiology, [address] [address] Ana María Delcid P.A.-C., M.S. [address] [place] [phone] 05/08/2024 12:15 PM CDT Appointment Department of Radiology, [address] [phone] Ana María Delcid P.A.-C., M.S. [address] [place] [phone] 05/08/2024 2:40 PM CDT Office Visit Department of Oncology in [address] [address] Ana María Delcid P.A.-C., M.S. [address] [place] [phone] Scheduled Referrals Name Type Priority Associated Diagnoses Orde r Schedule Gynecologic Surgery Referral Outpatient Referral Routine Carcinoma Unspecified Expected: 03/05/2018 (Approximate), Expires: 03/05/2021 documented as of this encounter Visit Diagnoses Diagnosis Carcinoma Unspecified- Primary documented in this encounter
--- OUTSIDE RECORDS SUMMARY | 2024-03-13 19:51 | XMS_ITS | Encounter Summary ---
Author Organization [place] Address [address] [place] [address]. [place] [address] Care Team Providers Care Regional Project Manager Name Role Phone Humphrey Mccray MD Primary Care Provider Unavailable Sharda Sykes [facility] Unavailable [phone] Eduard Vargas DO Unavailable [phone] Eduard Vargas DO Primary Care Provider Sharda Sykes [facility] Unavailable Sharda Sykes [facility] Unavailable [phone] Encounter Details Date Type Department Care Team (Late st Contact Info) Description 04/03/2021 [facility] [place] [address] [address] Sharda Sykes, [facility] [address] [place] [address] Social History Tobacco Use Types Packs/Day Years [...] week 03/11/2021 How often do you attend sabianist or cheondoism serv ices? Never 03/11/2021 Do you belong to any clubs o r organizations such as sabianist groups, unions, fraternal or athletic groups, or [...] Answer Date Recorded PHQ-2 Score 0 03/14/2021 [facility] - Occupational [...] on file Legal Sex Female 2:58 AM LABORER STEEL HANDLING Gender Identity Not on file Sexual Orientation Straight 06/28/2021 12 :12 PM CDT COVID-19 Exposure Response Date Recorded In the last month, have you been in contact with someone who was confirmed or suspected to have Coronavirus / COVID-19? No / Unsure 03/15/2021 9:11 AM LABORER STEEL HANDLING documented as of this encounter Plan of Treatment Not on file documented as of this encounter Visit Diagnoses Not on filedocumented in this encounter Care Teams Regional Project Manager Relationship Specialty Start Date End Date Humphrey Mccray MD PCP - General 02/24/99 05/09/21 [place] [address] [place] [address] PCP - General Family Medicine 05/10/21 Sharda Sykes [facility] [address] [place] [address] Pharmacist Pharmacist 04/03/21 [place] [address] [place] [address] Assigned PCP 02/23/21 Sharda Sykes [facility] [address] [place] [address] Assigned MTM Pharmacist 08/05/21 Sharda Sykes, [facility] [address] [place] [address] Assigned MTM Pharmacist 11/08/2101/02 documented as of this encounter
--- OUTSIDE RECORDS SUMMARY | 2024-03-13 19:51 | XMS_ITS | Encounter Summary ---
Author Organization [place] Address [address] [place] [address]. [place] [address] Care Team Providers Care Inventory Coordinator Name Role Phone Sharda Sykes [facility] Unavailable [phone] Eduard Vargas DO Unavailable [phone] Eduard Vargas DO Primary Care Provider [phone] Sharda Sykes [facility] Unavailable [phone] Sharda Sykes [facility] Unavailable [phone] Encounter Details Date Type Department Care Team (Late st Contact Info) Description 05/10/2021 [facility] Medical Advice [address] [address] Sharda Sykes, [facility] [address] [place] [address] Social History Tobacco Use Types [...] Answer Date Recorded PHQ-2 Score 0 03/14/2021 [facility] - Occupational [...] a care home (including now)? No 03/11/2021 Comments No Sex and Gender Information Value Date Recorded Sex Assigned at Not on file Legal Sex Female 2:58 AM TRAPPER BIRD Gender Identity Not on file Sexual Orientation [...] on filedocumented in this encounter Care Teams Inventory Coordinator Relationship Specialty Start [place] [address] [place] [address] PCP - General Family Medicine 05/10/21 Sharda Sykes [facility] [address] [place] [address] Pharmacist Pharmacist 04/03/21 [place] [address] [place] [address] Assigned PCP 02/23/21 Sharda Sykes [facility] [place] [address] Assigned MTM Pharmacist 08/05/21 Sharda Sykes [facility] [address] [place] [address], [place] [address] Assigned MTM Pharmacist 11/08/2101/02 documented as of this encounter
--- OUTSIDE RECORDS SUMMARY | 2024-03-13 19:51 | XMS_ITS | Encounter Summary ---
Author Organization [place] Address [address] [place] [address]. [place] [address] Care Team Providers Care Director Of Land Name Role Phone Sharda Sykes [facility] Unavailable [phone] Eduard Vargas DO Unavailable [phone] Eduard Vargas DO Primary Care Provider [phone] Sharda Sykes [facility] Unavailable [phone] Sharda Sykes [facility] Unavailable [phone] Encounter Details Date Type Department Care Team (Late st Contact Info) Description 06/08/2021 [facility] Medical Advice [facility] [address] [place] [phone] Tricia Bonds, PRODUCT DESIGNER Social History Tobacco Use Types Packs/Day Years [...] week 03/11/2021 How often do you attend methodist or yazidism serv ices? Never 03/11/2021 Do you belong to any clubs o r organizations such as methodist groups, unions, fraternal or athletic groups, or [...] Answer Date Recorded PHQ-2 Score 0 03/14/2021 [facility] Occupat ional Health - Occupational [...] a senior living (including now)? No 03/11/2021 Comments No Sex and Gender Information Value Date Recorded Sex Assigned at Not on file Legal Sex Female 2:58 AM COUNSELOR MANAGER Gender Identity Not on file Sexual Orientation Straight 06/28/2021 12 :12 PM CDT documented as of this encounter Plan of Treatment Not on file documented as of this encounter Visit Diagnoses Not on filedocumented in this encounter Care Teams Director Of Land Relationship Specialty [place] [address] [place] [address] PCP - General Family Medicine 05/10/21 Sharda Sykes, [facility] [place] [address] Pharmacist Pharmacist 04/03/21 [place] [address] [place] [address] Assigned PCP 02/23/21 Sharda Sykes [facility] [place] [address] Assigned MTM Pharmacist 08/05/21 Sharda Sykes [facility] [place] [address] Assigned MTM Pharmacist 11/08/2101/02 documented as of this encounter
--- OUTSIDE RECORDS SUMMARY | 2024-03-13 19:51 | XMS_ITS | Encounter Summary ---
Author Organization [place] Address [address] [place] [address]. [place] [address] Care Team Providers Care Fusing Machine Feeder Name Role Phone Sharda Sykes [facility] Unavailable Eduard Vargas DO Unavailable [phone] Eduard Vargas DO Primary Care Provider [phone] Sharda Sykes [facility] Unavailable [phone] Sharda Sykes [facility] Unavailable Encounter Details Date Type Department Care Team (Late st Contact Info) Description 10/13/2021 [facility] [place] [address] [address] Sharda Sykes, [facility] [address] [place] [address] Social History Tobacco Use Types [...] week 03/11/2021 How often do you attend christian or scientology serv ices? Never 03/11/2021 Do you belong to any clubs o r organizations such as christian groups, unions, fraternal or athletic groups, or [...] Answer Date Recorded PHQ-2 Score 0 09/22/2021 [facility]at ional Health - [...] in a chcf (including now)? No 03/11/2021 Comments No Sex and Gender Information Value Date Recorded Sex Assigned at Not on file Legal Sex Female 2:58 AM SERVICE RESTORER EMERGENCY Gender Identity Not on file Sexual Orientation [...] on filedocumented in this encounter Care Teams Fusing Machine Feeder Relationship Specialty Start [place] [address] [place] [address] PCP - General Family Medicine 05/10/21 Sharda Sykes [facility] [address] [place] [address] Pharmacist Pharmacist 04/03/21 [place] [address] [place] [address] Assigned PCP 02/23/21 Sharda Sykes [facility] [address] [place] [address] Assigned MTM Pharmacist 08/05/21 Sharda Sykes [facility] [place] [address] Assigned MTM Pharmacist 11/08/2101/02 documented as of this encounter
--- OUTSIDE RECORDS SUMMARY | 2024-03-13 19:51 | XMS_ITS | Encounter Summary ---
[facility] Address [address] [place] [address] Care Team Providers Care Boiler Shop Mechanic Name Role Phone Peyman Iverson MD Primary Care Provider [phone] Reason for Visit * Reason Comments Cough Encounter Details Date Type Department Care Team (Late st Contact Info) Description 03/10/2024 12:40 PM EDITOR NEWSPAPER Office Visit [place] [address] [facility] [address] [place] [phone] Elvira Tidwell MD [address] [place] [address] Acute bronchitis, unspecified organism Social History Tobacco Use Types Packs/Day Years [...] Comments Blood Pressure 108/72 03/10/2024 12:28 PM EDITOR NEWSPAPER Pulse 85 03/10/2024 12:28 PM EDITOR NEWSPAPER Temperature 36.7 C (98 F) 03/10/2024 12:28 PM EDITOR NEWSPAPER Respiratory Rate 16 03/10/2024 12:28 PM EDITOR NEWSPAPER Oxygen Saturation 98% 03/10/2024 12:28 PM EDITOR NEWSPAPER Inhaled Oxygen Concentration - - Weight - - Height - - Body Mass Index - - documented in this encounter Patient Instructions * Patient Instructions* Elvira Tidwell MD - 03/10/2024 12:40 PM EDITOR NEWSPAPER The modern definition of bronchitis is inflammation of the airways typically caused by a viral infection, so an antibiotic won't make it better. The inflammation makes the cough worse, and the cough makes the inflammation worse. We typically treat this with steroids which reduces the swelling and mucus production in the airway so you can breath more freely and cough less, and the cough can resolve. Prednisone is the steroid medication. moth exterminator use of steroids can have significant complications but short term use typically has only mild side effects. Some people may feel wired or restless, warm and flushed, and increased appetite is common. Take the medication with food to decrease stomach i rritation and decrease salt intake as it can cause some fluid retention. If you are having trouble sleeping you can take some benadryl at bedtime. Do not take ibuprofen while you are taking the prednisone as they are very similar and can both bother the stomach. You can take tylenol if needed for pain or fever. If blood sugars are getting to be 300 call your primary care provider. An albuterol inhaler has also been prescribed for your wheezing. Take 2 puffs every 4 hours as needed if you find that with it you can breathe more easily, cough less or cough less harshly. You can stop taking it when you are feeling better. You should start to notice some improvement in several days and gradually get better over the course of the medication. When you finish the medication the cough may not be totally gone but should continue to improve and resolve soon there after. If it does not please don't hesitate to be seen again. If you are not improving as expected also please be seen again. OR NEWSPAPER * Attachments The following attachments cannot be sent through Care Everywhere. * Bronchitis (Yemeni) documented in this encounter Progress Notes * Elvira Tidwell MD - 03/10/2024 12:40 PM CST [facility] Patient: Gloria Kwan Date of : 1970 (53 y.o.) Subjective Chief Complaint: Chief Complaint Patient presents with Cough Nursing Notes: Dalia Castaneda RN 03/10/24 1227 Signed Gloria Kwan is a 53 y.o.female presents to the Urgent Care for Cough Symptoms began: 1 month(s) ago. Fever: absent. Other associated symptoms: cough started a month ago and continues. Now wheezing and chest congestion. Does have a hx of lung canger Patient requests an excuse letter for work/school: No History of Present Illness: Gloria Kwan is a 53 y.o.female. Patient complains of symptoms of a URI. Onset of symptoms was 4 weeks ago. Symptoms include congestion and cough. Patient denies: fever. gradually worsening since that time. Cough: productive of clear sputum, with wheezing, with shortness of breath Adverse Drug Reactions: Adhesive, Grass pollen(k-o-r-t-swt paul), Hydromorphone, Lisinopril, and Molds & smuts Medications: ALBUterol sulfate HFA, Calcium Citrate, Coenzyme Q10, OneTouch Delica Plus, Vitamin D,albuterol 2.5 mg/3 mL (0.083%), aspirin, atorvastatin, blood glucose, cetirizine, empagliflozin, estradiol, gabapentin, glipiZIDE XL, ipratropium-albuterol, metFORMIN, montelukast, pantoprazole, predniSONE, semaglutide, and vitamin B-12 Social History: Social History Tobacco Use Smoking status: Former Types: Cigarettes Smokeless tobacco: Never Vaping Use Vaping status: Never Used Substance Use Topics Alcohol use: Not Currently Drug use: Never Review of Systems: Review of Systems is negative except as noted above. Objective Physical Exam: Vital Signs: BP 108/72 (BP Location: Right Arm, BP Cuff Size: Regular - Long) Pulse 85 Temp 36.7 ??C (98 ??F) (Oral) Resp 16 LMP (LMP Unknown) SpO2 98% General: Appears alert and non distressed, She appears non toxic. Blood pressure 108/72, pulse 85, temperature 36.7 ??C (98 ??F), temperature source Oral, resp. rate16, SpO2 98%, not currently . HEENT: Head normocephalic and atraumatic Eyes Normal, conjunctiva normal without injection. PERRL. Ears: Right TM normal Left TM normal, external auditory canals without drainage. Throat: mild erythema, no peritonsillar masses or swelling. Neck: Soft, without cervical lymphadenopathy, no meningeal signs. Chest: normal air entry, no rhonchi and wheezes. Heart: HS normal with no murmurs. Laboratory Testing: No results found for any visits on 03/10/24. Radiology: MM Mammogram Screening Bilat W 3D Maddi W CAD Result Date: 02/24/2024 MM MAMMOGRAM SCREENING BILAT W 3D MADDI W CAD performed on 02/21/24 FDA Accredited Facility: [place] [address] Compared to: 02/19/2023 MM Mammogram Screening Bilat W 3D Maddi W CAD, 11/28/2021 Foreign Image(S) Mammogram, 11/25/2020 Foreign Image(S) Mammogram, and 10/02/2019 Foreign Image(S) Mammogram FINDINGS: Bilateral screening mammogram was performed with the assistance of Computer-Aided Detection and breast tomosynthesis. The breasts are almost entirely fatty. There is no radiographic evidence of malignancy. : ACR BI-RADS Category 1: Negative RECOMMENDATION: Follow Up Imaging in 12 months - Bilateral The results and recommendations of this examination will be communicated to the patient. MDM: Given the length of time that she has been coughing and she notes wheezing even though I did not hear any will have her tr some prednisone. 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 Last CT less than a year ago was clear. She understands her blood sugars will go up Interventions: Orders Placed This Encounter ALBUterol sulfate HFA 108 (90 Base) MCG/ACT inhaler albuterol 2.5 mg/3 mL, 0.083%, (PROVENTIL) nebulizer solution predniSONE (DELTASONE) 20 MG tablet Assessment 1. Acute bronchitis, unspecified organism Plan Patient Discharge Medications & Instructions: Medications Prescribed this Visit Disp Refills Start End ALBUterol sulfate HFA 108 (90 Base) MCG/ACT inhaler 1 Each 0 03/10/2024 -- Inhale 1-2 Puffs every 4 hours as needed for Wheezing. Notes to Pharmacy: Pharmacy may substitute albuterol HFA products based on insurance. Inhalation albuterol 2.5 mg/3 mL, 0.083%, (PROVENTIL) nebulizer solution 90 mL 0 03/10/2024 -- Inhale 1 Each (2.5 mg) every 4 hours as needed for Wheezing or Shortness of Breath (coughing). Inhale one vial every 20 minutes up to three times. Then every 1-4 hours as needed. Inhalation predniSONE (DELTASONE) 20 MG tablet 10 Tablet 0 03/10/2024 03/15/2024 Take 2 Tablets (40 mg) by mouth daily for 5 days. Oral Patient Instructions The modern definition of bronchitis is inflammation of the airways typically caused by a viral infection, so an antibiotic won't make it better. The inflammation makes the cough worse, and the cough makes the inflammation worse. We typically treat this with steroids which reduces the swelling and mucus production in the airway so you can breath more freely and cough less, and the cough can resolve. Prednisone is the steroid medication. custodial use of steroids can have significant complications but short term use typically has only mild side effects. Some people may feel wired or restless, warm and flushed, and increased appetite is common. Take the medication with food to decrease stomach irritation and decrease salt intake as it can cause some fluid retention. If you are having trouble sleeping you can take some benadryl at bedtime. Do not take ibuprofen while you are taking the prednisone as they are very similar and can both bother the stomach. You can take tylenol if needed for pain or fever. If blood sugars are getting to be 300 call your primary care provider. An albuterol inhaler has also been prescribed for your wheezing. Take 2 puffs every 4 hours as needed if you find that with it you can breathe more easily, cough less or cough less harshly. You can stop taking it when you are feeling better. You should start to notice some improvement in several days and gradually get better over the course of the medication. When you finish the medication the cough may not be totally gone but should continue to improve and resolve soon there after. If it does not please don't hesitate to be seen again. If you are not improving as expected also please be seen again. Elvira Tidwell MD OR NEWSPAPER documented in this encounter Nursing Notes * Dalia Castaneda RN - 03/10/2024 12:40 PM CST Gloria Kwan is a 53 y.o.female presents to the Urgent Care for Cough Symptoms began: 1 month(s) ago. Fever: absent. Other associated symptoms: cough started a month ago and continues. Now wheezing and chest congestion. Does have a hx of lung canger Patient requests an excuse letter for work/school: No OR NEWSPAPER documented in this encounter Plan of Treatment Upcoming Encounters Date Type Department Care Team (Late st Contact Info) Description 04/28/2024 10:00 AM CDT Appointment [facility] [address] [place] [phone] documented as of this encounter Visit Diagnoses Diagnosis Acute bronchitis, unspecified organism documented in this encounter Care Teams Boiler Shop Mechanic Relationship Specialty [place] [address] [place] [address] PCP - General Family Practice 08/05/23 documented as of this encounter
--- OUTSIDE RECORDS SUMMARY | 2024-03-13 19:51 | XMS_ITS | Encounter Summary ---
Author Organization [place] Address [address] [place] [address]. [place] [address] Care Team Providers Care Mathematical Engineering Technician Name Role Phone Sharda Sykes [facility] Unavailable [phone] Eduard Vargas DO Unavailable [phone] Eduard Vargas DO Primary Care Provider [phone] Sharda Sykes [facility] Unavailable [phone] Sharda Sykes [facility] Unavailable [phone] Encounter Details Date Type Department Care Team (Late st Contact Info) Description 08/21/2021 [facility] [place] [facility] [id number] [place] [phone] Tricia Bonds, FRACTIONATING STILL OPERATOR Social History Tobacco Use Types Packs/Day Years [...] week 03/11/2021 How often do you attend jew or bahai serv ices? Never 03/11/2021 Do you belong to any clubs o r organizations such as jew groups, unions, fraternal or athletic groups, or [...] Answer Date Recorded PHQ-2 Score 0 03/14/2021 [facility] - [...] place to sleep or slept in a correction (including now)? No 03/11/2021 Comments No Sex and Gender Information Value Date Recorded Sex Assigned at Not on file Legal Sex Female 2:58 AM PRICING LEAD Gender Identity Not on file Sexual Orientation Straight 06/28/2021 12 :12 PM CDT documented as of this encounter Plan of Treatment Not on file documented as of this encounter Visit Diagnoses Not on filedocumented in this encounter Care Teams Mathematical Engineering Technician Relationship Specialty [place] [address] [place] [address] PCP - General Family Medicine 05/10/21 Sharda Sykes, [facility] [place] [address] Pharmacist Pharmacist 04/03/21 [place] [address] [place] [address] Assigned PCP 02/23/21 Sharda Sykes [facility] [place] [address] Assigned MTM Pharmacist 08/05/21 Sharda Sykes [facility] [place] [address] Assigned MTM Pharmacist 11/08/2101/02 documented as of this encounter
--- NOTE | 2024-03-13 20:03 | ED_ITS ---
HPI - General Adult General Date Seen: 03/13/24 Chief complaint: Shortness of Breath/Dyspnea Stated complaint: High Blood Sugar, chest pain, shortness of breath Time Seen by Provider: 03/13/24 20:03 History of Present Illness HPI narrative: 53 yo F with past history of PE, history of type 2 diabetes (Jardiance, glipizide, metformin, semaglutide. In January she had a slightly elevated A1c at 7.9. Her doctor increased her dose of Jardiance from 10 up to20 mg and put her on glipizide. She is not on insulin.), myopia, fatty liver disease, mild persistent asthma (albuterol inhaler,, lymphedema of her leg, thigh sarcoma, cervical cancer. Her malignancies are all in remission She has had a cough that started around [place]. She saw her urgent care about 4 days ago and was diagnosed with bronchitis. She was apparently wheezing. She was put on a burst of prednisone. She took 80 mg on the day, Saturday and has been taking 40 mg per day since then. Her cough is actually been getting considerably better since starting on the prednisone. Her wheezing is better. She had been trying to use her albuterol inhaler, but really did not help much with her wheezing or cough She notes that since starting the prednisone her blood sugar as been higher. She had a blood sugar of over 300 couple days ago, 202 days ago. Today her blood sugars been high as to ever, up to 421 . Along with higher blood sugar this afternoon she is also feeling a little bit of shortness of breath and chest tightness. She says initiate that she is also feeling some ?tightness, mild discomfort in left upper quadrant of her abdomen. No pain through to her back. She is mildly nauseous. Not vomiting. Bowel movements have been normal. No swelling in her legs. No rash. Urination has been normal. Related Data Home Medications ?Medication ?Instructions ?Recorded ?Confirmed atorvastatin 10 mg tablet 10 mg PO DAILY 03/09/23 03/09/23 empagliflozin 10 mg tablet 10 mg PO DAILY 03/09/23 03/09/23 (Jardiance) gabapentin 300 mg capsule mg PO 03/09/23 metformin 1,000 mg tablet 1,000 mg PO BID 03/09/23 03/09/23 montelukast 10 mg tablet 10 mg PO DAILY 03/09/23 03/09/23 semaglutide 1 mg/dose (4 mg/3 mL) 1 mg subcut QWEEK 03/09/23 03/09/23 subcutaneous pen injector (Ozempic) Allergies Allergy/AdvReac Type Severity Reaction Status Date / Time No Known Drug Allergies Allergy Verified 03/09/23 20:58 [facility] Social History Non-prescribed substance use: denies use Exam Narrative: Exam Narrative: Constitutional: Appears well-developed and well-nourished. Alert. Conversant. Non toxic. HENT: Head: Atraumatic. Nose: Nose normal. Mouth/Throat: Oral mucosa is clear and moist. no trismus. Pharynx normal. Tonsils symmetric. No tonsillar enlargement, erythema, or exudate. Eyes: Conjunctivae normal. EOM normal. Pupils equal, round, and reactive to light. No scleral icterus. Neck: Normal range of motion. Neck supple. No tracheal deviation present. No JVD Cardiovascular: Normal rate, regular rhythm. No gallop. No friction rub. No murmur heard. Symmetric radial artery pulses Pulmonary/Chest: Effort normal. No stridor. No respiratory distress. No wheezes. No rales. No rhonchi . No tenderness. Abdominal: Soft. Bowel sounds normal. No distension. No mass. Mild left upper quadrant tenderness. No CVA tenderness. No rebound. No guarding. Musculoskeletal: RUE: Normal range of motion. No tenderness. No deformity LUE: Normal range of motion. No tenderness. No deformity RLE: Normal range of motion. No edema. No tenderness. No deformity LLE: Normal range of motion. No edema. Postsurgical changes from sarcoma surgery. No tenderness. No deformity Lymph: No cervical adenopathy. Neurological: Alert and oriented to person, place, and time. Normal strength. CN II-VII intact. No sensory deficit. GCS eye subscore is 4. GCS verbal subscore is 5. GCS motor subscore is 6. Normal coordination Skin: Skin is warm and dry. No rash noted. No pallor. Normal capillary refill. Psychiatric: Normal mood. Normal affect. Const: Vital Signs, click to edit/add: Vital Signs - 24 hr 03/13/24 19:49 03/13/24 21:37 Temperature 97.3 F L Pulse Rate [Left P ulse Oximeter] 69 64 Respiratory Rate 18 16 Blood Pressure [Ri ght Upper Arm] 114/73 113/57 L Pulse Oximetry 95 93 Oxygen Delivery Me thod Room Air Room Air Course Course ED Course: Recheck-feeling better. Blood sugar down to 2 for Reevaluation(s) Reevaluation #1: Recheck-continues to do well. Blood sugar down 195. Discussed labs and workup so far. Patient and are pleased and here for discharge. Vital Signs Vital signs: Initial Vital Signs Temperature 97.3 F L 03/13/24 19:49 Temperature Source Temporal Artery Scan 03/13/24 19:49 Pulse Rate 69 03/13/24 19:49 Pulse Rhythm Regular 03/13/24 19:49 Respiratory Rate 18 03/13/24 19:49 Blood Pressure 114/73 03/13/24 19:49 Blood Pressure Mean 86 03/13/24 19:49 Blood Pressure Position Sitting 03/13/24 19:49 Pulse Oximetry 95 03/13/24 19:49 Oxygen Delivery Method Room Air 03/13/24 19:49 Vital Signs Temperature 97.3 F L 03/13/24 19:49 Pulse Rate 69 03/13/24 19:49 Respiratory Rate 18 03/13/24 19:49 Blood Pressure 114/73 03/13/24 19:49 Pulse Oximetry 95 03/13/24 19:49 Oxygen Delivery Method Room Air 03/13/24 19:49 Temperature 97.3 F L 03/13/24 19:49 Pulse Rate 64 03/13/24 21:37 Respiratory Rate 16 03/13/24 21:37 Blood Pressure 113/57 L 03/13/24 21:37 Pulse Oximetry 93 03/13/24 21:37 Oxygen Delivery Method Room Air 03/13/24 21:37 Medications Administered Medications: Discontinued Medications Generic Name Dose Route Start Last Admin Trade Name Freq PRN Reason Stop Dose Admin Sodium Chloride 1,000 mls @ 1,000 mls/hr 03/13/24 20:30 03/13/24 21:32 0.9 % Sodium Chloride 1000 Ml IV 03/13/24 21:29 Infused .Q1H DEJAH Infusion Insulin Human Regular 10 unit 03/13/24 20:28 03/13/24 20:46 Insulin Regular, Human 100 Unit/Ml Vial SUBCUT 03/13/24 20:29 10 unit ONCE ONE Administration Ondansetron HCl 4 mg 03/13/24 20:32 03/13/24 20:41 Ondansetron 2 Mg/Ml Inj IVP 03/13/24 20:33 4 mg ONCE ONE Administration Medical Decision Making MDM Narrative Medical decision making narrative: Very pleasant 53-year-old female with a history of type 2 diabetes, history of asthma, presenting to the ER today with concern for hyperglycemia, feeling a little bit woozy, mildly short of breath,. She had had a cough ongoing for over a month. She saw her urgent care provider a few days ago was diagnosed with bronchitis. Apparently she was quite wheezy in the urgent care. She was put on a short burst of prednisone. Since then her cough and bronchitis is gotten markedly better. However she has developed hyperglycemia. Sugars have been running high for several days while on the prednisone but got up to 421 today. Because of her hyperglycemia she was sent to the ER. Laboratory workup here in the ER does confirm a hyperglycemia with a glucose of 317. Fortunately bicarb and anion gap are normal. No evidence for DKA or hyperosmolar nonketotic state. Kidney function is normal. After IV fluids and insulin here in the ER. Blood sugar came down. Along with that today she developed some dizziness, mild chest tightness throughout the day today. She says overall her cough and breathing or better but now she has a new tightness. Screening EKG shows nonspecific changes but no definite ischemia. Troponin is undetectable. Chest x-ray normal. She also has some left upper quadrant discomfort. Abdominal exam is minimally tender and generally soft and benign. Low suspicion for intra-abdominal pathology such as colitis, diverticulitis, bowel obstruction. At this point risk of radiation and contrast exposure from abdominal CT would outweigh the benefit. Urinalysis negative for hematuria to suggest stone or pyuria to suggest pyelonephritis. Lipase is normal. Liver function tests are mildly abnormal with ALT 107, AST of 56. I do not have a previous labs for comparison, but patient recalls that she has had fatty liver with mildly abnormal LFTs in the past.. At this point she is not having any right upper quadrant pain to raise concern for cholecystitis, choledocholithiasis. She is feeling better after bring her blood sugar down. With reasonable clinical judgment I think she is safe for discharge night but would recommend close outpatient follow-up with her primary care provider next week CBC shows a normal white count, normal hemoglobin. Urinalysis is normal. Lab Data Labs: Lab Results 03/13/24 03/13/24 Range/Units 20:45 20:55 WBC 9.72 (4.50-11.00) K/uL RBC 5.06 (4.00-5.20) m/uL Hgb 13.9 (12.0-16.0) gm/dL Hct 44.4 (33.0-51.0) % MCV 88 (80-100) fL MCH 28 (26-34) pg MCHC 31 L (32-36) gm/dL RDW Coeff of Zander 15.4 (11.5-15.5) % Plt Count 252 (140-440) K/uL Neut % (Auto) 78.5 H (42.0-72.0) % Lymph % (Auto) 17.4 L (20-44) % [place] % (Auto) 2.5 (0.0-11.0) % Eos % (Auto) 0.5 (0.0-7.0) % Baso % (Auto) 0.2 (0.0-3.0) % Neut # (Auto) 7.60 H (1.7-7.0) K/uL Lymph # (Auto) 1.70 (0.90-2.90) K/uL [place] # (Auto) 0.20 (0.00-0.90) K/UL Eos # (Auto) 0.05 (0.00-0.50) K/uL Baso # (Auto) 0.02 (0.00-0.30) K/uL Abs Immat Gran (auto) 0.09 (0.00-0.30) K/uL Imm/Tot Granulo (auto) 0.9 % Sodium 138 (135-149) mmol/L Potassium 4.5 (3.6-5.1) mmol/L Chloride 100 (96-114) mmol/L Carbon Dioxide 23 (20-32) mmol/L Anion Gap 15 (7-15) mEq/L BUN 23 (7-30) mg/dL Creatinine 0.9 (0.5-1.5) mg/dL Estimated Creat Clear 57.17 Estimated GFR 76 ml/min Glucose 317 H (60-115) mg/dL Calcium 9.6 (8.4-10.6) mg/dL Total Bilirubin 0.7 (0.1-1.5) mg/dL AST 56 H (12-35) U/L ALT 107 H (4-35) U/L Alkaline Phosphatase 66 (40-150) U/L Troponin I < 0.01 L (0.01-0.04) ng/mL Total Protein 8.4 H (6.0-8.3) g/dL Albumin 4.9 (3.3-5.0) g/dL Lipase 142 (23-300) U/L Urine Color Yellow (Yellow) Urine Appearance Clear (Clear) Urine pH 6.0 (5.0-8.5) Ur Specific [place] 1.015 (1.000-1.030) Urine Protein Negative (Negative) Urine Glucose (UA) 3+ A (Negative) Urine Ketones Negative (Negative) Urine Blood Negative (Negative) Urine Nitrite Negative (Negative) Urine Bilirubin Negative (Negative) Urine Urobilinogen 0.2 (0.2-1.0) Ur Leukocyte Esterase Negative (Negative) Urine RBC 0-2 (0-2) Urine WBC 0-2 (0-5) Ur Squamous Epith Cells None (None-Few) Urine Bacteria None (None) Imaging Data Chest x-ray: Attestation: I have reviewed the pertinent imaging results. Radiologist's impression: IMPRESSION: 1. No acute cardiopulmonary disease is seen. ECG Data Attestation: I personally reviewed and interpreted this ECG as follows: Interpretation: Normal sinus rhythm Rate: 64 ND: 146 QRS axis: Incomplete right bundle branch block. Low voltage QRS. Normal QRS axis. ST segment/T wave: Nonspecific T-wave flattening throughout. No ST segment elevation or depression. QTc: 406 Discharge Plan Discharge Clinical Impression: Acute hyperglycemia, Abnormal LFTs, Chest pain, Left upper quadrant abdominal pain Patient Disposition: Home, Self-Care Condition: Stable Instructions: Chest Pain (ED), Abdominal Pain (ED), Diabetic Hyperglycemia (ED) Additional Instructions: So far your workup looks reassuring. Blood sugars come down nicely. Incidentally, your blood work tonight shows that your liver function tests are mildly abnormal, I suspect this is probably due to your fatty liver. Please check your blood sugar 1 more time tonight before bed. If your blood sugar drops below 120, please eat a snack to help keep your blood sugar up. If you have symptoms of dizziness, lightheadedness, confusion is, sweatiness, or any concerns, please check your blood sugar or eat a snack right away. Call 911 and return to the ER if your blood sugar is too low. Please come back to the ER right away if you have more trouble with her blood sugar, worsening chest pain or trouble breathing, worsening abdominal pain, fever, or any other problems. Prescriptions: No Action atorvastatin 10 mg tablet 10 mg PO DAILY metformin 1,000 mg tablet 1,000 mg PO BID gabapentin 300 mg capsule PO montelukast 10 mg tablet 10 mg PO DAILY Jardiance 10 mg tablet 10 mg PO DAILY Ozempic 1 mg/dose (4 mg/3 mL) pen injector 1 mg subcut QWEEK Follow Up/Referrals: Provider,Not a Local [Primary Care Provider] - Stand Alone Forms: [employer] Info Instructions
--- OUTSIDE RECORDS SUMMARY | 2024-03-13 20:18 | XMS_ITS | Clinical Summary ---
Author Organization [facility] Address [address] [place] [address] Care Team Providers Care Television Production Assistant Name Role Phone Unavailable Primary Care Provider Unavailabl e Source Comments Patient records contain information from all sites at [facility]. For routine questions regarding patient records, call [phone] during business hours, M-F 8:00 AM - 5:00 PM Central Time. Record requests for emergency care only can be directed to [phone] at any time.[facility] Allergies Active Allergy Reactions Criticality Noted Date [...] And Shrub Pollen Other (see comments) 06/25/2017 [place] tree - sinus and respiratory symptoms Medications [...] day. 02/24/19 22 Active miscellaneous medical supply [facility] New CPAP machine for home use at [...] Take 300 mg by mouth daily. 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 Med Refill from Last [...] Sister King Shahid 50 Suicide Attempts Sister Knig Shahid Attempte d 1981 Thyroid cancer Sister [...] drink = 0.6 oz pur e alcohol) [facility] Utilities Answer Date Recorded In the past 12 months has [facility] [employer], gas, oil, or water [employer] threatened to shut off services in your [...] often do you attend chur ch or hoahaoism services? 1 to 4 times per year [...] care, and heating? Not very hard 06/09/2022 [facility] - [...] your living situation today? I have a [facility] place to live 07/09/2023 Education Answer Date Recorded What is the highest level of school you have completed or the highest degree you have received? Associate degree: academic program 06/09/2022 Comments No Sex and Gender Information Value Date Recorded Sex Assigned at Female 02/16/2022 8:33 PM BRICK OR BLOCK MAKER Legal Sex Female 6:59 PM BRICK OR BLOCK MAKER Gender Identity Female 08/19/2017 10:59 PM CDT [...] AM CDT Clinical Communication Virtual Review in [place], [place] [address] [place] [address] 05/08/2024 9:00 AM CDT Appointment Department of Radiology, [facility], in [place], [place] [address] [place] [address] Ana María Delcid P.A.-C., M.S. [address] [place] [phone] 05/08/2024 12:15 PM CDT Appointment Department of Radiology, [facility], in [place], [place] [address] [place] [address] Ana María Delcid P.A.-C., M.S. [address] [place] [phone] 05/08/2024 2:40 PM CDT Office Visit Department of Oncology in [place], [place] [address] [place] [phone] Ana María Delcid P.A.-C., M.S. [address] [place] [phone] Health Maintenance Due Date Last Done Comments [...] this topic Medical Devices Implanted Type Area Senior Systems Engineer Device Identifier Shelf Expiration Date Model / Serial / Lot Clp Hrzn Ti 6 Clp -Lg Grn - [id number] Implanted:Qty : 1 on 03/24/2018 by Pancho Hendrickson M.D., M.S. at [facility] Hardware e.g. pins/screws/ rods Weck (Div of Site Lock) [id number] 02/13/2022 [id number] / / [id number] Clp Hrzn Ti 6 Clp Yeyo - [id number] Implanted:Qty : 1 on 03/24/2018 by Pancho Hendrickson M.D., M.S. at [facility] Hardware e.g. pins/screws/ rods Site Lock [id number] 10/29/2022 [id number] / / [id number] Clp Hrzn Ti 6 Clp Md-Lg Grn - [id number] Implanted:Qty : 1 on 03/24/2018 by Pancho Hendrickson M.D., M.S. at [facility] Hardware e.g. pins/screws/ rods Weck (Div of [employer]) [id number] 03/21/2022 [id number] / / [id number] Clp Hrzn Ti 6 Clp Alondra Grn - [id number] Implanted:Qty : 1 on 03/24/2018 by Pancho Hendrickson M.D., M.S. at [facility] Hardware e.g. pins/screws/ rods Weck (Div of [employer]) [id number] 03/21/2022 3200 / / [id number] Clp Hrzn Ti 6 Clp Yeyo - [id number] Implanted:Qty : 1 on 03/24/2018 by Pancho Hendrickson M.D., M.S. at [facility] Hardware e.g. pins/screws/ rods Anchor The[employer] [id number] / / Explanted Type Area Senior Systems Engineer Device Identifier Shelf Expiration Date Model / [...] M.S. LAB BLOOD ADD-ON [place] gurrola Result [facility] [address] [place] [address], [facility] [address] [place] [address] * (ABNORMAL) Hemoglobin A1c (06/12/2022 7:28 AM [...] M.S. LAB BLOOD ADD-ON [place] l Result [facility] [address] [place] [address], [facility] DTL [facility] [address] [place] [address] from Last 3 Months or Most Recently Relevant to Health Maintenance Insurance [facility] Advance Directives For more information, please contact: [phone] Documents on File Type Date Recorded Patient Cat Cracker Operator Expl anation Advance Directives 08/27/2013 12:00 [...]
--- OUTSIDE RECORDS SUMMARY | 2024-03-13 20:18 | XMS_ITS ---
Author Organization [facility] Address [address] [place] [address] Care Team Providers Care Dog License Officer Supervisor Name Role Phone Unavailable Primary Care Provider Unavailabl e Active Problems Problem Noted Date Diagnosed Date Diabetes Mellitus Type 2 03/20/2018 Asthma Mild Persistent 03/20/2018 Malignant Neoplasm Of Cervix 03/14/2018 Cancer Staging:Clinical: Unsigned Pathologic:FIGO Stage IB1(pT1b1, pN0, cM0) - Signed by Pancho Hendrickson M.D. on 04/02/2018 Overview (03/14/2018): Added automatically from request for surgery [id number] Pain Knee Left 08/20/2017 Pain Thigh Left [...]
--- OUTSIDE RECORDS SUMMARY | 2024-03-13 20:18 | XMS_ITS | Encounter Summary ---
Author Organization [facility] Address [address] [place] [address]. [place] [address] Care Team Providers Care Telegraph Mechanic Name Role Phone Sharda Sykes [facility] Unavailable [phone] Eduard Vargas DO Unavailable [phone] Eduard Vargas DO Primary Care Provider Reason for Visit * Reason Comments Medication Refill Encounter Details Date Type Department Care Team (Late st Contact Info) Description 03/02/2024 Refill [facility] [id number] [place] [phone] [place] [address] [place] [address] Medication Refill Social History Tobacco [...] How often do you attend rastafari or rastafarian serv ices? 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 Gender Identity Not on file Sexual Orientation Straight 06/28/2021 12 :12 PM CDT documented as of this encounter Plan of Treatment Not on file documented as of this encounter Visit Diagnoses Not on filedocumented in this encounter Care Teams Telegraph Mechanic Relationship Specialty [place] [address] [place] [address] PCP - General Family Medicine 05/10/21 Sharda Sykes, [facility] [address] [place] [address] Pharmacist Pharmacist 04/03/21 [place] [address] [place] [address] Assigned PCP 02/23/21 documented as of this encounter
--- OUTSIDE RECORDS SUMMARY | 2024-03-13 20:18 | XMS_ITS | Encounter Summary ---
Author Organization [facility] [facility] Address [facility] [place] [address] Care Team Providers Care Network Systems Administrator Name Role Phone Sharda Sykes [facility] Unavailable Eduard Vargas DO Unavailable [phone] Eduard Vargas DO Primary Care Provider [phone] Sharda Sykes [facility] Unavailable [phone] Encounter Details Date Type Department Care Team (Late st Contact Info) Description 05/28/2022 [facility] [address] [address] Sharda Sykes, [facility] [address] [place] [address] Social History Tobacco Use Types [...] How often do you attend hindu or tenriism serv ices? Never 03/11/2021 Do [...] Answer Date Recorded PHQ-2 Score 0 02/20/2022 [facility] - Occupational Stress Questionnaire Answer [...] in a intermediate (including now)? No 03/11/2021 Comments No Sex and Gender Information Value Date Recorded Sex Assigned at Not on file Legal Sex Female 2:58 AM SYSTEM SUPPORT ANALYST Gender Identity Not on file Sexual Orientation Straight 06/28/2021 12 :12 PM CDT documented as of this encounter Plan of Treatment Not on file documented as of this encounter Visit Diagnoses Not on filedocumented in this encounter Care Teams Network Systems Administrator Relationship Specialty [place] [address] [place] [address] PCP - General Family Medicine 05/10/21 Sharda Sykes [facility] [address] [place] [address] Pharmacist Pharmacist 04/03/21 [place] [address] [place] [address] Assigned PCP 02/23/21 Sharda Sykse [facility] [address] [place] [address] Assigned MTM Pharmacist 11/08/2101/02 documented as of this encounter
--- OUTSIDE RECORDS SUMMARY | 2024-03-13 20:18 | XMS_ITS | Encounter Summary ---
Author Organization [facility] Address [address] [place] [address]. [place] [address] Care Team Providers Care Office Clin Asst Name Role Phone Sharda Sykes [facility] Unavailable [phone] Eduard Vargas DO Unavailable [phone] Eduard Vargas DO Primary Care Provider [phone] Sharda Sykes [facility] Unavailable [phone] Encounter Details Date Type Department Care Team (Late st Contact Info) Description 05/14/2023 [facility] Medical Advice [address] [address] Britt Cortez Social History Tobacco [...] week 03/11/2021 How often do you attend spiritism or restorationism serv ices? Never 03/11/2021 Do you belong to any clubs o r organizations such as spiritism groups, unions, fraternal or athletic groups, or [...] Answer Date Recorded PHQ-2 Score 0 02/20/2022 [facility] - Occupational [...] in a fci (including now)? No 03/11/2021 Adolescent Education Answer Date Record ed Getting School Help Needed Not on file 11/05 Comments No Sex and Gender Information Value Date Recorded Sex Assigned at Not on file Legal Sex Female 2:58 AM KERRICK KLEANER OPERATOR Gender Identity Not on file Sexual Orientation Straight 06/28/2021 12 :12 PM CDT documented as of this encounter Plan of Treatment Not on file documented as of this encounter Visit Diagnoses Not on filedocumented in this encounter Care Teams Office Clin Asst Relationship Specialty Start [place] [address] [place] [address] PCP - General Family Medicine 05/10/21 Sharda Sykes [facility] [place] [address] Pharmacist Pharmacist 04/03/21 [place] [address] [place] [address] Assigned PCP 02/23/21 Sharda Sykes [facility] [address] [place] [address] Assigned MTM Pharmacist 11/08/2101/02 documented as of this encounter
--- OUTSIDE RECORDS SUMMARY | 2024-03-13 20:18 | XMS_ITS | Encounter Summary ---
Author Organization [facility] Address [address] [place] [address] Care Team Providers Care Hot Box Checker Name Role Phone Unavailable Primary Care Provider Unavailabl e Reason for Visit * Reason Comments Med Refill Encounter Details Date Type Department Care Team (Late st Contact Info) Description 03/03/2024 Refill Division of Gastroenterology in [place], [place] [address] [place] [phone] Tracie Batres M.B.B.S. [address] [place] [phone] Med Refill Social History Tobacco Use Types Packs/Day Years Used Date Smoking Tobacco: Former Cigarettes 0.3 5 1 - 12/26/1996 Smokeless Tobacco: Never Comments:smoked up to 1/2 pa ck per day maximum Alcohol Use Standard Drinks/Week Comments Not Currently 1 (1 standard drink = 0.6 oz pur e alcohol) [facility] Utilities Answer Date Recorded In [...] How often do you attend chur or buddhism services? 1 to 4 times per year [...] care, and heating? Not very hard 06/09/2022 [facility] of Occupat ional Health - Occupational Stress [...] your living situation today? I have a [facility] place to live 07/09/2023 Education Answer Date Recorded What is the highest level of school you have completed or the highest degree you have received? Associate degree: academic program 06/09/2022 Comments No Sex and Gender Information Value Date Recorded Sex Assigned at Female 02/16/2022 8:33 PM GROUP HOME PARAPROFESSIONAL Legal Sex Female 6:59 PM GROUP HOME PARAPROFESSIONAL Gender Identity Female 08/19/2017 10:59 PM CDT Sexual Orientation Straight 08/19/2017 10 :59 PM CDT documented as of this encounter Plan of Treatment Upcoming Encounters Date Type Department Care Team (Latest Contact Info) Description 05/05/2024 11:15 AM CDT Clinical Communication Virtual Review in [place], [place] [address] [place] [address] 05/08/2024 9:00 AM CDT Appointment Department of Radiology, [facility], in [place], [place] [address] [place] [address] Ana María Delcid P.A.-C., M.S. [address] [place] [phone] 05/08/2024 12:15 PM CDT Appointment Department of Radiology, [facility], in [place], [place] [address] [place] [address] Ana María Delcid P.A.-C., M.S. [address] [place] [phone] 05/08/2024 2:40 PM CDT Office Visit Department of Oncology in [address] [phone] Ana María Delcid P.A.-C., M.S. [address] [place] [phone] documented as of this encounter Visit Diagnoses Not on filedocumented in this encounter
--- OUTSIDE RECORDS SUMMARY | 2024-03-13 20:18 | XMS_ITS | Encounter Summary ---
Author Organization [place] Address [facility] [place] [address] Care Team Providers Care District Court Judge Name Role Phone Sharda Sykse [facility] Unavailable Eduard Vargas DO Unavailable [phone] Eduard Vargas DO Primary Care Provider [phone] Sharda Sykes [facility] Unavailable Encounter Details Date Type Department Care Team (Late st Contact Info) Description 11/21/2021 [facility] Medical Advice [address] [address] Sharda Sykes, [facility] [address] [place] [address] Social History Tobacco Use Types [...] week 03/11/2021 How often do you attend amish or uatsdin serv ices? Never 03/11/2021 Do you belong to any clubs o r organizations such as amish groups, unions, fraternal or athletic groups, or [...] Answer Date Recorded PHQ-2 Score 0 09/22/2021 [facility] - Occupational Stress Questionnaire Answer Date [...] in a custodial (including now)? 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 Gender Identity Not on file Sexual Orientation Straight 06/28/2021 12 :12 PM CDT documented as of this encounter Plan of Treatment Not on file documented as of this encounter Visit Diagnoses Not on filedocumented in this encounter Care Teams District Court Judge Relationship Specialty [place] [address] [place] [address] PCP - General Family Medicine 05/10/21 Sharda Sykes [facility] [address] [place] [address] Pharmacist Pharmacist 04/03/21 [place] [address] [place] [address] Assigned PCP 02/23/21 Sharda Sykes [facility] [address] [place] [address] Assigned MTM Pharmacist 11/08/2101/02 documented as of this encounter
--- OUTSIDE RECORDS SUMMARY | 2024-03-13 20:18 | XMS_ITS | Encounter Summary ---
Author Organization [place] Address [address] [place] [address]. [place] [address] Care Team Providers Care Html Web Developer Name Role Phone Sharda Sykes [facility] Unavailable [phone] Eduard Vargas DO Unavailable [phone] Eduard Vargas DO Primary Care Provider Sharda Sykes [facility] Unavailable [phone] Encounter Details Date Type Department Care Team (Late st Contact Info) Description 03/19/2022 My[facility] Medical Advice [facility] [address] [place] [address] [place] [id number] [place] [address] [id number] Social History Tobacco Use Types Packs/Day Years [...] How often do you attend mormon or gnosticist serv ices? Never 03/11/2021 Do [...] Answer Date Recorded PHQ-2 Score 0 02/20/2022 [facility] - Occupational Stress Questionnaire Answer Date Recorded [...] in a assisted (including now)? No 03/11/2021 Comments No Sex and Gender Information Value Date Recorded Sex Assigned at Not on file Legal Sex Female 2:58 AM FORM GRADER Gender Identity Not on file Sexual Orientation Straight 06/28/2021 12 :12 PM CDT COVID-19 Exposure Response Date Recorded In the last 10 days, have yo u been in contact with someone who was confirmed or suspected to have Coronavirus/COVID-19? No / Unsure 02/20/2022 9:56 AM FORM GRADER documented as of this encounter Plan of Treatment Not on file documented as of this encounter Visit Diagnoses Not on filedocumented in this encounter Care Teams Html Web Developer Relationship Specialty Start [place] [address] [place] [address] PCP - General Family Medicine 05/10/21 Sharda Sykes [facility] [address] [place] [address] Pharmacist Pharmacist 04/03/21 [place] [address] [place] [address] Assigned PCP 02/23/21 Sharda Sykes [facility] [address] [place] [address] Assigned MTM Pharmacist 11/08/2101/02 documented as of this encounter
--- OUTSIDE RECORDS SUMMARY | 2024-03-13 20:18 | XMS_ITS | Encounter Summary ---
Author Organization [place] Address [address] [place] [address]. [place] [address] Care Team Providers Care Pathology Technician Name Role Phone Sharda Sykes [facility] Unavailable [phone] Eduard Vargas DO Unavailable [phone] Eduard Vargas DO Primary Care Provider [phone] Sharda Sykes [facility] Unavailable [phone] Encounter Details Date Type Department Care Team (Late st Contact Info) Description 08/23/2022 [facility] Medical Advice [address] [address] Perri Irvin RN Social History [...] How often do you attend spiritism or oriental orthodox serv ices? Never 03/11/2021 Do you [...] Answer Date Recorded PHQ-2 Score 0 02/20/2022 [facility] of Occupat ional Health - [...] in a retirement (including now)? No 03/11/2021 Comments No Sex and Gender Information Value Date Recorded Sex Assigned at Not on file Legal Sex Female 2:58 AM MECHANICAL FACILITIES TECHNICIAN Gender Identity Not on file Sexual Orientation Straight 06/28/2021 12 :12 PM CDT documented as of this encounter Plan of Treatment Not on file documented as of this encounter Visit Diagnoses Not on filedocumented in this encounter Care Teams Pathology Technician Relationship Specialty [place] [address] [place] [address] PCP - General Family Medicine 05/10/21 Sharda Sykes [facility] [address] [place] [address] Pharmacist Pharmacist 04/03/21 [place] [address] [place] [address] Assigned PCP 02/23/21 Sharda Sykes [facility] [address] [place] [address] Assigned MTM Pharmacist 11/08/2101/02 documented as of this encounter
--- OUTSIDE RECORDS SUMMARY | 2024-03-13 20:18 | XMS_ITS | Encounter Summary ---
Author Organization [place] Address [address] [place] [address]. [place] [address] Care Team Providers Care River Tester Name Role Phone Sharda Sykes [facility] Unavailable Eduard Vargas DO Unavailable [phone] Eduard Vargas DO Primary Care Provider Sharda Sykes [facility] Unavailable Encounter Details Date Type Department Care Team (Late st Contact Info) Description 05/14/2023 MyC Medical Advice [facility] [address] [place] [address] [place] [id number] [place] [address] [id number] Social History Tobacco Use Types Packs/Day Years [...] How often do you attend christian or hoahaoism serv ices? Never 03/11/2021 Do [...] Answer Date Recorded PHQ-2 Score 0 02/20/2022 [facility] - Occupational Stress Questionnaire Answer [...] in a long-term (including now)? 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 TEACHER Gender Identity Not on file Sexual Orientation Straight 06/28/2021 12 :12 PM CDT documented as of this encounter Plan of Treatment Not on file documented as of this encounter Visit Diagnoses Not on filedocumented in this encounter Care Teams River Tester Relationship Specialty [place] [address] [place] [address] PCP - General Family Medicine 05/10/21 Sharda Sykes, [facility] [place], [place] [phone] Pharmacist Pharmacist 04/03/21 [place] [address] [place] [address] Assigned PCP 02/23/21 Sharda Sykes [facility] [address] [place] [address] Assigned MTM Pharmacist 11/08/2101/02 documented as of this encounter
--- OUTSIDE RECORDS SUMMARY | 2024-03-13 20:19 | XMS_ITS | Encounter Summary ---
Author Organization [place] Address [address] [place] [address]. [place] [address] Care Team Providers Care Well Shooter Name Role Phone Sharda Sykes [facility] Unavailable [phone] Eduard Vargas DO Unavailable [phone] Eduard Vargas DO Primary Care Provider [phone] Sharda Sykes [facility] Unavailable [phone] Encounter Details Date Type Department Care Team (Late st Contact Info) Description 04/09/2023 [facility] Medical Advice [facility] [address] [place] [phone] Nga Biggs MA Social History Tobacco [...] How often do you attend rastafari or yazidism serv ices? Never 03/11/2021 Do [...] Answer Date Recorded PHQ-2 Score 0 02/20/2022 [facility] of Occupat ional Health - [...] in a fdc (including now)? No 03/11/2021 Adolescent Education Answer Date Record ed Getting School Help Needed Not on file 11/05 Comments No Sex and Gender Information Value Date Recorded Sex Assigned at Not on file Legal Sex Female 2:58 AM CHUTE LOADER Gender Identity Not on file Sexual Orientation Straight 06/28/2021 12 :12 PM CDT documented as of this encounter Plan of Treatment Not on file documented as of this encounter Visit Diagnoses Not on filedocumented in this encounter Care Teams Well Shooter Relationship Specialty [place] [address] [place] [address] PCP - General Family Medicine 05/10/21 Sharda Sykes [facility] [address] [place] [address] Pharmacist Pharmacist 04/03/21 [place] [address] [place] [address] Assigned PCP 02/23/21 Sharda Sykes [facility] [address] [place] [address] Assigned MTM Pharmacist 11/08/2101/02 documented as of this encounter
--- OUTSIDE RECORDS SUMMARY | 2024-03-13 20:19 | XMS_ITS | Encounter Summary ---
Author Organization [place] Address [address] [place] [address]. [place] [address] Care Team Providers Care Blower Room Attendant Name Role Phone Sharda Sykes [facility] Unavailable [phone] Eduard Vargas DO Unavailable [phone] Eduard Vargas DO Primary Care Provider [phone] Sharda Sykes [facility] Unavailable [phone] Encounter Details Date Type Department Care Team (Late st Contact Info) Description 10/31/2022 [facility] Medical Advice [address] [address] Britt Cortez Social History Tobacco [...] How often do you attend taoist or religion serv ices? Never 03/11/2021 Do you belong [...] Answer Date Recorded PHQ-2 Score 0 02/20/2022 [facility] of Occupat ional [...] on file Legal Sex Female 2:58 AM SALES DESIGNER Gender Identity Not on file Sexual Orientation Straight 06/28/2021 12 :12 PM CDT documented as of this encounter Plan of Treatment Not on file documented as of this encounter Visit Diagnoses Not on filedocumented in this encounter Care Teams Blower Room Attendant Relationship Specialty Start [place] [address] [place] [address] PCP - General Family Medicine 05/10/21 Sharda Sykes, [facility] [address] [place], [place] [phone] Pharmacist Pharmacist 04/03/21 [place] [address] [place] [address] Assigned PCP 02/23/21 Sharda Sykes [facility] [address] [place] [address] Assigned MTM Pharmacist 11/08/2101/02 documented as of this encounter
--- OUTSIDE RECORDS SUMMARY | 2024-03-13 20:19 | XMS_ITS | Encounter Summary ---
Author Organization [facility] Address [address] [place] [address] Care Team Providers Care Special Forces Senior Sergeant Name Role Phone Peyman Iverson MD Primary Care Provider [phone] Reason for Visit * Reason Comments Spine Lumbar Encounter Details Date Type Department Care Team (Late st Contact Info) Description 01/28/2024 10:15 AM BRAND STRATEGIST Therapy [facility] Physical Therapy [address] [phone] [place] [address] [place], [place] [phone] Sacro-iliac pain (HRC) (Primary Dx) Social History [...] Albrecht, PT - 01/28/2024 10:15 AM CST [facility] Physical Therapy Daily Note Visit Number: 4 [...] of activity, stretches, gabapentin, ice Work/Leisure/Sport: work: [employer] Ortho rec: likes gardening but too painful lately SUBJECTIVE: Patient Report: Patient reports she is feeling better than last visit. Working a lot lately as [employer]. Has gone to the gym with daughter [...] when she goes with daughter Access Code: [email or web address] URL: [email or web address] Date: 01/28/2024 Prepared by: Nicole Albrecht Exercises [...] Therapist: Nicole Albrecht, PT 10:23 AM 01/28/2024 D STRATEGIST documented in this encounter Plan of Treatment Upcoming Encounters Date Type Department Care Team (Late st Contact Info) Description 04/28/2024 10:00 AM CDT Appointment [facility] [address] [place] [address] documented as of this encounter Visit Diagnoses Diagnosis Sacro-iliac pain (HRC)- Primary Disorders of sacrum documented in this encounter Care Teams Special Forces Senior Sergeant Relationship Specialty [place] [address] [place] [address] PCP - General Family Practice 08/05/23 documented as of this encounter
--- OUTSIDE RECORDS SUMMARY | 2024-03-13 20:19 | XMS_ITS | Encounter Summary ---
Author Organization [place] Address [facility] [place] [address] Care Team Providers Care Records Section Supervisor Name Role Phone Sharda Sykes [facility] Unavailable Eduard Vargas DO Unavailable [phone] Eduard Vargas DO Primary Care Provider Sharda Sykes [facility] Unavailable Encounter Details Date Type Department Care Team (Late st Contact Info) Description 11/30/2021 [facility] Medical Advice [address] [address] Sharda Sykes, [facility] [address] [place] [address] Type 2 diabetes mellitus without [...] week 03/11/2021 How often do you attend jainism or judaism serv ices? Never 03/11/2021 Do you belong to any clubs o r organizations such as jainism groups, unions, fraternal or athletic groups, or [...] Answer Date Recorded PHQ-2 Score 0 09/22/2021 [facility]at [facility] - Occupational [...] on file Legal Sex Female 2:58 AM FREIGHT RATE SPECIALIST Gender Identity Not on file Sexual Orientation Straight 06/28/2021 12 :12 PM CDT documented as of this encounter Plan of Treatment Not on file documented as of this encounter Results * (ABNORMAL) Hemoglobin A1c (02/20/2022 10:07 AM FREIGHT RATE SPECIALIST) Hemoglobin A1C 7.6(H) 0.0 - 5.6 % 02/20/2022 10:25 AM FREIGHT RATE SPECIALIST [facility] Comment: Normal <5.7% Prediabetes 5.7-6.4% Diabetes 6.5% or higher Note: Adopted from ADA consensus guidelines. Blood BLOOD SPECIMEN / Unknown Venipuncture / Unknown 02/20/2022 10:07 AM FREIGHT RATE SPECIALIST 02/20/2022 10:18 AM FREIGHT RATE SPECIALIST us Eduard Vargas DO LAB - BLOOD ORDERABLES Final Re sult LABORATORY [facility] [address] [facility] (no room number, 1st floor of clinic) [place] [address], [facility] [phone] documented in this encounter Visit Diagnoses Diagnosis Type 2 diabetes mellitus without complication, without long-term current use of insulin (H)- Primary documented in this encounter Care Teams Records Section Supervisor Relationship Specialty Start [place] [address] [place] [address] PCP - General Family Medicine 05/10/21 Sharda Sykes, [facility] [address] [place] [address] Pharmacist Pharmacist 04/03/21 [place] [address] [place] [address] Assigned PCP 02/23/21 Sharda Sykes, [facility] [address] [place] [address] Assigned MTM Pharmacist 11/08/2101/02 documented as of this encounter
--- OUTSIDE RECORDS SUMMARY | 2024-03-13 20:19 | XMS_ITS | Referral Summary ---
Author Organization [facility] Address [address] [place] [address]. [place] [address] Care Team Providers Care Dress Operator Name Role Phone Sharda Sykes [facility] Unavailable Eduard Vargas DO Unavailable [phone] Eduard Vargas DO Primary Care Provider Encounters Date Type Department Care Team Description 03/02/2024 Refill [facility] [address] [place] [phone] Viola Yates MD Medication Refill from Last 3 Months Allergies Active Allergy Reactions Criticality Noted Date Comments No Known Drug Allergy 01/06/2003 Medications CETIRIZINE HCL 10 MG OR TABSIndications: Rhinitis, allergic seasonal Take 10 mg by mouth daily Active Aspirin 81 MG CAPS Take 81 mg by mouth daily Active Cholecalciferol 1.25 MG (12897 UT) WAFR Take 5,000 Units by mouth Every Mon, Wed, Fri Morning Active Respiratory Therapy Supplies (CARETOUCH 2 CPAP HOSE MATERNITY FLOOR SUPERVISOR) [facility] New CPAP machine for home use at [...] migh t be different from the original. http://ptrx.org/admin/prescriptions/[email or web address] Problem Noted Date Diagnosed Date H/O abdominal [...] (03/15/2021): Added automatically from request for surgery [id number] Microalbuminuria 01/26/2018 Overview (03/15/2021): Will recheck in [...] How often do you attend anglican or mormon serv ices? Never 03/11/2021 Do [...] Answer Date Recorded PHQ-2 Score 0 02/20/2022 [facility] - Occupational [...] on file Legal Sex Female 2:58 AM NURSE CHARGE RN Gender Identity Not on file Sexual Orientation [...] 160 cm (5' 3) 02/20/2022 10:05 AM NURSE CHARGE RN Body Mass Index 32.42 02/20/2022 10:05 AM NURSE CHARGE RN Plan of Treatment Not on file Procedures Procedure Name Priority Date/Time Associated Diagnosis Comments EYE EXAM - HIM SCAN 11/01/2022 1 2:00 AM CDT HEMOGLOBIN A1C (EXTERNAL RESULT) Routine 06/12/2022 7:28 AM CDT COLOGUARD(compropago SCIENCES) Routine 10/19/2021 12:33 PM CDT Screen [...] (HIM EXTERNAL RESULT) Routine 01/19/2020 12:00 PM NURSE CHARGE RN ABSTRACT HPV (HIM EXTERNAL RESULT) Routine 01/19/2020 12:00 PM NURSE CHARGE RN from Last 3 Months or Most Recently Relevant to Health Maintenance Results * EYE EXAM - HIM SCAN (11/01/2022 12:00 AM CDT) RETINOPATHY NEGATIVE 11/01/2022 Yuli Dennis - 11/01/2022 12:00 AM CDT EYE EXAM [facility] us Provider Outside OTHER Edited Result - Final * (ABNORMAL) Hemoglobin A1c (External Result) (06/12/2022 7:28 AM CDT) Hemoglobin A1C (External) 7.9(A) 4.0 - 5.6 % [facility] [employer] Blood 06/12/2022 7:28 AM CDT Narrative [facility] - 06/12/2022 7:28 AM CDT CARE EVERYWHERE [facility] us Provider Outside LAB - HIM EXTERNAL RESULT Final Result [facility] [employer] [address] [place] [address] * COLOGUARD(Fotolog) (10/19/2021 12:33 PM CDT) COLOGUARD-ABSTRACT Negative Negative 2021 9:35 AM CDT [facility] (CLIA #:[id number]) Comment: NEGATIVE TEST RESULT. A negative Cologuard [...] (Cristhian Rangel al, N Engl J Med 2014;370(14):1221-3994) The normal value (reference range) for this assay is negative. COLOGUARD RE-SCREENING RECOMMENDATION: Periodic colorectal cancer screening is an important part of preventive healthcare for asymptomatic individuals at average risk for colorectal cancer. Following a negative Cologuard result, the [place] [employer] Society and U.S. Multi-Society Task Force screening guidelines recommend a Cologuard re-screening interval of 3 years. References: [place] [employer] Guideline for Colorectal Cancer Screening: https://www.cancer.org/cancer/udaaj-kwdjap-jtpevq/hdvariumh-haqoxlujk-uczeyun/ac s-rec ommendations.html.; Joaquín DK, Savanah JI, Kathleen CariasK, Colorectal Cancer Screening: Recommendations for Physicians and Patients from the U.S. Multi-Society Task Force on Colorectal Cancer Screening , Am J Gastroenterology 2017; 112:0843-5207. TEST DESCRIPTION: Composite algorithmic analysis of stool [...] Rizzo et al, N Engl J Med 2014;370(14):3025-7258.) Cologuard may produce a false negative or false positive result (no colorectal cancer or precancerous polyp present at colonoscopy follow up). A negative Cologuard test result does not guarantee the absence of CRC or advanced adenoma (pre-cancer). The current Cologuard screening interval is every 3 years. ([place] [employer] Society and U.S. Multi-Society Task Force). Cologuard performance data in a 10,000 patient pivotal study using colonoscopy as the reference method can be accessed at the following location: www.Dokkankom/results. Additional description of the Cologuard test process, warnings and precautions can be found at www.cologuard.com. Stool specimen (specimen) 10/19/2021 12:33 PM CDT 10/20/2021 6:11 PM CDT Eduard Vargas LABORATORY Final Result [facility] [address] [place] [address], [facility] [phone] [facility] (CLIA #:[id number]) [address] [place] [address] * (ABNORMAL) Comprehensive metabolic panel (10/19/2021 9:51 [...] and gender (Pasquale et al., NEJM, DOI: 10.1056/LRYXhx8994021) Blood BLOOD SPECIMEN / Unknown Venipuncture / Unknown 10/19/2021 9:51 AM CDT 10/19/2021 10:01 AM CDT us Eduard Vargas DO LAB - BLOOD ORDERABLES Final Re sult [facility] [address], [place] [address], [facility] [phone] * (ABNORMAL) Albumin Random Urine Quantitative with [...] URINE ORDERABLES Final Re sult [facility] [address] Lab (no room number, 1st floor of clinic) [place] [address], [place] [phone] * Lipid panel reflex to direct LDL [...] LAB - BLOOD ORDERABLES Final Re sult [facility] [address] Lab (no room number, 1st floor of clinic) [place] [address], [facility] [phone] * Mammogram - HIM Scan (11/25/2020) Anatomical Region Laterality Modality Other Narrative 11/25/2020 CARE EVERYWHERE [facility] us Provider Outside IMG MAMMOGRAPHY ORDERABLES Savannah l Result * Abstract HPV (HIM External Result) (01/19/2020 12:00 PM NURSE CHARGE RN) HPV Abstract See Scanned Document [facility] 01/19/2020 12:0 0 PM NURSE CHARGE RN Narrative [facility] - 01/19/2020 12:00 PM NURSE CHARGE RN Care Everywhere, [place] - [facility] HOTEL ASSISTANT GENERAL MANAGER us Provider Outside LAB - HIM EXTERNAL RESULT Final Result Performing Organization Address City/[facility]/ZIP Co de Phone Number [facility] [address] [place] [address], [facility] [phone] * Abstract PAP (HIM External Result) (01/19/2020 12:00 PM NURSE CHARGE RN) PAP-ABSTRACT See Scanned Document [facility] Comment:result unknown 01/19/2020 12:0 0 PM NURSE CHARGE RN Narrative [facility] - 01/19/2020 12:00 PM NURSE CHARGE RN Care Everywhere, [place] - [facility] HOTEL ASSISTANT GENERAL MANAGER us Provider Outside LAB - HIM EXTERNAL RESULT Final Result Performing Organization Address [facility]/ZIP Co de Phone Number [facility] [address] [place] [address], [facility] [phone] from Last 3 Months or Most Recently Relevant to Health Maintenance Care Teams Dress Operator Relationship Specialty [place] [address] [place] [address] PCP - General Family Medicine 05/10/21 Sharda Sykes, [facility] [address] [place] [address] Pharmacist Pharmacist 04/03/21 [place] [address] [place] [address] Assigned PCP 02/23/21
--- OUTSIDE RECORDS SUMMARY | 2024-03-13 20:19 | XMS_ITS | Encounter Summary ---
[facility] Address [address] [place] [address] Care Team Providers Care Philosophy Faculty Member Name Role Phone Peyman Iverson MD Primary Care Provider [phone] Reason for Visit * Reason Comments Spine Lumbar Encounter Details Date Type Department Care Team (Late st Contact Info) Description 02/06/2024 11:30 AM STRIPE MATCHER Therapy [facility] Physical Therapy [address] [address] [place] [address] [place] [address] Sacro-iliac pain (HRC) (Primary Dx) Social History [...] [place], PT - 02/06/2024 11:30 AM CST [facility] Physical Therapy Daily Note Visit Number: 5 [...] of activity, stretches, gabapentin, ice Work/Leisure/Sport: work: [email or web address] rec: likes gardening but too painful [...] april 2x10 B Added crossover Access Code: [email or web address] URL: [email or web address] Date: 01/28/2024 Prepared by: Nicole Albrecht Exercises [...] Therapist: [place] PT 12:13 PM 02/06/2024 [facility] Physical Therapy Discharge Summary PT - Discharge [...] patient to call with questions or concerns. PE MATCHER documented in this encounter Plan of Treatment Upcoming Encounters Date Type Department Care Team (Late st Contact Info) Description 04/28/2024 10:00 AM CDT Appointment [facility] [address] [place] [address] documented as of this encounter Visit Diagnoses Diagnosis Sacro-iliac pain (HRC)- Primary Disorders of sacrum documented in this encounter Care Teams Philosophy Faculty Member Relationship Specialty [place] [address] [place] [address] PCP - General Family Practice 08/05/23 documented as of this encounter
--- OUTSIDE RECORDS SUMMARY | 2024-03-13 20:19 | XMS_ITS | Encounter Summary ---
[facility] Address [address] [place] [address] Care Team Providers Care Rigging And Controls Aircraft Mechanic Name Role Phone Peyman Iverson MD Primary Care Provider Reason for Visit * Reason Comments MEDICATION CHECK Diabetes Encounter Details Date Type Department Care Team (Late st Contact Info) Description 01/28/2024 1:30 PM CLINICAL APPLICATION MANAGER Office Visit [place] [address] Family Medicine [address] [place] [phone] [place] [address] [place], [place] [phone] Type 2 diabetes mellitus with diabetic microalbuminuria, [...] Comments Blood Pressure 103/72 01/28/2024 1:13 PM CLINICAL APPLICATION MANAGER Pulse 77 01/28/2024 1:13 PM CLINICAL APPLICATION MANAGER Temperature - - Respiratory Rate 16 01/28/2024 1:13 PM CLINICAL APPLICATION MANAGER Oxygen Saturation - - Inhaled Oxygen Concentration - - Weight 82.6 kg (182 lb) 01/28/2024 1:13 PM CLINICAL APPLICATION MANAGER Height - - Body Mass Index 33.29 12/17/2023 12:18 PM CLINICAL APPLICATION MANAGER documented in this encounter Patient Instructions * Patient Instructions* Peyman Iverson MD - 01/28/2024 1:30 PM CLINICAL APPLICATION MANAGER Repeat labs in 3 months. ICAL APPLICATION MANAGER documented in this encounter Progress Notes * [...] Peyman Iverson MD 01/28/2024 Voice recognition software ([employer] was used to generate this note. As a result, wrong word or 'lkojr-b-hifx' substitutions may have occurred due to the inherent limitations of voice recognition software. There may be errors in the script that have gone undetected. Please consider this when interpreting information found in this chart. ICAL APPLICATION MANAGER documented in this encounter Plan of Treatment Upcoming Encounters Date Type Department Care Team (Late st Contact Info) Description 04/28/2024 10:00 AM CDT Appointment [facility] [address] [place] [address] Scheduled Orders Name Type Priority Associated Diagnoses [...] esophagitis documented in this encounter Care Teams Rigging And Controls Aircraft Mechanic Relationship Specialty [place] [address] [place] [address] PCP - General Family Practice 08/05/23 documented as of this encounter
--- OUTSIDE RECORDS SUMMARY | 2024-03-13 20:19 | XMS_ITS | Encounter Summary ---
Author Organization [facility] Address [address] [place] [address] Care Team Providers Care Cooker Sulfite Name Role Phone Peyman Iverson MD Primary Care Provider Reason for Referral * Procedure/Equipment (Routine) - Incomplete Specialty Diagnoses / Procedures Referred By Chuy t Referred To Contact Procedures MM Mammogram Screening Bilat W [address]D [place] [address] [place] [address] Referral ID Status Reason Start Date Expiration Date V isits Requested Visits Authorized [id number] Incomplete 02/21/2024 05/22/2025 1 1 LOCATOR Reason for Visit * Procedure/Equipment (Routine) - Incomplete Specialty Diagnoses / Procedures Referred By Chuy salazar Referred To Contact Procedures MM Mammogram Screening Bilat [address] [place] [address] [place] [address] Referral ID Status Reason Start Date Expiration Date V isits Requested Visits Authorized [id number] Incomplete 02/21/2024 05/22/2025 1 1 Encounter Details Date Type Department Care Team (Latest Contact Info) Description 02/21/2024 10:00 AM PEST LOCATOR Ancillary Procedure Mammography at [address] [address] Social History Tobacco Use Types [...] Info) Description 04/28/2024 10:00 AM CDT Appointment [facility] [address] [place] [phone] documented as of this encounter Procedures Procedure Name Priority Date/Time Associated Diagnosis Comments MM MAMMOGRAM SCREENING BILAT W 3D MADDI W CAD Routine 02/21/2024 10:22 AM PEST LOCATOR documented in this encounter Results * MM Mammogram Screening Bilat W 3D Maddi W CAD (02/21/2024 10:22 AM PEST LOCATOR) Anatomical Region Laterality Modality Breast Bilateral Mammography Impressions 02/24/2024 10:11 AM PEST LOCATOR : ACR BI-RADS Category 1: Negative RECOMMENDATION: Follow Up Imaging in 12 months - Bilateral The results and recommendations of this examination will be communicated to the patient. Narrative 02/24/2024 10:11 AM PEST LOCATOR MM MAMMOGRAM SCREENING BILAT W 3D MADDI W CAD performed on 02/21/24 FDA Accredited Facility: [place] [address] Compared to: 02/19/2023 MM Mammogram [...] on filedocumented in this encounter Care Teams Cooker Sulfite Relationship Specialty [place] [address] [place] [address] PCP - General Family Practice 08/05/23 documented as of this encounter
--- OUTSIDE RECORDS SUMMARY | 2024-03-13 20:19 | XMS_ITS | Encounter Summary ---
Author Organization [facility] Address [address] [place] [address] Care Team Providers Care Cotton Gin Yard Supervisor Name Role Phone Peyman Iverson MD Primary Care Provider Reason for Visit * Reason Comments Refill metFORMIN (GLUCOPHAG E) 1000 MG tablet [Pharmacy Med Name: Metformin Hydrochloride 1000mg Tablet] Encounter Details Date Type Department Care Team (Late st Contact Info) Description 02/06/2024 Refill [place] [address] Family Medicine [address] [place] [phone] [place] [address] [place], [place] [phone] Refill (metFORMIN (GLUCOPHAGE) 1000 MG tablet [Pharmacy [...] Take 1 tablet by mouth twice daily. WEIGHT AND STRENGTH TESTER * Heath Saba [facility] - 02/06/2024 2:58 [...] on 01/17/2024 HBA1C: 7.7 % on 01/17/2024 [facility] Embedded Refills, Reference: [id number], 02/06/2024 2:58:13 PM Amadou ALEGRIA: JOSE A Refill [facility] - Primary Care [[id number]] ([id number]) WEIGHT AND STRENGTH TESTER * Roxiehillary Vipulzacon [facility] - 02/06/2024 2:58 PM CST The following lab order(s) may be associated with the following Patient Result Comment (Entered by Peyman Iverson MD at 01/19/2024 2:05 PM): BASIC METABOLIC PANEL Here are your lab results, which we will discuss in more detail at your upcoming appointment.See you then,Dr. Iverson WEIGHT AND STRENGTH TESTER * Ankush Sabadavinajennifer [facility] - 02/06/2024 2:58 PM CST The following lab order(s) may be associated with the following Patient Result Comment (Entered by Peyman Iverson MD at 01/19/2024 2:05 PM): HGB A1C Here are your lab results, which we will discuss in more detail at your upcoming appointment.See you then,Dr. Iverson WEIGHT AND STRENGTH TESTER documented in this encounter Plan of Treatment Upcoming Encounters Date Type Department Care Team (Late st Contact Info) Description 04/28/2024 10:00 AM CDT Appointment [facility] [address] [place] [address] documented as of this encounter Visit Diagnoses Not on filedocumented in this encounter Care Teams Cotton Gin Yard Supervisor Relationship Specialty [place] [address] [place] [address] PCP - General Family Practice 08/05/23 documented as of this encounter
--- OUTSIDE RECORDS SUMMARY | 2024-03-13 20:19 | XMS_ITS | Encounter Summary ---
Author Organization [facility] Address [address] [place] [address]. [place] [address] Care Team Providers Care Goodwill Representative Name Role Phone Sharda Sykes [facility] Unavailable [phone] Eduard Vargas DO Unavailable [phone] Eduard Vargas DO Primary Care Provider [phone] Sharda Sykes [facility] Unavailable Encounter Details Date Type Department Care Team (Late st Contact Info) Description 08/23/2022 MyC Medical Advice [facility] [address] [place] [phone] [place] [id number] [place] [address] [phone] Social History Tobacco Use Types Packs/Day Years [...] How often do you attend confucianism or judaism serv ices? Never 03/11/2021 Do [...] Date Recorded PHQ-2 Score 0 02/20/2022 [facility] [place] - Occupational Stress Questionnaire Answer Date Recorded [...] in a halfway (including now)? No 03/11/2021 Comments No Sex and Gender Information Value Date Recorded Sex Assigned at Not on file Legal Sex Female 2:58 AM DIRECTOR INTELLIGENCE ANALYSIS PROGRAMS Gender Identity Not on file Sexual Orientation Straight 06/28/2021 12 :12 PM CDT documented as of this encounter Plan of Treatment Not on file documented as of this encounter Visit Diagnoses Not on filedocumented in this encounter Care Teams Goodwill Representative Relationship Specialty Start [place] [address] [place] [address] PCP - General Family Medicine 05/10/21 Sharda Sykes [facility] [address] [place] [address] Pharmacist Pharmacist 04/03/21 [place] [address] [place] [address] Assigned PCP 02/23/21 Sharda Sykes [facility] [address] [place] [address] Assigned MTM Pharmacist 11/08/2101/02 documented as of this encounter
--- OUTSIDE RECORDS SUMMARY | 2024-03-13 20:19 | XMS_ITS | Clinical Summary ---
Author Organization [place] Address [address] [place] [address]. [place] [address] Care Team Providers Care Warp Picker Name Role Phone Sharda Sykes [facility] Unavailable Eduard Vargas DO Unavailable [phone] Eduard Vargas DO Primary Care Provider [phone] Allergies Active Allergy Reactions Criticality Noted Date Comments No Known Drug Allergy 01/06/2003 Medications CETIRIZINE HCL 10 MG OR TABSIndications: Rhinitis, allergic seasonal Take 10 mg by mouth daily Active Aspirin 81 MG CAPS Take 81 mg by mouth daily Active Cholecalciferol 1.25 MG (05324 UT) WAFR Take 5,000 Units by mouth Every Mon, Wed, Fri Morning Active Respiratory Therapy Supplies (CARETOUCH 2 CPAP HOSE ALLERGIST IMMUNOLOGIST) [facility] New CPAP machine for home use at [...] migh t be different from the original. http://ptrx.org/admin/prescriptions/[email or web address] Problem Noted Date Diagnosed Date H/O abdominal [...] (03/15/2021): Added automatically from request for surgery [id number] Microalbuminuria 01/26/2018 Overview (03/15/2021): Will recheck in [...] Type Department Care Team Description 03/02/2024 Refill [facility] [id number] [place] [address] Viola Yates MD Medication Refill from [...] week 03/11/2021 How often do you attend episcopal or mu-ism serv ices? Never 03/11/2021 Do you belong to any clubs o r organizations such as episcopal groups, unions, fraternal or athletic groups, or [...] PHQ-2 Score 0 02/20/2022 [facility] - Occupational Stress Questionnaire Answer Date Recorded [...] in a halfway (including now)? No 03/11/2021 Adolescent Education Answer Date Record ed Getting School Help Needed Not on file 11/05 Comments No Sex and Gender Information Value Date Recorded Sex Assigned at Not on file Legal Sex Female 2:58 AM AUDIO PRODUCTION ENGINEER Gender Identity Not on file Sexual Orientation [...] 160 cm (5' 3) 02/20/2022 10:05 AM AUDIO PRODUCTION ENGINEER Body Mass Index 32.42 02/20/2022 10:05 AM AUDIO PRODUCTION ENGINEER Plan of Treatment Health Maintenance Due Date [...] (EXTERNAL RESULT) Routine 06/12/2022 7:28 AM CDT COLOGUARD([employer]) Routine 10/19/2021 12:33 PM CDT Screen [...] (HIM EXTERNAL RESULT) Routine 01/19/2020 12:00 PM AUDIO PRODUCTION ENGINEER ABSTRACT HPV (HIM EXTERNAL RESULT) Routine 01/19/2020 12:00 PM AUDIO PRODUCTION ENGINEER from Last 3 Months or Most Recently Relevant to Health Maintenance Results * EYE EXAM - [facility] SCAN (11/01/2022 12:00 AM CDT) RETINOPATHY NEGATIVE 11/01/2022 Narrative Yuli Castorena - 11/01/2022 12:00 AM CDT EYE EXAM [facility] us Provider Outside OTHER Edited Result - Final * (ABNORMAL) Hemoglobin A1c (External Result) (06/12/2022 7:28 AM CDT) Pathologist [facility] Hemoglobin A1C (External) 7.9(A) 4.0 - 5.6 % [facility] Blood 06/12/2022 7:28 AM CDT Narrative [facility] - 06/12/2022 7:28 AM CDT [facility] us Provider Outside LAB - HIM EXTERNAL RESULT Final Result [facility] [address] [place] [address] * COLOGUARD([email or web address]) (10/19/2021 12:33 PM CDT) Pathologist [facility] COLOGUARD-ABSTRACT Negative Negative 2021 9:35 AM CDT [facility] (CLIA #:[id number]) Comment: NEGATIVE TEST RESULT. A negative Cologuard [...] (Cristhian Rangel al, N Engl J Med 2014;370(14):9291-2883) The normal value (reference range) for this assay is negative. COLOGUARD RE-SCREENING RECOMMENDATION: Periodic colorectal cancer screening is an important part of preventive healthcare for asymptomatic individuals at average risk for colorectal cancer. Following a negative Cologuard result, the [place] Cancer Society and U.S. Multi-Society Task Force screening guidelines recommend a Cologuard re-screening interval of 3 years. References: [place] [employer] Guideline for Colorectal Cancer Screening: https://www.cancer.org/cancer/pwaql-ssgkkb-sorqur/amdqkirkr-kilodtlhv-klywxmj/ac s-rec ommendations.html.; Joaquín DK, Savanah JI, Kathleen CariasK, Colorectal Cancer Screening: Recommendations for Physicians and Patients from the U.S. Multi-Society Task Force on Colorectal Cancer Screening , Am J Gastroenterology 2017; 112:1780-8125. TEST DESCRIPTION: Composite algorithmic analysis of stool [...] (Cristhian Rangel al, N Engl J Med 2014;370(14):1444-4747.) Cologuard may produce a false negative or false positive result (no colorectal cancer or precancerous polyp present at colonoscopy follow up). A negative Cologuard test result does not guarantee the absence of CRC or advanced adenoma (pre-cancer). The current Cologuard screening interval is every 3 years. ([place] Cancer Society and U.S. Multi-Society Task Force). Cologuard performance data in a 10,000 patient pivotal study using colonoscopy as the reference method can be accessed at the following location: www.Arimaz/results. Additional description of the Cologuard test process, warnings and precautions can be found at www.emotion.meogCellular Dynamics Internationalrd.com. Stool specimen (specimen) 10/19/2021 12:33 PM CDT 10/20/2021 6:11 PM CDT Eduard Vargas LABORATORY Final Result [facility] [address] [place] [address], [facility] [phone] [facility] (CLIA #:[id number]) [address] [place] [address] * (ABNORMAL) Comprehensive metabolic panel (10/19/2021 9:51 [...] and gender (Pasquale et al., NEJM, DOI: 10.1056/CGDJzw7060158) Blood BLOOD SPECIMEN / Unknown Venipuncture / Unknown 10/19/2021 9:51 AM CDT 10/19/2021 10:01 AM CDT Eduard Vargas DO LAB - BLOOD ORDERABLES Final Re sult [facility] [address], [place] [address], [facility] [phone] * (ABNORMAL) Albumin Random Urine Quantitative with [...] URINE ORDERABLES Final Re sult [facility] [address] Lab (no room number, 1st floor of clinic) [place] [address], [facility] [phone] * Lipid panel reflex to direct LDL [...] LAB - BLOOD ORDERABLES Final Re sult [facility] [address] Lab (no room number, 1st floor of clinic) [place] [address], [facility] [phone] * Mammogram - HIM Scan (11/25/2020) Anatomical Region Laterality Modality Other Narrative 11/25/2020 [facility] Provider Outside IMG MAMMOGRAPHY ORDERABLES Savannah l Result * Abstract HPV (HIM External Result) (01/19/2020 12:00 PM AUDIO PRODUCTION ENGINEER) HPV Abstract See Scanned Document [facility] 01/19/2020 12:0 0 PM AUDIO PRODUCTION ENGINEER Narrative [facility] - 01/19/2020 12:00 PM AUDIO PRODUCTION ENGINEER Care Every[facility], [place] [facility] NURSE us Provider Outside LAB - HIM EXTERNAL RESULT Final Result [facility] [address] [facility] [place] [address], [facility] [phone] * Abstract PAP (HIM External Result) (01/19/2020 12:00 PM AUDIO PRODUCTION ENGINEER) PAP-ABSTRACT See Scanned Document [facility] Comment:result unknown 01/19/2020 12:0 0 PM AUDIO PRODUCTION ENGINEER Narrative [facility] - 01/19/2020 12:00 PM AUDIO PRODUCTION ENGINEER Care Every[facility], [place] [facility]IOVASC[facility]PER[facility] ROOM NURSE us Provider Outside LAB - HIM EXTERNAL RESULT Final Result [facility] [address] [facility] [place] [id number], [facility] [phone] from Last 3 Months or Most Recently Relevant to Health Maintenance Care Teams Warp Picker Relationship Specialty [place] [address] [place] [address] PCP - General Family Medicine 05/10/21 Sharda Sykes, [facility] [address] [place] [address] Pharmacist Pharmacist 04/03/21 [place] [address] [place] [address] Assigned PCP 02/23/21
--- OUTSIDE RECORDS SUMMARY | 2024-03-13 20:19 | XMS_ITS | Encounter Summary ---
[facility] Organization [facility] Address [address] [place] [address] Care Team Providers Care Burial Vault Maker Name Role Phone Peyman Iverson MD Primary Care Provider Reason for Visit * Reason Comments Refill estradiol (ESTRACE) 0.1 MG/GM vaginal cream [Pharmacy Med Name: Estradiol 0.01% Vaginal Cream] Encounter Details Date Type Department Care Team (Late st Contact Info) Description 02/21/2024 Refill [place] [address] Family Medicine [address] [place] [phone] [place] [address] [place] [address] Refill (estradiol (ESTRACE) 0.1 MG/GM vaginal cream [...] visit: None [facility] Embedded Refills, Reference: [id number], 02/21/2024 2:45:14 PM Amadou ALEGRIA: JOSE A Refill Centralized Services - Primary Care [[id number]] ([id number]) SOFTWARE ENGINEER documented in this encounter Plan of Treatment Upcoming Encounters Date Type Department Care Team (Late st Contact Info) Description 04/28/2024 10:00 AM CDT Appointment [facility] [address] [place] [address] documented as of this encounter Visit Diagnoses Diagnosis Menopausal vaginal dryness Symptomatic menopausal or female climacteric states documented in this encounter Care Teams Burial Vault Maker Relationship Specialty [place] [address] [place] [address] PCP - General Family Practice 08/05/23 documented as of this encounter
--- OUTSIDE RECORDS SUMMARY | 2024-03-13 20:19 | XMS_ITS | Encounter Summary ---
Author Organization [facility] Address [address], [place] [address] Care Team Providers Care Pediatrician Active Practice Name Role Phone Peyman Iverson MD Primary Care Provider Reason for Visit * Reason Comments Refill atorvastatin (LIPITO R) 10 MG tablet [Pharmacy Med Name: Atorvastatin Calcium 10mg Tablet] Encounter Details Date Type Department Care Team (Late st Contact Info) Description 02/06/2024 Refill [place] [address] Family Medicine [address] [place] [address] [place] [address] [place], [place] [id number] Refill (atorvastatin (LIPITOR) 10 MG tablet [Pharmacy [...] Sig: Take 1 tablet by mouth daily. COUNTER CLERK * Heath Saba [facility] - 02/06/2024 1:08 [...] visit: None [facility] Embedded Refills, Reference: [id number], 02/06/2024 1:08:14 PM Steve ALEGRIA Centralized Services - Primary Care [[id number]] ([id number]) COUNTER CLERK documented in this encounter Plan of Treatment Upcoming Encounters Date Type Department Care Team (Late st Contact Info) Description 04/28/2024 10:00 AM CDT Appointment [facility] [address] [place] [address] documented as of this encounter Visit Diagnoses Not on filedocumented in this encounter Care Teams Pediatrician Active Practice Relationship Specialty [place] [address] [place] [address] PCP - General Family Practice 08/05/23 documented as of this encounter
--- OUTSIDE RECORDS SUMMARY | 2024-03-13 20:19 | XMS_ITS | Encounter Summary ---
Author Organization [place] Address [facility]ly [facility] [place] [address] Care Team Providers Care Superintendent Schools Name Role Phone Sharda Sykes [facility] Unavailable Eduard Vargas DO Unavailable [phone] Eduard Vargas DO Primary Care Provider [phone] Sharda Sykes [facility] Unavailable Encounter Details Date Type Department Care Team (Late st Contact Info) Description 12/20/2022 [facility] [address] [address] Sharda Sykes, [facility] [address] [place] [address] Social History Tobacco Use Types [...] How often do you attend restoration or anabaptist serv ices? Never 03/11/2021 Do [...] Answer Date Recorded PHQ-2 Score 0 02/20/2022 [facility] - Occupational Stress Questionnaire Answer [...] in a intermediate (including now)? No 03/11/2021 Adolescent Education Answer Date Record ed Getting School Help Needed Not on file 11/05 Comments No Sex and Gender Information Value Date Recorded Sex Assigned at Not on file Legal Sex Female 2:58 AM GINSENG FARMER Gender Identity Not on file Sexual Orientation Straight 06/28/2021 12 :12 PM CDT documented as of this encounter Plan of Treatment Not on file documented as of this encounter Visit Diagnoses Not on filedocumented in this encounter Care Teams Superintendent Schools Relationship Specialty Start [place] [address] [place] [address] PCP - General Family Medicine 05/10/21 Sharda Sykes, [facility] [address] [place] [address] Pharmacist Pharmacist 04/03/21 [place] [address] [place] [address] Assigned PCP 02/23/21 Sharda Sykes [facility] [address] [place] [address] Assigned MTM Pharmacist 11/08/2101/02 documented as of this encounter
--- OUTSIDE RECORDS SUMMARY | 2024-03-13 20:19 | XMS_ITS | Encounter Summary ---
Author Organization [place] Address [address] [place] [address]. [place] [address] Care Team Providers Care Library Technician Name Role Phone Humphrey Mccray MD Primary Care Provider Unavailable Sharda Sykes [facility] Unavailable Eduard Vargas DO Unavailable [phone] Eduard Vargas DO Primary Care Provider Sharda Sykes [facility] Unavailable [phone] Sharda Sykes [facility] Unavailable Encounter Details Date Type Department Care Team (Late st Contact Info) Description 03/17/2021 MyC Medical Advice [facility] [address] [place] [address] [place] [id number] [place] [address] Social History Tobacco Use Types Packs/Day [...] week 03/11/2021 How often do you attend samaritan or mandaen serv ices? Never 03/11/2021 Do you belong to any clubs o r organizations such as samaritan groups, unions, fraternal or athletic groups, or [...] Answer Date Recorded PHQ-2 Score 0 03/14/2021 [facility] - Occupational Stress Questionnaire Answer [...] on file Legal Sex Female 2:58 AM BINDING NICKER Gender Identity Not on file Sexual Orientation Straight 06/28/2021 12 :12 PM CDT COVID-19 Exposure Response Date Recorded In the last month, have you been in contact with someone who was confirmed or suspected to have Coronavirus / COVID-19? No / Unsure 03/15/2021 9:11 AM BINDING NICKER documented as of this encounter Plan of Treatment Not on file documented as of this encounter Visit Diagnoses Not on filedocumented in this encounter Care Teams Library Technician Relationship Specialty Start Date End Date Humphrey Mccray MD PCP - General 02/24/99 05/09/21 [place] [address] [place] [address] PCP - General Family Medicine 05/10/21 Sharda Sykes [facility] [address] [place] [address] Pharmacist Pharmacist 04/03/21 [place] [address] [place] [address] Assigned PCP 02/23/21 Sharda Sykes [facility] [address] [place] [address] Assigned MTM Pharmacist 08/05/21 Sharda Sykes, [facility] [address] [place] [address] Assigned MTM Pharmacist 11/08/2101/02 documented as of this encounter
--- OUTSIDE RECORDS SUMMARY | 2024-03-13 20:19 | XMS_ITS | Encounter Summary ---
Author Organization [place] Address [address] [place] [address]. [place] [address] Care Team Providers Care Veterinary Surgeon Name Role Phone Sharda Sykes [facility] Unavailable [phone] Eduard Vargas DO Unavailable [phone] Eduard Vargas DO Primary Care Provider [phone] Sharda Sykes [facility] Unavailable [phone] Encounter Details Date Type Department Care Team (Late st Contact Info) Description 03/08/2023 [facility] Medical Advice [address] [address] Britt Cortez Social History Tobacco [...] week 03/11/2021 How often do you attend mandaen or oriental orthodox serv ices? 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 Gender Identity Not on file Sexual Orientation Straight 06/28/2021 12 :12 PM CDT documented as of this encounter Plan of Treatment Not on file documented as of this encounter Visit Diagnoses Not on filedocumented in this encounter Care Teams Veterinary Surgeon Relationship Specialty Start [place] [address] [place] [address] PCP - General Family Medicine 05/10/21 Sharda Sykes [facility] [place] [address] Pharmacist Pharmacist 04/03/21 [place] [address] [place] [address] Assigned PCP 02/23/21 Sharda Sykes [facility] [address] [place] [address] Assigned MTM Pharmacist 11/08/2101/02 documented as of this encounter
--- OUTSIDE RECORDS SUMMARY | 2024-03-13 20:19 | XMS_ITS | Encounter Summary ---
Author Organization [place] Address [address] [place] [address]. [place] [address] Care Team Providers Care Range Examiner Name Role Phone Humphrey Mccray MD Primary Care Provider Unavailable Sharda Sykes [facility] Unavailable [phone] Eduard Vargas DO Unavailable [phone] Eduard Vargas DO Primary Care Provider Sharda Sykes [facility] Unavailable Sharda Sykes [facility] Unavailable [phone] Encounter Details Date Type Department Care Team (Late st Contact Info) Description 03/24/2021 MyC Medical Advice [facility] [id number] [place] [address] [place] [id number] [place] [address] Social History Tobacco Use Types Packs/Day [...] week 03/11/2021 How often do you attend voodoo or quaker serv ices? 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 No / Unsure 03/15/2021 9:11 AM SALES AND SERVICE SPECIALIST documented as of this encounter Plan of Treatment Not on file documented as of this encounter Visit Diagnoses Not on filedocumented in this encounter Care Teams Range Examiner Relationship Specialty Start Date End Date Humphrey Mccray MD PCP - General 02/24/99 05/09/21 [place] [address] [place] [address] PCP - General Family Medicine 05/10/21 Sharda Sykes [facility] [address] [place] [address] Pharmacist Pharmacist 04/03/21 [place] [address] [place] [address] Assigned PCP 02/23/21 Sharda Sykes [facility] [address] [place] [address] Assigned MTM Pharmacist 08/05/21 Sharda Sykes, [facility] [address] [place] [address] Assigned MTM Pharmacist 11/08/2101/02 documented as of this encounter
--- OUTSIDE RECORDS SUMMARY | 2024-03-13 20:20 | XMS_ITS | Clinical Summary ---
Author Organization [facility] Address [address], [place] [address] Care Team Providers Care Product Marketing Specialist Name Role Phone Peyman Iverson MD Primary Care Provider [phone] Source Comments You are receiving this document [...] for each transition of care or referral. [employer]each Allergies Active Allergy Reactions Criticality Noted Date [...] 11 3 Active Lancets (ONETOUCH DELICA PLUS [id number]) MISC Apply 1 Lancet topically daily. 3 [...] ovaries. Added automatically from request for surgery [id number] Added automatically from request for surgery [id number] 03/24/2018: Radical total abdominal hysterectomy for cervical cancer. Path shows no evidence of residual cervical cancer or metastisis. Pap in 2019 but I can't see that result. 2023 NILM, neg HPV 52 y.o. vaginal pap Plan: Annual pap testing per [facility]. 02/2024. 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 Encounters Date Type Department Care Team Description 03/10/2024 12:40 PM RN INFORMATICS Office Visit [place] [address] [facility] [address] [place] [phone] Elvira Tidwell MD Acute bronchitis, unspecified organism 02/21/2024 10:00 AM RN INFORMATICS Ancillary Procedure Mammography at [address] [address] 02/21/2024 Refill [place] [address] Family Medicine [address] [place] [address] Peyman Iverson MD Refill (estradiol (ESTRACE) 0.1 MG/GM vaginal cream [Pharmacy Med Name: Estradiol 0.01% Vaginal Cream]) 02/06/2024 11:30 AM RN INFORMATICS Therapy [facility] [address] [place] [address] [address] [place] PT Sacro-iliac pain (HRC) (Primary Dx) 02/06/[address] [address] Peyman Iverson MD Refill (metFORMIN (GLUCOPHAGE) 1000 MG tablet [Pharmacy Med Name: Metformin Hydrochloride 1000mg Tablet]) 02/06/[address] [address] Peyman Iverson MD Refill (atorvastatin (LIPITOR) 10 MG tablet [Pharmacy Med Name: Atorvastatin Calcium 10mg Tablet]) 01/28/2024 1:30 PM RN INFORMATICS Office Visit [address] [address] Peyman Iverson MD Type 2 diabetes mellitus with diabetic microalbuminuria, without long-term current use of insulin (HRC) (Primary Dx); Eosinophilic esophagitis 01/28/2024 10:15 AM RN INFORMATICS Therapy [facility] [address] [place] [address] [address] Nicole Albrecht, PT Sacro-iliac pain (HRC) (Primary Dx) 01/17/2024 1:00 PM RN INFORMATICS Therapy [facility] [address] [place] [address] [address] [place], PT Sacro-iliac pain (HRC) (Primary Dx) 01/17/2024 10:00 AM RN INFORMATICS Lab Visit [address] [address] Type 2 diabetes mellitus with diabetic microalbuminuria, without long-term current use of insulin (HRC) 01/17/[address] [address] Shaunna Castillo PA-C Refill (OZEMPIC, 1 MG/DOSE, 4 MG/3ML injection [Pharmacy Med Name: OZEMPIC 3mL 1.34mg/mL Pen Injector]) 01/16/[address] [address] Peyman Iverson MD TEST,PATIENT REQUESTING (Expected date change ) 12/31/2023 8:30 AM RN INFORMATICS Therapy [facility] [address] [place] [address] [address] [place], PT Sacro-iliac pain (HRC) (Primary Dx) 12/26/2023 Orders Only HIM DEPARTMENT Provider, MD Derrick 12/24/2023 2:45 PM RN INFORMATICS Therapy [facility] [address] [address] Nicole Albrecht PT Sacro-iliac pain (HRC) (Primary Dx) 12/24/2023 E-Visit [facility] Physical [address] [address] Mychart, Generic Provider 12/22/[address] [address] Peyman Iverson MD Refill (montelukast (SINGULAIR) 10 MG tablet [Pharmacy Med Name: Montelukast Sodium 10mg Tablet]) 12/22/[address] [address] Peyman Iverson MD Refill (JARDIANCE 10 MG tablet [Pharmacy Med Name: Jardiance 10mg Tablet]) 12/21/[address] [address] Peyman Iverson MD Refill (gabapentin (NEURONTIN) 300 MG capsule [Pharmacy Med Name: Gabapentin 300mg Capsule]) 12/17/2023 12:40 PM RN INFORMATICS Ancillary Procedure [facility] [address] Radiology [address] [place] [address] Minesh Zapata MD Pain of left hip 12/17/2023 12:10 PM RN INFORMATICS Office Visit [facility] [address] [address] [address] [place] [phone] Minesh Zapata MD Pain of left hip (Primary Dx); Sacroiliitis (HRC) from Last 3 Months Immunizations Name Administration Dates Next Due Flu Vac (3+ yrs) 11/03/2012 Flu Vac Preserv Free (3+yrs) 12/13/2011,11/26/19 10 HepB Adult (Engerix-B, 20+ y rs, 3 dose series) 05/04/2010,09/13/2009,08/12/2009 Influenza ([place] Only) (Flul aval Quad 0.5, 3+ yrs) 11/06/2019,11/16/2016 Influenza IIV3 (Trivalent) F stephanie Highdose, 65+ Yrs (54995) 12/22/2015,11/11/2014,11/11/2013 Influenza IIV4 (Quadrivalent ) 0.5mL ([address]) 11/30/2020,11/06/2019,10/16/2018,2017,10/25/2017,11/16/2016,11/15/2015 Influenza, Unspecified Formulation 10/25/2017, Donnie COVID-19 Vaccine 04/23/2020 MMR 06/04/2012 PCV20 (Ydgopga63) 09/22/2021 PPSV23 (Pneumovax) 03/17/2014,07/12/2009 Td, Preservative Free [...] Comments Blood Pressure 108/72 03/10/2024 12:28 PM RN INFORMATICS Pulse 85 03/10/2024 12:28 PM RN INFORMATICS Temperature 36.7 C (98 F) 03/10/2024 12:28 PM RN INFORMATICS Respiratory Rate 16 03/10/2024 12:28 PM RN INFORMATICS Oxygen Saturation 98% 03/10/2024 12:28 PM RN INFORMATICS Inhaled Oxygen Concentration - - Weight 82.6 kg (182 lb) 01/28/2024 1:13 PM RN INFORMATICS Height 157.5 cm (5' 2) 12/17/2023 12:18 PM RN INFORMATICS Body Mass Index 33.29 12/17/2023 12:18 PM RN INFORMATICS Plan of Treatment Upcoming Encounters Date Type Department Care Team (Late st Contact Info) Description 04/28/2024 10:00 AM CDT Appointment [facility] [address] [place] [address] Health Maintenance Due Date Last [...] KODY W CAD Routine 02/21/2024 10:22 AM RN INFORMATICS ALBUMIN/CREAT RATIO Routine 01/17/2024 1 0:41 AM RN INFORMATICS Type 2 diabetes mellitus with diabetic microalbuminuria, without long-term current use of insulin (HRC) BASIC METABOLIC PANEL Routine 01/17/2024 10:09 AM RN INFORMATICS Type 2 diabetes mellitus with diabetic microalbuminuria, without long-term current use of insulin (HRC) HGB A1C Routine 01/17/2024 10:09 AM RN INFORMATICS Type 2 diabetes mellitus with diabetic microalbuminuria, without long-term current use of insulin (HRC) ALBERTO (DIABETIC EYE EXAM) 12/26/2023 XR SACRUM/COCCYX Routine 12/17/2023 12:4 5 PM RN INFORMATICS Pain of left hip LIPID PANEL & DIRECT LDL (IF NEEDED) Routine 07/11/2023 9:15 AM CDT Diabetes mellitus, type 2 (HRC) PAP TEST Routine 03/01/2023 11:11 AM RN INFORMATICS Screening for malignant neoplasm of cervix HEPATITIS C ANTIBODY, WITH REFLEX Routine 12/13/2022 8:46 AM CDT Need for hepatitis C screening test from Last 3 Months or Most Recently Relevant to Health Maintenance Results * MM Mammogram Screening Bilat W 3D Kody W CAD (02/21/2024 10:22 AM RN INFORMATICS) Anatomical Region Laterality Modality Breast Bilateral Mammography Impressions 02/24/2024 10:11 AM RN INFORMATICS : ACR BI-RADS Category 1: Negative RECOMMENDATION: Follow Up Imaging in 12 months - Bilateral The results and recommendations of this examination will be communicated to the patient. Narrative 02/24/2024 10:11 AM RN INFORMATICS MM MAMMOGRAM SCREENING BILAT W 3D KODY W CAD performed on 02/21/24 FDA Accredited Facility: [place] [address] Compared to: 02/19/2023 MM Mammogram Screening Bilat [...] (ABNORMAL) Albumin/Creatinine Ratio,Random Urine (01/17/2024 10:41 AM RN INFORMATICS) Albumin/Creati nine Ratio, Urine, Random 53(H) <30 mg/g 01/17/2024 4:31 PM [facility] Albumin, Urine, Random 46.8 mg/L 01/17/2024 4:31 PM [facility] Creatinine, Urine, Random 88 >20 mg/dL mg/dL 01/17/2024 4:31 PM [facility] Urine Non-blood Collection / Unknown 01/17/2024 10:41 AM RN INFORMATICS 01/17/2024 10:41 AM RN INFORMATICS Peyman Iverson MD LAB_1 Performing Organization Address City/[facility]/ZIP Co de Phone Number [facility] [address] [place] [address] * (ABNORMAL) Basic Metabolic Panel (01/17/2024 10:09 AM RN INFORMATICS) Sodium 141 136 - 145 mmol/L 01/17/2024 3:56 PM [facility] Potassium 4.0 3.5 - 5.1 mmol/L 01/17/2024 3:56 PM [facility] Chloride 104 98 - 109 mmol/L 01/17/2024 3:56 PM [facility] CO2 25 20 - 29 mmol/L 01/17/2024 3:56 PM [facility] Anion Gap 12 6 - 16 mmol/L 01/17/2024 3:56 PM [facility] Calcium 10.0 8.4 - 10.4 mg/dL 01/17/2024 3:56 PM [facility] BUN 20 7 - 26 mg/dL 01/17/2024 3:56 PM [facility] Creatinine 0.95 0.55 - 1.02 mg/dL 01/17/2024 3:56 PM [facility] Glucose 146(H) 70 - 100 mg/dL 01/17/2024 3:56 PM [facility] Comment:The given reference range is for the fasting state. Non-fasting reference range for glucose is 70 - 180 mg/dL. GFR, Estimated >60 >60 mL/min/1.7 3m2 01/17/2024 3:56 PM [facility] Hours Fasting 12.0 8 - 12 Hours 01/17/2024 3:56 PM [facility] Blood Venipuncture / Unknown 01/17/2024 10:09 AM RN INFORMATICS 01/17/2024 10:09 AM RN INFORMATICS Peyman Iverson MD LAB_1 [facility] [address] [place] [address] [address] [place] [address] * (ABNORMAL) Hgb A1C (01/17/2024 10:09 AM RN INFORMATICS) Hemoglobin A1C 7.7(H) <=5.6 % 01/17/2024 6:15 PM RN INFORMATICS [facility] Estimated Average Glucose (Calc) 174 < 117 mg/dL 01/17/2024 6:15 PM [facility] Comment:Estimated average gl ucose (eAG) converts A1c into glucose units (mg/dL) and estimates average glucose over the past approximately 3 months. The eAG reference interval (<117 mg/dL) corresponds to an A1c of <5.7%. Blood Venipuncture / Unknown 01/17/2024 10:09 AM RN INFORMATICS 01/17/2024 10:09 AM RN INFORMATICS Narrative [facility] - 01/17/2024 6:15 PM RN INFORMATICS For patients not previously diagnosed with diabetes: 5.7-6.4%: Increased risk for diabetes 6.5% and greater: Diagnostic for diabetes For patients diagnosed with diabetes: <8.0%: Goal of therapy for ages 18-75 Clinicians may recommend a higher or lower goal for specific individuals. Peyman Iverson MD LAB_1 [facility] [address] * ALBERTO (DIABETIC EYE EXAM) (12/26/2023) Interface Provider DUMMY/OTHER/AR * XR Sacrum/Coccyx (12/17/2023 12:45 PM RN INFORMATICS) Anatomical Region Laterality Modality Spine, Pelvis Digital Radiogra phy 12/17/2023 12:3 8 PM RN INFORMATICS Narrative 12/17/2023 2:29 PM RN INFORMATICS COMPARISON: None. FINDINGS: Bony structures appear intact [...] - 199 mg/dL 07/11/2023 5:02 PM CDT [facility] Triglyceride 98 <=149 mg/dL 07/11/2023 5:02 PM CDT [facility] HDL Cholesterol 61 >=40 mg/dL 5:02 PM CDT [facility] LDL, Calculated 41 <130 mg/dL 5:02 PM T [facility] Non HDL Chol, Calculated 61 <=159 mg/dL 07/11/2023 5:02 PM T [facility] Cholesterol/HDL Ratio 2.0 <=5.0 07/11/2023 5:02 PM T [facility] Hours Fasting 15.0 8 - 12 Hours 07/11/2023 5:02 PM CDT [facility] Blood Venipuncture / Unknown 07/11/2023 9:15 AM CDT 07/11/2023 9:15 AM CDT Peyman Iverson MD LAB_1 [facility] [address] [place] [address] [address] [place] [address] * PAP Test (03/01/2023 11:11 AM RN INFORMATICS) Case Report Pap Case: [id number] Authorizing Provider: Viola Vickers MD Collected: 03/01/2023 1111 Ordering Location: [facility] Received: 03/01/2023 1210 and Gynecology First Screen: Octavia Cabrera CT (ASCP) Specimen: Pap Test, Routine, Cervix/Endocervix 04/04/2023 12:[address] [facility] Pap Specimen Adequacy Satisfactory for evaluation, endocervical/smith sformation zone component absent. 04/04/2023 12:15 PM [facility] Pap Interpretation (NILM) Negative for intraepithelial lesion or malignancy. 04/04/2023 12:15 PM [facility] Pap Disclaimer The Pap test is a screening test to aid in the detection of cervical and vaginal cancers and their precursor lesions. It is not a diagnostic procedure and should not be used as the sole means of detecting malignancy. Both false-positive and false-negative results may occur. 04/04/2023 12:15 PM [facility] Gross Description The specimen is received in SurePath fixative and properly labeled. 1 Pap-stained SurePath slide is prepared. 04/04/2023 12:15 PM [facility] Embedded Images 12:15 PM [facility] Other Specimen Type ENTIRE ENDOCERVIX / Unknown 03/01/2023 11:11 AM RN INFORMATICS 03/01/2023 12:10 PM RN INFORMATICS Comment:LMP: No LMP recorded (lmp unknown). Patient has had a hysterectomy. Viola Vickers [place] [address], [facility] * Hepatitis C Antibody, with Reflex (12/13/2022 8:46 AM CDT) Hepatitis C Antibody Negative (Non Reactive) Negative (Non Reactive) 12/13/2022 4:06 PM CDT [facility] Comment:Antibodies to HCV no t detected. Does not exclude the possiblity of exposure to HCV. Blood Venipuncture / Unknown 12/13/2022 8:46 AM CDT 12/13/2022 8:46 AM CDT Peyman Iverson MD LAB_1 [facility] [address] [place] [address] from Last 3 Months or Most Recently Relevant to Health Maintenance Care Teams Product Marketing Specialist Relationship Specialty [place] [address] [place] [address] PCP - General Family Practice 08/05/23
--- OUTSIDE RECORDS SUMMARY | 2024-03-13 20:20 | XMS_ITS | Encounter Summary ---
Author Organization [facility] Address [address] [place] [address]. [place] [address] Care Team Providers Care Student Services Rep Name Role Phone Humphrey Mccray MD Primary Care Provider Unavailable Sharda Sykes [facility] Unavailable [phone] Eduard Vargas DO Unavailable [phone] Eduard Vargas DO Primary Care Provider [phone] Sharda Sykes [facility] Unavailable Sharda Sykes [facility] Unavailable Encounter Details Date Type Department Care Team (Late st Contact Info) Description 04/03/2021 [facility] Medical Advice [address] [address] Sharda Sykes, [facility] [address] [place] [address] Social History Tobacco Use Types Packs/Day Years [...] week 03/11/2021 How often do you attend faith or episcopalian serv ices? Never 03/11/2021 Do you belong to any clubs o r organizations such as faith groups, unions, fraternal or athletic groups, or [...] Answer Date Recorded PHQ-2 Score 0 03/14/2021 [facility] Occupat ional Health - Occupational Stress [...] on file Legal Sex Female 2:58 AM BIOLOGY INTERN Gender Identity Not on file Sexual Orientation Straight 06/28/2021 12 :12 PM CDT COVID-19 Exposure Response Date Recorded In the last month, have you been in contact with someone who was confirmed or suspected to have Coronavirus / COVID-19? No / Unsure 03/15/2021 9:11 AM BIOLOGY INTERN documented as of this encounter Plan of Treatment Not on file documented as of this encounter Visit Diagnoses Not on filedocumented in this encounter Care Teams Student Services Rep Relationship Specialty Start Date End Date Humphrey Mccray MD PCP - General 02/24/99 05/09/21 [place] [address] [place] [address] PCP - General Family Medicine 05/10/21 Sharda Sykes [facility] [address] [place] [address] Pharmacist Pharmacist 04/03/21 [place] [address] [place] [address] Assigned PCP 02/23/21 Sharda Sykes [facility] [address] [place] [address] Assigned MTM Pharmacist 08/05/21 Sharda Sykes, [facility] [address] [place] [address] Assigned MTM Pharmacist 11/08/2101/02 documented as of this encounter
--- OUTSIDE RECORDS SUMMARY | 2024-03-13 20:20 | XMS_ITS | Encounter Summary ---
Author Organization [facility] Address [address] [place] [address]. [place] [address] Care Team Providers Care Marine Drafter Name Role Phone Sharda Sykes [facility] Unavailable [phone] Eduard Vargas DO Unavailable [phone] Eduard Vargas DO Primary Care Provider [phone] Sharda Sykes [facility] Unavailable [phone] Sharda Sykes [facility] Unavailable [phone] Encounter Details Date Type Department Care Team (Late st Contact Info) Description 05/10/2021 [facility] Medical Advice [address] [address] Sharda Sykes, [facility] [address] [place] [address] Social History Tobacco Use [...] week 03/11/2021 How often do you attend hinduism or yarsani serv ices? 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 Gender Identity Not on file Sexual [...] on filedocumented in this encounter Care Teams Marine Drafter Relationship Specialty [place] [address] [place] [address] PCP - General Family Medicine 05/10/21 Sharda Sykes [facility] [address] [place] [address] Pharmacist Pharmacist 04/03/21 [place] [address] [place] [address] Assigned PCP 02/23/21 Sharda Sykes [facility] [place] [address] Assigned MTM Pharmacist 08/05/21 Sharda Sykes [facility] [address] [place] [address], [place] [address] Assigned MTM Pharmacist 11/08/2101/02 documented as of this encounter
--- OUTSIDE RECORDS SUMMARY | 2024-03-13 20:20 | XMS_ITS | Encounter Summary ---
Author Organization [facility] Address [address] [place] [address]. [place] [address] Care Team Providers Care Veneer Taping Machine Operator Name Role Phone Sharda Sykes [facility] Unavailable [phone] Eduard Vargas DO Unavailable [phone] Eduard Vargas DO Primary Care Provider [phone] Sharda Sykes [facility] Unavailable [phone] Sharda Sykes [facility] Unavailable [phone] Encounter Details Date Type Department Care Team (Late st Contact Info) Description 06/08/2021 [facility] Medical Advice [facility] [address] [place] [address] Tricia Bonds, MAYONNAISE MIXER Social History Tobacco Use Types Packs/Day Years [...] How often do you attend synagogue or restorationism serv ices? 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 Gender Identity Not on file Sexual Orientation Straight 06/28/2021 12 :12 PM CDT documented as of this encounter Plan of Treatment Not on file documented as of this encounter Visit Diagnoses Not on filedocumented in this encounter Care Teams Veneer Taping Machine Operator Relationship Specialty [place] [address] [place] [address] PCP - General Family Medicine 05/10/21 Sharda Sykes, [facility] [email or web address] [address] Pharmacist Pharmacist 04/03/21 [place] [address] [place] [address] Assigned PCP 02/23/21 Sharda Sykes [facility] [email or web address] [address] Assigned MTM Pharmacist 08/05/21 Sharda Sykes [facility] [place] [address] Assigned MTM Pharmacist 11/08/2101/02 documented as of this encounter
--- OUTSIDE RECORDS SUMMARY | 2024-03-13 20:20 | XMS_ITS | Encounter Summary ---
Author Organization [facility] Address [address] [place] [address] Care Team Providers Care Environmental Scientist Name Role Phone Unavailable Primary Care Provider Unavailabl e Reason for Referral * Outpatient (Routine) - Closed Specialty Diagnoses / Procedures Referred By Chuy salazar Referred To Contact Gynecology Diagnoses Carcinoma Unspecified Janeth Oliveira M.D. Phone: tel: fax: [facility] Referral ID Status Reason Start Date Expiration Date Visits Re quested Visits Authorized [id number] Closed 03/05/2018 03/05/2019 1 1 HER OPERATOR Encounter Details Date Type Department Care Team (Late st Contact Info) Description 03/05/2018 [facility] [address] [place] [address] Janeth Oliveira M.D. [address] [place] [address] Carcinoma Unspecified (Primary Dx) Social History Tobacco [...] Sex Assigned at Female 02/16/2022 8:33 PM CRUSHER OPERATOR Legal Sex Female 6:59 PM CRUSHER OPERATOR Gender Identity Female 08/19/2017 10:59 PM CDT Sexual Orientation Straight 08/19/2017 10 :59 PM CDT documented as of this encounter Plan of Treatment Upcoming Encounters Date Type Department Care Team (Latest Contact Info) Description 05/05/2024 11:15 AM CDT Clinical Communication Virtual Review in [place], [place] [address] [place] [address] 05/08/2024 9:00 AM CDT Appointment Department of Radiology, [address] [address] Ana María Delcid P.A.-C., M.S. [address] [place] [address] 05/08/2024 12:15 PM CDT Appointment Department of Radiology, [address] [address] Ana María Delcid P.A.-C., M.S. [address] [place] [address] 05/08/2024 2:40 PM CDT Office Visit Department of Oncology in [address] [address] Ana María Delcid P.A.-C., M.S. [address] [place] [phone] Scheduled Referrals Name Type Priority Associated Diagnoses Orde r Schedule Gynecologic Surgery Referral Outpatient Referral Routine Carcinoma Unspecified Expected: 03/05/2018 (Approximate), Expires: 03/05/2021 documented as of this encounter Visit Diagnoses Diagnosis Carcinoma Unspecified- Primary documented in this encounter
--- OUTSIDE RECORDS SUMMARY | 2024-03-13 20:20 | XMS_ITS | Encounter Summary ---
[facility] Address [address] [place] [address] Care Team Providers Care Mold Shaker Name Role Phone Peyman Iverson MD Primary Care Provider [phone] Reason for Visit * Reason Comments Cough Encounter Details Date Type Department Care Team (Late st Contact Info) Description 03/10/2024 12:40 PM OIL WELL SERVICES SUPERVISOR Office Visit [facility] [address] [place] [phone] Elvira Tidwell MD [address] [place] [address] Acute bronchitis, unspecified organism Social [...] Comments Blood Pressure 108/72 03/10/2024 12:28 PM OIL WELL SERVICES SUPERVISOR Pulse 85 03/10/2024 12:28 PM OIL WELL SERVICES SUPERVISOR Temperature 36.7 C (98 F) 03/10/2024 12:28 PM OIL WELL SERVICES SUPERVISOR Respiratory Rate 16 03/10/2024 12:28 PM OIL WELL SERVICES SUPERVISOR Oxygen Saturation 98% 03/10/2024 12:28 PM OIL WELL SERVICES SUPERVISOR Inhaled Oxygen Concentration - - Weight - - Height - - Body Mass Index - - documented in this encounter Patient Instructions * Patient Instructions* Elvira Tidwell MD - 03/10/2024 12:40 PM OIL WELL SERVICES SUPERVISOR The modern definition of bronchitis is inflammation [...] can resolve. Prednisone is the steroid medication. terminal make up operator use of steroids can have significant complications [...] as expected also please be seen again. WELL SERVICES SUPERVISOR * Attachments The following attachments cannot be sent through Care Everywhere. * Bronchitis (Lithuanian) documented in this encounter Progress Notes * Elvira Tidwell MD - 03/10/2024 12:40 PM CST [facility] Patient: Gloria Kwan Date of [...] for work/school: No History of Present Illness: Golria Kwan is a 53 y.o.female. Patient complains [...] CAD performed on 02/21/24 FDA Accredited Facility: [place] [address] Compared to: 02/19/2023 MM Mammogram [...] can resolve. Prednisone is the steroid medication. detention use of steroids can have significant complications [...] please be seen again. Elvira Tidwell MD WELL SERVICES SUPERVISOR documented in this encounter Nursing Notes * [...] requests an excuse letter for work/school: No WELL SERVICES SUPERVISOR documented in this encounter Plan of Treatment Upcoming Encounters Date Type Department Care Team (Late st Contact Info) Description 04/28/2024 10:00 AM CDT Appointment [facility] [address] [place] [phone] documented as of this encounter Visit Diagnoses Diagnosis Acute bronchitis, unspecified organism documented in this encounter Care Teams Mold Shaker Relationship Specialty [place] [address] [place] [address] PCP - General Family Practice 08/05/23 documented as of this encounter
--- OUTSIDE RECORDS SUMMARY | 2024-03-13 20:20 | XMS_ITS | Encounter Summary ---
Author Organization [facility] Address [address] [place] [address]. [place] [address] Care Team Providers Care Risk Consulting Treasury Director Name Role Phone Sharda Sykes [facility] Unavailable [phone] Eduard Vargas DO Unavailable [phone] Eduard Vargas DO Primary Care Provider [phone] Sharda Sykes [facility] Unavailable [phone] Sharda Sykes [facility] Unavailable [phone] Encounter Details Date Type Department Care Team (Late st Contact Info) Description 08/21/2021 [facility] Medical Advice [facility] [id number] [place] [phone] Tricia Bonds, EARLY CHILDHOOD ASSOCIATE TEACHER Social History Tobacco Use Types Packs/Day Years [...] How often do you attend anabaptism or adventism serv ices? Never 03/11/2021 Do you belong [...] Answer Date Recorded PHQ-2 Score 0 03/14/2021 [facility] [place] [facility] - [...] on file Legal Sex Female 2:58 AM RN HEMODIALYSIS Gender Identity Not on file Sexual Orientation Straight 06/28/2021 12 :12 PM CDT documented as of this encounter Plan of Treatment Not on file documented as of this encounter Visit Diagnoses Not on filedocumented in this encounter Care Teams Risk Consulting Treasury Director Relationship Specialty [place] [address] [place] [address] PCP - General Family Medicine 05/10/21 Sharda Sykes, [facility] [address] Pharmacist Pharmacist 04/03/21 [place] [address] [place] [address] Assigned PCP 02/23/21 Sharda Sykes [facility] [place] [address] Assigned MTM Pharmacist 08/05/21 Sharda Sykes [facility] [address] [place] [address] Assigned MTM Pharmacist 11/08/2101/02 documented as of this encounter
--- OUTSIDE RECORDS SUMMARY | 2024-03-13 20:20 | XMS_ITS | Encounter Summary ---
Author Organization [facility] Address [address] [place] [address] Care Team Providers Care Supervisor Welding Equipment Repairer Name Role Phone Unavailable Primary Care Provider Unavailabl e Encounter Details Date Type Department Care Team (Late st Contact Info) Description 06/25/2017 [facility] [address] [place] [address] Johanna Brambila M.D. [address] [place] [phone] Pain Leg (Primary Dx); Fibrosarcoma (HCC) Social History Tobacco Use Types Packs/Day Years Used Date Smoking Tobacco: Former Comments Unknown Sex and Gender Information Value Date Recorded Sex Assigned at Female 02/16/2022 8:33 PM DIPLOMATIC OFFICER Legal Sex Female 6:59 PM DIPLOMATIC OFFICER Gender Identity Female 08/19/2017 10:59 PM CDT Sexual Orientation Straight 08/19/2017 10 :59 PM CDT documented as of this encounter Plan of Treatment Upcoming Encounters Date Type Department Care Team (Latest Contact Info) Description 05/05/2024 11:15 AM CDT Clinical Communication Virtual Review in [place], [place] [address] [place] [address] 05/08/2024 9:00 AM CDT Appointment Department of Radiology, [facility], in [place], [place] [address] [place] [phone] Ana María Delcid P.A.-C., M.S. [address] [place] [phone] 05/08/2024 12:15 PM CDT Appointment Department of Radiology, [facility], in [place], [place] [address] [place] [address] Ana María Delcid P.A.-C., M.S. [address] [place] [phone] 05/08/2024 2:40 PM CDT Office Visit Department of Oncology in [place], [place] [address] [place] [phone] Ana María Delcid P.A.-C., M.S. [address] [place] [phone] documented as of this encounter Visit Diagnoses Diagnosis Pain Leg- Primary Fibrosarcoma (HCC) documented in this encounter
--- OUTSIDE RECORDS SUMMARY | 2024-03-13 20:20 | XMS_ITS | Clinical Summary ---
Author Organization [facility] Address [place], [place] [address] Care Team Providers Care Retail Solar Advisor Name Role Phone Rosey Rizo FORCE DISPATCHER Unavailable Jenelle Sharma DO Primary Care Provider [phone] Paula Pennington FORCE DISPATCHER Unavailable [phone] Allergies Active Allergy Reactions Criticality Noted Date Comments Animal Dander Other - Describe In Comment Field 06/25/2017 Adhesive Rash 09/04/2013 Allergenic Extracts *Unknown 09/04/2013 Sinus and respiratory Hydromorphone Itching 03/14/2018 Lisinopril Dizziness 04/25/2018 Mold Extracts *Unknown 09/04/2013 Sinus and Respiratory Unlisted Allergen (Include Detail In Comments) *Unknown 09/04/2013 [place] tree, Grass, and Dogs- Sinus and Respiratory Medications multivitamin (MVI) tablet Take 1 tablet by mouth once daily. 09/04/19 14 Active LACTOBACILLUS ACIDOPHILUS (PROBIOTIC ORAL) Take 1 Cap by mouth once daily. 09/04/19 14 Active blood-glucose meter (Apellis PharmaceuticalsTOUCH ULTRA2) Use as directed 1 Kit 7 1:25 PM INSTRUMENT FITTER 01/11/20 17 Active Biotin 5 mg capsule Take 1 capsule by mouth once daily. 0 07/10/19 18 Active Cholecalciferol, Vitamin D3, (VITAMIN D-3) 5,000 unit tab Take 1 tablet by mouth once daily. 90 tablet 3 07/10/19 18 Active Calcium-Magnesium -Zinc tab Take 500 mg by mouth once daily. 0 07/10/19 18 Active aspirin chewable 81 mg chewable tablet Take 1 tablet by mouth once daily with a meal. 0 01/25/20 18 Active lancets (ONETOUCH ULTRASOFT LANCETS)Indicatio ns:Type 2 diabetes mellitus without complications (HC) Use to test blood sugar 1 time daily 100 Each 1 9 2:44 AM INSTRUMENT FITTER 03/12/19 19 Active albuterol HFA (VENTOLIN HFA) 90 mcg/actuation inhalerIndication s:Mild persistent reactive airway disease without complication Inhale 2 Puffs by mouth every 4 hours if needed. 8.5 g 3 9 4:21 AM INSTRUMENT FITTER 01/24/20 19 Active Diabetic ShoeIndications:C ontrolled type 2 diabetes mellitus without complication, without long-term current use of insulin (HC),Peripheral sensory neuropathy As directed. Diabetic shoes 2 Each 01/24/20 Active mometasone (NASONEX) (50 mcg each actuation) nasal sprayIndications: Dysfunction of right eustachian tube,Nasal congestion Inhale 2 Sprays into both nostrils once daily. 17 g 6 1 12:53 AM CDT 07/30/19 20 Active NebulizerIndicati ons:Exacerbation of asthma, unspecified asthma severity, unspecified whether persistent Nebulizer, disposable neb kit x 4, reuseable neb kit x 1, mask x 1, filters x 1. Frequency of use: daily; Medication: albuterol Length of need: 12 months 1 Device 11/17/19 20 Active ferrous sulfate, 65 mg elemental, tablet Take 1 tablet by mouth once daily with a meal. 0 11/20/19 20 Active cetirizine (ZYRTEC) 10 mg tablet Take 1 tablet by mouth once daily. 0 01/26/20 20 Active mometasone-formot ha (Dulera) 200-5 mcg/actuation inhalerIndication s:Mild persistent asthma, unspecified whether complicated Inhale 2 Puffs by mouth 2 times daily. 13 g 11 1 12:53 AM CDT 01/26/20 20 Active albuterol (PROVENTIL) 0.083 % neb solution Inhale 2.5 mg via a nebulizer every 4 hours if needed. Active atorvastatin (Lipitor) 20 mg tabletIndications :Fatty liver Take 1 Tablet (20 mg) by mouth at bedtime. 90 tablet. 3 1 12:41 AM CDT 05/07/19 21 Active blood sugar diagnostic (KnokTouch Ultra Blue Test Strip) stripIndications: Uncontrolled type 2 diabetes mellitus with hyperglycemia (HC) Use as directed to test blood sugar 2 x daily 200 Each 3 1 12:53 AM CDT 05/07/19 21 Active glipiZIDE (GLUCOTROL) 5 mg tabletIndications :Uncontrolled type 2 diabetes mellitus with hyperglycemia (HC) Take 1 Tablet (5 mg) by mouth once daily before a meal. 90 Tablet 3 1 12:41 AM CDT 05/07/19 21 Active empagliflozin (JARDIANCE) 10 mg tabletIndications :Type 2 diabetes mellitus without complication, without long-term current use of insulin (HC) TAKE 1 TABLET BY MOUTH DAILY 90 Tablet 3 08/13/19 Active CPAPIndications:O SA (obstructive sleep apnea) New CPAP machine for [...] Frequency of use: Daily 1 Device 11 09/21/19 21 Active semaglutide (Ozempic) penIndications:Co ntrolled type 2 diabetes mellitus without complication, without long-term current use of insulin (HC) Inject 0.5 mg subcutaneously once weekly. 4.5 mL 3 1 6:24 PM CDT 10/23/19 Active montelukast (SINGULAIR) 10 mg tabletIndications :Allergic rhinitis, unspecified seasonality, unspecified trigger,Mild persistent reactive airway disease with acute exacerbation Take 1 tablet by mouth at bedtime. 90 tablet. 1 7:00 PM CDT 12/03/19 Active polyethylene glycol-electrolyt e (GOLYTELY) 236-22.74-6.74 -5.86 gram suspension Drink 1st portion of prep at 6 PM the evening before. 2nd portion must be started 3 hours before and finished 2 hours prior to report time 4000 mL 01/31/20 21 Active metFORMIN (GLUCOPHAGE) 1,000 mg tabletIndications :Controlled type 2 diabetes mellitus without complication, without long-term current use of insulin (HC) Take 1 Tablet (1,000 mg) by mouth 2 times daily with meals. 180 tablet. 02/24/19 22 Active gabapentin (NEURONTIN) 300 mg capsuleIndication s:Menopausal vasomotor syndrome Take 1 Capsule (300 mg) by mouth at bedtime. 90 capsule. 02/24/19 22 Active empagliflozin (Jardiance) 25 mg tabletIndications :Type 2 diabetes mellitus without complication, without long-term current use of insulin (HC) Take 25 mg by mouth once daily. 90 Tablet 3 02/27/19 22 Active CPAPIndications:O SA (obstructive sleep apnea) CPAP (E0601) machine for home use at pressure: 5-16 , Choice of mask (A7030 or A7034) w/full face cushion (A7031) x1/mo, nasal cushion (A7032) x2/mo, or nasal pillows (A7033) x 2/mo; Length of Need: 99 months; Frequency of use: Daily 12/24/19 24 Active Active Problems Patient Care Coordination No te Formatting of this note migh t be different from the original. Being Active and independent is what matters most to DESMOND. DESMOND would like her care team to know supportive family, volunteers for [employer], [employer], [employer]. 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 What are DESMOND's challenges, stressors, or barriers?Pain, [...] 04/25/2018 Mild persistent asthma 03/20/2018 Microalbuminuria 01/26/2018 Overview (01/26/2018): Will recheck in 6 months. If still present, will add JORGITO-I Elevated LFTs 01/26/2018 PE (pulmonary thromboembolism) 01/24/2018 Overview (01/24/2018): Chemotherapy 07/2013 Cervical cancer, FIGO stage IB1 01/24/2018 Overview (04/25/2018): Radical hysterectomy 03/24/18, left ovaries. 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 Aftercare following surgery of the musculoskelet al system 09/06/2013 Lymphedema of leg 09/06/2013 Resolved Problems Problem Noted Date Diagnosed Date Resolved Date Uncontrolled type 2 diabetes mellitus with microalbuminuria 09/09/2013 04/25/2019 Encounters Date Type Department Care Team Description 01/20/2024 Telephone [facility] [address] [place] [address] Jenelle Sharma DO Form (PHYSICIAN ORDER) 12/26/2023 Orders Only [facility] Scanner 1 scan: (1-Ord) [facility], 12/26/2023 12/24/2023 11:35 AM INSTRUMENT FITTER Telemedicine [facility] [address] [place] [address] Paula Pennington, FORCE DISPATCHER Sleep Consult; Telehealth (no vitals) 12/24/2023 Travel from Last 3 Months Immunizations Name Administration Dates Next Due COVID-19 vaccine (Donnie-J& J) PF, MDV 04/23/2020 Hepatitis B (Adult) 05/04/2010,09/13/2009,2009 Influenza, High-dose Inactivated 12/22/2015,100 02/2014,11/11/2013 Influenza, IIV4 10/16/2018, 8,10/25/2017,2016 Influenza, IIV4 (=>6mos) [...] Paying Living Expenses Not on file 02/10/2021 Comments No Sex and Gender Information Value Date Recorded Sex Assigned at Female 09/29/2019 10:18 AM CDT Legal Sex Female 5:17 AM INSTRUMENT FITTER Gender Identity Female 09/29/2019 10:18 AM CDT Sexual Orientation Straight 09/29/2019 10 :18 AM CDT Obstetrics History Last Filed Vital Signs Vital Sign Reading Time Taken Comments Blood Pressure 110/70 08/12/2020 8:46 AM CDT Pulse 84 05/06/2020 8:51 AM CDT Temperature 36.6 C (97.9 F) 03/05/2020 3:45 PM INSTRUMENT FITTER Respiratory Rate 16 04/05/2020 11:07 AM INSTRUMENT FITTER Oxygen Saturation 98% 03/29/2020 11:45 AM INSTRUMENT FITTER RRA Inhaled Oxygen Concentration - - Weight 89.4 kg (197 lb) 08/12/2020 8:46 AM CDT Height 158.8 cm (5' 2.5) 08/12/2020 8:46 AM CDT Body Mass Index 35.46 08/12/2020 8:46 AM CDT Plan of Treatment Health Maintenance Due Date Last Done Comments HIV for age 15-65 1985 Hepatitis C screening for ag e 18-79 1988 Pneumococcal series for age 50+ (2 of 2 - PCV) 03/17/2015 03/17/2014, 07/12/2009 Colonoscopy through age 75 11/19/2015 Depression screening for age 12+ 11/05/2020 11/06/2019, 08/29/2018, 08/08/2018, Additional history exists Zoster (shingles) series for age 50+ (1 of 2) 2020 Pap test for age 21-65 01/10/2021 01/10/2018, 2017 Tetanus booster 06/17/2021 06/18/2011, 07/13/2005 BMI (ht and wt on same day) for age 18+ 08/12/2021 08/12/2020, 04/05/2020, 03/29/2020, Additional history exists Mammogram for age 45-75 11/28/2022 11/29/19 22, 11/25/2020, 10/02/2019, Additional history exists COVID-19 vaccine series ( season) 2023 04/23/2020 Influenza for age 50-64 10/13/2023 11/06/19 20, 10/16/2018, 01/13/2018, Additional history exists Lipids for age 45-75 08/12/2025 08/12/2020, 11/06/2019, 01/23/2019, Additional history exists Hepatitis B series for Diabetes Completed 05/04/2010, 09/13/2009, 08/12/2009 Tdap Completed 06/18/2011 Procedures Procedure Name Priority Date/Time Associated Diagnosis Comments SCAN-EYE EXAM 12/26/2023 12:00 AM INSTRUMENT FITTER XR MAMMO MADDI BILAT SCREEN Routine 11/28/2021 11:43 AM CDT Visit for screening mammogram LIPID PANEL Routine 08/12/2020 9:12 AM CDT Routine health maintenance PUBLIC HEALTH EPIDEMIOLOGIST THIN PREP PAP SCREEN IMAGED Routine 01/10/2018 9:40 AM INSTRUMENT FITTER from Last 3 Months or Most Recently Relevant to Health Maintenance Results * SCAN-EYE EXAM (12/26/2023 12:00 AM INSTRUMENT FITTER) us Scanner OTHER Final Result * XR MAMMO MADDI BILAT SCREEN (11/28/2021 11:43 AM CDT) Anatomical Region Laterality Modality BREASTS, Breast Left, Breast Right Bilateral Mammography Impressions 11/30/2021 1:29 PM CDT There is no radiographic evidence for malignancy. Recommend annual mammograms. MAMMOGRAM ASSESSMENT: ACR 1 Negative PATIENTS: You will also receive a letter with your examination results in an easy to read format. If you have questions about your results, please contact your referring provider. Narrative 11/30/2021 1:29 PM CDT For Patients: As a result of the Century Cures Act, medical imaging exams and procedure reports are released immediately into your electronic medical record. You may view this report before your referring provider. If you have questions, please contact your health care provider. XR MAMMO MADDI BILAT SCREEN [[id number]] CLINICAL HISTORY: This is an asymptomatic 51 y.o. patient. INDICATION FOR EXAM: Mammogram Screening. TECHNIQUE: CC & MLO views were obtained. This study was evaluated with the assistance of Computer-Aided Detection. Breast Tomosynthesis was used in interpretation. COMPARISON FILM: Yes 11/25/20 [facility] 10/02/19 [facility] FINDINGS: The breasts are almost entirely fatty. There are no dominant masses, suspicious micro calcifications or areas of architectural distortion. us Eduard Vargas DO MAMMO Final Result * LIPID PANEL (08/12/2020 9:12 AM CDT) CHOLESTEROL,TOTAL 114 100 - 199 mg/dL 08/12/2020 3:47 PM CDT [facility] TRIGLYCERIDES 73 <150 mg/dL 08/12/2020 3:47 PM CDT [facility] HDL CHOLESTEROL 52 >40 mg/dL 3:47 PM CDT [facility] NON-HDL CHOLESTEROL 62 <145 mg/dl 08/12/2020 3:47 PM CDT [facility] CHOL/HDL RATIO 2.19 <4.50 08/12/2020 3:47 PM CDT [facility] LDL CHOLESTEROL 47 <=130 mg/dL 08/12/2020 3:47 PM CDT [facility] VLDL CHOLESTEROL 15 mg/dL 08/13/19 3:47 PM CDT [facility] PROVIDER ORDERED STATUS RANDOM 08/12/2020 3:47 PM CDT [facility] Blood BLOOD SPECIMEN / Unknown Butterfly / Unknown 08/12/2020 9:12 AM CDT 08/12/2020 9:12 AM CDT us Toño Tran MD CHEMISTRY Final Result [facility] [address] [place] [address], * (ABNORMAL) PUBLIC HEALTH EPIDEMIOLOGIST THIN PREP PAP SCREEN IMAGED (01/10/2018 9:40 AM INSTRUMENT FITTER) Case Report Gynecologic Cytology Report Case: [id number] Authorizing Provider: Janeth Oliveira MD Collected: 01/10/2018 0940 First Screen: Leatha Red Received: 01/13/2018 1828 Pathologist: Juliette Schmidt MD Specimen: PUBLIC HEALTH EPIDEMIOLOGIST ThinPrep Vial Screening, Cervical/Vaginal 01/20/2018 1:54 PM INSTRUMENT FITTER [facility] [employer] [facility] ENTRAL LABORATORY INTERPRETATION/ RESULT HIGH GRADE SQUAMOUS INTRAEPITHELIAL LESION (HSIL)(A) (none) 01/20/2018 1:54 PM INSTRUMENT FITTER [facility] ENTRAL LABORAT[facility] IMEN ADEQUACY Satisfactory for evaluation Endocervical component present 01/20/2018 1:54 PM INSTRUMENT FITTER [facility] HPV REQUEST HPV and PAP 01/20/2018 1:54 PM INSTRUMENT FITTER [facility] Automated Review Successful 01/20/2018 1:54 PM INSTRUMENT FITTER [facility] Comment:Specimen processed s uccessfully by automated system software developer device, ThinPrep Imaging System, [employer] ANCILLARY TESTING PUBLIC HEALTH EPIDEMIOLOGIST HPV Ordered, Please see separate report 01/20/2018 1:54 PM INSTRUMENT FITTER [facility] ENTRAL [facility] Note Case seen in consultation with Dr. Obi Landers. The pap test is a screening technique, not a diagnostic procedure. It is used primarily to screen for squamous cancers and precursor lesions. Published studies have shown that it is subject to both false negative and false positive results. The pap test should not be used as the sole means to diagnose or exclude pre-malignant and malignant lesions. Cytology is screened and interpreted at [facility] - [address], [place] [address] and [facility] - [address]; [place] [address] and [facility] - [address]; [place] [address] and [facility] [address]; [place] [address] 01/20/2018 1:54 PM INSTRUMENT FITTER [facility] ENTRAL LABORATORY Other (Cervical/Vagina l) 01/10/2018 9:40 AM INSTRUMENT FITTER 01/13/2018 6:28 PM INSTRUMENT FITTER Janeth lOiveira MD PATHOLOGY/CYTOLOGY Final Result [facility] [address] [place] [address], [place] from Last 3 Months or Most Recently Relevant to Health Maintenance Insurance [facility] Advance Directives * Full Code (Latest Code Status on File) Date Activated Date Inactivated Comments 03/04/2020 9:11 PM 03/05/2020 7:33 PM Question Answer Comments Code Status Discussion: Discussed Care Teams Retail Solar Advisor Relationship Specialty [place] [address] [place] [address] PCP - General Family Practice 08/29/18 Rosey Rizo, FORCE DISPATCHER Nurse Practitioner Cardiovascular Disease 09/03/13 Paula Pennington NP [address] [place] [address] Sleep Medicine 12/24/23
--- OUTSIDE RECORDS SUMMARY | 2024-03-13 20:20 | XMS_ITS | Encounter Summary ---
Author Organization [facility] Address [address] [place] [address]. [place] [address] Care Team Providers Care Physician Office Nurse Name Role Phone Sharda Sykes [facility] Unavailable Eduard Vargas DO Unavailable [phone] Eduard Vargas DO Primary Care Provider [phone] Sharda Sykes [facility] Unavailable [phone] Sharda Sykes [facility] Unavailable [phone] Encounter Details Date Type Department Care Team (Late st Contact Info) Description 10/13/2021 [facility] [address] [id number] Sharda Sykes, [facility] [address] [place] [address] Social History Tobacco Use Types [...] How often do you attend restorationist or islam serv ices? Never 03/11/2021 Do [...] Answer Date Recorded PHQ-2 Score 0 09/22/2021 [facility] - Occupational [...] in a longterm (including now)? No 03/11/2021 Comments No Sex and Gender Information Value Date Recorded Sex Assigned at Not on file Legal Sex Female 2:58 AM [employer] Gender Identity Not on file Sexual Orientation [...] on filedocumented in this encounter Care Teams Physician Office Nurse Relationship Specialty [place] [id number] [place] [address] PCP - General Family Medicine 05/10/21 Sharda Sykes [facility] [address] [place] [address] Pharmacist Pharmacist 04/03/21 [place] [address] [place] [address] Assigned PCP 02/23/21 Sharda Sykes [facility] [address] [place] [address] Assigned MTM Pharmacist 08/05/21 Sharda Sykes [facility] [place] [address] Assigned [facility]TM Pharmacist 11/08/2101/02 documented as of this encounter
[2024-03-13] MEDS: ONDANSETRON 2 MG/ML inj 4 MG IVP (20:41)
[2024-03-13] MEDS: 0.9 % SODIUM CHLORIDE 1000 ml 1,000 ML IV (20:41)
[2024-03-13] MEDS: INSULIN REGULAR, HUMAN 100 UNIT/ML VIAL 10 UNIT SUBCUT (20:46)
[2024-03-13 20:52] LABS: Appearance Urine Clear (Clear); Bilirubin Urine Negative (Negative); Blood Urine Negative (Negative); Color Urine Yellow (Yellow); Glucose Urine 3+ (Negative); Ketones Urine Negative (Negative); Leukocyte Esterase Urine Negative (Negative); Nitrite Urine Negative (Negative); Protein Urine Negative (Negative); Specific Gravity Urine 1.015 (1.000-1.030); Urobilinogen Urine 0.2 (0.2-1.0)
[2024-03-13 21:05] LABS: RBC Urine 0-2 (0-2); WBC Urine 0-2 (0-5)
[2024-03-13 21:08] LABS: Basophils Absolute Auto 0.02 K/uL (0.00-0.30); Basophils Percent Auto 0.2 % (0.0-3.0); Eosinophils Absolute Auto 0.05 K/uL (0.00-0.50); Eosinophils Percent Auto 0.5 % (0.0-7.0); Hematocrit* 44.4 % (33.0-51.0); Hemoglobin* 13.9 gm/dL (12.0-16.0); Immature Granulocytes Abs Auto 0.09 K/uL (0.00-0.30); Immature Granulocytes Pct Auto 0.9 %; Lymphocytes Percent Auto 17.4 % (20-44); Mean Corpuscular HGB Conc 31 gm/dL (32-36); Mean Corpuscular Hemoglobin 28 pg (26-34); Mean Corpuscular Volume 88 fL (80-100); Monocytes Percent Auto 2.5 % (0.0-11.0); Neutrophils Percent Auto 78.5 % (42.0-72.0); Platelet Count* 252 K/uL (140-440); RDW Coefficient of Variation % 15.4 % (11.5-15.5); Red Blood Count* 5.06 m/uL (4.00-5.20); White Blood Count* 9.72 K/uL (4.50-11.00)
[2024-03-13 21:14] LABS: Slide Review Reflex No
[2024-03-13 21:18] LABS: Albumin* 4.9 g/dL (3.3-5.0)
[2024-03-13 21:19] LABS: Chloride* 100 mmol/L (96-114); Potassium* 4.5 mmol/L (3.6-5.1); Sodium* 138 mmol/L (135-149)
[2024-03-13 21:21] LABS: Anion Gap 15 mEq/L (7-15); Bilirubin Total* 0.7 mg/dL (0.1-1.5); Carbon Dioxide* 23 mmol/L (20-32); Creatinine* 0.9 mg/dL (0.5-1.5); Est. Creatinine Clearance* 57.17; Estimated Glomerular Filt Rate 76 ml/min
[2024-03-13 21:22] LABS: Alanine Aminotransferase* 107 U/L (4-35); Alkaline Phosphatase* 66 U/L (40-150); Aspartate Amino Transferase* 56 U/L (12-35); Blood Urea Nitrogen* 23 mg/dL (7-30); Calcium* 9.6 mg/dL (8.4-10.6); Glucose* 317 mg/dL (60-115); Lipase* 142 U/L (23-300); Total Protein* 8.4 g/dL (6.0-8.3)
[2024-03-13 21:37] VITALS: BP 113/57; PULSE 64; RESP 16; O2SAT 93
[2024-03-13 21:52] LABS: Troponin I* < 0.01 ng/mL (0.01-0.04)
== END 2024-03-13 22:54 | disposition home or self-care (01) ==
PROVIDERS: Emergency Provider Emergency Medicine
DX: R07.9 Chest pain, unspecified (principal); R10.12 Left upper quadrant pain; E11.65 Type 2 diabetes mellitus with hyperglycemia
CPT/HCPCS: 36415; 71046; 80053; 81001; 82947; 82962; 83690; 84484; 85025; 93005; 96374; 99283; 99284; J2405; J7030